=== PATIENT | female | born 1935 | race Caucasian/White ===

== ENCOUNTER → 2019-11-16 12:31 | Outpatient (BNVA) | payer MEDICARE, SELFPAY | PROVIDERS: Visit Provider Family Medicine | DX: E03.9 Hypothyroidism, unspecified (principal); I48.91 Unspecified atrial fibrillation; E11.9 Type 2 diabetes mellitus without complications; M94.0 Chondrocostal junction syndrome [Tietze]; E78.2 Mixed hyperlipidemia; I10 Essential (primary) hypertension; R07.89 Other chest pain | CPT/HCPCS: 80053; 80061; 83036; 84443; 85610 ==

== ENCOUNTER → 2020-03-24 11:00 | Outpatient (BNVA) | payer MEDICARE, SELFPAY | PROVIDERS: PCP Family Medicine; Visit Provider Family Medicine | DX: E11.9 Type 2 diabetes mellitus without complications (principal); E03.9 Hypothyroidism, unspecified; I48.11 Longstanding persistent atrial fibrillation; K21.9 Gastro-esophageal reflux disease without esophagitis; F41.9 Anxiety disorder, unspecified | CPT/HCPCS: 80053; 80061; 83036; 84443; 85610 ==

== ENCOUNTER → 2020-06-17 10:17 | Outpatient (BNVA) | payer MEDICARE, SELFPAY | PROVIDERS: PCP Family Medicine; Visit Provider Nurse Practitioner Family | DX: Z11.59 Encounter for screening for other viral diseases (principal) | CPT/HCPCS: 87635 ==

== ENCOUNTER → 2020-08-11 16:44 | Outpatient (BNVA) | payer MEDICARE, SELFPAY | PROVIDERS: PCP Family Medicine; Visit Provider Family Medicine | DX: E11.9 Type 2 diabetes mellitus without complications (principal); I48.11 Longstanding persistent atrial fibrillation; M54.9 Dorsalgia, unspecified | CPT/HCPCS: 80053; 80061; 81000; 83036; 84443; 85025; 85610 ==

== ENCOUNTER 2020-10-03 11:28 | Emergency (ER) | payer OTHER, SELFPAY ==
[2020-10-03] VITALS (10 sets, daily range): BP systolic 136–168; BP diastolic 78–97; PULSE 91–111; RESP 14–25; TEMP 36.8; O2SAT 88–95; BMI 20.7
--- NOTE | 2020-10-03 12:36 | XRR_ITS ---
PROCEDURE INFORMATION: Exam: XR Chest, 1 View Exam date and time: 10/03/2020 12:54 PM Age: 85 years old Clinical indication: Other: Palpitation TECHNIQUE: Imaging protocol: XR of the chest Views: 1 view. COMPARISON: CR Chest 1 [place] [id number] 01/16/2019 3:16 PM FINDINGS: Lungs: Left basilar opacities may represent lower lobe atelectasis or consolidation. Hazy interstitial infiltrate is present in the right base. Small pleural effusions blunt the costophrenic angles. These findings could be due to heart failure with mild interstitial edema. Superimposed lower lobe pneumonia is also a consideration. Pleural space: Small bilateral pleural effusions. Heart/Mediastinum: The cardiac silhouette is enlarged but unchanged. Bones/joints: Unremarkable. XR/XR chest 1V portable [id number] IMPRESSION: Bibasilar infiltrates and atelectasis with small effusions greater on the left side. Though this could be due to heart failure superimposed pneumonia is also a consideration.
--- NOTE | 2020-10-03 12:36 | ECG_ITS ---
[facility] Test Date: 2020-10-03 Pat Name: Linda Todd Department: Room: Gender: Female Sourcing Analyst: JEANNINE : 1935 Requested By: Bharat Ulloa I Order Number: [id number] Romelia MD: Daphne Tolliver M.D. Measurements Intervals [place] Rate: 119 P: WA: QRS: -39 QRSD: 89 T: 132 QT: 327 QTc: 461 Interpretive Statements ATRIAL FIBRILLATION WITH RAPID VENTRICULAR RESPONSE WITH ABERRANT CONDUCTION OR VENTRICULAR PREMATURE COMPLEXES MARKED LEFT AXIS DEVIATION [QRS AXIS < -30] POSSIBLE RIGHT VENTRICULAR CONDUCTION DELAY [RSR (QR) IN V1/V2] NONSPECIFIC ST & T-WAVE ABNORMALITY Compared to ECG 01/16/2019 13:59:23 Aberrant conduction of supraventricular beat(s) now present Ventricular premature complex(es) now present Left-axis deviation now present T-wave abnormality now present Right bundle-branch block no longer present Electronically Signed On 10-03-2020 17:22:52 PULLMAN CLERK by Daphne Tolliver M.D. [id number]
[2020-10-03 13:10] LABS: Basophils % 0.4 %; Eosinophils % 0.1 %; Hematocrit 43.7 % (37.0-47.0); Hemoglobin 13.8 g/dL (11.5-15.3); Lymphocytes # 1.2 10^3/uL (0.8-4.8); Lymphocytes % 14.7 %; Mean Corpuscular HGB Conc 31.6 g/dL (30.0-36.0); Mean Corpuscular Hemoglobin 31.9 pg (28.0-34.0); Mean Corpuscular Volume 101.2 fL (81-99); Mean Platelet Volume 11.4 fL (7.4-10.4); Monocytes # 0.7 10^3/uL (0.2-0.9); Monocytes % 8.6 %; Neutrophils # 6.05 10^3/uL (1.8-7.7); Neutrophils % 75.8 %; Nucleated Red Blood Cells % 0 %; Platelet Count 237 10^3/cmm (130-400); Red Blood Count 4.32 10^6/uL (4.1-5.3); Red Cell Distribution Width 13.5 % (12.1-15.1)
--- NOTE | 2020-10-03 13:15 | ED_ITS ---
HPI - Arrhythmia/Palpitations General: Chief Complaint: Arrhythmia/Palpitations Stated Complaint: HIGH BP Time Seen by Provider: 10/03/20 12:02 Source: patient and family Mode of arrival: ambulatory Limitations: no limitations History of Present Illness: HPI narrative: Mrs. Todd is an 85 year old female with a history of afib who has been having palpitations for about 3 days. She denies chest pain, but has some SOB. She denies a fever, cough, or dizziness. She called her prop making supervisor who advised that she come to the ED to be evaluated. MD complaint: rapid heart beat, palpitations and irregular heart beat Onset (ago): day(s) (3) Duration: constant Severity: moderate Context: occurred during rest Associated symptoms: Deny anxiety, cough, diaphoresis, muscle cramps, nausea, paresthesias, pre-syncope, sense of impending doom, short of breath, syncope or vomiting Review of Systems General: Reports: 10 or more systems reviewed and unremarkable except in HPI and below Const: Denies: diaphoresis Eyes: Denies: change in vision or blurry vision ENMT: Denies: throat pain, enlarged tonsils, odynophagia, hoarseness, mouth pain or swelling of lips/tongue Card: Denies: syncope or pre-syncope Resp: Denies: dyspnea, productive cough or non-productive cough GI: Denies: nausea or vomiting : Denies: flank pain, difficulty voiding, dysuria, urinary frequency, urinary urgency or urinary hesitancy Musc: Denies: muscle cramps Skin/Breast: Denies: rash, pruritus or erythema Neuro: Denies: headache(s), numbness in extremities or weakness in extremities Psych: Denies: anxiety Endo: Denies: polyuria, polydipsia or tired all the time [facility] ED PFSH: Medical History (Reviewed 10/03/20 @ 13:26 by Bharat Ulloa MD, [facility] [place]) Anxiety Atrial fibrillation CHF (congestive heart failure) CKD (chronic kidney disease) GERD (gastroesophageal reflux disease) Hearing loss in left ear History of DC (myocardial infarction) Hypothyroidism Perforated tympanic membrane Seasonal allergies Type 2 diabetes mellitus Surgical History (Reviewed 10/03/20 @ 13:26 by Bharat Ulloa MD, [facility] [place]) History of appendectomy History of bladder surgery S/P cataract extraction Family History (Reviewed 10/03/20 @ 13:26 by Bharat Ulloa MD, [facility] [place]) Mother Cancer skin CAD (coronary artery disease) Father CAD (coronary artery disease) Social History (Reviewed 10/03/20 @ 13:26 by Bharat Ulloa MD, [facility] [place]) Smoking and tobacco status: never smoked Second hand smoke exposure: No Alcohol intake: never Caregiver/support person: Yes Lives independently: Yes Marital status: / service: No Current occupational status: retired History of recent travel: No Current gender identity: Female Special an needs: No Physical Exam Const: COMMON NORMALS: no acute distress, average body habitus, patient oriented x3, no limitations, healthy appearing, alert and well nourished HENMT: COMMON NORMALS: normocephalic, atraumatic and moist oral mucous membranes HEAD & SCALP: normocephalic and atraumatic Neck/C-Spine: COMMON NORMALS: no meningeal signs and no JVD Resp: COMMON NORMALS: normal respiratory effort, No retractions, No use of accessory muscles, clear to auscultation bilaterally and percussion normal AUSCULTATION: clear to auscultation bilaterally PERCUSSION: percussion normal Cardio: COMMON NORMALS: no JVD, regular rate, regular rhythm, S1 normal heart sound present, S2 normal heart sound present, No gallops present (Cardio), No clicks present (Cardio), No murmurs present (Cardio), No rub (Cardio) and Peripheral pulses 2+ throughout RATE: regular rate RHYTHM: regular rhythm HEART SOUNDS: S1 normal heart sound present and S2 normal heart sound present PERIPHERAL PULSES: Peripheral pulses 2+ throughout GI: COMMON NORMALS: Normal to inspection, nondistended, normoactive bowel sounds present, Soft to palpation, non-tender, No hepatosplenomegaly present, no masses and no bruits PALPATION: Yes Soft to palpation and Yes No hepatosplenomegaly present Extremity: COMMON NORMALS: normal to inspection, full ROM, capillary refill normal, no calf tenderness and no pedal edema Neuro: COMMON NORMALS: patient oriented x3 SENSORIUM/ORIENTATION: Yes alert MENINGEAL SIGNS: Yes no meningeal signs Skin: COMMON NORMALS: no rashes or lesions noted, no wounds, turgor normal, no jaundice, no petechiae and no mottling GENERAL SKIN EXAM: no rashes or lesions noted and turgor normal Course Reevaluation(s): Reevaluation #1: Discussed her lab and imaging findings with the patient and her son who helps with her cares at home. Nothing acute on evaluation. She will start metoprolol at a low dose. She is not taking lasix and so she will start lasix at 20 mg daily. She is continue her other medications. They will call to schedule an appointment with her prop making supervisor and they are in agreement with the plan. Time: 16:10 Consultations: Consultation #1: Discussed this patient with her prop making supervisor, Dr. Sanderson. He advised that we will start her on metoprolol 12.5 mg twice daily, increase the dose of her Lasix, and needs to follow-up with his office in the next 2 to 3 days. She needs to call his office to schedule an appointment to be seen. Since her heart rate is controlled she is stable to be discharged home. Time: 16:00 Vital Signs: Vital signs: Vital Signs Temperature 98.3 F 10/03/20 11:57 Pulse Rate 99 10/03/20 17:03 Respiratory Rate 25 H 10/03/20 17:03 Blood Pressure 136/97 10/03/20 17:03 Pulse Oximetry 92 10/03/20 17:03 MDM - Arrhythmia/Palpitations MDM Narrative: Medical decision making narrative: 85 year old male with a history of afib presents to the ED with palpitations. On evaluation she was in afib with RVR and received a dose of IV diltiazem. SHe also appeared to be in CHF which is likely secondary to afib. After discussion with her prop making supervisor she is to start lasix and metoprolol and follow up with him in 2 to 3 days. Medical Records: Attestation: I reviewed the patient's medical records. Lab Data: Attestation: I reviewed the patient's lab results. Labs: Lab Results 10/03/20 10/03/20 10/03/20 Range/Units 12:21 12:21 12:21 WBC 8.0 (4.0-10.0) 10^3/ uL RBC 4.32 (4.1-5.3) 10^6/u L Hgb 13.8 (11.5-15.3) g/dL Hct 43.7 (37.0-47.0) % MCV 101.2 H (81-99) fL MCH 31.9 (28.0-34.0) pg MCHC 31.6 (30.0-36.0) g/dL RDW 13.5 (12.1-15.1) % Plt Count 237 (130-400) 10^3/c mm MPV 11.4 H (7.4-10.4) fL Neut % (Auto) 75.8 % Lymph % (Auto) 14.7 % [place] % (Auto) 8.6 % Eos % (Auto) 0.1 % Baso % (Auto) 0.4 % Neut # (Auto) 6.05 (1.8-7.7) 10^3/u L Lymph # (Auto) 1.2 (0.8-4.8) 10^3/u L [place] # (Auto) 0.7 (0.2-0.9) 10^3/u L Eos # (Auto) 0.0 (0.0-0.8) 10^3/u L Baso # (Auto) 0.0 (0.0-0.1) 10^3/u L Nucleated RBC % (a uto) 0 % Nucleated RBCs # 0.0 /100WBC PT 31.20 H (12.1-14.9) SECO NDS INR 2.88 H (0.8-1.2) D-Dimer <= 0.27 (0-0.59) ug/mIFE U Sodium 139 (136-145) mmol/L Potassium 4.4 (3.5-5.1) mmol/L Chloride 100 (98-107) mmol/L Carbon Dioxide 26 (22-29) mmol/L Anion Gap 17.4 (5-19) BUN 19 (8-23) mg/dL Creatinine 1.0 H (0.5-0.9) mg/dL GFR Calculation Not Reportable Glucose 138 H (65-115) mg/dL Calculated Osmolal ity 292 (285-295) mOsm/k g Calcium 9.3 (8.5-10.5) mg/dL Total Bilirubin 0.9 (0.15-1.2) mg/dL AST 18 (0-32) U/L ALT 10 (0-33) U/L Alkaline Phosphata se 84 (35-105) IU/L Troponin T Baselin e (0-10) ng/L Troponin T 120 Min [place] (0-10) ng/L Delta Troponin T (0-10) ABS# NT-Pro-B Natriuret Pep 6600 H (0-450) pg/mL Total Protein 6.5 L (6.6-8.7) g/dL Albumin 4.5 (3.5-5.2) g/dL Globulin 2.0 (1.3-4.6) g/dL TSH 4.05 (0.27-4.20) uIU/ mL Urine Color (Yellow) Urine Appearance (CLEAR) Urine pH (5-7) Ur Specific Gravit y (1.005-1.030) Urine Protein (Negative) Urine Glucose (UA) (Normal) Urine Ketones (Negative) Urine Blood (Negative) Urine Nitrate (Negative) Urine Bilirubin (Negative) Urine Urobilinogen (Negative) mg/dL Ur Leukocyte Shanna ase (Negative) Urine RBC (0-2) /hpf Urine WBC (0-5) /hpf Ur Squamous Epith Cells (0-5) /hpf Amorphous Sediment Urine Bacteria (NONE) /hpf Digoxin (0.6-1.2) ng/mL 10/03/20 10/03/20 10/03/20 Range/Units 12:21 13:55 14:41 WBC (4.0-10.0) 10^3/ uL RBC (4.1-5.3) 10^6/u L Hgb (11.5-15.3) g/dL Hct (37.0-47.0) % MCV (81-99) fL MCH (28.0-34.0) pg MCHC (30.0-36.0) g/dL RDW (12.1-15.1) % Plt Count (130-400) 10^3/c mm MPV (7.4-10.4) fL Neut % (Auto) % Lymph % (Auto) % [place] % (Auto) % Eos % (Auto) % Baso % (Auto) % Neut # (Auto) (1.8-7.7) 10^3/u L Lymph # (Auto) (0.8-4.8) 10^3/u L [place] # (Auto) (0.2-0.9) 10^3/u L Eos # (Auto) (0.0-0.8) 10^3/u L Baso # (Auto) (0.0-0.1) 10^3/u L Nucleated RBC % (a uto) % Nucleated RBCs # /100WBC PT (12.1-14.9) SECO NDS INR (0.8-1.2) D-Dimer (0-0.59) ug/mIFE U Sodium (136-145) mmol/L Potassium (3.5-5.1) mmol/L Chloride (98-107) mmol/L Carbon Dioxide (22-29) mmol/L Anion Gap (5-19) BUN (8-23) mg/dL Creatinine (0.5-0.9) mg/dL GFR Calculation Glucose (65-115) mg/dL Calculated Osmolal ity (285-295) mOsm/k g Calcium (8.5-10.5) mg/dL Total Bilirubin (0.15-1.2) mg/dL AST (0-32) U/L ALT (0-33) U/L Alkaline Phosphata se (35-105) IU/L Troponin T Baselin e 39 H (0-10) ng/L Troponin T 120 Min [place] 34.11 H (0-10) ng/L Delta Troponin T -4.89 L (0-10) ABS# NT-Pro-B Natriuret Pep (0-450) pg/mL Total Protein (6.6-8.7) g/dL Albumin (3.5-5.2) g/dL Globulin (1.3-4.6) g/dL TSH (0.27-4.20) uIU/ mL Urine Color Straw (Yellow) Urine Appearance Clear (CLEAR) Urine pH 6.5 (5-7) Ur Specific Gravit y 1.005 (1.005-1.030) Urine Protein Neg (Negative) Urine Glucose (UA) Norm (Normal) Urine Ketones Negative (Negative) Urine Blood 2+ H (Negative) Urine Nitrate Negative (Negative) Urine Bilirubin Neg (Negative) Urine Urobilinogen Norm (Negative) mg/dL Ur Leukocyte Shanna ase Trace H (Negative) Urine RBC 5-10 H (0-2) /hpf Urine WBC 5-10 H (0-5) /hpf Ur Squamous Epith Cells 0-4 H (0-5) /hpf Amorphous Sediment Not Reportable Urine Bacteria Trace (NONE) /hpf Digoxin (0.6-1.2) ng/mL 10/03/20 Range/Units 16:52 WBC (4.0-10.0) 10^3/ uL RBC (4.1-5.3) 10^6/u L Hgb (11.5-15.3) g/dL Hct (37.0-47.0) % MCV (81-99) fL MCH (28.0-34.0) pg MCHC (30.0-36.0) g/dL RDW (12.1-15.1) % Plt Count (130-400) 10^3/c mm MPV (7.4-10.4) fL Neut % (Auto) % Lymph % (Auto) % [place] % (Auto) % Eos % (Auto) % Baso % (Auto) % Neut # (Auto) (1.8-7.7) 10^3/u L Lymph # (Auto) (0.8-4.8) 10^3/u L [place] # (Auto) (0.2-0.9) 10^3/u L Eos # (Auto) (0.0-0.8) 10^3/u L Baso # (Auto) (0.0-0.1) 10^3/u L Nucleated RBC % (a uto) % Nucleated RBCs # /100WBC PT (12.1-14.9) SECO NDS INR (0.8-1.2) D-Dimer (0-0.59) ug/mIFE U Sodium (136-145) mmol/L Potassium (3.5-5.1) mmol/L Chloride (98-107) mmol/L Carbon Dioxide (22-29) mmol/L Anion Gap (5-19) BUN (8-23) mg/dL Creatinine (0.5-0.9) mg/dL GFR Calculation Glucose (65-115) mg/dL Calculated Osmolal ity (285-295) mOsm/k g Calcium (8.5-10.5) mg/dL Total Bilirubin (0.15-1.2) mg/dL AST (0-32) U/L ALT (0-33) U/L Alkaline Phosphata se (35-105) IU/L Troponin T Baselin e (0-10) ng/L Troponin T 120 Min [place] (0-10) ng/L Delta Troponin T (0-10) ABS# NT-Pro-B Natriuret Pep (0-450) pg/mL Total Protein (6.6-8.7) g/dL Albumin (3.5-5.2) g/dL Globulin (1.3-4.6) g/dL TSH (0.27-4.20) uIU/ mL Urine Color (Yellow) Urine Appearance (CLEAR) Urine pH (5-7) Ur Specific Gravit y (1.005-1.030) Urine Protein (Negative) Urine Glucose (UA) (Normal) Urine Ketones (Negative) Urine Blood (Negative) Urine Nitrate (Negative) Urine Bilirubin (Negative) Urine Urobilinogen (Negative) mg/dL Ur Leukocyte Shanna ase (Negative) Urine RBC (0-2) /hpf Urine WBC (0-5) /hpf Ur Squamous Epith Cells (0-5) /hpf Amorphous Sediment Urine Bacteria (NONE) /hpf Digoxin 0.7 (0.6-1.2) ng/mL Imaging Data^: CXR: Attestation: I personally reviewed and interpreted this imaging study as follows: Radiologist's impression: [address] [address] XRay Report Signed Patient: Linda Todd #: [id number] : 5Acct#:[id number] Age/Sex: 85 / FADM Date: 10/03/20 Loc: ERRoom/Bed: Attending Dr: Ordering Provider/Ordering MD: Bharat Ulloa MD, [facility] [place] Date of Service: 10/03/20 Procedure(s): XR chest 1V portable [id number] Accession Number(s): [id number] Report Number: [id number] PROCEDURE INFORMATION: Exam: XR Chest, 1 View Exam date and time: 10/03/2020 12:54 PM Age: 85 years old Clinical indication: Other: Palpitation TECHNIQUE: Imaging protocol: XR of the chest Views: 1 view. COMPARISON: CR Chest 1 [place] [id number] 01/16/2019 3:16 PM FINDINGS: Lungs: Left basilar opacities may represent lower lobe atelectasis or consolidation. Hazy interstitial infiltrate is present in the right base. Small pleural effusions blunt the costophrenic angles. These findings could be due to heart failure with mild interstitial edema. Superimposed lower lobe pneumonia is also a consideration. Pleural space: Small bilateral pleural effusions. Heart/Mediastinum: The cardiac silhouette is enlarged but unchanged. Bones/joints: Unremarkable. XR/XR chest 1V portable [id number] IMPRESSION: Bibasilar infiltrates and atelectasis with small effusions greater on the left side. Though this could be due to heart failure superimposed pneumonia is also a consideration. Dictated By:Juan Ramon Baker Signed By:Juan Ramon BakerSiabdon Date/Time:10/03/20 1302 DD/ 1300 EKG Data^: EKG 1: Attestation: I personally reviewed and interpreted this EKG as follows: EKG interpretation date: 10/03/20 EKG interpretation time: 11:56 Prior EKG tracings: available for review Interpretation: A. fib with RVR. Heart rate 119 bpm. Left axis deviation. No ST changes. Other EKG comments: Chest X-Ray 10/03/20 12:36 IMPRESSION: Bibasilar infiltrates and atelectasis with small effusions greater on the left side. Though this could be due to heart failure superimposed pneumonia is also a consideration. EKG 2: Attestation: I personally reviewed and interpreted this EKG as follows: EKG interpretation date: 10/03/20 EKG interpretation time: 14:28 Prior EKG tracings: available for review Interpretation: Atrial fibrillation with RVR. Heart rate 1 1 bpm. Left axis deviation. No ST changes. Other EKG comments: Chest X-Ray 10/03/20 12:36 IMPRESSION: Bibasilar infiltrates and atelectasis with small effusions greater on the left side. Though this could be due to heart failure superimposed pneumonia is also a consideration. Discharge Plan Discharge Patient Disposition: Home Clinical Impression: CHF (congestive heart failure) Qualifiers: Heart failure type: unspecified Heart failure chronicity: chronic Qualified Code(s): I50.9 - Heart failure, unspecified Atrial fibrillation Qualifiers: Atrial fibrillation type: unspecified Qualified Code(s): I48.91 - Unspecified atrial fibrillation Condition: Stable Prescriptions: New metoprolol tartrate 25 mg tablet 12.5 mg PO BID Qty: 30 RF: 0 Continued aspirin [Adult Low Dose Aspirin] 81 mg tablet,delayed release (DR/EC) 81 mg PO DAILY@0800 RF: 0 pantoprazole 40 mg tablet,delayed release (DR/EC) 40 mg PO DAILY@0800 RF: 0 cetirizine 10 mg tablet 5 mg PO DAILY@0800 PRN (Reason: Allergy Symptoms) RF: 0 docusate sodium [Stool Softener] 100 mg capsule 100 mg PO DAILY PRN (Reason: Constipation) RF: 0 (DME) blood-glucose meter Kit See Rx Instructions .ROUTE .MEDSUPPLY Qty: 1 RF: 0 blood sugar diagnostic [True Metrix Glucose Test Strip] Strip See Rx Instructions .ROUTE .COMPLEX Qty: 100 RF: 0 lancets [TRUEplus Lancets] 30 gauge misc See Rx Instructions .ROUTE .COMPLEX Qty: 100 RF: 0 losartan 50 mg tablet 50 mg PO DAILY@0800 RF: 0 buspirone 5 mg tablet 5 mg PO TID@08,12,18 RF: 0 atorvastatin 20 mg tablet 20 mg PO DAILY@0800 RF: 0 diltiazem HCl 240 mg capsule,extended release 24 hr 240 mg PO DAILY@0800 RF: 0 potassium chloride 10 mEq tablet extended release 10 meq PO DAILY@0800 RF: 0 glipizide 2.5 mg tablet extended release 24hr 2.5 mg PO DAILY@0800 RF: 0 levothyroxine 50 mcg tablet 50 mcg PO DAILY@0800 RF: 0 warfarin 2 mg tablet 4 mg PO DAILY@1800 RF: 0 digoxin 125 mcg (0.125 mg) tablet 62.5 mcg PO DAILY@1800 RF: 0 Changed furosemide 20 mg tablet 20 mg PO DAILY Qty: 30 RF: 0 Discharge Orders: Discharge ED (Routine); Ordered 10/03/20 Ordered By: Bharat Ulloa Referrals: Radha Sanderson MD [Physician] - 1-3 days Vicki Lao MD [Primary Care Provider] - 4-7 days Patient Instructions: Heart Failure (ED), Atrial Fibrillation (ED) Activity Restrictions/Additional Instructions: Return for any new or worsening symptoms. Follow up with your prop making supervisor, Dr. Sanderson within 3 days. He wants you to call his office to schedule an appointment. Take the new medication as prescribed. Start taking the lasix every day and not as needed. Coding Level of Care Code ED Profile Grinder for Tisha Thomas Exam Comprehensive
[2020-10-03 13:21] LABS: Troponin(5th) Baseline 39 ng/L (0-10)
[2020-10-03 13:29] LABS: Alanine Aminotransferase 10 U/L (0-33); Albumin Level 4.5 g/dL (3.5-5.2); Alkaline Phosphatase 84 IU/L (35-105); Anion Gap 17.4 (5-19); Aspartate Amino Transferase 18 U/L (0-32); Blood Urea Nitrogen 19 mg/dL (8-23); Calcium 9.3 mg/dL (8.5-10.5); Carbon Dioxide 26 mmol/L (22-29); Chloride 100 mmol/L (98-107); Glucose 138 mg/dL (65-115); NT Pro B Type Natriuretic Pept 6600 pg/mL (0-450); Osmolality Calculated 292 mOsm/kg (285-295); Potassium 4.4 mmol/L (3.5-5.1); Sodium 139 mmol/L (136-145); Thyroid Stimulating Hormone 4.05 uIU/mL (0.27-4.20); Total Bilirubin 0.9 mg/dL (0.15-1.2); Total Protein 6.5 g/dL (6.6-8.7)
[2020-10-03 13:39] LABS: INR 2.88 (0.8-1.2)
[2020-10-03 13:41] LABS: D Dimer <= 0.27 ug/mIFEU (0-0.59)
[2020-10-03 14:27] LABS: Add Urine Microscopic? YES; Bilirubin Urine Neg (Negative); Blood Urine 2+ (Negative); Glucose Urine UA Norm (Normal); Ketones Urine Negative (Negative); Leukocyte Esterase Urine Trace (Negative); Nitrate Urine Negative (Negative); Protein Urine Neg (Negative); Specific Gravity, Urine 1.005 (1.005-1.030); Urine Appearance Clear (CLEAR); Urine Color Straw (Yellow); Urobilinogen Urine Norm (Negative); pH Urine 6.5 (5-7)
--- NOTE | 2020-10-03 14:36 | ECG_ITS ---
[facility] Test Date: 2020-10-03 Pat Name: Linda Todd Department: Room: Gender: Female Community Director: : 1935 Requested By: Bharat Ulloa I Order Number: [id number] Romelia MD: Daphne Tolliver M.D. Measurements Intervals [place] Rate: 101 P: IN: QRS: -37 QRSD: 94 T: 104 QT: 327 QTc: 424 Interpretive Statements ATRIAL FIBRILLATION WITH RAPID VENTRICULAR RESPONSE WITH ABERRANT CONDUCTION OR VENTRICULAR PREMATURE COMPLEXES LEFT AXIS DEVIATION [QRS AXIS < -30] INCOMPLETE RIGHT BUNDLE BRANCH BLOCK ST DEVIATION AND MODERATE T-WAVE ABNORMALITY, CONSIDER LATERAL ISCHEMIA Compared to ECG 10/03/2020 11:55:55 Incomplete right bundle-branch block now present Possible ischemia now present T-wave abnormality still present Electronically Signed On 10-03-2020 17:29:51 REAL ESTATE LEASING AGENT by Daphne Tolliver M.D. [id number] f
[2020-10-03 14:41] LABS: Bacteria Urine TRACE /hpf; Squamous Epithelial Cell Urine 0-4 /hpf (0-5)
[2020-10-03 14:42] LABS: Add Urine Culture? No
[2020-10-03 15:44] LABS: Troponin 5 2HR 34.11 ng/L (0-10)
[2020-10-03] MEDS: FUROsemide 10 mg/mL SDV 4mL 40 MG IVP (16:11)
[2020-10-03] MEDS: metoprolol tartrate 25 mg Tablet 12.5 MG PO (16:48)
[2020-10-03 19:02] LABS: Digoxin 0.7 ng/mL (0.6-1.2)
== END 2020-10-03 17:05 | disposition home or self-care (01) ==
PROVIDERS: Emergency Provider Family Medicine; PCP Family Medicine
DX: I50.9 Heart failure, unspecified (principal); I48.91 Unspecified atrial fibrillation; Z79.01 Long term (current) use of anticoagulants; Z79.82 Long term (current) use of aspirin; Z79.84 Long term (current) use of oral hypoglycemic drugs; I25.2 Old myocardial infarction; E11.9 Type 2 diabetes mellitus without complications
CPT/HCPCS: 12345; 36415; 71045; 80053; 80162; 81001; 83880; 84443; 84484; 85025; 85378; 85610; 93005; 96374; 96375; 99282; 99284; J1940; J3490

== ENCOUNTER 2020-12-23 19:09 | Emergency (ER) | payer OTHER, SELFPAY ==
[2020-12-23 19:13] VITALS: BP 177/112; PULSE 136; RESP 18; TEMP 36.6; O2SAT 92; BMI 19.9
--- NOTE | 2020-12-23 19:14 | CTR_ITS ---
PROCEDURE INFORMATION: Exam: CT Head Without Contrast Exam date and time: 12/23/2020 7:23 PM Age: 85 years old Clinical indication: Patient HX: Dizziness with n/v; Additional info: Dizzy TECHNIQUE: Imaging protocol: Computed tomography of the head without contrast. Radiation optimization: All CT scans at this facility use at least one of these dose optimization techniques: automated exposure control; mA and/or kV adjustment per patient size (includes targeted exams where dose is matched to clinical indication); or iterative reconstruction. COMPARISON: CT head wo con* [id number] 01/16/2019 4:31 PM RADIATION DOSE METRICS: Total DLP (mGy-cm): 925.71 FINDINGS: Brain: Mild to moderate cerebral atrophy and ischemic leukoencephalopathy. Cerebral ventricles: No ventriculomegaly. Bones/joints: Unremarkable. No acute fracture. Paranasal sinuses: Visualized sinuses are unremarkable. No fluid levels. Mastoid air cells: Visualized mastoid air cells are well aerated. Vasculature: Severe calcified intracranial atherosclerotic vessel disease. Soft tissues: Unremarkable. CT/CT head wo con* [id number] IMPRESSION: No acute intracranial findings. Radiation Dose CTDIVOL = (mGy): DLP = 925.71 (mGy-cm)
--- NOTE | 2020-12-23 19:14 | ECG_ITS ---
[facility] Test Date: 2020-12-23 Pat Name: Linda Todd Department: Room: Gender: Female Special Education Professional: : 1935 Requested By: Milton Wilburn Order Number: [id number] Romelia MD: Bharati Garcia M.D. Measurements Intervals [place] Rate: 121 P: CT: QRS: -17 QRSD: 98 T: 103 QT: 336 QTc: 478 Interpretive Statements ATRIAL FIBRILLATION WITH RAPID VENTRICULAR RESPONSE INCOMPLETE RIGHT BUNDLE BRANCH BLOCK [90+ ms QRS DURATION, TERMINAL R IN V1/V2, 40+ ms S IN I/aVL/V4/V5/V6] MODERATE ST DEPRESSION [0.05+ mV ST DEPRESSION] ABNORMAL QRS-T ANGLE [QRS-T AXIS DIFFERENCE > 60] Compared to ECG 10/03/2020 14:27:58 ST (T wave) deviation now present Aberrant conduction of supraventricular beat(s) no longer present Ventricular premature complex(es) no longer present Left-axis deviation no longer present T-wave abnormality no longer present Possible ischemia no longer present Electronically Signed On 12-24-2020 20:21:12 CDT by Bharati Garcia M.D. [id number]
--- NOTE | 2020-12-23 19:20 | W.ED.NAVMDI ---
HPI - Nausea/Vomiting/Diarrhea General: Chief complaint: Nausea/Vomiting/Diarrhea Stated complaint: dizzy and nausea Time Seen by Provider: 12/23/20 19:11 Source: patient and EMS Mode of arrival: EMS Limitations: no limitations History of Present Illness: HPI Narrative: 85-year-old female states that today she is been having dizziness especially with sudden movements. She states this made her feel nauseous and she has vomited. She states she has had vertigo multiple times in the past. She also has a history of atrial fibrillation. She denies any headache. Denies any fever. Is much worse with sudden movements and improved with rest. Associated nausea: Yes Associated symtoms: Reports dizziness and nausea; Denies chest pain, dysuria or headache(s) Review of Systems Const: Denies: fever(s), chills, body aches or change in appetite Eyes: Denies: blurry vision or eye discomfort ENMT: Denies: throat pain or dental pain Card: Denies: chest pain Resp: Denies: dyspnea GI: Reports: nausea and vomiting; Denies: abdominal pain or diarrhea : Denies: dysuria Musc: Denies: neck pain or back pain Skin/Breast: Denies: rash Neuro: Reports: dizziness; Denies: headache(s) Psych: Denies: depression Nick/Lymph: Denies: easy bruising All/Imm: Denies: urticaria PFSH ED PFSH: Medical History Anxiety Atrial fibrillation CHF (congestive heart failure) CKD (chronic kidney disease) GERD (gastroesophageal reflux disease) Hearing loss in left ear History of [place] (myocardial infarction) Hypothyroidism Perforated tympanic membrane Seasonal allergies Type 2 diabetes mellitus Surgical History History of appendectomy History of bladder surgery S/P cataract extraction Family History Mother Cancer skin CAD (coronary artery disease) Father CAD (coronary artery disease) Social History Smoking and tobacco status: never smoked Second hand smoke exposure: No Alcohol intake: never Caregiver/support person: Yes Lives independently: Yes Marital status: / service: No Current occupational status: retired History of recent travel: No Current gender identity: Female Special an needs: No Physical Exam Const: COMMON NORMALS: no acute distress, patient oriented x3 and healthy appearing HENMT: COMMON NORMALS: normocephalic and atraumatic HEAD & SCALP: normocephalic and atraumatic Eye: COMMON NORMALS: Equal, round and reactive pupils present and EOMs intact bilaterally PUPIL: Yes Equal, round and reactive pupils present Neck/C-Spine: COMMON NORMALS: full ROM and supple Chest: COMMONS NORMALS: normal inspection of the chest and normal palpation of entire chest wall Resp: COMMON NORMALS: normal respiratory effort, No retractions, No use of accessory muscles and clear to auscultation bilaterally AUSCULTATION: clear to auscultation bilaterally Cardio: COMMON NORMALS: No murmurs present (Cardio) RATE: tachycardic RHYTHM: abnormal rhythm irregularly irregular GI: COMMON NORMALS: Normal to inspection, nondistended, normoactive bowel sounds present, Soft to palpation, non-tender and no masses PALPATION: Yes Soft to palpation Extremity: COMMON NORMALS: normal to inspection and full ROM Neuro: COMMON NORMALS: patient oriented x3, moves all extremities and no focal motor deficits CRANIAL NERVES: Yes CN normal except as noted SPEECH: speech normal GAIT: Yes Normal gait present MOTOR EXAM: 5/5 motor strength present throughout Psych: COMMON NORMALS: mental status grossly normal, Normal thought process present and cooperative THOUGHT PROCESS: Normal thought process present Skin: COMMON NORMALS: no rashes or lesions noted and no wounds GENERAL SKIN EXAM: no rashes or lesions noted Course Vital Signs: Vital signs: Vital Signs Temperature 97.8 F 12/23/20 19:13 Pulse Rate 95 12/23/20 20:52 Respiratory Rate 18 12/23/20 20:52 Blood Pressure 142/90 12/23/20 20:52 Pulse Oximetry 93 12/23/20 20:52 MDM - Nausea/Vomiting/Diarrhea MDM Narrative: Medical decision making narrative: Linda presents here with dizziness is likely benign vertigo. She feels much improved here after meclizine was able ambulate without any difficulty. She is in A. fib here and has a history of A. fib her heart rate is improving. I did recommend admission here she still had some tachycardia. She refused and states she feels much improved and would like to go home as she is staying with her daughter here in [place]. We will discharge her and prescribe her meclizine and Zofran for home. She is to return if worsening. Lab Data: Labs: Lab Results 12/23/20 12/23/20 Range/Units 19:20 19:20 WBC 12.1 H (4.0-10.0) 10^3/ uL RBC 4.30 (4.1-5.3) 10^6/u L Hgb 13.9 (11.5-15.3) g/dL Hct 43.1 (37.0-47.0) % MCV 100.2 H (81-99) fL MCH 32.3 (28.0-34.0) pg MCHC 32.3 (30.0-36.0) g/dL RDW 13.6 (12.1-15.1) % Plt Count 227 (130-400) 10^3/c mm MPV 10.9 H (7.4-10.4) fL Neut % (Auto) 87.6 % Lymph % (Auto) 8.0 % [place] % (Auto) 3.8 % Eos % (Auto) 0.1 % Baso % (Auto) 0.2 % Neut # (Auto) 10.54 H (1.8-7.7) 10^3/u L Lymph # (Auto) 1.0 (0.8-4.8) 10^3/u L [place] # (Auto) 0.5 (0.2-0.9) 10^3/u L Eos # (Auto) 0.0 (0.0-0.8) 10^3/u L Baso # (Auto) 0.0 (0.0-0.1) 10^3/u L Nucleated RBC % (a uto) 0 % Nucleated RBCs # 0.0 /100WBC Sodium 137 (136-145) mmol/L Potassium 4.0 (3.5-5.1) mmol/L Chloride 96 L (98-107) mmol/L Carbon Dioxide 27 (22-29) mmol/L Anion Gap 18.0 (5-19) BUN 28 H (8-23) mg/dL Creatinine 1.0 H (0.5-0.9) mg/dL GFR Calculation Not Reportable Glucose 163 H (65-115) mg/dL Calculated Osmolal ity 293 (285-295) mOsm/k g Calcium 9.4 (8.5-10.5) mg/dL Total Bilirubin 0.9 (0.15-1.2) mg/dL AST 20 (0-32) U/L ALT 11 (0-33) U/L Alkaline Phosphata se 77 (35-105) IU/L Total Protein 7.6 (6.6-8.7) g/dL Albumin 4.4 (3.5-5.2) g/dL Globulin 3.2 (1.3-4.6) g/dL EKG Data^: EKG 1: Attestation: I personally reviewed and interpreted this EKG as follows: EKG interpretation date: 12/23/20 EKG interpretation time: 19:31 Interpretation: afib with rvr hr [address] or t wave abnormalities qrs 98 qtc 408 Discharge Plan Discharge Patient Disposition: Home Clinical Impression: Atrial fibrillation, Vertigo Condition: Stable Prescriptions: New ondansetron 4 mg tablet,disintegrating 4 mg PO Q6H PRN (Reason: nausea and vomiting) Qty: 14 RF: 0 meclizine 25 mg tablet 25 mg PO TID PRN (Reason: dizziness) Qty: 30 RF: 0 No Action aspirin [Adult Low Dose Aspirin] 81 mg tablet,delayed release (DR/EC) 81 mg PO DAILY@0800 RF: 0 pantoprazole 40 mg tablet,delayed release (DR/EC) 40 mg PO DAILY@0800 RF: 0 cetirizine 10 mg tablet 5 mg PO DAILY@0800 PRN (Reason: Allergy Symptoms) RF: 0 docusate sodium [Stool Softener] 100 mg capsule 100 mg PO DAILY PRN (Reason: Constipation) RF: 0 (DME) blood-glucose meter Kit See Rx Instructions .ROUTE .MEDSUPPLY Qty: 1 RF: 0 blood sugar diagnostic [True Metrix Glucose Test Strip] Strip See Rx Instructions .ROUTE .COMPLEX Qty: 100 RF: 0 lancets [TRUEplus Lancets] 30 gauge misc See Rx Instructions .ROUTE .COMPLEX Qty: 100 RF: 0 metoprolol tartrate 25 mg tablet 12.5 mg PO BID Qty: 30 RF: 2 furosemide 20 mg tablet 20 mg PO DAILY Qty: 30 RF: 2 glipizide 2.5 mg tablet extended release 24hr See Rx Instructions .ROUTE .COMPLEX Qty: 30 RF: 1 levothyroxine 50 mcg tablet 50 mcg PO DAILY@0800 Qty: 90 RF: 0 diltiazem HCl 180 mg capsule,extended release 24 hr 180 mg PO DAILY Qty: 30 RF: 3 potassium chloride 10 mEq tablet extended release See Rx Instructions .ROUTE .COMPLEX Qty: 60 RF: 2 buspirone 5 mg tablet See Rx Instructions .ROUTE .COMPLEX Qty: 90 RF: 1 losartan 50 mg tablet 50 mg PO DAILY@0800 RF: 0 atorvastatin 20 mg tablet 20 mg PO DAILY@0800 RF: 0 warfarin 2 mg tablet 4 mg PO DAILY@1800 RF: 0 digoxin 125 mcg (0.125 mg) tablet 62.5 mcg PO DAILY@1800 RF: 0 Discharge Orders: Discharge ED (Routine); Ordered 12/23/20 Ordered By: Milton Wilburn Referrals: Vicki Lao MD [Primary Care Provider] - 1-3 days Discharge Diet: Advance as tolerated Discharge Activity: Resume usual activity Patient Instructions: Vertigo (ED) Coding Level of Care Code ED Assembler Convertible Top for Jeremiahg Fwd Exam Comprehensive
[2020-12-23] MEDS: ondansetron 2 mg/ML SDV 2 mL 4 MG IVP (19:29)
[2020-12-23] MEDS: sodium chloride 0.9% 1,000 ML 999 ML IV (19:29)
[2020-12-23] MEDS: meclizine 25 mg tablet 50 MG PO (19:35)
[2020-12-23 19:44] LABS: Basophils % 0.2 %; Eosinophils % 0.1 %; Hematocrit 43.1 % (37.0-47.0); Hemoglobin 13.9 g/dL (11.5-15.3); Mean Corpuscular HGB Conc 32.3 g/dL (30.0-36.0); Mean Corpuscular Hemoglobin 32.3 pg (28.0-34.0); Mean Corpuscular Volume 100.2 fL (81-99); Mean Platelet Volume 10.9 fL (7.4-10.4); Monocytes # 0.5 10^3/uL (0.2-0.9); Monocytes % 3.8 %; Neutrophils # 10.54 10^3/uL (1.8-7.7); Neutrophils % 87.6 %; Nucleated Red Blood Cells % 0 %; Platelet Count 227 10^3/cmm (130-400); Red Cell Distribution Width 13.6 % (12.1-15.1); White Blood Count 12.1 10^3/uL (4.0-10.0)
[2020-12-23 20:04] VITALS: BP 161/85; PULSE 115; RESP 14; O2SAT 92
[2020-12-23 20:04] LABS: Alanine Aminotransferase 11 U/L (0-33); Albumin Level 4.4 g/dL (3.5-5.2); Alkaline Phosphatase 77 IU/L (35-105); Aspartate Amino Transferase 20 U/L (0-32); Blood Urea Nitrogen 28 mg/dL (8-23); Calcium 9.4 mg/dL (8.5-10.5); Carbon Dioxide 27 mmol/L (22-29); Chloride 96 mmol/L (98-107); Globulin 3.2 g/dL (1.3-4.6); Glucose 163 mg/dL (65-115); Osmolality Calculated 293 mOsm/kg (285-295); Sodium 137 mmol/L (136-145); Total Bilirubin 0.9 mg/dL (0.15-1.2); Total Protein 7.6 g/dL (6.6-8.7)
[2020-12-23 20:52] VITALS: BP 142/90; PULSE 95; RESP 18; O2SAT 93
== END 2020-12-23 20:54 | disposition home or self-care (01) ==
PROVIDERS: Emergency Provider Emergency Medicine; PCP Family Medicine
DX: I48.91 Unspecified atrial fibrillation (principal); R42 Dizziness and giddiness; Z79.82 Long term (current) use of aspirin; Z79.01 Long term (current) use of anticoagulants; I11.0 Hypertensive heart disease with heart failure; I50.9 Heart failure, unspecified; I25.2 Old myocardial infarction; E11.9 Type 2 diabetes mellitus without complications
CPT/HCPCS: 70450; 80053; 85025; 93005; 96361; 96374; 96375; 96376; 99284; J2405; J3490; J7030; J8597

== ENCOUNTER 2021-02-24 12:42 | Inpatient (IN) | payer MEDICARE, SELFPAY ==
[2021-02-24] VITALS (8 sets, daily range): BP systolic 107–161; BP diastolic 85–112; PULSE 95–122; RESP 16–21; TEMP 37.1; O2SAT 93–96; BMI 20.7
--- NOTE | 2021-02-24 13:07 | XR_ITS ---
WS: [id number] Right hip, 2 views, 02/24/2021 Clinical Data: pain Comparison: None. Findings: There is a fracture across the right femoral neck as it joins the femoral head. No displacement is seen. There is an acetabular lip. The adjacent right pelvis is intact. The soft ti ssues are unremarkable. XR/XR hip RT 2-3V wo/w pel* [id number] Impression: Slightly impacted fracture of right femoral neck into the right femoral head. Tonnis classification: grade 1: sclerosis of femoral head and acetabulum or sli ght joint space narrowing or slight lipping at joint margins
--- NOTE | 2021-02-24 13:07 | XR_ITS ---
WS: [id number] Right shoulder, 3 views, 02/24/2021 Clinical Data: pain Comparison: Right shoulder, 01/29/2012. Findings: No fractures or dislocations are seen. The AC joint shows mild osteoarthritis. The adjacent right cla vicle, right scapula and ribs are normal. The soft tissues are unremarkable. There is minimal osteoarthritic change of the shoulder joint. XR/XR shoulder RT min 2V* [id number] Impression: 1. Negative for right shoulder fracture or dislocation. 2. Minimal osteoarthritic change of the right shoulder joint and AC joint.
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
--- NOTE | 2021-02-24 13:38 | ECG_ITS ---
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: : 1935 Requested By: Keith Ray Order Number: [id number] Reading MD: ORA RAMIREZ Measurements Intervals [place] Rate: 108 P: AL: QRS: -35 QRSD: 94 T: 101 QT: 324 QTc: 436 Interpretive Statements ATRIAL FIBRILLATION WITH RAPID VENTRICULAR RESPONSE MARKED LEFT AXIS DEVIATION [QRS AXIS < -30] INCOMPLETE RIGHT BUNDLE BRANCH BLOCK [90+ ms QRS DURATION, TERMINAL R IN V1/V2, 40+ ms S IN I/aVL/V4/V5/V6] NONSPECIFIC ST & T-WAVE ABNORMALITY Compared to ECG 12/23/2020 19:31:57 Left-axis deviation now present T-wave abnormality now present ST (T wave) deviation no longer present Electronically Signed On 02-25-2021 20:21:47 CDT by ORA RAMIREZ [email or web address]
--- NOTE | 2021-02-24 13:38 | XR_ITS ---
WS: [id number] Portable AP supine chest, 02/24/2021 Clinical Data: dyspnea/cough Comparison: Portable chest, 10/03/2020. Findings: No nodules or masses are seen. There is left basilar opacity which may represent atelectasi s and or consolidation. The right lung is clear. The heart is normal. The pulmonary vascularity is no t increased. No pneumonia or pneumothorax is seen. The aortic arch shows calcification with minimal t ortuosity. There are monitor leads over the chest wall. XR/XR chest 1V portable [id number] Impression: 1. Left lower lobe opacity which may represent a combination of atelectasis and consolidation. 2. Atherosclerosis.
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
[2021-02-24 15:27] LABS: Urine Appearance Hazy (CLEAR); Urine Color Yellow (Yellow)
[2021-02-24 15:28] LABS: Add Urine Microscopic? YES; Bilirubin Urine Neg (Negative); Blood Urine 2+ (Negative); Glucose Urine UA Norm (Normal); Ketones Urine Negative (Negative); Leukocyte Esterase Urine Negative (Negative); Nitrate Urine Negative (Negative); Protein Urine Neg (Negative); Sulfosalicylic Acid Urine Negative (Negative); Urobilinogen Urine Norm (Negative); pH Urine 7 (5-7)
[2021-02-24 15:29] LABS: Add Urine Culture? No; Bacteria Urine TRACE /hpf; RBC Urine 0-4 /hpf (0-2); Squamous Epithelial Cell Urine 0-4 /hpf (0-5)
[2021-02-24 16:14] LABS: Basophils % 0.2 %; Eosinophils % 0.2 %; Hematocrit 38.2 % (37.0-47.0); Hemoglobin 12.9 g/dL (11.5-15.3); Lymphocytes % 7.7 %; Mean Corpuscular HGB Conc 33.8 g/dL (30.0-36.0); Mean Corpuscular Hemoglobin 32.3 pg (28.0-34.0); Mean Corpuscular Volume 95.7 fL (81-99); Mean Platelet Volume 10.8 fL (7.4-10.4); Monocytes # 0.9 10^3/uL (0.2-0.9); Monocytes % 6.9 %; Neutrophils # 10.57 10^3/uL (1.8-7.7); Neutrophils % 84.6 %; Nucleated Red Blood Cells % 0 %; Platelet Count 207 10^3/cmm (130-400); Red Blood Count 3.99 10^6/uL (4.1-5.3); Red Cell Distribution Width 12.2 % (12.1-15.1); White Blood Count 12.5 10^3/uL (4.0-10.0)
[2021-02-24 16:25] LABS: Alanine Aminotransferase 12 U/L (0-33); Albumin Level 4.1 g/dL (3.5-5.2); Alkaline Phosphatase 73 IU/L (35-105); Aspartate Amino Transferase 21 U/L (0-32); Blood Urea Nitrogen 27 mg/dL (8-23); Calcium 8.8 mg/dL (8.5-10.5); Carbon Dioxide 26 mmol/L (22-29); Chloride 100 mmol/L (98-107); Digoxin 0.8 ng/mL (0.6-1.2); Globulin 2.7 g/dL (1.3-4.6); Glucose 107 mg/dL (65-115); Osmolality Calculated 292 mOsm/kg (285-295); Sodium 138 mmol/L (136-145); Total Bilirubin 1.1 mg/dL (0.15-1.2); Total Protein 6.8 g/dL (6.6-8.7)
[2021-02-24 16:37] LABS: INR 2.74 (0.8-1.2)
[2021-02-24 16:38] LABS: Partial Thromboplastin Time 43.8 SECONDS (23.9-36.7)
[2021-02-24 16:47] LABS: Anion Gap 16.2 (5-19); Potassium 4.2 mmol/L (3.5-5.1)
[2021-02-24] MEDS: acetaminophen 325 mg Tablet PO (18:13)
[2021-02-24] MEDS: metoprolol tartrate 50 mg Tablet PO (18:28)
--- NOTE | 2021-02-24 19:10 | P.CONIM_ITS ---
Providers/Reason For Consult Consulting Physician/Specialty*: hospitalist Reason for Consult*: right femoral neck fracture Attending Physician: Miladys Regalado Primary Care Provider: Vicki Lao MD History of Present Illness History of Present Illness Linda Todd is a 85 year old femalepast medical history significant for hypertension, hyperlipidemia, chronic stage 3 kidney disease, gastroesophageal reflux disease, hypothyroidism, diabetes mellitus type 2, chronic AFib, chronic systolic heart failure with last known EF of 48%, presented to the hospital after sustaining a mechanical fall. Laboratory workup on arrival was pending Imaging studies included a hip and pelvic x-ray which showed varus impacted fracture of the right femoral neck into the right femoral head. Review of Systems Const: Denies: fever(s), chills, body aches, change in appetite, fatigue or malaise ENMT: Denies: enlarged tonsils Card: Denies: chest pain or lightheadedness Resp: Denies: dyspnea, productive cough or non-productive cough GI: Denies: abdominal pain : Denies: hematuria Musc: Denies: neck pain or joint warmth Neuro: Reports: difficulty walking; Denies: headache(s), vertigo or confusion All/Imm: Denies: acute wheezing Meds/Allergies Home Medications and Allergies Home Medications Medication Instructions Recorded Confirmed Last Taken Type aspirin 81 mg tablet,delayed 81 mg PO DAILY@0800 11/16/19 02/24/21 02/24/21 History release cetirizine 10 mg tablet 5 mg PO DAILY@0800 PRN 11/16/19 02/24/21 10/03/20 History pantoprazole 40 mg tablet,delayed 40 mg PO DAILY@0800 11/16/19 02/24/21 02/24/21 History release docusate sodium 100 mg capsule 100 mg PO DAILY PRN 12/01/19 02/24/21 Unknown History blood-glucose meter #1 each 04/11/20 02/24/21 Unknown Rx blood sugar diagnostic See Rx Instructions .ROUTE 07/04/20 02/24/21 Unknown Rx .COMPLEX #100 each lancets 30 gauge See Rx Instructions .ROUTE 07/04/20 02/24/21 Unknown Rx .COMPLEX #100 each digoxin 62.5 mcg PO DAILY@1800 10/03/20 02/24/21 02/24/21 History losartan 50 mg PO DAILY@0800 0102/24/21 02/24/21 History meclizine 25 mg PO TID PRN #30 tab 12/23/20 02/24/21 Unknown Rx atorvastatin 20 mg tablet 20 mg PO DAILY@0800 #30 tab 02/07/21 02/24/21 02/24/21 Rx warfarin 2 mg tablet 4 mg PO DAILY@1800 #60 tab 02/07/21 02/24/21 02/23/21 Rx buspirone 5 mg PO TID@08,12,18 02/24/21 02/24/21 02/24/21 History diltiazem HCl 180 mg PO DAILY@0800 02/24/21 02/24/21 02/24/21 History furosemide 20 mg PO DAILY@0800 02/24/21 02/24/21 02/24/21 History glipizide 2.5 mg PO DAILY 02/24/21 02/24/21 02/24/21 History levothyroxine 25 mcg PO BID@0800,1800 02/24/21 02/24/21 02/24/21 History metoprolol tartrate 12.5 mg PO BID@0800,1800 02/24/21 02/24/21 02/24/21 History potassium chloride 10 meq PO BID@0800,1800 02/24/21 02/24/21 02/24/21 History Allergies Allergy/AdvReac Type Severity Reaction Status Date / Time Penicillins Allergy Unknown Unknown Verified 10/10/20 08:36 PFSH Acute PFSH: Medical History Anxiety Atrial fibrillation CHF (congestive heart failure) CKD (chronic kidney disease) GERD (gastroesophageal reflux disease) Hearing loss in left ear History of UT (myocardial infarction) Hypothyroidism Perforated tympanic membrane Seasonal allergies Type 2 diabetes mellitus Surgical History History of appendectomy History of bladder surgery S/P cataract extraction Family History Mother Cancer skin CAD (coronary artery disease) Father CAD (coronary artery disease) Social History Smoking and tobacco status: never smoked Second hand smoke exposure: No Alcohol intake: never Caregiver/support person: Yes Lives independently: Yes Marital status: / service: No Current occupational status: retired History of recent travel: No Current gender identity: Female Special an needs: No Dietary Habits: Current diet type/program: regular Caffeine: Yes Vitals/I&O/Wt Last Vital Signs Temp 98.7 F 02/24/21 12:50 Pulse 122 H 02/24/21 15:10 Resp 18 02/24/21 15:10 BP 107/85 02/24/21 15:10 Pulse Ox 96 02/24/21 15:10 Weight last 48 hrs Weight 140 lb Physical Exam Narrative: EXAM NARRATIVE: CONSTITUTIONAL: The patient is a normal appearing [] in no apparent distress. GENERAL: Patient in no acute distress. CARDIAC: Regular rate and rhythm. CHEST: Normal inspiratory effort, normal respiratory rate. ABDOMEN: Soft and nontender. SKIN: Clear, warm and intact. NEURO?PSYCH: The patient is alert and oriented to person, place and time. Sensorv /SILT Motor StrengthShoulder abduction C5 5/5Wrist extension C6 5/5Elbow extension C7 5/5Hand Bottled Beverage Inspector C8 5/5Finger abduction T15/5 Radial/ Ulnar/ Median n intact LowerSensory (SILT)Motor StrengthHin flexion L2/3Ant/inner thigh 5/5Hip adduction L2/3 5/5Knee extension L4 Lat thigh, 5/5Toe dorsiflexion L5 5/5Ankle dorsiflexion L5/ W25Pirqmkv flexion S1 5/5 DTRBleeps 2+Triceps 2+Brachioradialis 2+Patellar 2+Achilles 2+ MUSCULOSKELETAL: [] UPPEREXTREMITIES: The patient had full active ROM in fingers, wrist, elbow, and shoulder. The patient demonstrated ability to fully flex/extend/abduct/adduct fingers, make ok sign, cross 2nd/3rd digits, extend 1st digit fully.. Radial pulse 2+, CR<2 seconds. LOWER EXTREMITIES: Pt has full, active ROM of toes, ankle, knee, and hip. Dorsalis pedis/posterior tibialis pulses 2+, CR<2 seconds. SPINE: Skin warm, dry, intact. A&P Assessment and plan (1) Subcapital fracture of right hip: Right hip josiah arthroplasty Status: Acute Consult Attestations Medical Necessity Statement: needs hip fixed Coding Level of Care Code Acute Watch Train Assembler for [facility] F[employer] Diagnoses Subcapital fracture of right hip S72.011A
[2021-02-24 20:24] LABS: Glucose Point of Care 125 mg/dL (70-110)
--- NOTE | 2021-02-24 20:28 | PC.NURSE ---
Patient received to floor ~1900 via stretcher. Transferred to bed x4 assist. Patient tolerated well. Patient denies pain to site but would like something prior to sleep so pain does not waker her up. Light snack provided at this time. Dr Ngo has been in to see patient and is planning for surgery to right hip 02/25/21 at 0800. Patient and daughter Leonarda both verbalized understanding. Daughter planning on returning to patient's bedside around [address] Ngo request.
[2021-02-24] MEDS: sodium chloride 0.9% 1,000 ML 100 ML IV (21:09)
[2021-02-24] MEDS: morphine 4 mg/mL SDV 1 mL IVP (21:09)
[2021-02-24] MEDS: metoprolol tartrate 1 mg/1 mL SDV 5 mL 5 MG IV (21:10)
[2021-02-25] VITALS (31 sets, daily range): BP systolic 111–148; BP diastolic 64–108; PULSE 92–149; RESP 12–28; TEMP 36.6–37; O2SAT 85–100
--- NOTE | 2021-02-25 04:29 | PC.NURSE ---
Patient c/o sore throat this morning. Informed Dr Regalado and received telephone order for Cepacol Lozenges PO q2h PRN. RBVO
[2021-02-25] MEDS: cetylpyridinium Lozenge 1 EACH MUCOUS MEM (04:36)
[2021-02-25] MEDS: sodium chloride 0.9% 1,000 ML 100 ML IV (04:37)
[2021-02-25] MEDS: morphine 4 mg/mL SDV 1 mL IVP (04:43)
--- NOTE | 2021-02-25 06:26 | PC.NURSE ---
Pedal pulses marked and hibiclens wipes used.
[2021-02-25 06:48] LABS: Basophils % 0.2 %; Eosinophils # 0.1 10^3/uL (0.0-0.8); Eosinophils % 1.1 %; Hematocrit 39.8 % (37.0-47.0); Hemoglobin 12.8 g/dL (11.5-15.3); Lymphocytes # 1.1 10^3/uL (0.8-4.8); Lymphocytes % 11.3 %; Mean Corpuscular HGB Conc 32.2 g/dL (30.0-36.0); Mean Corpuscular Hemoglobin 32.3 pg (28.0-34.0); Mean Corpuscular Volume 100.5 fL (81-99); Mean Platelet Volume 11.3 fL (7.4-10.4); Monocytes # 0.9 10^3/uL (0.2-0.9); Monocytes % 8.7 %; Neutrophils # 7.63 10^3/uL (1.8-7.7); Neutrophils % 78.4 %; Nucleated Red Blood Cells % 0 %; Platelet Count 194 10^3/cmm (130-400); Red Blood Count 3.96 10^6/uL (4.1-5.3); Red Cell Distribution Width 12.1 % (12.1-15.1); White Blood Count 9.7 10^3/uL (4.0-10.0)
[2021-02-25 07:02] LABS: INR 2.36 (0.8-1.2)
--- NOTE | 2021-02-25 07:09 | PM.PN ---
Subjective Subjective: Interval history: Patient seen to be feeling pretty good this morning. No significant pain. No chest pain or shortness of breath. Her heart rate was in the 80s to 90s through most of the night. When she woke up this morning it is up in the 110s 120s. She states that this is pretty normal for her though. She actually is feeling pretty good and pretty spry this morning. Her INR was 2.7 yesterday. It is still pending this morning. No fevers or chills. Vitals/I&O/Wt Last Vital Signs Temp 98.5 F 02/25/21 04:54 Pulse 122 H 02/25/21 05:35 Resp 19 H 02/25/21 04:54 BP 143/92 02/25/21 04:54 Pulse Ox 95 02/24/21 20:33 02/24/21 02/25/21 02/25/21 22:59 06:59 14:59 Intake Total 240 / 986.667 746.667 / 986.667 Output Total 1350 / 1750 400 / 1750 Balance -1110 / -763.333 346.667 / -763.333 Weight last 48 hrs Weight 140 lb Physical Exam Narrative: EXAM NARRATIVE: General: No acute distress, Alert. Well nourished. Heart: Regular rate and rhythm. No murmurs, rubs or gallops. Normal capillary refill. Lungs: Clear to auscultation. No wheezes, rhonchi or rales. Abdomen: Positive bowel sounds. Non-tender, non-distended. No hepatosplenomegaly. No gaurding. Extremities: No clubbing, cyanosis, or edema. Negative Lindsay's Data : 02/25/21 06:28 02/24/21 15:59 A&P Assessment and plan (1) Subcapital fracture of right hip: Appreciate Dr. Ngo consultation. We will await INR results this morning. Depending on the results she is otherwise cleared to proceed from my standpoint. Status: Acute (2) History of coronary artery disease: Stable Status: Acute (3) Atrial fibrillation: She has been a bit tachycardic may get more aggressive with beta-blockers if needed. Coumadin being held at this time. Status: Acute (4) Type 2 diabetes mellitus: Stable. Will monitor her blood sugar Status: Acute (5) Hypothyroidism: Status: Acute (6) CHF (congestive heart failure): Stable. Status: Acute Attestations Medical Necessity Statement*: Patient is an 85-year-old female with right hip fracture after a fall. She is going to require repair of this right hip fracture. She will need to be in for over 24 hours for normal surgery and postoperative care. Coding Level of Care Code Acute Rent And Miscellaneous Remittance Clerk for Tisha Thomas Diagnoses Subcapital fracture of right hip S72.011A History of coronary artery disease Z86.79 Atrial fibrillation I48.91 Type 2 diabetes mellitus E11.9 Hypothyroidism E03.9 CHF (congestive heart failure) I50.9
[2021-02-25 07:10] LABS: Alanine Aminotransferase 13 U/L (0-33); Albumin Level 3.9 g/dL (3.5-5.2); Alkaline Phosphatase 73 IU/L (35-105); Anion Gap 14.9 (5-19); Aspartate Amino Transferase 19 U/L (0-32); Blood Urea Nitrogen 22 mg/dL (8-23); Calcium 8.5 mg/dL (8.5-10.5); Carbon Dioxide 26 mmol/L (22-29); Chloride 100 mmol/L (98-107); Globulin 2.5 g/dL (1.3-4.6); Glucose 141 mg/dL (65-115); Osmolality Calculated 290 mOsm/kg (285-295); Potassium 3.9 mmol/L (3.5-5.1); Sodium 137 mmol/L (136-145); Total Bilirubin 1.2 mg/dL (0.15-1.2); Total Protein 6.4 g/dL (6.6-8.7)
--- NOTE | 2021-02-25 07:38 | W.PM.OPSUD ---
Surgery/Procedure H&P Update DATE OF PROCEDURE: February 25, 2021 DATE H&P PERFORMED: 02/24/21 H&P UPDATE INFORMATION: I have reviewed H&P completed within last 30 days, I have examined patient prior to procedure and No changes to prior documentation PLANNED PROCEDURE: Operation Date: 02/25/21 08:00 Proposed Procedures p Hemiarthroplasty Hip(Right) - Srikanth Ngo DO
[2021-02-25] MEDS: metoprolol tartrate 1 mg/1 mL SDV 5 mL 5 MG IV (07:45)
--- NOTE | 2021-02-25 07:45 | P.ANESASSM_ITS ---
Pre-Anesthetic Assessment Pre-Anesthetic Assessment: Height/Weight: Height 1.75 m Weight 63.503 kg Temp Pulse Resp BP Pulse Ox 98.5 F 122 H 19 H 143/92 95 02/25/21 04:54 02/25/21 05:35 02/25/21 04:54 02/25/21 04:54 02/24/21 20:33 Preop Diagnosis: hip fracture Proposed Procedure: Operation Date: 02/25/21 08:00 Proposed Procedures p Hemiarthroplasty Hip(Right) - Srikanth Ngo DO Familial anesthetic complications: none Was Beta Joel taken within 24 hours: Yes Was Clonidine taken within 24 hours: N/A Last intake: NPO > 8 hrs Social: Social History: No alcohol and No tobacco Exam: Pre-Anes Outpt Exam: alert, oriented x 3 and clear to auscultation bilaterally Additional Exam Findings (including area of procedure): a fib w/ RVR, treating with IV metoprolol Airway: Cervical ROM: WNL MP: 2 Dentition: False CV/HEM: CV/HEM: Afib, CAD and CHF : : Chronic renal Insufficiency GI: GI: GERD Metabolic: Metabolic: DM and Thyroid Anesthetic Plan: ASA status: 4 Anesthesia: General Risk of > 500 ml blood loss (7ml/kg in children): No Meds/Allergies Current Medications: Current Medications Generic Name Dose Route Start Last Admin Trade Name Freq PRN Reason Stop Dose Admin Benzocaine 1 each 02/25/21 04:28 02/25/21 04:36 Cetylpyridinium Lozenge MUCOUS MEM 1 each Q2H PRN Administration SORE THROAT Sodium Chloride 1,000 mls @ 100 m ls/hr 02/24/21 20:28 02/25/21 04:37 Sodium Chloride 0.9% IV 100 mls/hr .Q10H ELOINA Administration Morphine Sulfate 4 mg 02/24/21 20:28 02/25/21 04:43 Morphine 4 Mg/Ml Sdv 1 Ml IVP 4 mg Q4H PRN Administration SEVERE PAIN PFSH Anesthesia PFSH: Medical History Anxiety Atrial fibrillation CHF (congestive heart failure) CKD (chronic kidney disease) GERD (gastroesophageal reflux disease) Hearing loss in left ear History of AR (myocardial infarction) Hypothyroidism Perforated tympanic membrane Seasonal allergies Type 2 diabetes mellitus Surgical History History of appendectomy History of bladder surgery S/P cataract extraction Family History Mother Cancer skin CAD (coronary artery disease) Father CAD (coronary artery disease) Social History Smoking and tobacco status: never smoked Second hand smoke exposure: No Alcohol intake: never Caregiver/support person: Yes Lives independently: Yes Marital status: / service: No Current occupational status: retired History of recent travel: No Current gender identity: Female Special an needs: No Data Anesthesia CBC & Chem 7: 02/25/21 06:28 02/25/21 06:28 Other Labs: Laboratory Results - last 48 hr 02/24/21 02/24/21 02/24/21 15:01 15:59 15:59 WBC 12.5 H RBC 3.99 L Hgb 12.9 Hct 38.2 MCV 95.7 MCH 32.3 MCHC 33.8 RDW 12.2 Plt Count 207 MPV 10.8 H Neut % (Auto) 84.6 Lymph % (Auto) 7.7 [place] % (Auto) 6.9 Eos % (Auto) 0.2 Baso % (Auto) 0.2 Neut # (Auto) 10.57 H Lymph # (Auto) 1.0 [place] # (Auto) 0.9 Eos # (Auto) 0.0 Baso # (Auto) 0.0 Nucleated RBC % (auto) 0 Nucleated RBCs # 0.0 PT 29.50 H INR 2.74 H APTT 43.8 H Sodium Potassium Chloride Carbon Dioxide Anion Gap BUN Creatinine GFR Calculation Glucose POC Glucose Calculated Osmolality Calcium Total Bilirubin AST ALT Alkaline Phosphatase Total Protein Albumin Globulin Urine Color Yellow Urine Appearance Hazy A Urine pH 7 Ur Specific [place] 1.010 Urine Protein Neg Urine Glucose (UA) Norm Urine Ketones Negative Urine Blood 2+ H Urine Nitrate Negative Urine Bilirubin Neg Prot Sulfosalicylic Acd Negative Urine Urobilinogen Norm Ur Leukocyte Esterase Negative Urine RBC 0-4 H Urine WBC None Ur Squamous Epith Cells 0-4 H Amorphous Sediment Not Reportable Urine Bacteria Trace Digoxin 02/24/21 02/24/21 02/25/21 15:59 20:17 06:28 WBC 9.7 RBC 3.96 L Hgb 12.8 Hct 39.8 MCV 100.5 H D MCH 32.3 MCHC 32.2 RDW 12.1 Plt Count 194 MPV 11.3 H Neut % (Auto) 78.4 Lymph % (Auto) 11.3 [place] % (Auto) 8.7 Eos % (Auto) 1.1 Baso % (Auto) 0.2 Neut # (Auto) 7.63 Lymph # (Auto) 1.1 [place] # (Auto) 0.9 Eos # (Auto) 0.1 Baso # (Auto) 0.0 Nucleated RBC % (auto) 0 Nucleated RBCs # 0.0 PT INR APTT Sodium 138 Potassium 4.2 Chloride 100 Carbon Dioxide 26 Anion Gap 16.2 BUN 27 H Creatinine 0.9 GFR Calculation Not Reportable Glucose 107 POC Glucose 125 H Calculated Osmolality 292 Calcium 8.8 Total Bilirubin 1.1 AST 21 ALT 12 Alkaline Phosphatase 73 Total Protein 6.8 Albumin 4.1 Globulin 2.7 Urine Color Urine Appearance Urine pH Ur Specific [place] Urine Protein Urine Glucose (UA) Urine Ketones Urine Blood Urine Nitrate Urine Bilirubin Prot Sulfosalicylic Acd Urine Urobilinogen Ur Leukocyte Esterase Urine RBC Urine WBC Ur Squamous Epith Cells Amorphous Sediment Urine Bacteria Digoxin 0.8 02/25/21 02/25/21 06:28 06:28 WBC RBC Hgb Hct MCV MCH MCHC RDW Plt Count MPV Neut % (Auto) Lymph % (Auto) [place] % (Auto) Eos % (Auto) Baso % (Auto) Neut # (Auto) Lymph # (Auto) [place] # (Auto) Eos # (Auto) Baso # (Auto) Nucleated RBC % (auto) Nucleated RBCs # PT 26.30 H INR 2.36 H APTT Sodium 137 Potassium 3.9 Chloride 100 Carbon Dioxide 26 Anion Gap 14.9 BUN 22 Creatinine 0.9 GFR Calculation Not Reportable Glucose 141 H POC Glucose Calculated Osmolality 290 Calcium 8.5 Total Bilirubin 1.2 AST 19 ALT 13 Alkaline Phosphatase 73 Total Protein 6.4 L Albumin 3.9 Globulin 2.5 Urine Color Urine Appearance Urine pH Ur Specific [place] Urine Protein Urine Glucose (UA) Urine Ketones Urine Blood Urine Nitrate Urine Bilirubin Prot Sulfosalicylic Acd Urine Urobilinogen Ur Leukocyte Esterase Urine RBC Urine WBC Ur Squamous Epith Cells Amorphous Sediment Urine Bacteria Digoxin Cardiac Studies: No Data to Display
[2021-02-25] MEDS: clindamycin 600 MG/50 ML PREMIX 100 MG IV (08:00)
--- NOTE | 2021-02-25 09:37 | PM.OP ---
Operative Report Date of procedure: February 25, 2021 Pre-op Diagnosis: hip fracture right femoral neck Post-op diagnosis: same Procedure Done: Right hip hemiarthroplasty Surgeon: Srikanth Ngo Anesthesia: General Estimated blood loss (mL): 50 Condition: stable Disposition: PACU Procedure: Right hip hemiarthroplasty Patient was brought to the operative suite. After undergoing anesthesia patient was placed in the lateral decubitus position with the right hip up. All areas of impingement were well-padded. Patient was then prepped and draped in normal sterile fashion. Skin incision made over the right hip. Bovie was used to coagulate any bleeding down to the IT band. IT band was split. Retractors were placed. The anterior capsule and part of abductors were taken down using the modified Calles approach. Femoral neck was exposed. Femoral neck cut was made approximately a fingerbreadth above the lesser trochanter. The femoral head was then removed. Measured to be 48. Attention was then brought to the femur. filler leaf cutter long was used at the tip of the greater trochanter. Canal finder was used. The canal was then broached to a size 7 Acumed stem. The Acumed stem was placed. A size 48 - 4 neck length and head were placed. Once the hip was reduced is trialed in all positions and stepdown to be stable. The knee and foot lengths were equal. Wounds were irrigated and closed with FiberWire 0 Vicryl 2-0 Vicryl and laura. Sterile dressings were applied and patient was transferred to the PACU in stable condition.
--- NOTE | 2021-02-25 10:00 | PC.NURSE ---
Patient off unit to surgery from 729 to 944.
--- NOTE | 2021-02-25 10:00 | ANE.PACU2 ---
Inpatient post-anesthesia follow up: Airway intact: Yes Vital signs: Temperature 99.0 F Pulse Rate [Monito r] 119 Pulse Rate 102 Respiratory Rate 14 Blood Pressure [Le ft Arm] 150/109 Blood Pressure 118/75 Pulse Oximetry 95 Oxygen Delivery Me thod Room Air Oxygen Flow Rate 2 Fraction of Inspir ed Oxygen Hydration adequate: Yes Nausea and vomiting: No Pain level: 3 Mental status: Baseline
[2021-02-25] MEDS: ondansetron 2 mg/ML SDV 2 mL 4 MG IVP (10:31)
[2021-02-25] MEDS: morphine 4 mg/mL SDV 1 mL 2 MG IVP (10:32)
[2021-02-25 11:31] LABS: Glucose Point of Care 156 mg/dL (70-110)
[2021-02-25] MEDS: BuSPIRONE 10 mg Tablet 5 MG PO ×2 (13:55→17:28)
--- NOTE | 2021-02-25 14:00 | PC.NURSE ---
Phone call to Dr. Hurd regarding patient's HR of 120-130 Requested order to give patient's cardiac meds earlier than scheduled. (1800). Aprproval to give digoxin, cardizem ER and metoprolol now.
[2021-02-25] MEDS: digoxin 125 mcg Tablet 62.5 MCG PO (14:17)
[2021-02-25] MEDS: metoprolol tartrate 25 mg Tablet 12.5 MG PO (14:17)
[2021-02-25] MEDS: dilTIAZem ER (24HR) 180 mg Capsule PO (14:17)
[2021-02-25 16:45] LABS: Glucose Point of Care 248 mg/dL (70-110)
--- NOTE | 2021-02-25 17:10 | PC.NURSE ---
Phone call to Dr. Hurd regarding patient's continued high HR 110-115 . Received order for one time dose metoprolol 25mg now. Verified with physician to hold warfarin tonight and resume tomorrow.
[2021-02-25] MEDS: metoprolol tartrate 25 mg Tablet PO (17:28)
[2021-02-25] MEDS: potassium chloride ER 10 mEq Tablet PO (17:29)
[2021-02-25] MEDS: HYDROcodone-acetaminophen 5-325 mg Tablet 1 TAB PO (17:37)
--- NOTE | 2021-02-25 19:38 | PC.NURSE ---
Received bedside report from RABIA Hollis. Patient resting in bed with daughter at bedside. Daughter reports patient seems more forgetful this evening. Instructed on post anesthesia. Patient and daughter both verbalized understanding. Patient is s/p right hip surgery. Island dressing in place to right hip remain c,d,i. No drainage observed with minimal swelling. Patient denies pain to site presently. No other distress observed.
--- NOTE | 2021-02-25 21:08 | PC.NURSE ---
Patient has increased confusion tonight. Attempting to get out of bed and remove telemetry, iv and edwards. Provided redirection for now however patient has increased agitation. Bed alarm set. Will continue to monitor.
--- NOTE | 2021-02-25 22:01 | PC.NURSE ---
Patient resting with eyes closed. Even respirations. No indication of pulling at lines presently.
[2021-02-26] VITALS (12 sets, daily range): BP systolic 103–122; BP diastolic 65–85; PULSE 82–114; RESP 18–24; TEMP 36.9–37.2; O2SAT 89–98
--- NOTE | 2021-02-26 01:07 | PC.NURSE ---
Patient resting comfortably. Even respirations observed. No distress noted.
[2021-02-26 06:33] LABS: Glucose Point of Care 177 mg/dL (70-110)
--- NOTE | 2021-02-26 07:22 | PM.PN ---
Subjective Subjective: Interval history: Overall patient seems to be doing well pain in her hip is well controlled. She has no chest pain or shortness of breath. She denies any fevers or chills. She got up yesterday with physical therapy without any significant difficulty. Her A. fib was a little rapid yesterday but metoprolol helped control this. Seems to be improving some today. Medications: Reviewed: Yes Vitals/I&O/Wt Last Vital Signs Temp 98.9 F 02/26/21 03:10 Pulse 113 H 02/26/21 06:54 Resp 22 H 02/26/21 06:54 BP 107/85 02/26/21 06:54 Pulse Ox 98 02/26/21 06:54 02/25/21 02/26/21 02/26/21 22:59 06:59 14:59 Intake Total 1360 / 2110 240 / 2110 Output Total 625 / 1075 350 / 1075 Balance 735 / 1035 -110 / 1035 Weight last 48 hrs Weight 140 lb Physical Exam Narrative: EXAM NARRATIVE: General: No acute distress, Alert. Well nourished. Heart: A. fib with a rapid rate. No murmurs, rubs gallops. Normal capillary refill. Lungs: Clear to auscultation. No wheezes, rhonchi or rales. Abdomen: Positive bowel sounds. Non-tender, non-distended. No hepatosplenomegaly. No gaurding. Extremities: No clubbing, cyanosis, or edema. Negative Lindsay's Data : 02/25/21 06:28 02/25/21 06:28 A&P Assessment and plan (1) Subcapital fracture of right hip: - Postop day 1 -Overall the patient is doing well. Continue current postoperative care. Patient would like to be sent home at the time of discharge with home health And physical therapy at home. She has family that can stay with her. Status: Acute (2) History of coronary artery disease: Stable Status: Acute (3) Atrial fibrillation: This is been running a little fast. We will increase her metoprolol. Continue to monitor. Status: Acute (4) Type 2 diabetes mellitus: Stable. Will monitor her blood sugar Status: Acute (5) Hypothyroidism: Status: Acute (6) CHF (congestive heart failure): Stable. Status: Acute Attestations Medical Necessity Statement*: This is an 85-year-old female with a right hip fracture status post repair postop day 1. She requires continued hospitalization for normal postoperative care. Coding Level of Care Code Acute Residency Director for [facility] Fwd Diagnoses Subcapital fracture of right hip S72.011A History of coronary artery disease Z86.79 Atrial fibrillation I48.91 Type 2 diabetes mellitus E11.9 Hypothyroidism E03.9 CHF (congestive heart failure) I50.9
[2021-02-26] MEDS: aspirin 81 mg EC Tablet PO (08:37)
[2021-02-26] MEDS: atorvastatin 40 mg Tablet 20 MG PO (08:37)
[2021-02-26] MEDS: potassium chloride ER 10 mEq Tablet PO ×2 (08:38→17:34)
[2021-02-26] MEDS: levothyroxine 50 mcg Tablet 25 MCG PO (08:38)
[2021-02-26] MEDS: metoprolol tartrate 25 mg Tablet PO ×2 (08:39→17:35)
[2021-02-26] MEDS: pantoprazole DR 40 mg Tablet PO (08:39)
[2021-02-26] MEDS: FUROsemide 20 mg Tablet PO (08:39)
[2021-02-26] MEDS: dilTIAZem ER (24HR) 180 mg Capsule PO (08:40)
[2021-02-26] MEDS: BuSPIRONE 10 mg Tablet 5 MG PO ×3 (08:40→17:48)
[2021-02-26] MEDS: HYDROcodone-acetaminophen 5-325 mg Tablet 1 TAB PO (08:49)
[2021-02-26 11:03] LABS: Glucose Point of Care 211 mg/dL (70-110)
--- NOTE | 2021-02-26 12:12 | PM.PN ---
Subjective Subjective: Interval history: pt resting comfortably Vitals/I&O/Wt Last Vital Signs Temp 98.9 F 02/26/21 03:10 Pulse 114 H 02/26/21 08:10 Resp 20 H 02/26/21 08:03 BP 107/85 02/26/21 06:54 Pulse Ox 96 02/26/21 08:03 02/25/21 02/26/21 02/26/21 22:59 06:59 14:59 Intake Total 1360 / 1870 240 / 2110 120 / 120 Output Total 625 / 725 350 / 1075 Balance 735 / 1145 -110 / 1035 120 / 120 Weight last 48 hrs Weight 140 lb Physical Exam Narrative: EXAM NARRATIVE: resting in bed Data : 02/25/21 06:28 02/25/21 06:28 A&P Assessment and plan (1) Subcapital fracture of right hip: POD#1 Right Hip hemiarthrplasty WBAT Status: Acute Attestations Medical Necessity Statement*: pain control and therapy Coding Level of Care Code Acute Clinical Psychologist for Tisha Thomas Diagnoses Subcapital fracture of right hip S72.011A
[2021-02-26] MEDS: warfarin 2 mg Tablet 4 MG PO (17:34)
[2021-02-26] MEDS: digoxin 125 mcg Tablet 62.5 MCG PO (17:35)
[2021-02-27] VITALS (11 sets, daily range): BP systolic 90–118; BP diastolic 58–78; PULSE 82–135; RESP 14–26; TEMP 36.4–37.6; O2SAT 91–98
[2021-02-27 05:01] LABS: Basophils % 0.3 %; Eosinophils # 0.1 10^3/uL (0.0-0.8); Eosinophils % 0.6 %; Hematocrit 30.8 % (37.0-47.0); Hemoglobin 9.7 g/dL (11.5-15.3); Lymphocytes # 1.3 10^3/uL (0.8-4.8); Lymphocytes % 11.6 %; Mean Corpuscular HGB Conc 31.5 g/dL (30.0-36.0); Mean Corpuscular Hemoglobin 33.2 pg (28.0-34.0); Mean Corpuscular Volume 105.5 fL (81-99); Monocytes # 1.4 10^3/uL (0.2-0.9); Monocytes % 13.3 %; Neutrophils # 7.97 10^3/uL (1.8-7.7); Neutrophils % 73.8 %; Nucleated Red Blood Cells % 0 %; Platelet Count 153 10^3/cmm (130-400); Red Blood Count 2.92 10^6/uL (4.1-5.3); Red Cell Distribution Width 12.6 % (12.1-15.1); White Blood Count 10.8 10^3/uL (4.0-10.0)
[2021-02-27 05:40] LABS: Anion Gap 14.4 (5-19); Blood Urea Nitrogen 26 mg/dL (8-23); Calcium 8.1 mg/dL (8.5-10.5); Carbon Dioxide 25 mmol/L (22-29); Chloride 102 mmol/L (98-107); Glucose 160 mg/dL (65-115); Osmolality Calculated 292 mOsm/kg (285-295); Potassium 4.4 mmol/L (3.5-5.1); Sodium 137 mmol/L (136-145)
[2021-02-27 06:47] LABS: Glucose Point of Care 171 mg/dL (70-110)
--- NOTE | 2021-02-27 07:57 | PC.SOCIAL ---
IMM Update Pg. 2 of IMM updated and reviewed with patient, who verbalized understanding. Copy provided.
--- NOTE | 2021-02-27 08:51 | P.PN_ITS ---
Subjective Subjective: Interval history: reting comfortably Vitals/I&O/Wt Last Vital Signs Temp 98.0 F 02/27/21 07:29 Pulse 135 H 02/27/21 07:29 Resp 16 02/27/21 07:29 BP 112/78 02/27/21 07:29 Pulse Ox 94 02/27/21 07:29 02/26/21 02/27/21 02/27/21 22:59 06:59 14:59 Intake Total 220 / 460 120 / 120 Output Total 690 / 690 350 / 1040 Balance -470 / -230 -350 / -580 120 / 120 Physical Exam Narrative: EXAM NARRATIVE: resting comfortably Data : 02/27/21 04:17 02/27/21 04:17 A&P Additional A&P Information POD# 2 hip josiah arthroplasty d/c planing OK to d/c from ortho stand point Attestations Medical Necessity Statement*: pain control Coding Level of Care Code Acute Control Specialist for Tisha Thomas
[2021-02-27] MEDS: pantoprazole DR 40 mg Tablet PO (08:53)
[2021-02-27] MEDS: atorvastatin 40 mg Tablet 20 MG PO (08:53)
[2021-02-27] MEDS: dilTIAZem ER (24HR) 180 mg Capsule PO (08:53)
[2021-02-27] MEDS: BuSPIRONE 10 mg Tablet 5 MG PO ×3 (08:53→18:12)
[2021-02-27] MEDS: potassium chloride ER 10 mEq Tablet PO ×2 (08:53→18:13)
[2021-02-27] MEDS: FUROsemide 20 mg Tablet PO (08:54)
[2021-02-27] MEDS: metoprolol tartrate 25 mg Tablet PO ×2 (08:54→18:13)
[2021-02-27] MEDS: levothyroxine 50 mcg Tablet 25 MCG PO (08:54)
[2021-02-27] MEDS: aspirin 81 mg EC Tablet PO (08:55)
[2021-02-27 11:32] LABS: Glucose Point of Care 247 mg/dL (70-110)
--- NOTE | 2021-02-27 12:23 | P.PN_ITS ---
Subjective Subjective: Interval history: Patient was seen and examined this morning. Telemetry showed A. fib with RVR: Rate in 120s-130s. She denied any chest pain, shortness of breath , nausea vo miting, dizziness. Overall she is doing fine. Medications: Reviewed: Yes Vitals/I&O/Wt Last Vital Signs Temp 98.0 F 02/27/21 11:27 Pulse 96 02/27/21 11:27 Resp 22 H 02/27/21 11:27 BP 102/58 02/27/21 11:27 Pulse Ox 96 02/27/21 11:27 02/26/21 02/27/21 02/27/21 22:59 06:59 14:59 Intake Total 220 / 460 120 / 120 Output Total 690 / 690 350 / 1040 Balance -470 / -230 -350 / -580 120 / 120 Physical Exam HENMT: COMMON NORMALS: normocephalic and atraumatic HEAD & SCALP: normocephalic and atraumatic Chest: COMMONS NORMALS: normal inspection of the chest CHEST: Yes Symmetrical chest wall rise Resp: COMMON NORMALS: normal respiratory effort, No retractions, No use of accessory muscles and clear to auscultation bilaterally EFFORT & INSPECTION: Yes symmetric chest movement AUSCULTATION: clear to auscultation bilaterally Cardio: OTHER: Irregularly irregular rhythm, S1-S2 are variable intensity. GI: COMMON NORMALS: Normal to inspection, nondistended, normoactive bowel sounds present, Soft to palpation, non-tender, No hepatosplenomegaly present and no masses AUSCULTATION: Yes normoactive bowel sounds PALPATION: Yes Soft to palpation and Yes No hepatosplenomegaly present RECTAL EXAM: deferred Extremity: COMMON NORMALS: no clubbing, cyanosis or edema and no pedal edema Data : 02/27/21 04:17 02/27/21 04:17 A&P Assessment and plan (1) Subcapital fracture of right hip: Status: Acute (2) Atrial fibrillation: Status: Acute (3) Type 2 diabetes mellitus: Status: Acute (4) Hypothyroidism: Status: Acute (5) GERD (gastroesophageal reflux disease): Status: Acute (6) CHF (congestive heart failure): Status: Acute Fall with Right Impacted Femoral Neck Fracture : S/p rt hip josiah arthroplasty Noted on hip/pelvic x-ray Orthopedic surgery consulted. Pain control Bedrest / Fall precautions Ross insertion Atrial Fibrillation with RVR Verify home meds Digoxin 62.5 mcg PO daily/Metoprolol 25 mg PO BID/Cardizem 180 mg PO daily noted on EMR Dig level:Normal Coumadin - INR : 2.36 Hold anticoagulation Chronic systolic Heart failure Last known EF of 48% Cautious fluid hydration Daily weight Strict input and output recording lasix Diabetes Mellitus Hold Glipizide Sliding scale insulin Hypertension Meds as noted above Losartan 50 mg PO daily Dyslipidemia Lipitor 20 mg PO qhs Hypothyroidism levothyroxine 25mcg PO daily TSH GERD Protonix 40 mg PO daily Attestations Medical Necessity Statement*: Patient needs to be in hospital for management of A. fib with RVR, as well as right femoral neck fracture s/p right hip hemiarthroplasty Coding Level of Care Code Acute Visual Basic .Net Developer for g Fwd Diagnoses Subcapital fracture of right hip S72.011A Atrial fibrillation I48.91 Type 2 diabetes mellitus E11.9 Hypothyroidism E03.9 GERD (gastroesophageal reflux disease) K21.9 CHF (congestive heart failure) I50.9
[2021-02-27 16:29] LABS: Glucose Point of Care 207 mg/dL (70-110)
[2021-02-27] MEDS: digoxin 125 mcg Tablet 62.5 MCG PO (18:13)
[2021-02-27] MEDS: warfarin 2 mg Tablet 4 MG PO (18:16)
--- NOTE | 2021-02-27 19:01 | PC.NURSE ---
Pt transferred from room 102 to room 275 med surg floor. Pt had no c/o pain or discomfort at the time of transfer. Report given to Stephan Shah.
[2021-02-27] MEDS: HYDROcodone-acetaminophen 5-325 mg Tablet 1 TAB PO (22:13)
[2021-02-28] VITALS: BP 107/65; PULSE 124; RESP 17; TEMP 36.3; O2SAT 90
[2021-02-28 02:43] LABS: Basophils % 0.2 %; Eosinophils # 0.1 10^3/uL (0.0-0.8); Eosinophils % 0.6 %; Hematocrit 27.2 % (37.0-47.0); Hemoglobin 8.7 g/dL (11.5-15.3); Lymphocytes # 1.4 10^3/uL (0.8-4.8); Mean Corpuscular Hemoglobin 32.2 pg (28.0-34.0); Mean Corpuscular Volume 100.7 fL (81-99); Monocytes # 1.3 10^3/uL (0.2-0.9); Monocytes % 12.4 %; Neutrophils # 7.42 10^3/uL (1.8-7.7); Neutrophils % 72.4 %; Nucleated Red Blood Cells % 0 %; Platelet Count 167 10^3/cmm (130-400); Red Cell Distribution Width 12.4 % (12.1-15.1); White Blood Count 10.3 10^3/uL (4.0-10.0)
[2021-02-28 02:59] LABS: INR 1.36 (0.8-1.2)
[2021-02-28 03:04] LABS: Anion Gap 13.3 (5-19); Blood Urea Nitrogen 26 mg/dL (8-23); Calcium 8.2 mg/dL (8.5-10.5); Carbon Dioxide 26 mmol/L (22-29); Chloride 103 mmol/L (98-107); Glucose 143 mg/dL (65-115); Osmolality Calculated 293 mOsm/kg (285-295); Potassium 4.3 mmol/L (3.5-5.1); Sodium 138 mmol/L (136-145)
[2021-02-28 04:00] VITALS: BP 109/61; PULSE 121; RESP 16; TEMP 36.3; O2SAT 93
[2021-02-28 06:00] VITALS: PULSE 108
[2021-02-28] MEDS: BuSPIRONE 10 mg Tablet 5 MG PO ×2 (07:37→12:11)
[2021-02-28] MEDS: atorvastatin 40 mg Tablet 20 MG PO (07:37)
[2021-02-28] MEDS: cetirizine 10 mg Tablet 5 MG PO (07:37)
[2021-02-28] MEDS: FUROsemide 20 mg Tablet PO (07:38)
[2021-02-28] MEDS: metoprolol tartrate 25 mg Tablet PO (07:38)
[2021-02-28] MEDS: potassium chloride ER 10 mEq Tablet PO (07:38)
[2021-02-28] MEDS: aspirin 81 mg EC Tablet PO (07:38)
[2021-02-28 07:55] VITALS: BP 135/85; PULSE 128; RESP 18; TEMP 36.7; O2SAT 95
[2021-02-28] MEDS: pantoprazole DR 40 mg Tablet PO (08:08)
[2021-02-28] MEDS: dilTIAZem ER (24HR) 180 mg Capsule PO (08:08)
[2021-02-28] MEDS: levothyroxine 50 mcg Tablet 25 MCG PO (08:08)
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
[2021-02-28 11:56] VITALS: BP 130/76; PULSE 86; RESP 18; O2SAT 92
[2021-02-28 14:13] VITALS: BP 130/76; PULSE 86; RESP 18; TEMP 36.7; O2SAT 92
== END 2021-02-28 14:17 | disposition home health service (06) | DRG 522 ==
LOC: ER 16:36 → CSU 19:50 → MEDSURG 02-27 18:43
PROVIDERS: Family Medicine; Orthopaedic Surgery; Admitting Provider Hospitalist; Emergency Provider Family Medicine; PCP Family Medicine; Visit Provider Internal Medicine
PROC: 0SRR0JZ Replacement of Right Hip Joint, Femoral Surface with Synthetic Substitute, Open Approach (ICD-10-PCS; CPT 27125; principal; 2021-02-25 08:00)
DX: S72.011A Unspecified intracapsular fracture of right femur, initial encounter for closed fracture (principal); I13.0 Hypertensive heart and chronic kidney disease with heart failure and stage 1 through stage 4 chronic kidney disease, or unspecified chronic kidney disease; I50.22 Chronic systolic (congestive) heart failure; I48.20 Chronic atrial fibrillation, unspecified; W03.XXXA Other fall on same level due to collision with another person, initial encounter; N18.30 Chronic kidney disease, stage 3 unspecified; E11.22 Type 2 diabetes mellitus with diabetic chronic kidney disease; E78.5 Hyperlipidemia, unspecified; K21.9 Gastro-esophageal reflux disease without esophagitis; E03.9 Hypothyroidism, unspecified; M25.511 Pain in right shoulder; F41.9 Anxiety disorder, unspecified; H91.92 Unspecified hearing loss, left ear; I25.2 Old myocardial infarction; Z79.82 Long term (current) use of aspirin; Z79.01 Long term (current) use of anticoagulants; Z79.84 Long term (current) use of oral hypoglycemic drugs
CPT/HCPCS: 12345; 36415; 36416; 71045; 73030; 73502; 80048; 80053; 80162; 81001; 82962; 84443; 85025; 85610; 85730; 93005; 94664; 96374; 97110; 97116; 97161; 97166; 97530; 97535; 99285; C1776; J1100; J2270; J2370; J2405; J2704; J2710; J3010; J3490; J7030

== ENCOUNTER → 2021-03-06 13:44 | Outpatient (BNVA) | payer MEDICARE, SELFPAY | PROVIDERS: PCP Family Medicine; Visit Provider Family Medicine | DX: I48.91 Unspecified atrial fibrillation (principal); R35.0 Frequency of micturition | CPT/HCPCS: 81003; 85610; 87077; 87086; 87184 ==

== ENCOUNTER → 2021-03-14 11:06 | Outpatient (BNVA) | payer MEDICARE, SELFPAY | PROVIDERS: PCP Family Medicine; Visit Provider Orthopaedic Surgery | DX: M19.031 Primary osteoarthritis, right wrist (principal); M25.531 Pain in right wrist | CPT/HCPCS: 73110; 73130 ==

== ENCOUNTER → 2021-04-11 15:30 | Outpatient (BNVA) | payer MEDICARE, SELFPAY | PROVIDERS: PCP Family Medicine; Visit Provider Orthopaedic Surgery | DX: M25.551 Pain in right hip (principal); Z48.89 Encounter for other specified surgical aftercare | CPT/HCPCS: 73502 ==

== ENCOUNTER → 2021-05-23 13:18 | Outpatient (BNVA) | payer MEDICARE, SELFPAY | PROVIDERS: PCP Family Medicine; Visit Provider Orthopaedic Surgery | DX: M16.12 Unilateral primary osteoarthritis, left hip (principal); M25.551 Pain in right hip; Z48.89 Encounter for other specified surgical aftercare | CPT/HCPCS: 73502 ==

== ENCOUNTER → 2021-06-08 11:01 | Outpatient (BNVA) | payer MEDICARE, SELFPAY | PROVIDERS: PCP Family Medicine; Visit Provider Family Medicine | DX: J20.9 Acute bronchitis, unspecified (principal); J01.00 Acute maxillary sinusitis, unspecified; E11.9 Type 2 diabetes mellitus without complications; E03.8 Other specified hypothyroidism; I48.0 Paroxysmal atrial fibrillation; R53.1 Weakness | CPT/HCPCS: 80053; 80061; 82306; 82607; 83036; 84443; 85025; 85610 ==

== ENCOUNTER → 2021-06-22 11:19 | Outpatient (BNVA) | payer MEDICARE, SELFPAY | PROVIDERS: PCP Family Medicine; Visit Provider Family Medicine | DX: I48.0 Paroxysmal atrial fibrillation (principal) | CPT/HCPCS: 85610 ==

== ENCOUNTER → 2021-08-21 13:14 | Outpatient (BNVA) | payer MEDICARE, SELFPAY | PROVIDERS: PCP Family Medicine; Visit Provider Family Medicine | DX: E03.8 Other specified hypothyroidism (principal); E11.9 Type 2 diabetes mellitus without complications; I48.0 Paroxysmal atrial fibrillation; Z00.00 Encounter for general adult medical examination without abnormal findings; I50.32 Chronic diastolic (congestive) heart failure | CPT/HCPCS: 80053; 80061; 83036; 84443; 85025; 85610 ==

== ENCOUNTER → 2021-09-08 09:42 | Outpatient (BNVA) | payer MEDICARE, SELFPAY | PROVIDERS: PCP Family Medicine; Visit Provider Family Medicine | DX: I48.0 Paroxysmal atrial fibrillation (principal) | CPT/HCPCS: 85610 ==

== ENCOUNTER → 2021-12-18 11:53 | Outpatient (BNVA) | payer MEDICARE, SELFPAY | PROVIDERS: PCP Family Medicine; Visit Provider Family Medicine | DX: E11.9 Type 2 diabetes mellitus without complications (principal); E55.9 Vitamin D deficiency, unspecified; E03.9 Hypothyroidism, unspecified; I48.91 Unspecified atrial fibrillation; E03.8 Other specified hypothyroidism; E78.5 Hyperlipidemia, unspecified; I48.0 Paroxysmal atrial fibrillation | CPT/HCPCS: 80053; 80061; 82306; 83036; 84443; 85025; 85610 ==

== ENCOUNTER → 2022-01-03 13:36 | Outpatient (BNVA) | payer MEDICARE, SELFPAY | PROVIDERS: PCP Family Medicine; Visit Provider Family Medicine | DX: N39.0 Urinary tract infection, site not specified (principal); I48.91 Unspecified atrial fibrillation; R31.9 Hematuria, unspecified; I95.9 Hypotension, unspecified | CPT/HCPCS: 81003; 85610; 87077; 87086; 87184 ==

== ENCOUNTER 2022-01-08 12:47 | Emergency (ER) | payer MEDICARE, SELFPAY ==
[2022-01-08] VITALS (10 sets, daily range): BP systolic 95–150; BP diastolic 49–86; PULSE 66–100; RESP 12–28; TEMP 36.7–36.8; O2SAT 95–96; BMI 21.6
--- NOTE | 2022-01-08 12:58 | XR_ITS ---
WS: [id number] Exam: XR chest 1V portable [id number] Date/Time of Exam: 01/08/2022 12:58 PM Reason For Exam: ams Comparison 02/24/2021. Increased density seen in the left retrocardiac region may represent chronic atelectasis. This is unc hanged. Remaining lung angel are clear. No pneumothorax. No pleural effusion. Heart size is within n ormal limits for technique. The mediastinal silhouette is unremarkable. Regional bony elements are in tact. XR/XR chest 1V portable [id number] IMPRESSION: 1. Increased density in the left retrocardiac region that may represent chronic mild atelectasis. Similar findings noted on prior study. 2. No acute process identified otherwise.
--- NOTE | 2022-01-08 12:58 | ECG_ITS ---
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 Measurements Intervals [place] Rate: 77 P: MS: QRS: -15 QRSD: 94 T: -2 QT: 359 QTc: 408 Interpretive Statements ATRIAL FIBRILLATION INCOMPLETE RIGHT BUNDLE BRANCH BLOCK [90+ ms QRS DURATION, TERMINAL R IN V1/V2, 40+ ms S IN I/aVL/V4/V5/V6] NONSPECIFIC ST & T-WAVE ABNORMALITY ABNORMAL RHYTHM ECG Compared to ECG 02/24/2021 14:19:06 Left-axis deviation no longer present T-wave abnormality still present Electronically Signed On 01-09-2022 7:27:30 CDT by Daphne Tolliver M.D. [id number]
[2022-01-08 13:30] LABS: Basophils % 0.3 %; Eosinophils # 0.4 10^3/uL (0.0-0.8); Eosinophils % 4.1 %; Hematocrit 37.7 % (37.0-47.0); Hemoglobin 12.1 g/dL (11.5-15.3); Lymphocytes # 0.9 10^3/uL (0.8-4.8); Lymphocytes % 9.3 %; Mean Corpuscular HGB Conc 32.1 g/dL (30.0-36.0); Mean Corpuscular Hemoglobin 31.3 pg (28.0-34.0); Mean Corpuscular Volume 97.4 fl (81-99); Mean Platelet Volume 9.9 fL (7.4-10.4); Monocytes # 0.9 10^3/uL (0.2-0.9); Monocytes % 9.5 %; Neutrophils % 76.4 %; Nucleated Red Blood Cells % 0 %; Platelet Count 225 10^3/cmm (130-400); Red Blood Count 3.87 10^6/uL (4.1-5.3); Red Cell Distribution Width 13.1 % (12.1-15.1); White Blood Count 9.8 10^3/uL (4.0-10.0)
--- NOTE | 2022-01-08 13:39 | CTR_ITS ---
PROCEDURE INFORMATION: Exam: CT Head Without Contrast Exam date and time: 01/08/2022 1:51 PM Age: 86 years old Clinical indication: Multiple falls. Blunt trauma. Closed head injury. TECHNIQUE: Imaging protocol: Computed tomography of the head without contrast. Radiation optimization: All CT scans at this facility use at least one of these dose optimization techniques: automated exposure control; mA and/or kV adjustment per patient size (includes targeted exams where dose is matched to clinical indication); or iterative reconstruction. COMPARISON: CT head wo con* [id number] 12/23/2020 7:58 PM RADIATION DOSE METRICS: Total DLP (mGy-cm): 943.29 FINDINGS: Brain: No acute intracranial hemorrhage. No mass, mass effect or midline shift. There is no evidence of acute large vessel infarct. There is moderate patchy subcortical and periventricular hypodensity, most commonly associated with small vessel ischemic disease of indeterminate age. Tiny lacunar infarcts in the cerebellum, bilaterally, are unchanged. 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 Cerebral ventricles: The ventricles are prominent, compatible with mild parenchymal volume loss. Paranasal sinuses: There is a retention cyst or polyp in the left posterior left ethmoid air cells. Mastoid air cells: New left mastoid air cells are poorly pneumatized. There is a left mastoid effusion; similar to prior. Orbital cavities: The visualized orbits are unremarkable. Bones/joints: No acute fracture is seen. Soft tissues: No scalp soft tissue swelling is seen. CT/CT head wo con* [id number] IMPRESSION: 1. [id number] senescent changes as above. 2. 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 3. No acute intracranial hemorrhage.
[2022-01-08 14:01] LABS: Alanine Aminotransferase 111 U/L (0-33); Albumin Level 4.1 g/dL (3.5-5.2); Alkaline Phosphatase 190 IU/L (35-105); Anion Gap 15.9 (5-19); Aspartate Amino Transferase 106 U/L (0-32); Blood Urea Nitrogen 25 mg/dL (8-23); Calcium 8.6 mg/dL (8.5-10.5); Carbon Dioxide 29 mmol/L (22-29); Chloride 97 mmol/L (98-107); Globulin 2.5 g/dL (1.3-4.6); Glucose 112 mg/dL (65-115); Lipase 36 U/L (13-60); Osmolality Calculated 291 mOsm/kg (285-295); Potassium 3.9 mmol/L (3.5-5.1); Sodium 138 mmol/L (136-145); Total Protein 6.6 g/dL (6.6-8.7)
[2022-01-08 14:02] LABS: Digoxin 0.7 ng/mL (0.6-1.2)
--- NOTE | 2022-01-08 14:07 | ED_ITS ---
HPI - General Adult General: Chief complaint: Altered Mental Status Stated complaint: AMS, hit head, blood pressure varies Time Seen by Provider: 01/08/22 13:10 Source: patient Mode of arrival: ambulatory History of Present Illness: 86-year-old female presents to the emergency room with reports of blood pressure control issues multiple falls in the last several days at times she will have some altered mental status at the time she is seen now she is awake and alert and able to provide a fairly good history. She denies any chest pain or shortness of breath the fall generally are occurring immediately after patient stands. She was seen her primary care doctor's office I did orthostatics on her blood pressure dropped significantly and she became symptomatic she is referred to the ER. She denies any shortness of breath d enies any difficulties with bowel bladder no dysuria urgency or frequency no fever sweats or chills no vomiting or diarrhea. One of the falls last week resulted in a fairly good-sized bruise at her left baptism she is not really able to relate whether or not she lost consciousness completely. She is on digoxin and is diabetic no recent changes in insulin blood sugars seem to have been stable recently per her report. No chest pain or shortness of breath associated with these episodes. Onset (ago): week(s) Location: head Severity: mild Relieving factors: none Exacerbating factors: other (Standing) Associated symptoms: Deny chest pain, confusion, cough, diaphoresis, decreased appetite, dyspnea, fevers/chills, headache(s), malaise, nausea, rash, palpitations, seizures, short of breath, syncope, vomiting or weakness Treatments prior to arrival: none Review of Systems Const: Denies: malaise or diaphoresis ENMT: Denies: throat pain, ear or mastoid pain, nasal discharge or nasal congestion Card: Denies: chest pain, palpitations or syncope Resp: Denies: dyspnea GI: Denies: nausea or vomiting : Denies: flank pain, difficulty voiding, dysuria, urinary frequency or ur inary urgency Skin/Breast: Denies: rash Neuro: Denies: headache(s) or confusion [facility] ED PFSH: Medical History Anxiety Atrial fibrillation CHF (congestive heart failure) CKD (chronic kidney disease) GERD (gastroesophageal reflux disease) Hearing loss in left ear History of coronary artery disease History of [place] (myocardial infarction) Hypothyroidism Perforated tympanic membrane Seasonal allergies Subcapital fracture of right hip Type 2 diabetes mellitus Surgical History History of appendectomy History of bladder surgery S/P cataract extraction Family History Mother Cancer skin CAD (coronary artery disease) Father CAD (coronary artery disease) Social History Smoking and tobacco status: never smoked Second hand smoke exposure: No Alcohol intake: never Caregiver/support person: Yes Lives independently: Yes Marital status: / service: No Current occupational status: retired History of recent travel: No Current gender identity: Female Special an needs: No Physical Exam Const: COMMON NORMALS: no acute distress GENERAL APPEARANCE: cooperative and comfortable ORIENTATION/CONSCIOUSNESS: Yes awake, Yes oriented to person, Yes oriented to place and Yes oriented to time HENMT: COMMON NORMALS: normocephalic, hearing grossly normal bilaterally, external ears normal, EAC's normal, TM's normal bilaterally and Normal nasal mucous membranes and turbinates present HEAD & SCALP: normocephalic NOSE: Normal nasal mucous membranes and turbinates present EXTERNAL EAR: Yes external ears normal EXTERNAL AUDITORY CANAL: EAC's normal TYMPANIC MEMBRANE: TM's normal bilaterally Eye: COMMON NORMALS: Equal, round and reactive pupils present, EOMs intact bilaterally, conjunctivae normal and no scleral icterus CONJUNCTIVA: Yes conjunctivae normal PUPIL: Yes Equal, round and reactive pupils present Neck/C-Spine: COMMON NORMALS: full ROM, no lymphadenopathy, supple and no JVD Lymph: LYMPHATIC: no lymphadenopathy noted and no lymphedema noted Resp: COMMON NORMALS: normal respiratory effort, No retractions, No use of accessory muscles and clear to auscultation bilaterally AUSCULTATION: clear to auscultation bilaterally Cardio: COMMON NORMALS: no JVD, regular rate, regular rhythm and No murmurs present (Cardio) RATE: regular rate RHYTHM: regular rhythm GI: COMMON NORMALS: Soft to palpation and No hepatosplenomegaly present AUSCULTATION: Yes normoactive bowel sounds PALPATION: Yes Soft to palpation, No Tenderness to palpation present (GI), No Guarding due to palpation present (GI) and Yes No hepatosplenomegaly present Extremity: COMMON NORMALS: normal to inspection, capillary refill normal, no clubbing, cyanosis or edema, no calf tenderness and no pedal edema Neuro: SENSORIUM/ORIENTATION: Yes oriented to person, Yes oriented to place and Yes oriented to time Skin: COMMON NORMALS: no rashes or lesions noted GENERAL SKIN EXAM: no rashes or lesions noted Course Vital Signs: Vital signs: Vital Signs Temperature 98.2 F 01/08/22 14: Pulse Rate 83 01/08/22 17:00 Respiratory Rate 28 H 01/08/22 17:00 Blood Pressure 150/86 01/08/22 17:00 Pulse Oximetry 96 01/08/22 14:22 MDM - General Adult Medical Decision Making Orthostatic she does have a slight drop and she was little symptomatic here. We will stop her potassium and her Lasix. In addition to that I am concerned about her extended release Glucophage. She may be getting hypoglycemic at times such a low dose and not sure if that much benefit given her age the risk is probably higher than the benefit recommend that she stop that as well follow-up with her primary care doctor later this week. Medical Records I reviewed the patient's medical records. Lab Data I reviewed the patient's lab results. : 01/08/22 13:25 01/08/22 13:25 Radiology Impressions Chest X-Ray 01/08/22 12:58 IMPRESSION: 1. Increased density in the left retrocardiac region that may represent chronic mild atelectasis. Similar findings noted on prior study. 2. No acute process identified otherwise. Head CT 01/08/22 13:39 IMPRESSION: 1. [id number] senescent changes as above. 2. 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 3. No acute intracranial hemorrhage. Laboratory Results WBC 9.8 10^3/uL (4.0-10.0) 01/08/22 13:25 RBC 3.87 10^6/uL (4.1-5.3) L 01/08/22 13:25 Hgb 12.1 g/dL (11.5-15.3) 01/08/22 13:25 Hct 37.7 % (37.0-47.0) 01/08/22 13:25 MCV 97.4 fl (81-99) 01/08/22 13:25 MCH 31.3 pg (28.0-34.0) 01/08/22 13:25 MCHC 32.1 g/dL (30.0-36.0) 01/08/22 13:25 RDW 13.1 % (12.1-15.1) 01/08/22 13:25 Plt Count 225 10^3/cmm (130-400) 01/08/22 13:25 MPV 9.9 fL (7.4-10.4) 01/08/22 13:25 Neut % (Auto) 76.4 % 01/08/22 13:25 Lymph % (Auto) 9.3 % 01/08/22 13:25 [place] % (Auto) 9.5 % 01/08/22 13:25 Eos % (Auto) 4.1 % 01/08/22 13:25 Baso % (Auto) 0.3 % 01/08/22 13:25 Neut # (Auto) 7.50 10^3/uL (1.8-7.7) 01/08/22 13:25 Lymph # (Auto) 0.9 10^3/uL (0.8-4.8) 01/08/22 13:25 [place] # (Auto) 0.9 10^3/uL (0.2-0.9) 01/08/22 13:25 Eos # (Auto) 0.4 10^3/uL (0.0-0.8) 01/08/22 13:25 Baso # (Auto) 0.0 10^3/uL (0.0-0.1) 01/08/22 13:25 Nucleated RBC % (auto) 0 % 01/08/22 13:25 Nucleated RBCs # 0.0 /100WBC 01/08/22 13:25 PT 24.40 SECONDS (12.1-14.9) H 01/08/22 14:10 INR 2.15 (0.8-1.2) H 01/08/22 14:10 Sodium 138 mmol/L (136-145) 01/08/22 13:25 Potassium 3.9 mmol/L (3.5-5.1) 01/08/22 13:25 Chloride 97 mmol/L (98-107) L 01/08/22 13:25 Carbon Dioxide 29 mmol/L (22-29) 01/08/22 13:25 Anion Gap 15.9 (5-19) 01/08/22 13:25 BUN 25 mg/dL (8-23) H 01/08/22 13:25 Creatinine 1.1 mg/dL (0.5-0.9) H 01/08/22 13:25 GFR Calculation Not Reportable 01/08/22 13:25 Glucose 112 mg/dL (65-115) 01/08/22 13:25 Calculated Osmolality 291 mOsm/kg (285-295) 01/08/22 13:25 Lactic Acid 1.5 mmol/L (0.5-2.2) 01/08/22 13:36 Calcium 8.6 mg/dL (8.5-10.5) 01/08/22 13:25 Total Bilirubin 1.0 mg/dL (0.15-1.2) 01/08/22 13:25 AST 106 U/L (0-32) H 01/08/22 13:25 ALT 111 U/L (0-33) H 01/08/22 13:25 Alkaline Phosphatase 190 IU/L (35-105) H 01/08/22 13:25 Troponin T Baseline 31 ng/L (0-10) H 01/08/22 13:25 Troponin T 120 Minute 29.86 ng/L (0-10) H 01/08/22 15:50 Delta Troponin T -1.14 ABS# (0-10) L 01/08/22 15:50 Total Protein 6.6 g/dL (6.6-8.7) 01/08/22 13:25 Albumin 4.1 g/dL (3.5-5.2) 01/08/22 13:25 Globulin 2.5 g/dL (1.3-4.6) 01/08/22 13:25 Lipase 36 U/L (13-60) 01/08/22 13:25 Urine Color Dark yellow (Yellow) 01/08/22 14:23 Urine Appearance Cloudy (CLEAR) 01/08/22 14:23 Urine pH 6 (5-7) 01/08/22 14:23 Ur Specific [place] 1.020 (1.005-1.030) 01/08/22 14:23 Urine Protein 1+ (Negative) H 01/08/22 14:23 Urine Glucose (UA) Norm (Normal) 01/08/22 14:23 Urine Ketones Negative (Negative) 01/08/22 14:23 Urine Blood 2+ (Negative) H 01/08/22 14:23 Urine Nitrate Positive (Negative) H 01/08/22 14:23 Urine Bilirubin 1+ (Negative) H 01/08/22 14:23 Urine Urobilinogen 4 mg/dL (Negative) H 01/08/22 14:23 Ur Leukocyte Esterase 2+ (Negative) H 01/08/22 14:23 Urine RBC 5-10 /hpf (0-2) H 01/08/22 14:23 Urine WBC 25-40 /hpf (0-5) H 01/08/22 14:23 Ur Squamous Epith Cells 25-40 /hpf (0-5) H 01/08/22 14:23 Amorphous Sediment Not Reportable 01/08/22 14:23 Urine Bacteria 2+ /hpf (NONE) H 01/08/22 14:23 Urine Mucus 1+ /hpf 01/08/22 14:23 Digoxin 0.7 ng/mL (0.6-1.2) 01/08/22 13:25 Discharge Plan Discharge Patient Disposition: Home Clinical Impression: Postural hypotension, Generalized weakness, Gait instability, Type 2 diabetes mellitus Condition: Stable Prescriptions: Discontinued furosemide 20 mg tablet 20 mg PO DAILY@0800 Qty: 30 3RF potassium chloride 10 mEq tablet extended release 10 meq PO BID@08,18 0RF glipizide 2.5 mg tablet extended release 24hr 2.5 mg PO DAILY@08 0RF Rx Instructions: 15 minutes before breakfast. No Action True Metrix Glucose Test Strip Strip See Rx Instructions .ROUTE .COMPLEX Qty: 100 0RF Dose Instruction: USE ONCE daily AND NEEDED Rx Instructions: USE ONCE daily AND NEEDED aspirin [Adult Low Dose Aspirin] 81 mg tablet,delayed release (DR/EC) 81 mg PO DAILY@0800 0RF pantoprazole 40 mg tablet,delayed release (DR/EC) 40 mg PO DAILY@0800 Qty: 30 3RF meclizine 25 mg tablet 25 mg PO TID PRN (Reason: dizziness) Qty: 30 2RF lancets [TRUEplus Lancets] 30 gauge misc See Rx Instructions .ROUTE .COMPLEX Qty: 100 0RF Dose Instruction: USE AT least ONCE DAILY AND NEEDED Rx Instructions: USE AT least ONCE DAILY AND NEEDED ondansetron HCl 4 mg tablet 4 mg PO Q8H PRN (Reason: nausea and vomiting) Qty: 30 3RF warfarin 2 mg tablet 4 mg PO DAILY@1800 Qty: 60 3RF Protocol: Dose Management Condition: Saturday Dose/Route: 4 mg Instruction: 2 x 2 mg tablets Condition: Saturday Dose/Route: 4 mg Instruction: 2 x 2 mg tablets Condition: Saturday Dose/Route: 4 mg Instruction: 2 x 2 mg tablets Condition: Saturday Dose/Route: 4 mg Instruction: 2 x 2 mg tablets Condition: Dose/Route: 4 mg Instruction: 2 x 2 mg tablets Condition: Saturday Dose/Route: 4 mg Instruction: 2 x 2 mg tablets Condition: Saturday Dose/Route: 4 mg Instruction: 2 x 2 mg tablets Protocol Text: Adjustment Start Date: Saturday01/03/22 INR Value: 25.40 SECONDS INR Date: 01/03/22 Recheck Date: 02/02/22 buspirone 5 mg tablet 5 mg PO TID@08,12,18 Qty: 90 1RF digoxin 125 mcg (0.125 mg) tablet 62.5 mcg PO DAILY@1800 Qty: 30 3RF diltiazem HCl 180 mg capsule,extended release 24 hr 180 mg PO DAILY@0800 Qty: 30 3RF nitrofurantoin monohyd/m-cryst [Macrobid] 100 mg capsule 100 mg PO BID Qty: 20 0RF Rx Instructions: must administer with a meal/food (DME) blood-glucose meter Kit See Rx Instructions .ROUTE .MEDSUPPLY Qty: 1 0RF Rx Instructions: at least once daily and prn Milk of Magnesia 400 mg/5 mL Suspension 15 - 30 ml PO .ONCE - TWICE A WEEK 0RF Vitamin B-12 500 mcg Tablet 1,000 mcg PO QAM 0RF Vitamin C 500 mg Tablet 500 mg PO DAILY 0RF Azo Urinary Pain Relief 99.5 mg Tablet 99.5 mg PO BID 0RF Vitamin D3 1 cap PO DAILY 0RF vitamin E 1 cap PO DAILY 0RF atorvastatin 20 mg tablet 20 mg PO BEDTIME 0RF cetirizine 10 mg tablet 10 mg PO QAM 0RF levothyroxine 75 mcg tablet 75 mcg PO QAM 0RF losartan 25 mg tablet 25 mg PO QAM 0RF metoprolol tartrate 25 mg tablet See Rx Instructions .ROUTE .COMPLEX 0RF Rx Instructions: Take 25mg (1 tab) in AM and 12.5mg (0.5 tab) in PM Discharge Orders: Discharge ED (Routine); Ordered 01/08/22 Ordered By: Keith Gongora Referrals: Vicki Lao MD [Primary Care Provider] - Discharge Diet: Usual diet Discharge Activity: Increase activity as tolerated Patient Instructions: Opioid Safety Activity Restrictions/Additional Instructions: Follow-up with your doctor within the next week. Coding Level of Care Code ED Wardrobe Specialty Worker for Tisha Fwd Exam Comprehensive
[2022-01-08] MEDS: sodium chloride 0.9% 1,000 ML 999 ML IV (14:14)
[2022-01-08 14:15] LABS: Troponin(5th) Baseline 31 ng/L (0-10)
--- NOTE | 2022-01-08 14:58 | ECG_ITS ---
[facility] Test Date: 2022-01-08 Pat Name: Linda Todd Department: Room: Gender: Female Test Center Manager: : 1935 Requested By: Kaylah Jeffries Order Number: [id number] Romelia MD: Daphne Tolliver M.D. Measurements Intervals [place] Rate: 84 P: [place]: QRS: -18 QRSD: 96 T: 34 QT: 354 QTc: 419 Interpretive Statements ATRIAL FIBRILLATION INCOMPLETE RIGHT BUNDLE BRANCH BLOCK [90+ ms QRS DURATION, TERMINAL R IN V1/V2, 40+ ms S IN I/aVL/V4/V5/V6] NONSPECIFIC ST & T-WAVE ABNORMALITY Compared to ECG 01/08/2022 13:17:18 No significant changes Electronically Signed On 01-09-2022 7:32:14 CDT by Daphne Tolliver M.D. [id number]
[2022-01-08 15:00] LABS: Urine Color Dark Yellow (Yellow)
[2022-01-08 15:01] LABS: Add Urine Microscopic? YES; Bilirubin Urine 1+ (Negative); Blood Urine 2+ (Negative); Glucose Urine UA Norm (Normal); Ketones Urine Negative (Negative); Leukocyte Esterase Urine 2+ (Negative); Nitrate Urine Positive (Negative); Protein Urine 1+ (Negative); Urine Appearance Cloudy (CLEAR); Urobilinogen Urine 4 mg/dL (Negative); pH Urine 6 (5-7)
[2022-01-08 15:05] LABS: Lactic Sepsis W/Reflex 1.5 mmol/L (0.5-2.2)
[2022-01-08 15:13] LABS: Bacteria Urine 2+ /hpf; Mucus Urine 1+ /hpf; Squamous Epithelial Cell Urine 25-40 /hpf (0-5); WBC Urine 25-40 /hpf (0-5)
[2022-01-08 15:14] LABS: Add Urine Culture? No
[2022-01-08 15:20] LABS: INR 2.15 (0.8-1.2)
[2022-01-08 16:41] LABS: Troponin 5 2HR 29.86 ng/L (0-10)
[2022-01-08 16:43] LABS: Troponin 5 2HR Delta -1.14 ABS# (0-10)
== END 2022-01-08 17:38 | disposition home or self-care (01) ==
PROVIDERS: Emergency Medicine; Emergency Provider Family Medicine; PCP Family Medicine
DX: I95.1 Orthostatic hypotension (principal); R53.1 Weakness; R26.89 Other abnormalities of gait and mobility; E11.9 Type 2 diabetes mellitus without complications; R29.6 Repeated falls; S00.83XA Contusion of other part of head, initial encounter; W19.XXXA Unspecified fall, initial encounter; I25.2 Old myocardial infarction; I25.10 Atherosclerotic heart disease of native coronary artery without angina pectoris; I48.91 Unspecified atrial fibrillation; I50.9 Heart failure, unspecified; Z79.84 Long term (current) use of oral hypoglycemic drugs; Z79.01 Long term (current) use of anticoagulants; Z79.899 Other long term (current) drug therapy; Z79.82 Long term (current) use of aspirin
CPT/HCPCS: 36415; 70450; 71045; 80053; 80162; 81001; 83605; 83690; 84484; 85025; 85610; 87040; 93005; 96360; 99284; J7030

== ENCOUNTER → 2022-01-18 16:15 | Outpatient (BNVA) | payer MEDICARE, SELFPAY | PROVIDERS: PCP Family Medicine; Visit Provider Family Medicine | DX: N39.0 Urinary tract infection, site not specified (principal); I48.91 Unspecified atrial fibrillation | CPT/HCPCS: 85610 ==

== ENCOUNTER → 2022-01-30 14:16 | Outpatient (BNVA) | payer MEDICARE, SELFPAY | PROVIDERS: PCP Family Medicine; Visit Provider Family Medicine | DX: N39.0 Urinary tract infection, site not specified (principal) | CPT/HCPCS: 81000; 81003; 87077; 87086; 87184 ==

== ENCOUNTER → 2022-02-01 10:22 | Outpatient (BNVA) | payer MEDICARE, SELFPAY | PROVIDERS: PCP Family Medicine; Visit Provider Family Medicine | DX: I48.91 Unspecified atrial fibrillation (principal) | CPT/HCPCS: 85610 ==

== ENCOUNTER → 2022-03-06 15:18 | Outpatient (BNVA) | payer MEDICARE, SELFPAY | PROVIDERS: PCP Family Medicine; Visit Provider Internal Medicine | DX: I48.0 Paroxysmal atrial fibrillation (principal); I13.0 Hypertensive heart and chronic kidney disease with heart failure and stage 1 through stage 4 chronic kidney disease, or unspecified chronic kidney disease; I50.32 Chronic diastolic (congestive) heart failure; N18.9 Chronic kidney disease, unspecified; E11.22 Type 2 diabetes mellitus with diabetic chronic kidney disease; Z79.84 Long term (current) use of oral hypoglycemic drugs; I25.2 Old myocardial infarction | CPT/HCPCS: 99214 ==

== ENCOUNTER → 2022-04-13 12:54 | Outpatient (BNVA) | payer MEDICARE, SELFPAY | PROVIDERS: PCP Family Medicine; Visit Provider Family Medicine | DX: I48.91 Unspecified atrial fibrillation (principal) | CPT/HCPCS: 85610 ==

== ENCOUNTER → 2022-04-26 11:43 | Outpatient (BNVA) | payer MEDICARE, SELFPAY | PROVIDERS: PCP Family Medicine | DX: I48.91 Unspecified atrial fibrillation (principal) | CPT/HCPCS: 85610 ==

== ENCOUNTER 2022-05-02 13:37 | Emergency (ER) | payer MEDICARE, SELFPAY ==
[2022-05-02 13:41] VITALS: BP 128/72; PULSE 79; RESP 18; TEMP 36.6; O2SAT 96; BMI 21.6
--- NOTE | 2022-05-02 13:41 | CT_ITS ---
WS: [id number] CT FACIAL BONES HISTORY: fall TECHNIQUE: Images obtained from the supraorbital location through the mandible. Soft tissue and bone windows are reviewed. Coronal and sagittal reformats have also been submitted. DLP: 595.[address] scans at [facility] use at least one of these dose optimization techniques: automated e xposure control; mA and/or kV adjustment per patient size (includes targeted exams where dose is matc hed to clinical indication); or iterative reconstruction. COMPARISON: None available. No acute nasal bone fractures are zygomatic arch fractures. Lamina papyracea are intact. No air-fluid levels in the sinuses. Floor the orbits intact. Moderate soft tissue edema and hematoma with lacerat ion centered over the RIGHT zygomatic arch. The globe and orbit are normal. 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 No upper cervical s pine fracture is identified. Advanced degenerative changes at the temporomandibular joints. CT/CT facial bones wo con* [id number] IMPRESSION: 1. No acute facial bone fractures. 2. Moderate soft tissue hematoma and laceration centered over the RIGHT zygoma tic arch.
--- NOTE | 2022-05-02 13:41 | CT_ITS ---
WS: [id number] CT HEAD NONCONTRAST HISTORY: fall TECHNIQUE: Contiguous axial imaging performed through the brain in 2.5 mm imaging. Bone and soft tiss ue windows. Sagittal and coronal reformats reviewed. All CT scans at [facility] use at least one of these dose optimization techniques: automated exposure control; mA and/or kV adjustment per pa tient size (includes targeted exams where dose is matched to clinical indication); or iterative recon struction. DLP: 1114.88 mGy.cm COMPARISON: 01/08/2022 No acute intracranial hemorrhage, midline shift or mass effect. Moderate atrophy and advanced small vessel ischemic disease. Previously seen LEFT thalamic lacunar in farct is not identified today. No large territory infarct. No hemorrhage. Ventricles: Normal size with no hydrocephalus. No inferior displacement of the cerebellar tonsils. Paranasal sinuses: As visualized are clear. Mastoid air cells: Sclerotic changes involving the LEFT mastoid air cells from prior mastoiditis. No interval change. Calvarium and scalp: No skull fracture. Moderate amount of soft tissue thickening with hematoma and l aceration centered over the RIGHT zygomatic arch. No fracture identified through the orbit or nasal b ones. Bilateral degenerative changes involving the mandibular heads. CT/CT head wo con* [id number] IMPRESSION: 1. No acute intracranial hemorrhage or edema. 2. Moderate soft tissue hematoma and laceration centered over the RIGHT zygoma tic arch. No fracture identified. 3. Moderate atrophy and advanced small vessel ischemic disease is stable.
--- NOTE | 2022-05-02 13:52 | ED_ITS ---
HPI - Fall General: Chief Complaint: Fall Stated Complaint: FALL, R FACE LAC Time Seen by Provider: 05/02/22 13:40 [facility] PFSH: Medical History Anxiety Atrial fibrillation CHF (congestive heart failure) CKD (chronic kidney disease) GERD (gastroesophageal reflux disease) Hearing loss in left ear History of coronary artery disease History of [place] (myocardial infarction) Hypothyroidism Perforated tympanic membrane Seasonal allergies Subcapital fracture of right hip Type 2 diabetes mellitus Surgical History History of appendectomy History of bladder surgery S/P cataract extraction Family History Mother Cancer skin CAD (coronary artery disease) Father CAD (coronary artery disease) Social History Smoking and tobacco status: never smoked Second hand smoke exposure: No Alcohol intake: never Caregiver/support person: Yes Lives independently: Yes Marital status: / service: No Current occupational status: retired History of recent travel: No Current gender identity: Female Special an needs: No Course Vital Signs: Vital signs: Vital Signs Temperature 97.9 F 05/02/22 13:41 Pulse Rate 79 05/02/22 13:41 Respiratory Rate 18 05/02/22 13:41 Blood Pressure 128/72 05/02/22 13:41 Pulse Oximetry 96 05/02/22 13:41 Oxygen Delivery Va thod 05/02/22 13:41 Discharge Plan Discharge Condition: Stable Prescriptions: No Action True Metrix Glucose Test Strip Strip See Rx Instructions .ROUTE .COMPLEX Qty: 100 0RF Dose Instruction: USE ONCE daily AND NEEDED Rx Instructions: USE ONCE daily AND NEEDED aspirin [Adult Low Dose Aspirin] 81 mg tablet,delayed release (DR/EC) 81 mg PO DAILY@0800 pantoprazole 40 mg tablet,delayed release (DR/EC) 40 mg PO DAILY@0800 Qty: 30 3RF meclizine 25 mg tablet 25 mg PO TID PRN (Reason: dizziness) Qty: 30 2RF lancets [TRUEplus Lancets] 30 gauge misc See Rx Instructions .ROUTE .COMPLEX Qty: 100 0RF Dose Instruction: USE AT least ONCE DAILY AND NEEDED Rx Instructions: USE AT least ONCE DAILY AND NEEDED ondansetron HCl 4 mg tablet 4 mg PO Q8H PRN (Reason: nausea and vomiting) Qty: 30 3RF Fish Oil 100-160-1,000 mg capsule PO warfarin 2 mg tablet See Rx Instructions .ROUTE .COMPLEX Qty: 64 3RF Protocol: Dose Management Condition: Saturday Dose/Route: 4 mg Instruction: 2 x 2 mg tablets Condition: Saturday Dose/Route: 5 mg Instruction: 2.5 x 2 mg tablets Condition: Saturday Dose/Route: 4 mg Instruction: 2 x 2 mg tablets Condition: Saturday Dose/Route: 4 mg Instruction: 2 x 2 mg tablets Condition: Dose/Route: 5 mg Instruction: 2.5 x 2 mg tablets Condition: Saturday Dose/Route: 4 mg Instruction: 2 x 2 mg tablets Condition: Saturday Dose/Route: 4 mg Instruction: 2 x 2 mg tablets Protocol Text: Adjustment Start Date: 04/26/22 INR Value: 17.00 SECONDS INR Date: 04/26/22 Recheck Date: 05/10/22 Dose Instruction: TAKE TWO TABLETS BY MOUTH DAILY AT 6PM PER protocol Rx Instructions: TAKE TWO TABLETS BY MOUTH DAILY AT 6PM EXCEPT ON SAT AND TAKE 2 AND 1/2 TABS (DME) blood-glucose meter Kit See Rx Instructions .ROUTE .MEDSUPPLY Qty: 1 0RF Rx Instructions: at least once daily and prn digoxin 125 mcg (0.125 mg) tablet 62.5 mcg PO DAILY@1800 Qty: 30 3RF buspirone 5 mg tablet See Rx Instructions .ROUTE .COMPLEX Qty: 90 1RF Dose Instruction: TAKE ONE TABLET BY MOUTH THREE TIMES DAILY AT 8am, 12, AND 6pm Rx Instructions: TAKE ONE TABLET BY MOUTH THREE TIMES DAILY AT 8am, 12, AND 6pm potassium chloride 10 mEq tablet extended release 10 meq PO BID@08,18 Qty: 60 1RF furosemide 20 mg tablet See Rx Instructions .ROUTE .COMPLEX Qty: 30 3RF Dose Instruction: TAKE ONE TABLET BY MOUTH DAILY AT 8am Rx Instructions: TAKE ONE TABLET BY MOUTH DAILY AT 8am glipizide 2.5 mg tablet extended release 24hr See Rx Instructions .ROUTE .COMPLEX Qty: 30 2RF Dose Instruction: TAKE ONE TABLET BY MOUTH DAILY AT 8am 15 minutes BEFORE breakfast Rx Instructions: TAKE ONE TABLET BY MOUTH DAILY AT 8am 15 minutes BEFORE breakfast diltiazem HCl 180 mg capsule,extended release 24 hr See Rx Instructions .ROUTE .COMPLEX Qty: 30 2RF Dose Instruction: TAKE ONE CAPSULE BY MOUTH DAILY AT 8am Rx Instructions: TAKE ONE CAPSULE BY MOUTH DAILY AT 8am losartan 25 mg tablet 25 mg PO QAM Qty: 30 3RF Milk of Magnesia 400 mg/5 mL Suspension 15 - 30 ml PO .ONCE - TWICE A WEEK Vitamin B-12 500 mcg Tablet 1,000 mcg PO QAM Vitamin C 500 mg Tablet 500 mg PO DAILY Azo Urinary Pain Relief 99.5 mg Tablet 99.5 mg PO BID vitamin E 1 cap PO DAILY atorvastatin 20 mg tablet 20 mg PO BEDTIME cetirizine 10 mg tablet 10 mg PO QAM levothyroxine 75 mcg tablet 75 mcg PO QAM metoprolol tartrate 25 mg tablet See Rx Instructions .ROUTE .COMPLEX Rx Instructions: Take 25mg (1 tab) in AM and 12.5mg (0.5 tab) in PM Referrals: Vicki Lao MD [Primary Care Provider] - Coding Level of Care Code ED Medical Dir for Tisha Thomas
[2022-05-02] MEDS: tetanus-dipt-pertussis 0.5 mL SDV IM (13:54)
--- NOTE | 2022-05-02 13:54 | ED_ITS ---
HPI - General Adult General: Chief complaint: Fall Stated complaint: FALL, R FACE LAC Time Seen by Provider: 05/02/22 13:40 History of Present Illness: Patient is an 86-year-old female with a history of atrial fibrillation on warfarin presenting to the emergency after episode of fall. Patient tells me that she was walking home when she twisted and fell forward. Patient has mild bleeding from the right side of her face. EMS was called patient was brought to emergency room. Patient denies LOC. Denies any other injury. Patient denies any associate chest pain, shortness of palpitation or lightness prior to the episode of fall or after. Onset: 1 hr ago Duration:once Location:home Severity:moderate/severe Associated symptoms: Deny chest pain, dyspnea, nausea, palpitations or vomiting Review of Systems Const: Denies: fever(s) or chills Eyes: Denies: change in vision ENMT: Denies: mouth pain Card: Denies: chest pain or palpitations Resp: Denies: dyspnea or non-productive cough GI: Denies: abdominal pain, nausea, vomiting or diarrhea : Denies: dysuria Musc: Denies: extremity pain Skin/Breast: Reports: new lesions (+R forehead bruise and dried blood) Neuro: Denies: weakness in extremities Psych: Reports: other (Normal mood) Nick/Lymph: Denies: easy bruising [facility] ED PFSH: Medical History Anxiety Atrial fibrillation CHF (congestive heart failure) CKD (chronic kidney disease) GERD (gastroesophageal reflux disease) Hearing loss in left ear History of coronary artery disease History of MA (myocardial infarction) Hypothyroidism Perforated tympanic membrane Seasonal allergies Subcapital fracture of right hip Type 2 diabetes mellitus Surgical History History of appendectomy History of bladder surgery S/P cataract extraction Family History Mother Cancer skin CAD (coronary artery disease) Father CAD (coronary artery disease) Social History Smoking and tobacco status: never smoked Second hand smoke exposure: No Alcohol intake: never Caregiver/support person: Yes Lives independently: Yes Marital status: / service: No Current occupational status: retired History of recent travel: No Current gender identity: Female Special an needs: No Physical Exam Const: COMMON NORMALS: alert HENMT: MOUTH: moist mucous membranes not abnormal OTHER: +R superfiicla linear facial lacerations x 3 with dried blood, +R forehead hematoma Eye: COMMON NORMALS: EOMs intact bilaterally and conjunctivae normal CONJUNCTIVA: Yes conjunctivae normal Neck/C-Spine: COMMON NORMALS: full ROM and supple Resp: COMMON NORMALS: normal respiratory effort and clear to auscultation bilaterally AUSCULTATION: clear to auscultation bilaterally Cardio: COMMON NORMALS: regular rate RATE: regular rate GI: COMMON NORMALS: Soft to palpation and non-tender PALPATION: Yes Soft to palpation Extremity: COMMON NORMALS: full ROM OTHER: +No focal tende Neuro: SENSORIUM/ORIENTATION: Yes alert MOTOR EXAM: No Abnormal motor strength present and Other motor observations present (no focal motor deficits) Psych: COMMON NORMALS: speech normal SPEECH: Yes normal speech MOOD & AFFECT: Yes euthymic mood Procedures Laceration Laceration 1: Site: face Side (If applicable): right Size (cm): 0.5 Description: linear Depth: simple, single layer Technique: other (dermabond) Laceration 2: Site: face Side (If applicable): right Size (cm): 0.7 Description: linear Depth: simple, single layer Technique: other (dermabond) Laceration 3: Site: face Side (If applicable): right Size (cm): 1 Description: linear Depth: simple, single layer Technique: other (dermabond) Course Vital Signs: Vital signs: Vital Signs Temperature 97.9 F 05/02/22 13:41 Pulse Rate 79 05/02/22 13:41 Respiratory Rate 18 05/02/22 13:41 Blood Pressure 128/72 05/02/22 13:41 Pulse Oximetry 96 05/02/22 13:41 Oxygen Delivery Me thod 05/02/22 13:41 [facility] - General Adult Medical Decision Making A 6-year-old female presenting to the emergency room after an episode of fall. Patient physical exam has left-sided frontal forehead hematoma with multiple superficial laceration. CT head negative for acute finding. CT face negative for any acute fracture. 3 R sided facial laceration appears to be very superficial and closed with Dermabond. Please refer to the procedure. Patient received Tdap and Tylenol in the emergency room. Rx tylenol PRN pain Disposition: Discharge. Patient counseled regarding diagnostic impression, treatment plan. Patient given ED strict return precautions to return for continuation, worsening, or development of new symptoms. Instructed to f/u w/ PCP regarding symptoms today. Patient verbalized understanding. Lab Data : 05/02/22 14:05 05/02/22 14:[address] 05/02/22 13:41 IMPRESSION: 1. No acute facial bone fractures. 2. Moderate soft tissue hematoma and laceration centered over the RIGHT zygomatic arch. Head CT 05/02/22 13:41 IMPRESSION: 1. No acute intracranial hemorrhage or edema. 2. Moderate soft tissue hematoma and laceration centered over the RIGHT zygomatic arch. No fracture identified. 3. Moderate atrophy and advanced small vessel ischemic disease is stable. Laboratory Results WBC 8.2 10^3/uL (4.0-10.0) 05/02/22 14:05 RBC 4.42 10^6/uL (4.1-5.3) 05/02/22 14:05 Hgb 13.7 g/dL (11.5-15.3) 05/02/22 14:05 Hct 42.2 % (37.0-47.0) 05/02/22 14:05 MCV 95.5 fl (81-99) 05/02/22 14:05 MCH 31.0 pg (28.0-34.0) 05/02/22 14:05 MCHC 32.5 g/dL (30.0-36.0) 05/02/22 14:05 RDW 12.5 % (12.1-15.1) 05/02/22 14:05 Plt Count 232 10^3/cmm (130-400) 05/02/22 14:05 MPV 10.9 fL (7.4-10.4) H 05/02/22 14:05 Neut % (Auto) 69.9 % 05/02/22 14:05 Lymph % (Auto) 19.3 % 05/02/22 14:05 Elliott % (Auto) 8.8 % 05/02/22 14:05 Eos % (Auto) 1.3 % 05/02/22 14:05 Baso % (Auto) 0.2 % 05/02/22 14:05 Neut # (Auto) 5.70 10^3/uL (1.8-7.7) 05/02/22 14:05 Lymph # (Auto) 1.6 10^3/uL (0.8-4.8) 05/02/22 14:05 Elliott # (Auto) 0.7 10^3/uL (0.2-0.9) 05/02/22 14:05 Eos # (Auto) 0.1 10^3/uL (0.0-0.8) 05/02/22 14:05 Baso # (Auto) 0.0 10^3/uL (0.0-0.1) 05/02/22 14:05 Nucleated RBC % (auto) 0 % 05/02/22 14:05 Nucleated RBCs # 0.0 /100WBC 05/02/22 14:05 PT 15.80 SECONDS (12.1-14.9) H 05/02/22 14:05 INR 1.23 (0.8-1.2) H 05/02/22 14:05 APTT 32.6 SECONDS (23.9-36.7) 05/02/22 14:05 Sodium 136 mmol/L (136-145) 05/02/22 14:05 Potassium 4.1 mmol/L (3.5-5.1) 05/02/22 14:05 Chloride 96 mmol/L (98-107) L 05/02/22 14:05 Carbon Dioxide 26 mmol/L (22-29) 05/02/22 14:05 Anion Gap 18.1 (5-19) 05/02/22 14:05 BUN 24 mg/dL (8-23) H 05/02/22 14:05 Creatinine 1.0 mg/dL (0.5-0.9) H 05/02/22 14:05 GFR Calculation Not Reportable 05/02/22 14:05 Glucose 219 mg/dL (65-115) H 05/02/22 14:05 Calculated Osmolality 293 mOsm/kg (285-295) 05/02/22 14:05 Calcium 9.7 mg/dL (8.5-10.5) 05/02/22 14:05 Imaging Data Other Imaging: Radiologist's impression: [address] [address] [address] Scan Report Signed Patient: Linda Todd Unit #: [id number] : 1935 Age/Sex: 86 / F ADM Date: 05/02/22 Loc: ER Room/Bed: Attending Dr: Ordering Provider/Ordering MD: Kaylah Jeffries MD Date of Service: 05/02/22 Procedure(s): CT head wo con* [id number] Accession Number(s): [id number] Report Number: [id number] WS: [id number] CT HEAD NONCONTRAST HISTORY: fall TECHNIQUE: Contiguous axial imaging performed through the brain in 2.5 mm imaging. Bone and soft tissue windows. Sagittal and coronal reformats reviewed.? All CT scans at [facility] use at least one of these dose optimization techniques: automated exposure control; mA and/or kV adjustment per patient size (includes targeted exams where dose is matched to clinical indication); or iterative reconstruction. DLP: 1114.88 mGy.cm COMPARISON: 01/08/2022 No acute intracranial hemorrhage, midline shift or mass effect. Moderate atrophy and advanced small vessel ischemic disease. Previously seen LEFT thalamic lacunar infarct is not identified today. No large territory infarct. No hemorrhage. Ventricles:? Normal size with no hydrocephalus. No inferior displacement of the cerebellar tonsils. Paranasal sinuses: As visualized are clear. Mastoid air cells: Sclerotic changes involving the LEFT mastoid air cells from prior mastoiditis. No interval change. Calvarium and scalp: No skull fracture. Moderate amount of soft tissue thickening with hematoma and laceration centered over the RIGHT zygomatic arch. No fracture identified through the orbit or nasal bones. Bilateral degenerative changes involving the mandibular heads. CT/CT head wo con* [id number] IMPRESSION: ? 1.? No acute intracranial hemorrhage or edema. 2.? Moderate soft tissue hematoma and laceration centered over the RIGHT zygomatic arch. No fracture identified. 3.? Moderate atrophy and advanced small vessel ischemic disease is stable. ? Dictated By: Celia Luna DO Signed By: Celia Luna DO Signed Date/Time: 05/02/22 1449 DD/ [address] [place] [id number] CT Scan Report Signed Patient: Linda Todd Unit #: [id number] : 1935 Age/Sex: 86 / F ADM Date: 05/02/22 Loc: ER Room/Bed: Attending Dr: Ordering Provider/Ordering MD: Kaylah Jeffries MD Date of Service: 05/02/22 Procedure(s): CT facial bones wo con* [id number] Accession Number(s): [id number] Report Number: [id number] WS: [id number] CT FACIAL BONES HISTORY: fall TECHNIQUE: Images obtained from the supraorbital location through the mandible. Soft tissue and bone windows are reviewed. Coronal and sagittal reformats have also been submitted. DLP: 595.[address] scans at [facility] use at least one of these dose optimization techniques: automated exposure control; mA and/or kV adjustment per patient size (includes targeted exams where dose is matched to clinical indication); or iterative reconstruction. COMPARISON: None available. No acute nasal bone fractures are zygomatic arch fractures. Lamina papyracea are intact. No air-fluid levels in the sinuses. Floor the orbits intact. Moderate soft tissue edema and hematoma with laceration centered over the RIGHT zygomatic arch. The globe and orbit are normal. 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 No upper cervical spine fracture is identified. Advanced degenerative changes at the temporomandibular joints. CT/CT facial bones wo con* [id number] IMPRESSION: ? 1.? No acute facial bone fractures. 2.? Moderate soft tissue hematoma and laceration centered over the RIGHT zygomatic arch. ? ? ? Dictated By: Celia Luna DO Signed By: Celia Luna DO Signed Date/Time: 05/02/22 1452 DD/ [address] [address] [address] Scan Report Signed Patient: Linda Todd Unit #: [id number] : 1935 Age/Sex: 86 / F ADM Date: 01/08/22 Loc: ER Room/Bed: Attending Dr: Ordering Provider/Ordering MD: Keith Gongora DO Date of Service: 01/08/22 Procedure(s): CT head wo con* [id number] Accession Number(s): [id number] Report Number: [id number] PROCEDURE INFORMATION: Exam: CT Head Without Contrast Exam date and time: 01/08/2022 1:51 PM Age: 86 years old Clinical indication: Multiple falls. Blunt trauma. Closed head injury. TECHNIQUE: Imaging protocol: Computed tomography of the head without contrast. Radiation optimization: All CT scans at this facility use at least one of these dose optimization techniques: automated exposure control; mA and/or kV adjustment per patient size (includes targeted exams where dose is matched to clinical indication); or iterative reconstruction. COMPARISON: CT head wo con* [id number] 12/23/2020 7:58 PM RADIATION DOSE METRICS: Total DLP (mGy-cm): 943.29 FINDINGS: Brain: No acute intracranial hemorrhage. No mass, mass effect or midline shift. There is no evidence of acute large vessel infarct. There is moderate patchy subcortical and periventricular hypodensity, most commonly associated with small vessel ischemic disease of indeterminate age. Tiny lacunar infarcts in the cerebellum, bilaterally, are unchanged. 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 Cerebral ventricles: The ventricles are prominent, compatible with mild parenchymal volume loss. Paranasal sinuses: There is a retention cyst or polyp in the left posterior left ethmoid air cells. Mastoid air cells: New left mastoid air cells are poorly pneumatized. There is a left mastoid effusion; similar to prior. Orbital cavities: The visualized orbits are unremarkable. Bones/joints: No acute fracture is seen. Soft tissues: No scalp soft tissue swelling is seen. CT/CT head wo con* [id number] IMPRESSION: 1. Tytp-it-klvubozc senescent changes as above. 2. 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 3. No acute intracranial hemorrhage. ? Dictated By: Regan Enrique Signed By: Regan Enrique Signed Date/Time: 01/08/22 1437 DD/ 1351 Discharge Plan Discharge Patient Disposition: Home Clinical Impression: Face lacerations, Facial hematoma Condition: Stable Prescriptions: New acetaminophen 500 mg tablet 500 mg PO Q6H PRN (Reason: pain) 5 Days Qty: 20 0RF No Action True Metrix Glucose Test Strip Strip See Rx Instructions .ROUTE .COMPLEX Qty: 100 0RF Dose Instruction: USE ONCE daily AND NEEDED Rx Instructions: USE ONCE daily AND NEEDED aspirin [Adult Low Dose Aspirin] 81 mg tablet,delayed release (DR/EC) 81 mg PO DAILY@0800 pantoprazole 40 mg tablet,delayed release (DR/EC) 40 mg PO DAILY@0800 Qty: 30 3RF meclizine 25 mg tablet 25 mg PO TID PRN (Reason: dizziness) Qty: 30 2RF lancets [TRUEplus Lancets] 30 gauge misc See Rx Instructions .ROUTE .COMPLEX Qty: 100 0RF Dose Instruction: USE AT least ONCE DAILY AND NEEDED Rx Instructions: USE AT least ONCE DAILY AND NEEDED ondansetron HCl 4 mg tablet 4 mg PO Q8H PRN (Reason: nausea and vomiting) Qty: 30 3RF Fish Oil 100-160-1,000 mg capsule PO warfarin 2 mg tablet See Rx Instructions .ROUTE .COMPLEX Qty: 64 3RF Protocol: Dose Management Condition: Saturday Dose/Route: 4 mg Instruction: 2 x 2 mg tablets Condition: Saturday Dose/Route: 5 mg Instruction: 2.5 x 2 mg tablets Condition: Saturday Dose/Route: 4 mg Instruction: 2 x 2 mg tablets Condition: Saturday Dose/Route: 4 mg Instruction: 2 x 2 mg tablets Condition: Dose/Route: 5 mg Instruction: 2.5 x 2 mg tablets Condition: Saturday Dose/Route: 4 mg Instruction: 2 x 2 mg tablets Condition: Saturday Dose/Route: 4 mg Instruction: 2 x 2 mg tablets Protocol Text: Adjustment Start Date: 04/26/22 INR Value: 17.00 SECONDS INR Date: 04/26/22 Recheck Date: 05/10/22 Dose Instruction: TAKE TWO TABLETS BY MOUTH DAILY AT 6PM PER protocol Rx Instructions: TAKE TWO TABLETS BY MOUTH DAILY AT 6PM EXCEPT ON SAT AND TAKE 2 AND 1/2 TABS (DME) blood-glucose meter Kit See Rx Instructions .ROUTE .MEDSUPPLY Qty: 1 0RF Rx Instructions: at least once daily and prn digoxin 125 mcg (0.125 mg) tablet 62.5 mcg PO DAILY@1800 Qty: 30 3RF buspirone 5 mg tablet See Rx Instructions .ROUTE .COMPLEX Qty: 90 1RF Dose Instruction: TAKE ONE TABLET BY MOUTH THREE TIMES DAILY AT 8am, 12, AND 6pm Rx Instructions: TAKE ONE TABLET BY MOUTH THREE TIMES DAILY AT 8am, 12, AND 6pm potassium chloride 10 mEq tablet extended release 10 meq PO BID@08,18 Qty: 60 1RF furosemide 20 mg tablet See Rx Instructions .ROUTE .COMPLEX Qty: 30 3RF Dose Instruction: TAKE ONE TABLET BY MOUTH DAILY AT 8am Rx Instructions: TAKE ONE TABLET BY MOUTH DAILY AT 8am glipizide 2.5 mg tablet extended release 24hr See Rx Instructions .ROUTE .COMPLEX Qty: 30 2RF Dose Instruction: TAKE ONE TABLET BY MOUTH DAILY AT 8am 15 minutes BEFORE breakfast Rx Instructions: TAKE ONE TABLET BY MOUTH DAILY AT 8am 15 minutes BEFORE breakfast diltiazem HCl 180 mg capsule,extended release 24 hr See Rx Instructions .ROUTE .COMPLEX Qty: 30 2RF Dose Instruction: TAKE ONE CAPSULE BY MOUTH DAILY AT 8am Rx Instructions: TAKE ONE CAPSULE BY MOUTH DAILY AT 8am losartan 25 mg tablet 25 mg PO QAM Qty: 30 3RF Milk of Magnesia 400 mg/5 mL Suspension 15 - 30 ml PO .ONCE - TWICE A WEEK Vitamin B-12 500 mcg Tablet 1,000 mcg PO QAM Vitamin C 500 mg Tablet 500 mg PO DAILY Azo Urinary Pain Relief 99.5 mg Tablet 99.5 mg PO BID vitamin E 1 cap PO DAILY atorvastatin 20 mg tablet 20 mg PO BEDTIME cetirizine 10 mg tablet 10 mg PO QAM levothyroxine 75 mcg tablet 75 mcg PO QAM metoprolol tartrate 25 mg tablet See Rx Instructions .ROUTE .COMPLEX Rx Instructions: Take 25mg (1 tab) in AM and 12.5mg (0.5 tab) in PM Discharge Orders: Discharge ED (Routine); Ordered 05/02/22 Ordered By: Kaylah Jeffries Referrals: Vicki Lao MD [Primary Care Provider] - Discharge Diet: Advance as tolerated Discharge Activity: Increase activity as tolerated Patient Instructions: Concussion (ED) Activity Restrictions/Additional Instructions: Come back if you have any new or concerning issues. Coding Level of Care Code ED Night Supervisor for Chg Fwd Exam Comprehensive
[2022-05-02 14:15] LABS: Basophils % 0.2 %; Eosinophils # 0.1 10^3/uL (0.0-0.8); Eosinophils % 1.3 %; Hematocrit 42.2 % (37.0-47.0); Hemoglobin 13.7 g/dL (11.5-15.3); Lymphocytes # 1.6 10^3/uL (0.8-4.8); Lymphocytes % 19.3 %; Mean Corpuscular HGB Conc 32.5 g/dL (30.0-36.0); Mean Corpuscular Volume 95.5 fl (81-99); Mean Platelet Volume 10.9 fL (7.4-10.4); Monocytes # 0.7 10^3/uL (0.2-0.9); Monocytes % 8.8 %; Neutrophils % 69.9 %; Nucleated Red Blood Cells % 0 %; Platelet Count 232 10^3/cmm (130-400); Red Blood Count 4.42 10^6/uL (4.1-5.3); Red Cell Distribution Width 12.5 % (12.1-15.1); White Blood Count 8.2 10^3/uL (4.0-10.0)
[2022-05-02 14:28] LABS: INR 1.23 (0.8-1.2); Partial Thromboplastin Time 32.6 SECONDS (23.9-36.7)
[2022-05-02 14:34] LABS: Anion Gap 18.1 (5-19); Blood Urea Nitrogen 24 mg/dL (8-23); Calcium 9.7 mg/dL (8.5-10.5); Carbon Dioxide 26 mmol/L (22-29); Chloride 96 mmol/L (98-107); Glucose 219 mg/dL (65-115); Osmolality Calculated 293 mOsm/kg (285-295); Potassium 4.1 mmol/L (3.5-5.1); Sodium 136 mmol/L (136-145)
[2022-05-02 15:31] VITALS: BP 156/64; PULSE 88; O2SAT 95
[2022-05-02 15:33] VITALS: BP 156/64; PULSE 88; O2SAT 95
== END 2022-05-02 15:30 | disposition home or self-care (01) ==
PROVIDERS: Emergency Provider Emergency Medicine; PCP Family Medicine
DX: S01.81XA Laceration without foreign body of other part of head, initial encounter (principal); S00.83XA Contusion of other part of head, initial encounter; Z79.82 Long term (current) use of aspirin; Z79.01 Long term (current) use of anticoagulants; Z79.4 Long term (current) use of insulin; I11.0 Hypertensive heart disease with heart failure; I50.9 Heart failure, unspecified; I25.2 Old myocardial infarction; I25.10 Atherosclerotic heart disease of native coronary artery without angina pectoris; E11.9 Type 2 diabetes mellitus without complications; W18.30XA Fall on same level, unspecified, initial encounter; Z23 Encounter for immunization
CPT/HCPCS: 12011; 70450; 70486; 80048; 85025; 85610; 85730; 90471; 90715; 99284

== ENCOUNTER → 2022-05-31 09:46 | Outpatient (BNVA) | payer MEDICARE, SELFPAY | PROVIDERS: PCP Family Medicine; Visit Provider Family Medicine | DX: I48.91 Unspecified atrial fibrillation (principal) | CPT/HCPCS: 85610 ==

== ENCOUNTER → 2022-06-28 14:00 | Outpatient (BNVA) | payer MEDICARE, SELFPAY | PROVIDERS: PCP Family Medicine; Visit Provider Family Medicine | DX: E78.5 Hyperlipidemia, unspecified (principal); E11.9 Type 2 diabetes mellitus without complications; E03.8 Other specified hypothyroidism; I48.0 Paroxysmal atrial fibrillation; Z23 Encounter for immunization | CPT/HCPCS: 80053; 80061; 82607; 83036; 84443; 85025; 85610 ==

== ENCOUNTER → 2022-09-26 17:07 | Outpatient (BNVA) | payer MEDICARE, SELFPAY | PROVIDERS: PCP Family Medicine; Visit Provider Family Medicine | DX: E11.9 Type 2 diabetes mellitus without complications (principal); K21.9 Gastro-esophageal reflux disease without esophagitis; E78.5 Hyperlipidemia, unspecified; E03.8 Other specified hypothyroidism; I50.32 Chronic diastolic (congestive) heart failure; I48.0 Paroxysmal atrial fibrillation | CPT/HCPCS: 80053; 80061; 83036; 84443; 85025; 85610 ==

== ENCOUNTER → 2022-10-03 16:35 | Outpatient (BNVA) | payer MEDICARE, SELFPAY | PROVIDERS: PCP Family Medicine; Visit Provider Nurse Practitioner Family | DX: I48.0 Paroxysmal atrial fibrillation (principal) | CPT/HCPCS: 36415; 80162; 99214 ==

== ENCOUNTER → 2022-11-02 10:17 | Outpatient (BNVA) | payer MEDICARE, SELFPAY | PROVIDERS: PCP Family Medicine; Visit Provider Family Medicine | DX: I48.0 Paroxysmal atrial fibrillation (principal) | CPT/HCPCS: 85610 ==

== ENCOUNTER → 2022-11-27 13:40 | Outpatient (BNVA) | payer MEDICARE, SELFPAY | PROVIDERS: PCP Family Medicine; Visit Provider Family Medicine | DX: I48.0 Paroxysmal atrial fibrillation (principal) | CPT/HCPCS: 85610 ==

== ENCOUNTER → 2022-12-04 14:55 | Outpatient (BNVA) | payer MEDICARE, SELFPAY | PROVIDERS: PCP Family Medicine; Visit Provider Nurse Practitioner Family | DX: I50.32 Chronic diastolic (congestive) heart failure (principal); I48.0 Paroxysmal atrial fibrillation; Z79.01 Long term (current) use of anticoagulants; Z79.82 Long term (current) use of aspirin | CPT/HCPCS: 99214 ==

== ENCOUNTER → 2023-03-25 11:00 | Outpatient (BNVA) | payer MEDICARE, SELFPAY | PROVIDERS: PCP Family Medicine; Visit Provider Family Medicine | DX: B35.1 Tinea unguium (principal); R07.9 Chest pain, unspecified; E78.5 Hyperlipidemia, unspecified; E11.9 Type 2 diabetes mellitus without complications; E03.9 Hypothyroidism, unspecified; I48.91 Unspecified atrial fibrillation; I48.0 Paroxysmal atrial fibrillation | CPT/HCPCS: 80053; 80061; 83036; 84443; 85025; 85610 ==

== ENCOUNTER → 2023-04-15 11:10 | Outpatient (BNVA) | payer MEDICARE, SELFPAY | PROVIDERS: PCP Family Medicine; Visit Provider Podiatrist Foot & Ankle Surgery | DX: B35.1 Tinea unguium (principal); E11.9 Type 2 diabetes mellitus without complications; I73.9 Peripheral vascular disease, unspecified | CPT/HCPCS: 11721; 99204 ==

== ENCOUNTER → 2023-04-24 10:34 | Outpatient (BNVA) | payer MEDICARE, SELFPAY | PROVIDERS: PCP Family Medicine; Visit Provider Family Medicine | DX: I48.91 Unspecified atrial fibrillation (principal) | CPT/HCPCS: 85610 ==

== ENCOUNTER → 2023-06-04 14:28 | Outpatient (BNVA) | payer MEDICARE, SELFPAY | PROVIDERS: PCP Family Medicine; Visit Provider Internal Medicine | DX: I48.0 Paroxysmal atrial fibrillation (principal); I50.32 Chronic diastolic (congestive) heart failure; Z79.01 Long term (current) use of anticoagulants | CPT/HCPCS: 99214 ==

== ENCOUNTER → 2023-08-22 10:29 | Outpatient (BNVA) | payer MEDICARE, SELFPAY | PROVIDERS: PCP Family Medicine; Visit Provider Family Medicine | DX: I48.91 Unspecified atrial fibrillation (principal); E78.5 Hyperlipidemia, unspecified; E11.9 Type 2 diabetes mellitus without complications; E03.9 Hypothyroidism, unspecified; Z23 Encounter for immunization; E78.2 Mixed hyperlipidemia; E03.8 Other specified hypothyroidism; I48.0 Paroxysmal atrial fibrillation | CPT/HCPCS: 80053; 80061; 83036; 84443 ==

== ENCOUNTER → 2023-09-30 18:03 | Outpatient (BNVA) | payer MEDICARE, SELFPAY | PROVIDERS: PCP Family Medicine; Visit Provider Family Medicine | DX: I48.0 Paroxysmal atrial fibrillation (principal); R39.9 Unspecified symptoms and signs involving the genitourinary system; N39.0 Urinary tract infection, site not specified | CPT/HCPCS: 81003; 85610; 87077; 87086; 87184 ==

== ENCOUNTER → 2023-10-09 15:55 | Outpatient (BNVA) | payer MEDICARE, SELFPAY | PROVIDERS: PCP Family Medicine; Visit Provider Family Medicine | DX: N39.0 Urinary tract infection, site not specified (principal) | CPT/HCPCS: 81000 ==

== ENCOUNTER → 2023-10-10 13:17 | Outpatient (BNVA) | payer MEDICARE, SELFPAY | PROVIDERS: PCP Family Medicine; Visit Provider Family Medicine | DX: I48.0 Paroxysmal atrial fibrillation (principal) | CPT/HCPCS: 85610 ==

== ENCOUNTER → 2023-10-16 14:30 | Outpatient (BNVA) | payer MEDICARE, SELFPAY | PROVIDERS: PCP Family Medicine; Visit Provider Family Medicine | DX: N39.0 Urinary tract infection, site not specified (principal); I48.0 Paroxysmal atrial fibrillation; R31.9 Hematuria, unspecified; K59.00 Constipation, unspecified | CPT/HCPCS: 81000; 81003; 85610; 87086 ==

== ENCOUNTER → 2023-11-04 16:54 | Outpatient (BNVA) | payer MEDICARE, SELFPAY | PROVIDERS: PCP Family Medicine; Visit Provider Family Medicine | DX: K59.00 Constipation, unspecified (principal); N39.0 Urinary tract infection, site not specified; R31.9 Hematuria, unspecified; I48.0 Paroxysmal atrial fibrillation | CPT/HCPCS: 81000; 85610 ==

== ENCOUNTER → 2023-11-25 18:26 | Outpatient (BNVA) | payer MEDICARE, SELFPAY | PROVIDERS: PCP Family Medicine; Visit Provider Family Medicine | DX: R53.1 Weakness (principal); K59.00 Constipation, unspecified | CPT/HCPCS: 87045; 87427; 87449; 87493 ==

== ENCOUNTER → 2023-12-19 14:08 | Outpatient (BNVA) | payer MEDICARE, SELFPAY | PROVIDERS: PCP Family Medicine; Visit Provider Family Medicine | DX: E78.2 Mixed hyperlipidemia (principal); I48.0 Paroxysmal atrial fibrillation; E11.9 Type 2 diabetes mellitus without complications; E03.8 Other specified hypothyroidism; Z78.9 Other specified health status | CPT/HCPCS: 80053; 80061; 83036; 84443; 85025; 85610 ==

== ENCOUNTER → 2024-01-02 13:47 | Outpatient (BNVA) | payer MEDICARE, SELFPAY | PROVIDERS: PCP Family Medicine; Visit Provider Family Medicine | DX: N39.0 Urinary tract infection, site not specified (principal); E11.8 Type 2 diabetes mellitus with unspecified complications | CPT/HCPCS: 81003; 87077; 87086; 87184 ==

== ENCOUNTER 2024-01-22 09:25 | Emergency (ER) | payer MEDICARE, SELFPAY ==
[2024-01-22 09:29] VITALS: BP 182/96; PULSE 86; RESP 17; TEMP 36.7; O2SAT 93; BMI 20.7
--- NOTE | 2024-01-22 09:38 | XR_ITS ---
WS: [id number] XR chest 1V portable [id number] REASON FOR EXAM: syncope FINDINGS: The chest is relatively unchanged compared to 01/08/2022. Significant cardiomegaly with marked enlarge ment of the left atrium. Obscuration of the left hemidiaphragmatic contour which appears to be a chronic abnormality. There is likely old pleural pericardial reaction and possibly chronic atelectasis in the left lower lung. Can not exclude free pleural fluid. No acute pulmonary parenchymal abnormality is identified. XR/XR chest 1V portable [id number] IMPRESSION: Significant cardiomegaly. Diffuse opacity over the left lower lung with obscuration of the left hemidiaph ragm contour as above. No definite acute abnormality.
--- NOTE | 2024-01-22 09:38 | ECG_ITS ---
[facility] Test Date: 2024-01-22 Pat Name: Linda Todd Department: Room: Gender: Female Emt P: : 1935 Requested By: Cristobal Vallejo Order Number: [id number] Romelia MD: Luis Daniel Edwards M.D. Measurements Intervals [place] Rate: 78 P: 0 MN: 0 QRS: -23 QRSD: 92 T: 0 QT: 366 QTc: 419 Interpretive Statements ATRIAL FIBRILLATION BORDERLINE LEFT AXIS DEVIATION [QRS AXIS < -20] INCOMPLETE RIGHT BUNDLE BRANCH BLOCK [90+ ms QRS DURATION, TERMINAL R IN V1/V2, 40+ ms S IN I/aVL/V4/V5/V6] Compared to ECG 01/08/2022 15:16:35 T-wave abnormality no longer present Electronically Signed On 01-22-2024 16:50:22 CDT by Luis Daniel Edwards M.D. [email or web address]
[2024-01-22 09:48] LABS: Basophils % 0.7 %; Eosinophils # 0.5 10^3/uL (0.0-0.8); Eosinophils % 8.1 %; Hematocrit 40.5 % (36-47); Lymphocytes # 1.2 10^3/uL (0.8-4.8); Lymphocytes % 20.3 %; Mean Corpuscular HGB Conc 31.1 g/dL (30-55); Mean Corpuscular Hemoglobin 29.6 pg (27-33); Mean Corpuscular Volume 95.3 fl (85-98); Mean Platelet Volume 10.4 fL (7.4-10.4); Monocytes # 0.5 10^3/uL (0.2-0.9); Monocytes % 7.6 %; Neutrophils # 3.73 10^3/uL (1.8-7.7); Nucleated Red Blood Cells % 0 %; Platelet Count 217 10^3/cmm (157-399); Red Blood Count 4.25 10^6/uL (3.85-5.65); Red Cell Distribution Width 13.9 % (12.1-15.1); White Blood Count 5.92 10^3/uL (3.29-11.43)
--- NOTE | 2024-01-22 09:53 | ED_ITS ---
HPI - Dizziness 2 General: Chief Complaint: Dizziness Stated Complaint: dizziness, syncopal ep Time Seen by Provider: 01/22/24 09:39 History of Present Illness: HPI Narrative: P presents to the ER with complaints of syncope this morning. Patient says she passed out. Patient says she got little dizzy when she passed out otherwise all feeling back to normal. EMS stated she was eating breakfast when she slouched over and was shaking. When EMS arrived there she is alert and oriented and only complained about being dizzy. Blood glucose was 150. EMS also reported approximately 5-second syncopal episode on route. Patient does have a history of a stroke and says in general she may be slightly weak in her lower extremities and this causes issues with her walking. Review of Systems 2 General: Reports: 10 or more systems reviewed and unremarkable except in HPI and below PFSH ED 2 PFSH: Medical History History of coronary artery disease Subcapital fracture of right hip Atrial fibrillation History of HI (myocardial infarction) Hearing loss in left ear Perforated tympanic membrane Seasonal allergies CKD (chronic kidney disease) Type 2 diabetes mellitus Hypothyroidism Anxiety GERD (gastroesophageal reflux disease) CHF (congestive heart failure) Surgical History S/P cataract extraction History of appendectomy History of bladder surgery Family History Mother Cancer skin CAD (coronary artery disease) Father CAD (coronary artery disease) Social History Smoking and tobacco/nicotine status: never used tobacco/nicotine Second hand smoke exposure: No Alcohol intake: never Substance/Drug Use: never Adopted: No Caregiver/support person: Yes Lives independently: No Household members: family Housing: House Marital status: / service: No Current occupational status: retired Do you think of yourself as: Straight/Heterosexual Current gender identity: Female Special an needs: No Physical Exam 2 Const: COMMON NORMALS: no acute distress, average body habitus, patient oriented x3, no limitations, healthy appearing, alert and well nourished HENMT: COMMON NORMALS: normocephalic, atraumatic, hearing grossly normal bilaterally, external ears normal, Normal external nose present, moist oral mucous membranes and oropharynx normal HEAD & SCALP: normocephalic and atraumatic NOSE: Normal external nose present EXTERNAL EAR: Yes external ears normal Eye: COMMON NORMALS: Equal, round and reactive pupils present, EOMs intact bilaterally, conjunctivae normal and no scleral icterus CONJUNCTIVA: Yes conjunctivae normal PUPIL: Yes Equal, round and reactive pupils present Neck/C-Spine: COMMON NORMALS: full ROM, no lymphadenopathy, supple, no meningeal signs, no JVD and Thyroid normal THYROID: Thyroid normal Chest: COMMONS NORMALS: normal inspection of the chest and normal palpation of entire chest wall Resp: COMMON NORMALS: normal respiratory effort, No retractions, No use of accessory muscles and clear to auscultation bilaterally AUSCULTATION: clear to auscultation bilaterally Cardio: COMMON NORMALS: no JVD, regular rate, regular rhythm, S1 normal heart sound present, S2 normal heart sound present, No gallops present (Cardio), No clicks present (Cardio), No murmurs present (Cardio) and No rub (Cardio) R ATE: regular rate RHYTHM: regular rhythm HEART SOUNDS: S1 normal heart sound present and S2 normal heart sound present GI: COMMON NORMALS: Normal to inspection, nondistended, normoactive bowel sounds present, Soft to palpation, non-tender, No hepatosplenomegaly present and no masses PALPATION: Yes Soft to palpation and Yes No hepatosplenomegaly present Neuro: COMMON NORMALS: patient oriented x3 SENSORIUM/ORIENTATION: Yes alert MENINGEAL SIGNS: Yes no meningeal signs Course 2 Vital Signs: Vital signs: Vital Signs Temperature 98.0 F 01/22/24 09:29 Pulse Rate 72 01/22/24 12:31 Respiratory Rate 17 01/22/24 09:29 Blood Pressure 158/99 01/22/24 12:31 Pulse Oximetry 94 01/22/24 12:31 Oxygen Delivery Me thod Room Air 01/22/24 12:31 MDM - Dizziness Medical Decision Making Patient had chest x-ray which was stable, head CT showed no acute intracranial effect, lab work showed a mildly elevated TSH and a mildly elevated prolactin otherwise was essentially unremarkable. Serial EKGs were unremarkable. Results was discussed with the patient. Patient be referred back to her family doctor for further evaluation testing. Differential Diagnosis Unlikely adverse reaction to drug, benign paroxysmal positional vertigo, orthostatic hypotension, vertebral basilar insufficiency, cerebrovascular accident, acute vestibular neuronitis or transient cerebral ischemia Medical Records I reviewed the patient's medical records. Lab Data I reviewed the patient's lab results. 01/22/24 09:42 01/22/24 09:42 Radiology Impressions Chest X-Ray 01/22/24 09:38 IMPRESSION: Significant cardiomegaly. Diffuse opacity over the left lower lung with obscuration of the left hemidiaphragm contour as above. No definite acute abnormality. Head CT 01/22/24 12:30 IMPRESSION: 1. No evidence of intracranial hemorrhage or mass effect. 2. No acute intracranial findings. 3. Chronic opacification LEFT mastoid air cells with sclerosis. Soft tissue opacification LEFT middle ear. This is similar to 2021. Laboratory Results WBC 5.92 10^3/uL (3.29-11.43) 01/22/24 09:42 RBC 4.25 10^6/uL (3.85-5.65) 01/22/24 09:42 Hgb 12.60 g/dL (11.27-16.99) 01/22/24 09:42 Hct 40.5 % (36-47) 01/22/24 09:42 MCV 95.3 fl (85-98) 01/22/24 09:42 MCH 29.6 pg (27-33) 01/22/24 09:42 MCHC 31.1 g/dL (30-55) 01/22/24 09:42 RDW 13.9 % (12.1-15.1) 01/22/24 09:42 Plt Count 217 10^3/cmm (157-399) 01/22/24 09:42 MPV 10.4 fL (7.4-10.4) 01/22/24 09:42 Neut % (Auto) 63.0 % 01/22/24 09:42 Lymph % (Auto) 20.3 % 01/22/24 09:42 [place] % (Auto) 7.6 % 01/22/24 09:42 Eos % (Auto) 8.1 % 01/22/24 09:42 Baso % (Auto) 0.7 % 01/22/24 09:42 Neut # (Auto) 3.73 10^3/uL (1.8-7.7) 01/22/24 09:42 Lymph # (Auto) 1.2 10^3/uL (0.8-4.8) 01/22/24 09:42 [place] # (Auto) 0.5 10^3/uL (0.2-0.9) 01/22/24 09:42 Eos # (Auto) 0.5 10^3/uL (0.0-0.8) 01/22/24 09:42 Baso # (Auto) 0.0 10^3/uL (0.0-0.1) 01/22/24 09:42 Nucleated RBC % (auto) 0 % 01/22/24 09:42 Nucleated RBCs # 0.0 /100WBC 01/22/24 09:42 PT 16.20 SECONDS (12.1-14.9) H 01/22/24 09:42 INR 1.26 (0.8-1.2) H 01/22/24 09:42 Sodium 136 mmol/L (136-145) 01/22/24 09:42 Potassium 4.5 mmol/L (3.5-5.1) 01/22/24 09:42 Chloride 97 mmol/L (98-107) L 01/22/24 09:42 Carbon Dioxide 28 mmol/L (22-29) 01/22/24 09:42 Anion Gap 15.5 (5-19) 01/22/24 09:42 BUN 23 mg/dL (8-23) 01/22/24 09:42 Creatinine 0.9 mg/dL (0.5-0.9) 01/22/24 09:42 GFR Calculation Not Reportable 01/22/24 09:42 Glucose 186 mg/dL (65-115) H 01/22/24 09:42 Calculated Osmolality 291 mOsm/kg (285-295) 01/22/24 09:42 Calcium 9.5 mg/dL (8.5-10.5) 01/22/24 09:42 Magnesium 1.9 mg/dL (1.7-2.3) 01/22/24 09:42 Total Bilirubin 0.6 mg/dL (0.15-1.2) 01/22/24 09:42 AST 20 U/L (0-32) 01/22/24 09:42 ALT 13 U/L (0-33) 01/22/24 09:42 Alkaline Phosphatase 83 U/L (35-105) 01/22/24 09:42 Creatine Kinase 46 U/L (26-192) 01/22/24 09:42 Troponin T Baseline 38 ng/L (0-10) H 01/22/24 09:42 Troponin T 120 Minute 34.83 ng/L (0-10) H 01/22/24 11:48 Delta Troponin T -3.17 ABS# (0-10) L 01/22/24 11:48 C-Reactive Protein 3.2 mg/L (0.0-4.9) 01/22/24 09:42 Total Protein 6.9 g/dL (6.6-8.7) 01/22/24 09:42 Albumin 4.3 g/dL (3.5-5.2) 01/22/24 09:42 Globulin 2.6 g/dL (1.3-4.6) 01/22/24 09:42 TSH 7.79 uIU/mL (0.27-4.20) H 01/22/24 09:42 Prolactin 46.70 ng/mL (4.8-23.3) H 01/22/24 09:42 Urine Color Light yellow (Yellow) 01/22/24 10:38 Urine Appearance Clear (CLEAR) 01/22/24 10:38 Urine pH 6 (5-7) 01/22/24 10:38 Ur Specific [place] 1.015 (1.005-1.030) 01/22/24 10:38 Urine Protein Neg (Negative) 01/22/24 10:38 Urine Glucose (UA) Norm (Normal) 01/22/24 10:38 Urine Ketones Negative (Negative) 01/22/24 10:38 Urine Blood Neg (Negative) 01/22/24 10:38 Urine Nitrate Negative (Negative) 01/22/24 10:38 Urine Bilirubin Neg (Negative) 01/22/24 10:38 Urine Urobilinogen Norm mg/dL (Negative) 01/22/24 10:38 Ur Leukocyte Esterase Negative (Negative) 01/22/24 10:38 Digoxin 0.5 ng/mL (0.6-1.2) L 01/22/24 09:42 All radiology interpretation(s) finalized by discharge Discharge Plan Discharge Patient Disposition: Home Clinical Impression: Syncope and collapse, Vertigo Condition: Stable Prescriptions: No Action ondansetron HCl 4 mg tablet 4 mg PO Q8H PRN (Reason: nausea and vomiting) Qty: 30 3RF True Metrix Glucose Test Strip Strip See Rx Instructions .ROUTE .COMPLEX Qty: 100 0RF Dose Instruction: USE ONCE daily AND NEEDED Rx Instructions: USE ONCE daily AND NEEDED nitroglycerin 0.4 mg tablet, sublingual 0.4 mg sublingual Q5M PRN (Reason: Chest Pain) Rx Instructions: do not exceed 3 doses per episode lancets [TRUEplus Lancets] 30 gauge misc See Rx Instructions .ROUTE .COMPLEX Qty: 100 0RF Dose Instruction: USE AT least ONCE DAILY AND NEEDED Rx Instructions: USE AT least ONCE DAILY AND NEEDED metoprolol tartrate 25 mg tablet 25 mg PO BID Qty: 180 3RF (DME) Diabetic shoes with inserts See Rx Instructions .Route .MEDSUPPLY Qty: 1 0RF Rx Instructions: As directed ([facility] [place]) blood-glucose meter Kit See Rx Instructions .ROUTE .MEDSUPPLY Qty: 1 0RF Rx Instructions: at least once daily and prn buspirone 5 mg tablet See Rx Instructions .ROUTE .COMPLEX Qty: 90 2RF Dose Instruction: TAKE ONE TABLET BY MOUTH THREE TIMES DAILY AT 8am, NOON, AND 6pm Rx Instructions: TAKE ONE TABLET BY MOUTH THREE TIMES DAILY AT 8am, NOON, AND 6pm potassium chloride 10 mEq tablet extended release See Rx Instructions .ROUTE .COMPLEX Qty: 60 2RF Dose Instruction: TAKE ONE TABLET BY MOUTH AT 8 am AND 1 TABLET AT 6 pm Rx Instructions: TAKE ONE TABLET BY MOUTH AT 8 am AND 1 TABLET AT 6 pm polyethylene glycol 3350 [Miralax] 17 gram/dose powder 17 g PO DAILY PRN (Reason: constipation) Qty: 510 1RF vitamin E 268 mg (400 unit) Capsule 268 mg PO DAILY atorvastatin 20 mg tablet 20 mg PO QPM diltiazem HCl 180 mg capsule,extended release 24 hr 180 mg PO QAM levothyroxine 88 mcg tablet 88 mcg PO QAM glipizide 2.5 mg tablet extended release 24hr 2.5 mg PO QAM pantoprazole 40 mg tablet,delayed release (DR/EC) 40 mg PO BID warfarin 2 mg tablet 4 mg PO .@6PM losartan 25 mg tablet 25 mg PO QAM digoxin 125 mcg (0.125 mg) tablet 62.5 mcg PO DAILY furosemide 20 mg tablet 20 mg PO QAM lactulose 20 gram packet 20 g PO DAILY PRN (Reason: Constipation) cyanocobalamin (vitamin B-12) [Vitamin B-12] 500 mcg Tablet 1,000 mcg PO QAM ascorbic acid (vitamin C) [Vitamin C] 500 mg Tablet 500 mg PO DAILY cetirizine 10 mg tablet 10 mg PO QAM Discharge Orders: Discharge ED (Routine); Ordered 01/22/24 Ordered By: Cristobal Vallejo Referrals: Vicki Lao MD [Primary Care Provider] - 1 week Patient Instructions: Vertigo (ED), Syncope in Older Adults (ED) Activity Restrictions/Additional Instructions: Your evaluation in the ER that included physical exam, lab work, and imaging did not show any acute cause of your syncope or vertigo. Please follow-up with your family doctor for further evaluation testing and possible referral. Thank you for choosing [facility] for your healthcare needs today. Please realize that you were seen in the emergency department and that we are providing you with an emergency medical screening exam and this may not be a complete and all exclusive of all testing and/or medical workup we may need to determine your element or severity of your illness. It is very important that you follow-up as instructed with your primary care provider or specialist for the additional evaluation and to discuss your medical treatment plan. You may return to the emergency department should you have concerns or if your condition changes or worsens in any way. Coding Level of Care Code ED Commercial Administrator for Tisha Thomas
[2024-01-22 09:55] VITALS: BP 182/96; PULSE 94; O2SAT 95
[2024-01-22 10:07] LABS: INR 1.26 (0.8-1.2)
[2024-01-22 10:09] LABS: Digoxin 0.5 ng/mL (0.6-1.2)
[2024-01-22 10:11] LABS: Troponin(5th) Baseline 38 ng/L (0-10)
[2024-01-22 10:18] LABS: Alanine Aminotransferase 13 U/L (0-33); Albumin Level 4.3 g/dL (3.5-5.2); Alkaline Phosphatase 83 U/L (35-105); Anion Gap 15.5 (5-19); Aspartate Amino Transferase 20 U/L (0-32); Blood Urea Nitrogen 23 mg/dL (8-23); Calcium 9.5 mg/dL (8.5-10.5); Carbon Dioxide 28 mmol/L (22-29); Chloride 97 mmol/L (98-107); Creatinine Clr Calc Pharmacy 44.4191; Globulin 2.6 g/dL (1.3-4.6); Glucose 186 mg/dL (65-115); Magnesium 1.9 mg/dL (1.7-2.3); Osmolality Calculated 291 mOsm/kg (285-295); Potassium 4.5 mmol/L (3.5-5.1); Sodium 136 mmol/L (136-145); Thyroid Stimulating Hormone 7.79 uIU/mL (0.27-4.20); Total Bilirubin 0.6 mg/dL (0.15-1.2); Total Protein 6.9 g/dL (6.6-8.7)
[2024-01-22 10:34] LABS: C Reactive Protein 3.2 mg/L (0.0-4.9); Creatine Phosphokinase 46 U/L (26-192)
--- NOTE | 2024-01-22 10:41 | PC.NURSE ---
PT AMBULATED TO BEDSIDE COMMODE WITH STANDBY ASSIST FROM THIS NURSE. PT DENIED DIZZINESS AT ANY POINT DURING AMBULATION.
[2024-01-22 10:45] LABS: Add Urine Microscopic? NO; Charge for UA Resulting for Rev
[2024-01-22 10:51] LABS: Bilirubin Urine Neg (Negative); Blood Urine Neg (Negative); Glucose Urine UA Norm (Normal); Ketones Urine Negative (Negative); Leukocyte Esterase Urine Negative (Negative); Nitrate Urine Negative (Negative); Protein Urine Neg (Negative); Specific Gravity, Urine 1.015 (1.005-1.030); Urine Appearance Clear (CLEAR); Urine Color Light yellow (Yellow); Urobilinogen Urine Norm (Negative); pH Urine 6 (5-7)
[2024-01-22 11:17] VITALS: BP 160/95; PULSE 67; O2SAT 92
[2024-01-22 11:56] VITALS: BP 165/88; PULSE 70; O2SAT 95
--- NOTE | 2024-01-22 11:59 | ECG_ITS ---
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 Measurements Intervals [place] Rate: 74 P: 0 OR: 0 QRS: 7 QRSD: 94 T: 21 QT: 377 QTc: 420 Interpretive Statements ATRIAL FIBRILLATION INCOMPLETE RIGHT BUNDLE BRANCH BLOCK [90+ ms QRS DURATION, TERMINAL R IN V1/V2, 40+ ms S IN I/aVL/V4/V5/V6] NONSPECIFIC T-WAVE ABNORMALITY Compared to ECG 01/22/2024 10:04:54 T-wave abnormality now present Electronically Signed On 01-22-2024 16:57:16 CDT by Luis Daniel Edwards M.D. [email or web address]
[2024-01-22 12:10] LABS: Troponin 5 2HR 34.83 ng/L (0-10)
[2024-01-22 12:28] LABS: Troponin 5 2HR Delta -3.17 ABS# (0-10)
--- NOTE | 2024-01-22 12:30 | CT_ITS ---
WS: [id number] CT HEAD TECHNIQUE: Noncontrast CT of the head obtained from the skullbase to the vertex. CLINICAL INFORMATION: dizziness COMPARISON: CT 2021 DLP: 1129.[address] scans at [facility] use at least one of these dose optimization techniques: automated e xposure control; mA and/or kV adjustment per patient size (includes targeted exams where dose is matc hed to clinical indication); or iterative reconstruction. FINDINGS: No evidence of intracranial hemorrhage or mass effect. Ventricular system and basal cisterns are salas nt. Moderate small vessel changes with moderate parenchymal volume loss. No extra-axial fluid collect ions. No evidence of mass or mass effect. Intracranial vascular calcification. Tiny chronic lacunar i nfarct RIGHT caudate. Chronic opacification LEFT mastoid air cells with sclerosis. Soft tissue opacification LEFT middle ea r. RIGHT mastoid air cells are well aerated. CT/CT head wo con* 02200 IMPRESSION: 1. No evidence of intracranial hemorrhage or mass effect. 2. No acute intracranial findings. 3. Chronic opacification LEFT mastoid air cells with sclerosis. Soft tissue op acification LEFT middle ear. This is similar to 202.
[2024-01-22 12:31] VITALS: BP 158/99; PULSE 72; O2SAT 94
[2024-01-22 13:44] VITALS: BP 158/99; PULSE 72; RESP 17; TEMP 36.7; O2SAT 94
== END 2024-01-22 13:45 | disposition home or self-care (01) ==
PROVIDERS: Emergency Provider Emergency Medicine; PCP Family Medicine
DX: R55 Syncope and collapse (principal); R42 Dizziness and giddiness; Z79.01 Long term (current) use of anticoagulants; I25.2 Old myocardial infarction; E11.22 Type 2 diabetes mellitus with diabetic chronic kidney disease; N18.9 Chronic kidney disease, unspecified; I50.9 Heart failure, unspecified
CPT/HCPCS: 36415; 70450; 71045; 80053; 80162; 81003; 82550; 83735; 84146; 84443; 84484; 85025; 85610; 86140; 93005; 99285

== ENCOUNTER → 2024-02-24 14:48 | Outpatient (BNVA) | payer MEDICARE, SELFPAY | PROVIDERS: PCP Family Medicine; Visit Provider Family Medicine | DX: I48.0 Paroxysmal atrial fibrillation (principal) | CPT/HCPCS: 85610 ==

== ENCOUNTER → 2024-03-02 14:08 | Outpatient (BNVA) | payer MEDICARE, SELFPAY | PROVIDERS: PCP Family Medicine; Visit Provider Family Medicine | DX: I48.0 Paroxysmal atrial fibrillation (principal) | CPT/HCPCS: 85610 ==

== ENCOUNTER → 2024-03-03 14:45 | Outpatient (BNVA) | payer MEDICARE, SELFPAY | PROVIDERS: PCP Family Medicine; Visit Provider Internal Medicine | DX: I48.0 Paroxysmal atrial fibrillation (principal); I50.32 Chronic diastolic (congestive) heart failure | CPT/HCPCS: 99214 ==

== ENCOUNTER → 2024-03-09 14:15 | Outpatient (BNVA) | payer MEDICARE, SELFPAY | PROVIDERS: PCP Family Medicine; Visit Provider Family Medicine | DX: I48.0 Paroxysmal atrial fibrillation (principal) | CPT/HCPCS: 85610 ==

== ENCOUNTER 2024-03-19 14:45 | Outpatient (CLI) | payer MEDICARE, SELFPAY ==
--- NOTE | 2024-03-19 15:00 | USCV_ITS ---
Linda Todd Age: 88 Gender: F : 1935 Exam Date: 03/19/2024 15:09 Ordering Phys: Luis Daniel Edwards M.D ([email or web address]) Technologist: Exam Location: [facility] [place] Indication: murmur BP: 120 / 70 HR: 57 Rhythm: Sinus Technical Quality: Adequate MEASUREMENTS (Male / Female) Normal Values 2D ECHO LV Diastolic Diameter PLAX 4.3 cm 4.2 - 5.9 / 3.9 - 5.3 cm IVS Diastolic Thickness 1.3 cm 0.6 - 1.0 / 0.6 - 0.9 cm IVS Systolic Thickness 1.8 cm LVPW Diastolic Thickness 1.1 cm 0.6 - 1.0 / 0.6 - 0.9 cm LVPW Systolic Thickness 1.6 cm LVOT Diameter 2.0 cm LV Ejection Fraction 2D Teich 57.6 % LV Ejection Fraction MOD 2C 56.4 % LV Ejection Fraction 2C AL 58.4 % LA Diameter 4.5 cm RA Systolic Volume 4C AL 68.4 ml RA Systolic Volume 4C MOD 65.5 ml LA Sys Volume AL 108.6 cm cubed LA Sys Volume Index AL 63.1 cm cubed/m squared Aorta at Sinotubular Diameter 3.1 cm IVC Diameter 2.0 cm M-MODE LA Ao Ratio MM 1.7 AV Cusp Separation MM 1.2 cm DOPPLER AV Peak Velocity 344.0 cm/s LVOT Peak Velocity 59.0 cm/s AV Area Cont Eq vti 0.6 cm squared AV Area Cont Eq pk 0.6 cm squared MV Peak Velocity 138.0 cm/s MV Area PHT 4.2 cm squared Mitral E to A Ratio 1.8 TV Peak Velocity 295.5 cm/s TR Peak Velocity 366.0 cm/s TR Peak Gradient 53.6 mmHg TV Peak E Velocity 84.0 cm/s Right Atrial Pressure 3.0 mmHg Pulmonary Artery Systolic Pressu 56.6 mmHg PV Peak Velocity 104.0 cm/s FINDINGS Left Ventricle Left ventricle is normal size. LV systolic function is mildly reduced with EF of 40-45%. Mild global hypokinesis. Right Ventricle Normal in size and function Right Atrium Dilated Left Atrium Severely dilated Mitral Valve Structurally normal mitral valve. Mild mitral regurgitation. Aortic Valve Aortic valve is thickened. Severe low flow-low gradient aortic stenosis with aortic valve area of 0.6cm2 mean gradient across aortic valve of 24mmHg. Tricuspid Valve Mild tricuspid regurgitation. Pulmonic Valve Mild pulmonic regurgitation. Pericardium Normal Aorta Normal in size IVC Appears to be normal CONCLUSIONS LV systolic function is mildly reduced with EF of 40 to 45%. Severely dilated left atrium Right atrial dilation Mild mitral regurgitation Severe low-flow low gradient aortic stenosis with aortic valve area of 0.56 cm2 and mean gradient of 24 mmHg. Mild tricuspid regurgitation Mild pulmonic regurgitation. Luis Daniel Edwards MD (Electronically Signed) Final Date: 02 April 2024 10:05 S
== END 2024-03-19 14:46 | disposition home or self-care (01) ==
LOC: RAD 14:46
PROVIDERS: PCP Family Medicine; Visit Provider Internal Medicine
DX: I35.0 Nonrheumatic aortic (valve) stenosis (principal); R06.02 Shortness of breath; I51.7 Cardiomegaly
CPT/HCPCS: 93306

== ENCOUNTER → 2024-03-23 14:38 | Outpatient (BNVA) | payer MEDICARE, SELFPAY | PROVIDERS: PCP Family Medicine; Visit Provider Family Medicine | DX: I48.0 Paroxysmal atrial fibrillation (principal) | CPT/HCPCS: 85610 ==

== ENCOUNTER → 2024-04-13 14:31 | Outpatient (BNVA) | payer MEDICARE, SELFPAY | PROVIDERS: PCP Family Medicine; Visit Provider Family Medicine | DX: I48.0 Paroxysmal atrial fibrillation (principal) | CPT/HCPCS: 85610 ==

== ENCOUNTER → 2024-04-28 12:09 | Outpatient (BNVA) | payer MEDICARE, SELFPAY | PROVIDERS: PCP Family Medicine; Visit Provider Internal Medicine | DX: I48.0 Paroxysmal atrial fibrillation (principal); I50.32 Chronic diastolic (congestive) heart failure; I35.0 Nonrheumatic aortic (valve) stenosis; Z79.01 Long term (current) use of anticoagulants | CPT/HCPCS: 99214 ==

== ENCOUNTER → 2024-05-01 10:48 | Outpatient (BNVA) | payer MEDICARE, SELFPAY | PROVIDERS: PCP Family Medicine; Visit Provider Family Medicine | DX: R30.0 Dysuria (principal) | CPT/HCPCS: 81003; 87077; 87086; 87184 ==

== ENCOUNTER → 2024-05-07 11:21 | Outpatient (BNVA) | payer MEDICARE, SELFPAY | PROVIDERS: PCP Family Medicine; Visit Provider Family Medicine | DX: I10 Essential (primary) hypertension (principal); I50.32 Chronic diastolic (congestive) heart failure; R58 Hemorrhage, not elsewhere classified; I35.0 Nonrheumatic aortic (valve) stenosis; I48.0 Paroxysmal atrial fibrillation | CPT/HCPCS: 80048; 85025; 85610 ==

== ENCOUNTER 2024-05-12 06:07 | Outpatient (CLI) | payer MEDICARE, SELFPAY ==
[2024-05-12] VITALS (34 sets, daily range): BP systolic 112–179; BP diastolic 56–127; PULSE 78–116; RESP 15–25; TEMP 36.5–36.7; O2SAT 90–97
--- NOTE | 2024-05-12 06:56 | SUR.PREOP ---
PRE OP FLUIDS IV TO LEFT FOREARM WITH 0.9% NS. Infusing now at 100 ml/hr as ordered per MD for pre cath hydration.
[2024-05-12 07:02] LABS: INR 1.06 (0.8-1.2)
--- NOTE | 2024-05-12 09:45 | XACV_ITS ---
Exam Room: 2 Ht: 175 cm Wt: 62 kg BSA: 1.73 m2 Gender: Female : 1935 Any Known Allergies: Hydrocodone Exam Priority: Routine Procedure(s): Procedure Description: Diagnostic procedure Procedure Description: Left Heart Catheterization Procedure Description: Right Heart Catheterization Procedure Description: O2 saturation Procedure Description: Coronary Angiography Diagnostic Cath Status: Elective Diagnostic Findings * INDICATION: Severe aortic stenosis. 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 * Left Main has no significant disease. * Circumflex has mild luminal irregularities. OM 1 has calcified moderate stenosis. * LAD is heavily calcified vessel. Proximal Left Anterior Descending: critical 95%, heavily calcified stenosis, SHASHI: 3 flow. * Mid Left Anterior Descending has a complex critical 95% calcified, long stenosis, SHASHI: 3 flow. Tortuous vessel. * Aortic valve study: MARICHUY : 0.52cm2, mean gradient across aortic valve: 37mmHg. Right heart cath findings: Normal right and left-sided cardiac pressures. Mild pulmonary hypertension. * Right Coronary Artery has no disease. * Coronary angiography shows co-dominance. Conclusions 1. Critical, complex heavily calcified proximal and mid LAD stenosis.. 2. Severe aortic stenosis. 3. Normal right and left-sided cardiac pressures. Mild pulmonary hypertension. Recommendations * We will refer patient to structural team for assessment regarding TAVR. Also will need the heart team discussion regarding possible revascularization options versus medical therapy. * Outpatient cardiology follow up in 2 weeks. Pressures Phase:Rest AO : 164 / 76 ( 111 ) @ 12:09:00 PM 131 / 83 ( 107 ) @ 12:09:00 PM 160 / 75 ( 109 ) @ 12:25:00 PM 153 / 70 ( 109 ) @ 12:25:00 PM LV : 192 / -17 / 2 @ 12:25:00 PM 183 / -22 / -3 @ 12:25:00 PM RV : 42 / -3 / 5 @ 12:07:00 PM PA : 36 / 10 ( 19 ) @ 12:00:00 PM RA : a wave = 5 v wave = 5 mean = 4 @ 12:06:00 PM PCW : a wave = 10 v wave = 12 mean = 9 @ 12:03:00 PM O2 Content Phase:Rest PA : O2 Content O2: 63.0 @ 12:09:00 PM Saturations Phase:Rest AO : 93 @ 12:09:00 PM PA : 63 @ 12:09:00 PM Cardiac Output Phase:Rest Sachin : 3 @ 11:34:04 AM Sachin Cardiac Index: 2 @ 11:34:04 AM Flow Phase:Rest Qp : 3 @ 11:34:04 AM Qs : 3 @ 11:34:04 AM Valves Phase:DefaultPhase AV : 30.0 @ 11:34:04 AM 30.0 @ 11:34:04 AM AV Mean Gradient: 37.0 @ 11:34:04 AM 37.0 @ 11:34:04 AM AV Flow: 142 @ 11:34:04 AM AV Area: 0.5 @ 11:34:04 AM AV Area Index: 0.30 @ 11:34:04 AM Clinical Evaluation EBL: 5mL-10mL Procedural Details Pre-Procedure Time Out. Identified patient by full name and date of as verbalized by the patient/guarantor. Does the consent match the physician's order: Yes. Accurate & Complete Informed Consent: Yes. Inpatient/Outpatient History & Physical on Chart: Yes. If H&P is completed, is and addenduem needed: No; If yes, is the addendum complete: N/A. Visualize and Verify Site with Patient/Guarantor: N/A. Relevant Radiology Images available: Yes. Pre-op teaching completed and patient verbalized understanding. The risks, benefits, and alternatives of sedation and/or procedure were discussed by physician. The patient agrees to continue. Procedure started. Physician arrived. [facility] Clinical Fraility Score: 4: Vulnerable. 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 Chest Pain Symptom Assessment: Asymptomatic. Correct patient, site and procedure confirmed by cath team. PERRLA. Strong, equal hand equity analyst bilaterally. Lungs clear x 5 lobes. IV Site on Arrival: 20 gauge in the right anticubital. IV Site on Arrival: 20 gauge in the left anticubital. IV Fluids: 0.9% NaCl at KVO. 0 mL infused prior to crime lab analyst. Pre Procedural Pulses: bilateral dorsalis pedis was Doppled. Pre Procedural Pulses: bilateral posterior tibial was Doppled. Pre Procedural Pulses: bilateral radial was 3+. right groin was prepped with chloroprep then draped in the usual sterile fashion. right radial was prepped with chloroprep then draped in the usual sterile fashion. right brachial was prepped with chloroprep then draped in the usual sterile fashion. Baseline sample Acquired. HR: 72 BPM. Physician scrubbed in. Immediate Pre-Procedure Time Out. Correct Patient: Yes; Correct Procedure: Yes; Correct Site: Yes; Correct Patient Position: Yes; Correct Supplies: Yes; Dried Flammable Prep: Yes; Blood Products Available: N/A;. Lidocaine 1% infiltrated to the right brachial. Sheath wire inserted through the brachial IV catheter. IV catheter removed OTW. Landis-Liseth MON catheter inserted. Solon wire inserted. Wire out. 0.025 wire inserted. Landis-Liseth out. Lidocaine 1% infiltrated to the right radial. Arterial access obtained. A 5 albanian TIG catheter in over wire. Contrast hand injected through the catheter. Catheter removed over the standard wire. A TR Band was successful obtaining hemostatsis at the Right Radial artery insertion site. A Manual Compression was successful obtaining hemostatsis at the Right Brachial Vein insertion site. Lidocaine 1% infiltrated to the right groin. Arterial access obtained with micropuncture set. Ultrasound being used to obtain venous access. left groin was prepped with chloroprep then draped in the usual sterile fashion. Lidocaine 1% infiltrated to the left groin. Venous access obtained. Landis-Liseth MON catheter inserted. Oximetry samples were obtained. Normal venous range: 60-85%. Normal arterial range: 95-100%. Pressure measurements obtained. Landis-Liseth out. A 5 albanian JL4 catheter in over wire. Multiple views taken of left coronary artery. Catheter removed over the exchange wire. A 5 albanian JR4 catheter in over wire. Multiple views taken of right coronary artery. Catheter removed over the glide wire. A 5 albanian AL1 catheter in over wire. Glidewire out. Exchange wire inserted. Catheter removed over the exchange wire. A 6 albanian Anchor Pig catheter in over wire. Gradient taken: LV 183/-23,-4; AO 153/70(109); Mean: 37mmHg, Peak to Peak: 30mmHg, SEP: 22sec/min; HR: 95 BPM; SpO2: 98%. Catheter removed over the exchange wire. A Right femoral angiogram was performed to determine safe placement of closure device. A Suture was successful obtaining hemostatsis at the Left Femoral vein insertion site. A Mynx was successful obtaining hemostatsis at the Right Femoral artery insertion site. Post Procedure: Pulses reassessed and unchanged. PERRLA. Strong, equal hand equity analyst bilaterally. No VTE prophylaxis required. Medication's Wasted: Nitro = 49.8 mcg. Medication's Wasted: Heparin = 2500 units. Total IV fluids: 100 mL. Complications: None. Estimated blood loss: 5mL-10mL. Responsiveness - Normal response to verbal stimuli; alert and oriented, PERRLA. Airway - Unaffected, no intervention required; spontaneous ventilation. Circulation: W/N/L, pulses unchanged. Nausea/Vomiting: No. Procedure completed. Patient transferred by bed to CPRU. Vital chart was stopped. Access Site Site: Right Brachial Vein Sheath Size: 6 Fr Hemostasis Method: Manual Compression Hemostasis Success: Successful Site: Right Radial artery Sheath Size: 6 Fr Hemostasis Method: TR Band Hemostasis Success: Successful Site: Right Femoral artery Sheath Size: 6 Fr Hemostasis Method: Mynx Hemostasis Success: Successful Site: Left Femoral vein Sheath Size: 6 Fr Hemostasis Method: Suture Hemostasis Success: Successful Procedure Medications Start: 10:16 AM Stop: 10:16 AM Medication: Versed Amount: 1 mg Route: I.V. Start: 10:33 AM Stop: 10:33 AM Medication: Nitrogylcerin Amount: 200 mcg Route: I.A. Start: 11:02 AM Stop: 11:02 AM Medication: Versed Amount: 1 mg Route: I.V. Start: 11:11 AM Stop: 11:11 AM Medication: Heparin Amount: 1500 units Route: I.V. I, the attending physician, have reviewed and verified all procedure medications. Yes, all medications given per verbal order History/Risk Factors Hypertension: No Dyslipidemia: No Peripheral Arterial Disease (PAD): No Myocardial Infarction (KS): No Obesity: No Renal Disease: No Tobacco Use: Never Prior Interventions PCI: No CABG: No Valve Surgery: No Report Signatures Finalized by Luis Daniel Edwards MD on 05/17/2024 01:03 PM
--- NOTE | 2024-05-12 10:15 | W.PM.OPSUD ---
Surgery/Procedure H&P Update DATE OF PROCEDURE: May 12, 2024 DATE H&P PERFORMED: 04/28/24 H&P UPDATE INFORMATION: I have reviewed H&P completed within last 30 days, I have examined patient prior to procedure and No changes to prior documentation PREOP DIAGNOSIS: Aortic stenosis PRIMARY INDICATION FOR PROCEDURE: Aortic stenosis PLANNED PROCEDURE: Operation Date: 05/12/24 08:30 Proposed Procedures p Cardiac Catheterization - RLCH w/wo LV & Ely(Bilateral) - Luis Daniel Edwards M.D PATIENT REASSESSED PRIOR TO SEDATION, WITH NO CHANGE NOTED: Yes PHYSICAL EXAM: alert, oriented x 3, clear to auscultation bilaterally and regular rate & rhythm OTHER PERTINENT EXAM FINDINGS: Grade 4/6 systolic murmur
[2024-05-12 11:09] LABS: Alveolar-Arterial Oxygen Gradi 4.3 mmHg (5-10); Arterial Blood Gas Hematocrit 36.5 % (37-47); Blood Gas Allen Test Pos; Blood Gas Operator Identificat BROMA; Blood Gas Sample Type Arterial; Carboxyhemoglobin 1.2 %THgb (0.4-20.1); HGB O2 Sat 91.4 % (95-100); Methemoglobin 0.9 % (0.4-1.5); Total Hemoglobin 11.9 g/dL (12-16)
[2024-05-12 12:25] LABS: Blood Gas Sample Site AO
[2024-05-12] MEDS: sodium chloride 0.9% 1,000 ML 75 ML IV (16:32)
[2024-05-12] MEDS: metoprolol tartrate 25 mg Tablet PO (17:59)
[2024-05-12 18:27] LABS: Alveolar-Arterial Oxygen Gradi 7.7 mmHg (5-10); Arterial Blood Gas Hematocrit 36.8 % (37-47); Blood Gas Allen Test Pos; Blood Gas Operator Identificat BROMA; Blood Gas Sample Type Arterial; Carboxyhemoglobin 1.2 %THgb (0.4-20.1); HGB O2 Sat 61.6 % (95-100)
[2024-05-12 18:29] LABS: Blood Gas Sample Site PA
[2024-05-12] MEDS: acetaminophen 325 mg Tablet 650 MG PO (19:55)
[2024-05-13] VITALS (9 sets, daily range): BP systolic 135–164; BP diastolic 74–101; PULSE 79–110; O2SAT 91–94
[2024-05-13] MEDS: sodium chloride 0.9% 1,000 ML 75 ML IV (00:09)
[2024-05-13 04:23] LABS: Basophils % 0.4 %; Eosinophils # 0.1 10^3/uL (0.0-0.8); Eosinophils % 1.8 %; Hematocrit 34.3 % (36-47); Lymphocytes # 1.2 10^3/uL (0.8-4.8); Lymphocytes % 17.2 %; Mean Corpuscular HGB Conc 31.5 g/dL (30-55); Mean Platelet Volume 10.2 fL (7.4-10.4); Monocytes # 0.7 10^3/uL (0.2-0.9); Monocytes % 10.1 %; Neutrophils # 4.74 10^3/uL (1.8-7.7); Neutrophils % 70.2 %; Nucleated Red Blood Cells % 0 %; Platelet Count 204 10^3/cmm (157-399); Red Blood Count 3.73 10^6/uL (3.85-5.65); Red Cell Distribution Width 14.6 % (12.1-15.1); White Blood Count 6.75 10^3/uL (3.29-11.43)
[2024-05-13 04:45] LABS: Anion Gap 16.1 (5-19); Blood Urea Nitrogen 24 mg/dL (8-23); Calcium 8.6 mg/dL (8.5-10.5); Carbon Dioxide 22 mmol/L (22-29); Chloride 103 mmol/L (98-107); Creatinine Clr Calc Pharmacy 43.9242; Glucose 98 mg/dL (65-115); Osmolality Calculated 288 mOsm/kg (285-295); Potassium 4.1 mmol/L (3.5-5.1); Sodium 137 mmol/L (136-145)
[2024-05-13] MEDS: dilTIAZem ER (24HR) 180 mg Capsule PO (08:09)
[2024-05-13] MEDS: atorvastatin 40 mg Tablet 20 MG PO (08:09)
[2024-05-13] MEDS: aspirin 81 mg EC Tablet PO (08:11)
[2024-05-13] MEDS: losartan 50 mg Tablet PO (08:12)
[2024-05-13] MEDS: metoprolol tartrate 25 mg Tablet PO (08:12)
--- NOTE | 2024-05-13 08:23 | P.DS_ITS ---
Discharge Providers Date of Admission: May 12, 2024 Date of Discharge: May 13, 2024 Attending Provider at Admission: Luis Daniel Edwards MD Attending Provider at Discharge: Luis Daniel Edwards M.D Primary Care Provider: Vicki Lao MD Reason for Visit Reason for Visit: I35.0 Brief History: 88-year-old woman who had outpatient car diac catheterization yesterday for severe aortic stenosis. Hospital Course Hospital Course Cardiac catheterization demonstrated severe LAD stenosis and confirmed severe aortic stenosis. Patient will be referred to [facility] for TAVR and possible revascularization of LAD. She was observed overnight and kept on IV fluids as her prior creatinine was 1.4. Today's labs show normalized creatinine at 0.9. Patient is chest pain-free. Doing well. We will resume Coumadin. Physical Exam Narrative: GENERAL: Patient is alert, awake and oriented x3. [] NECK: No jugular vein distension. [] HEENT: No cyanosis. No icterus. No pallor. [] HEART: Regular S1 and S2. Grade 4/6 systolic murmur LUNGS: Clear to auscultate bilaterally. [] CENTRAL NERVOUS SYSTEM: Grossly nonfocal. [] EXTREMITIES: Lower extremities with 1+ edema bilaterally. 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 request for service Routine Exams 05/12/24 09:45 Taken Laboratory Results WBC 6.75 10^3/uL (3.29-11.43) 05/13/24 03:48 RBC 3.73 10^6/uL (3.85-5.65) L 05/13/24 03:48 Hgb 10.80 g/dL (11.27-16.99) L 05/13/24 03:48 Hct 34.3 % (36-47) L 05/13/24 03:48 MCV 92.0 fl (85-98) 05/13/24 03:48 MCH 29.0 pg (27-33) 05/13/24 03:48 MCHC 31.5 g/dL (30-55) 05/13/24 03:48 RDW 14.6 % (12.1-15.1) 05/13/24 03:48 Plt Count 204 10^3/cmm (157-399) 05/13/24 03:48 MPV 10.2 fL (7.4-10.4) 05/13/24 03:48 Neut % (Auto) 70.2 % 05/13/24 03:48 Lymph % (Auto) 17.2 % 05/13/24 03:48 Bradford % (Auto) 10.1 % 05/13/24 03:48 Eos % (Auto) 1.8 % 05/13/24 03:48 Baso % (Auto) 0.4 % 05/13/24 03:48 Neut # (Auto) 4.74 10^3/uL (1.8-7.7) 05/13/24 03:48 Lymph # (Auto) 1.2 10^3/uL (0.8-4.8) 05/13/24 03:48 Bradford # (Auto) 0.7 10^3/uL (0.2-0.9) 05/13/24 03:48 Eos # (Auto) 0.1 10^3/uL (0.0-0.8) 05/13/24 03:48 Baso # (Auto) 0.0 10^3/uL (0.0-0.1) 05/13/24 03:48 Nucleated RBC % (auto) 0 % 05/13/24 03:48 Nucleated RBCs # 0.0 /100WBC 05/13/24 03:48 PT 14.20 SECONDS (12.1-14.9) 05/12/24 06:30 INR 1.06 (0.8-1.2) 05/12/24 06:30 Specimen Type Arterial 05/12/24 11:00 Specimen Type Arterial 05/12/24 11:00 Sample Site Ao 05/12/24 11:00 Sample Site Pa 05/12/24 11:00 Brandon Test Pos 05/12/24 11:00 Brandon Test Pos 05/12/24 11:00 A-a O2 Gradient 4.3 mmHg (5-10) L 05/12/24 11:00 A-a O2 Gradient 7.7 mmHg (5-10) 05/12/24 11:00 Hematocrit 36.5 % (37-47) L 05/12/24 11:00 Hematocrit 36.8 % (37-47) L 05/12/24 11:00 Hgb O2 Saturation 61.6 % (95-100) L 05/12/24 11:00 Hgb O2 Saturation 91.4 % (95-100) L 05/12/24 11:00 Carboxyhemoglobin 1.2 %THgb (0.4-20.1) 05/12/24 11:00 Carboxyhemoglobin 1.2 %THgb (0.4-20.1) 05/12/24 11:00 Methemoglobin 0.9 % (0.4-1.5) 05/12/24 11:00 Methemoglobin 1.0 % (0.4-1.5) 05/12/24 11:00 Total Hemoglobin 11.9 g/dL (12-16) L 05/12/24 11:00 Total Hemoglobin 12.0 g/dL (12-16) 05/12/24 11:00 O2 Delivery Device Not Reportable 05/12/24 11:00 O2 Delivery Device Not Reportable 05/12/24 11:00 Adding Machine Servicer ID Broma 05/12/24 11:00 Adding Machine Servicer ID Broma 05/12/24 11:00 Sodium 137 mmol/L (136-145) 05/13/24 03:48 Potassium 4.1 mmol/L (3.5-5.1) 05/13/24 03:48 Chloride 103 mmol/L (98-107) 05/13/24 03:48 Carbon Dioxide 22 mmol/L (22-29) 05/13/24 03:48 Anion Gap 16.1 (5-19) 05/13/24 03:48 BUN 24 mg/dL (8-23) H 05/13/24 03:48 Creatinine 0.9 mg/dL (0.5-0.9) 05/13/24 03:48 GFR Calculation Not Reportable 05/13/24 03:48 Glucose 98 mg/dL (65-115) 05/13/24 03:48 Calculated Osmolality 288 mOsm/kg (285-295) 05/13/24 03:48 Calcium 8.6 mg/dL (8.5-10.5) 05/13/24 03:48 Vitals Last Vital Signs Temp 97.7 F 05/12/24 21:00 Pulse 101 H 05/13/24 06:00 Resp 21 H 05/12/24 15:30 BP 143/74 05/13/24 04:00 Pulse Ox 93 05/13/24 04:00 O2 Del Method Room Air 05/12/24 21:00 O2 Flow Rate 2 05/12/24 12:00 Discharge Plan Discharge Patient Disposition: Home Prescriptions: Continued True Metrix Glucose Test Strip Strip See Rx Instructions .ROUTE .COMPLEX Qty: 100 0RF Dose Instruction: USE ONCE daily AND NEEDED Rx Instructions: USE ONCE daily AND NEEDED nitroglycerin 0.4 mg tablet, sublingual 0.4 mg sublingual Q5M PRN (Reason: Chest Pain) Rx Instructions: do not exceed 3 doses per episode lancets [TRUEplus Lancets] 30 gauge misc See Rx Instructions .ROUTE .COMPLEX Qty: 100 0RF Dose Instruction: USE AT least ONCE DAILY AND NEEDED Rx Instructions: USE AT least ONCE DAILY AND NEEDED metoprolol tartrate 25 mg tablet 25 mg PO BID Qty: 180 3RF (DME) Diabetic shoes with inserts See Rx Instructions .Route .MEDSUPPLY Qty: 1 0RF Rx Instructions: As directed AZO 1 tab PO BID Probiotic 1 tab PO DAILY Vit D3 1 tab PO DAILY (DME) blood-glucose meter Kit See Rx Instructions .ROUTE .MEDSUPPLY Qty: 1 0RF Rx Instructions: at least once daily and prn buspirone 5 mg tablet See Rx Instructions .ROUTE .COMPLEX Qty: 90 2RF Dose Instruction: TAKE ONE TABLET BY MOUTH THREE TIMES DAILY AT 8am, NOON, AND 6pm Rx Instructions: TAKE ONE TABLET BY MOUTH THREE TIMES DAILY AT 8am, NOON, AND 6pm potassium chloride 10 mEq tablet extended release See Rx Instructions .ROUTE .COMPLEX Qty: 60 2RF Dose Instruction: TAKE ONE TABLET BY MOUTH AT 8 am AND 1 TABLET AT 6 pm Rx Instructions: TAKE ONE TABLET BY MOUTH AT 8 am AND 1 TABLET AT 6 pm polyethylene glycol 3350 [Miralax] 17 gram/dose powder 17 g PO DAILY PRN (Reason: constipation) Qty: 510 1RF atorvastatin 20 mg tablet See Rx Instructions .ROUTE .COMPLEX Qty: 30 2RF Dose Instruction: TAKE ONE TABLET BY MOUTH EVERY DAY Rx Instructions: TAKE ONE TABLET BY MOUTH EVERY DAY warfarin 2 mg tablet See Rx Instructions .ROUTE .COMPLEX Qty: 60 0RF Dose Instruction: TAKE TWO TABS (4MG) EVERY OTHER DAY; ONE AND HALF TAB (3MG) EVERY OTHER DAY Rx Instructions: TAKE TWO TABS (4MG) EVERY OTHER DAY; ONE AND HALF TAB (3MG) EVERY OTHER DAY ondansetron HCl 4 mg tablet See Rx Instructions .ROUTE .COMPLEX Qty: 30 0RF Dose Instruction: TAKE ONE TABLET BY MOUTH EVERY 8 HOURS NEEDED FOR NAUSEA AND VOMITING Rx Instructions: TAKE ONE TABLET BY MOUTH EVERY 8 HOURS NEEDED FOR NAUSEA AND VOMITING levothyroxine 100 mcg tablet See Rx Instructions .ROUTE .COMPLEX Qty: 30 2RF Dose Instruction: TAKE ONE TABLET BY MOUTH EVERY MORNING Rx Instructions: TAKE ONE TABLET BY MOUTH EVERY MORNING losartan 50 mg tablet See Rx Instructions .ROUTE .COMPLEX Qty: 30 3RF Dose Instruction: TAKE ONE TABLET BY MOUTH EVERY MORNING Rx Instructions: TAKE ONE TABLET BY MOUTH EVERY MORNING furosemide 20 mg tablet See Rx Instructions .ROUTE .COMPLEX Qty: 30 2RF Dose Instruction: TAKE ONE TABLET BY MOUTH DAILY AT 8am Rx Instructions: TAKE ONE TABLET BY MOUTH DAILY AT 8am glipizide 2.5 mg tablet extended release 24hr See Rx Instructions .ROUTE .COMPLEX Qty: 30 2RF Dose Instruction: TAKE ONE TABLET BY MOUTH DAILY AT 8am, 15 MINUTES BEFORE breakfast Rx Instructions: TAKE ONE TABLET BY MOUTH DAILY AT 8am, 15 MINUTES BEFORE breakfast pantoprazole 40 mg tablet,delayed release (DR/EC) See Rx Instructions .ROUTE .COMPLEX Qty: 60 2RF Dose Instruction: TAKE ONE TABLET BY MOUTH twice daily Rx Instructions: TAKE ONE TABLET BY MOUTH twice daily vitamin E 268 mg (400 unit) Capsule 268 mg PO DAILY diltiazem HCl 180 mg capsule,extended release 24 hr 180 mg PO QAM digoxin 125 mcg (0.125 mg) tablet 62.5 mcg PO DAILY lactulose 20 gram packet 20 g PO DAILY PRN (Reason: Constipation) cyanocobalamin (vitamin B-12) [Vitamin B-12] 500 mcg Tablet 1,000 mcg PO QAM ascorbic acid (vitamin C) [Vitamin C] 500 mg Tablet 500 mg PO DAILY cetirizine 10 mg tablet 10 mg PO QAM Discontinued enoxaparin [Lovenox] 60 mg/0.6 mL syringe 60 mg SUBCUT Q12H Qty: 3.6 0RF Rx Instructions: 05/07 STOP WARFARIN 05/09, 05/10, 05/11 ONE INJECTION AM & PM Discharge Orders: Discharge Order (Routine); Ordered 05/13/24 Ordered By: Luis Daniel Edwards Referrals: Mignon Espitia FNP [Nurse Practitioner] - 7-10 days (Follow up on 05/20/24 at 10:15am with JACINTO Verdin ) Diet: Diabetic Activity: Increase activity as tolerated Patient Instructions: Angiogram (DC), Chest Pain Stoplight, Post Angiogram Home Care Instructions Activity Restrictions/Additional Instructions: You will be referred to [facility] cardiology for TAVR evaluation. [facility] cardiology will call to set up an appointment. Discharge Date/Time: 05/13/24 10:58 Discharge Attestations Time Spent in Discharge Care*: greater than 30 min Status at Discharge: Cognitive status at discharge: cognitively intact , Behavioral status at discharge: cooperative , Quality Metrics Clinical Quality Measures [ No reported AMI, CVA or VTE this stay] Coding Level of Care Code Acute Code for Chg Martha
[2024-05-13] MEDS: digoxin 125 mcg Tablet PO (08:52)
--- NOTE | 2024-05-13 09:54 | PC.NURSE ---
Patient received discharge orders. All IVs removed. Discharge instructions given to patient who verbalized understanding. Waiting for family to arrive to pick patient up.
--- NOTE | 2024-05-13 11:10 | PC.NURSE ---
Patient left at 1058 via w/c to main exit with staff.
== END 2024-05-13 10:58 | disposition home or self-care (01) ==
LOC: CCL 06:20 → ICU 05-13 07:19
PROVIDERS: PCP Family Medicine; Visit Provider Internal Medicine
DX: I35.0 Nonrheumatic aortic (valve) stenosis (principal); I25.10 Atherosclerotic heart disease of native coronary artery without angina pectoris; I27.20 Pulmonary hypertension, unspecified; Z79.01 Long term (current) use of anticoagulants
CPT/HCPCS: 36415; 80048; 82810; 85025; 85610; 93460; 96360; 96361; 96374; 96375; 99152; 99153; C1760; C1769; C1887; C1894; G0269; J1644; J2250; J3490; J7030; Q0163; Q9967

== ENCOUNTER 2024-05-20 15:01 | Outpatient (CLI) | payer MEDICARE, SELFPAY ==
[2024-05-20 16:20] LABS: Blood Urea Nitrogen 27 mg/dL (8-23); Calcium 8.8 mg/dL (8.5-10.5); Carbon Dioxide 22 mmol/L (22-29); Chloride 95 mmol/L (98-107); Glucose 189 mg/dL (65-115); Osmolality Calculated 282 mOsm/kg (285-295); Sodium 131 mmol/L (136-145)
[2024-05-20 16:27] LABS: Anion Gap 18.8 (5-19); Potassium 4.8 mmol/L (3.5-5.1)
== END 2024-05-20 15:02 | disposition home or self-care (01) ==
LOC: LAB 15:02
PROVIDERS: PCP Family Medicine; Visit Provider Nurse Practitioner Family
DX: I35.0 Nonrheumatic aortic (valve) stenosis (principal)
CPT/HCPCS: 36415; 80048

== ENCOUNTER → 2024-07-03 14:05 | Outpatient (BNVA) | payer MEDICARE, SELFPAY | PROVIDERS: Visit Provider Nurse Practitioner Family | DX: I48.0 Paroxysmal atrial fibrillation (principal); R30.0 Dysuria; R31.9 Hematuria, unspecified; N39.0 Urinary tract infection, site not specified | CPT/HCPCS: 81000; 81003; 85610; 87077; 87086; 87184 ==

== ENCOUNTER → 2024-08-03 15:57 | Outpatient (BNVA) | payer MEDICARE, SELFPAY | PROVIDERS: Referring Provider Nurse Practitioner Family; Visit Provider Nurse Practitioner Family | DX: I48.0 Paroxysmal atrial fibrillation (principal) | CPT/HCPCS: 85610 ==

== ENCOUNTER → 2024-08-04 14:58 | Outpatient (BNVA) | payer MEDICARE, SELFPAY | PROVIDERS: Visit Provider Nurse Practitioner Family | DX: R30.0 Dysuria (principal); R31.9 Hematuria, unspecified; N39.0 Urinary tract infection, site not specified; Z23 Encounter for immunization | CPT/HCPCS: 81000; 87077; 87086; 87184 ==

== ENCOUNTER → 2024-08-17 15:26 | Outpatient (BNVA) | payer MEDICARE, SELFPAY | PROVIDERS: Visit Provider Nurse Practitioner Family | DX: I48.0 Paroxysmal atrial fibrillation (principal) | CPT/HCPCS: 85610 ==

== ENCOUNTER → 2024-09-21 14:24 | Outpatient (BNVA) | payer MEDICARE, SELFPAY | PROVIDERS: PCP Nurse Practitioner Family; Visit Provider Nurse Practitioner Family | DX: I48.0 Paroxysmal atrial fibrillation (principal) | CPT/HCPCS: 85610 ==

== ENCOUNTER 2024-09-26 12:30 | Emergency (ER) | payer MEDICARE, SELFPAY ==
[2024-09-26 12:32] VITALS: PULSE 77; RESP 16; TEMP 36.9; O2SAT 95
[2024-09-26 12:39] VITALS: BP 178/74
--- NOTE | 2024-09-26 12:42 | XRR_ITS ---
PROCEDURE INFORMATION: Exam: XR Chest Exam date and time: 09/26/2024 12:58 PM Age: 89 years old Clinical indication: Pain; Cough and dyspnea; Chest pressure; Additional info: Dyspnea/cough TECHNIQUE: Imaging protocol: Radiologic exam of the chest. Views: 1 view. COMPARISON: CR XR chest 1V portable [id number] 01/22/2024 9:44 AM FINDINGS: Lungs: Interstitial opacities in the lower lobes bilaterally. No focal consolidation. Left basilar atelectasis. Pleural spaces: Unremarkable. No pleural effusion. No pneumothorax. Heart/Mediastinum: The cardiomediastinal silhouette is stable and mildly enlarged. Vasculature: Calcification of the aortic arch. Bones/joints: Unremarkable. XR/XR chest 1V portable [id number] IMPRESSION: 1. Stable moderate cardiomegaly with interstitial opacities in the lower lungs bilaterally may represent sequela of pulmonary vascular congestion. 2. No focal consolidation or pneumothorax.
--- NOTE | 2024-09-26 12:42 | ECG_ITS ---
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 Measurements Intervals [place] Rate: 73 P: 0 AK: 0 QRS: 0 QRSD: 91 T: 8 QT: 377 QTc: 417 Interpretive Statements ATRIAL FIBRILLATION With occasional PVCs/aberrantly conducted beats INCOMPLETE RIGHT BUNDLE BRANCH BLOCK [90+ ms QRS DURATION, TERMINAL R IN V1/V2, 40+ ms S IN I/aVL/V4/V5/V6] NONSPECIFIC ST & T-WAVE ABNORMALITY ABNORMAL RHYTHM ECG Compared to ECG 01/22/2024 11:59:10 No significant changes Electronically Signed On 09-26-2024 21:25:47 PARLIAMENTARY ARCHIVIST by Bharati Garcia M.D. [email or web address]
--- NOTE | 2024-09-26 12:43 | ED_ITS ---
HPI - Chest Pain 2 General: Chief Complaint: Chest Pain Stated Complaint: chest pain Time Seen by Provider: 09/26/24 12:41 History of Present Illness: 89-year-old female presents emergency ro om with intermittent chest pain. She has a history of atrial fibrillation she thought her heart rate was rapid at home prior to coming in. She is not having any chest pain now. No shortness of breath. No recent fever sweats chills or productive cough Associated symptoms: Deny abdominal pain, dyspnea or fever(s) Related Data Home Medications Medication Instructions Recorded Confirmed ascorbic acid (vitamin C) 500 mg 500 mg PO DAILY 01/08/22 08/25/24 tablet (Vitamin C) cetirizine 10 mg tablet 10 mg PO QAM 01/08/22 08/25/24 cyanocobalamin (vitamin B-12) 500 1,000 mcg PO QAM 01/08/22 08/25/24 mcg tablet (Vitamin B-12) digoxin 125 mcg (0.125 mg) tablet 62.5 mcg PO DAILY 01/22/24 08/25/24 lactulose 20 gram oral packet 20 g PO DAILY PRN Constipation 01/22/24 08/25/24 vitamin E 268 mg (400 unit) capsule 268 mg PO DAILY 01/22/24 08/25/24 AZO 1 tab PO BID 04/28/24 08/25/24 Probiotic 1 tab PO DAILY 04/28/24 08/25/24 Vit D3 1 tab PO DAILY 04/28/24 08/25/24 Previous Rx's Medication Instructions Recorded blood-glucose meter #1 ea 04/11/20 blood sugar diagnostic (True See Rx Instructions .Route 09/26/22 Metrix Glucose Test Strip) .COMPLEX #100 ea lancets 30 gauge (TRUEplus Lancets) See Rx Instructions .Route 08/22/23 .COMPLEX #100 ea polyethylene glycol 3350 17 17 g PO DAILY PRN constipation 01/01/24 gram/dose oral powder (Miralax) #510 grams Diabetic shoes with inserts #1 ea 01/02/24 atorvastatin 20 mg tablet See Rx Instructions .Route 03/06/24 .COMPLEX #30 tabs ondansetron HCl 4 mg tablet See Rx Instructions .Route 03/30/24 .COMPLEX #30 tabs losartan 50 mg tablet See Rx Instructions .Route 05/06/24 .COMPLEX #30 tabs diltiazem HCl 180 mg capsule,24 180 mg PO QAM #30 caps 05/26/24 hr,extended release buspirone 5 mg tablet See Rx Instructions .Route 06/11/24 .COMPLEX #90 tabs potassium chloride 10 mEq See Rx Instructions .Route 06/11/24 tablet,extended release .COMPLEX #60 tabs levothyroxine 100 mcg tablet See Rx Instructions .Route 08/04/24 .COMPLEX #30 tabs sulfamethoxazole 400 1 tab PO Q12H #20 tabs 08/04/24 mg-trimethoprim 80 mg tablet (Bactrim) furosemide 20 mg tablet See Rx Instructions .Route 09/02/24 .COMPLEX #30 tabs glipizide 2.5 mg tablet, extended See Rx Instructions .Route 09/02/24 release 24 hr .COMPLEX #30 tabs metoprolol tartrate 25 mg tablet 25 mg PO BID #60 tabs 09/02/24 pantoprazole 40 mg tablet,delayed See Rx Instructions .Route 09/07/24 release .COMPLEX #60 tabs warfarin 2 mg tablet See Rx Instructions .Route 09/07/24 .COMPLEX #60 tabs nitroglycerin 0.4 mg sublingual 0.4 mg sublingual Q5M PRN Chest 09/21/24 tablet Pain #20 tabs Allergies Allergy/AdvReac Type Severity Reaction Status Date / Time hydrocodone Allergy Unknown Unknown Verified 09/18/24 13:12 Penicillins Allergy Unknown Unknown Verified 09/18/24 13:12 Review of Systems 2 Const: Denies: fever(s) or chills Card: Reports: chest pain Resp: Denies: dyspnea GI: Denies: abdominal pain : Denies: dysuria, urinary frequency or urinary urgency Musc: Denies: neck pain or back pain Skin/Breast: Denies: rash PFSH ED 2 PFSH: Medical History Dysuria History of coronary artery disease Subcapital fracture of right hip Atrial fibrillation History of RI (myocardial infarction) Hearing loss in left ear Perforated tympanic membrane Seasonal allergies CKD (chronic kidney disease) Type 2 diabetes mellitus Hypothyroidism Anxiety GERD (gastroesophageal reflux disease) CHF (congestive heart failure) Surgical History S/P cataract extraction History of appendectomy History of bladder surgery Family History Mother Cancer skin CAD (coronary artery disease) Father CAD (coronary artery disease) Social History Smoking and tobacco/nicotine status: never used tobacco/nicotine Second hand smoke exposure: No Alcohol intake: never Substance/Drug Use: never Adopted: No Caregiver/support person: Yes Lives independently: No Household members: family Housing: House Marital status: / service: No Current occupational status: retired Do you think of yourself as: Straight/Heterosexual Current gender identity: Female Special an needs: No Physical Exam 2 Const: COMMON NORMALS: no acute distress GENERAL APPEARANCE: cooperative and comfortable ORIENTATION/CONSCIOUSNESS: Yes awake, Yes oriented to person, Yes oriented to place and Yes oriented to time HENMT: COMMON NORMALS: normocephalic, atraumatic and hearing grossly normal bilaterally HEAD & SCALP: normocephalic and atraumatic Resp: COMMON NORMALS: normal respiratory effort, No retractions, No use of accessory muscles and clear to auscultation bilaterally AUSCULTATION: clear to auscultation bilaterally Cardio: COMMON NORMALS: regular rate, regular rhythm and No murmurs present (Cardio) RATE: regular rate RHYTHM: regular rhythm GI: COMMON NORMALS: Soft to palpation and No hepatosplenomegaly present A USCULTATION: Yes normoactive bowel sounds PALPATION: Yes Soft to palpation, No Tenderness to palpation present (GI), No Guarding due to palpation present (GI) and Yes No hepatosplenomegaly present Extremity: COMMON NORMALS: normal to inspection, capillary refill normal, no clubbing, cyanosis or edema, no calf tenderness and no pedal edema Neuro: SENSORIUM/ORIENTATION: Yes oriented to person, Yes oriented to place and Yes oriented to time Skin: COMMON NORMALS: no rashes or lesions noted GENERAL SKIN EXAM: no rashes or lesions noted Course 2 Vital Signs: Vital signs: Vital Signs Temperature 98.4 F 09/26/24 12:32 Pulse Rate 93 09/26/24 16:43 Respiratory Rate 24 H 09/26/24 15:52 Blood Pressure 147/82 09/26/24 16:43 Pulse Oximetry 96 09/26/24 16:43 Oxygen Delivery Me thod Room Air 09/26/24 12:32 MDM - Chest Pain Medical Decision Making Cardiac enzymes negative. We have not noted any A-fib with RVR while in the emergency room, maintains A-fib with a controlled rate.. No change in medications this time will discharge patient home. Will set the patient up for an outpatient Holter monitor and follow-up with cardiology. Not having any shortness of breath at this time no evidence of decompensated heart failure Medical Records I reviewed the patient's medical records. Lab Data I reviewed the patient's lab results. 09/26/24 12:56 09/26/24 12:56 Radiology Impressions Chest X-Ray 09/26/24 12:42 IMPRESSION: 1. Stable moderate cardiomegaly with interstitial opacities in the lower lungs bilaterally may represent sequela of pulmonary vascular congestion. 2. No focal consolidation or pneumothorax. Laboratory Results WBC 7.38 10^3/uL (3.29-11.43) 09/26/24 12:56 RBC 4.29 10^6/uL (3.85-5.65) 09/26/24 12:56 Hgb 13.00 g/dL (11.27-16.99) 09/26/24 12:56 Hct 40.5 % (36-47) 09/26/24 12:56 MCV 94.4 fl (85-98) 09/26/24 12:56 MCH 30.3 pg (27-33) 09/26/24 12:56 MCHC 32.1 g/dL (30-55) 09/26/24 12:56 RDW 13.5 % (12.1-15.1) 09/26/24 12:56 Plt Count 260 10^3/cmm (157-399) 09/26/24 12:56 MPV 9.5 fL (7.4-10.4) 09/26/24 12:56 Neut % (Auto) 75.7 % 09/26/24 12:56 Lymph % (Auto) 14.9 % 09/26/24 12:56 [place] % (Auto) 7.0 % 09/26/24 12:56 Eos % (Auto) 1.8 % 09/26/24 12:56 Baso % (Auto) 0.3 % 09/26/24 12:56 Neut # (Auto) 5.59 10^3/uL (1.8-7.7) 09/26/24 12:56 Lymph # (Auto) 1.1 10^3/uL (0.8-4.8) 09/26/24 12:56 [place] # (Auto) 0.5 10^3/uL (0.2-0.9) 09/26/24 12:56 Eos # (Auto) 0.1 10^3/uL (0.0-0.8) 09/26/24 12:56 Baso # (Auto) 0.0 10^3/uL (0.0-0.1) 09/26/24 12:56 Nucleated RBC % (auto) 0 % 09/26/24 12:56 Nucleated RBCs # 0.0 /100WBC 09/26/24 12:56 Sodium 134 mmol/L (136-145) L 09/26/24 12:56 Potassium 4.2 mmol/L (3.5-5.1) 09/26/24 12:56 Chloride 93 mmol/L (98-107) L 09/26/24 12:56 Carbon Dioxide 30 mmol/L (22-29) H 09/26/24 12:56 Anion Gap 15.2 (5-19) 09/26/24 12:56 BUN 20 mg/dL (8-23) 09/26/24 12:56 Creatinine 1.0 mg/dL (0.5-0.9) H 09/26/24 12:56 GFR Calculation Not Reportable 09/26/24 12:56 Glucose 220 mg/dL (65-115) H 09/26/24 12:56 Calculated Osmolality 287 mOsm/kg (285-295) 09/26/24 12:56 Calcium 9.3 mg/dL (8.5-10.5) 09/26/24 12:56 Total Bilirubin 0.5 mg/dL (0.15-1.2) 09/26/24 12:56 AST 18 U/L (0-32) 09/26/24 12:56 ALT 11 U/L (0-33) 09/26/24 12:56 Alkaline Phosphatase 80 U/L (35-105) 09/26/24 12:56 Troponin T Baseline 38 ng/L (0-10) H 09/26/24 12:56 Troponin T 120 Minute 35.45 ng/L (0-10) H 09/26/24 15:14 Delta Troponin T -2.55 ABS# (0-10) L 09/26/24 15:14 Total Protein 6.9 g/dL (6.6-8.7) 09/26/24 12:56 Albumin 4.2 g/dL (3.5-5.2) 09/26/24 12:56 Globulin 2.7 g/dL (1.3-4.6) 09/26/24 12:56 Urine Color Yellow (Yellow) 09/26/24 15:39 Urine Appearance Clear (CLEAR) 09/26/24 15:39 Urine pH 5.5 (5-7) 09/26/24 15:39 Ur Specific [place] 1.008 (1.005-1.030) 09/26/24 15:39 Urine Protein Negative (Negative) 09/26/24 15:39 Urine Glucose (UA) Negative (Normal) 09/26/24 15:39 Urine Ketones Negative (Negative) 09/26/24 15:39 Urine Blood Negative (Negative) 09/26/24 15:39 Urine Nitrate Negative (Negative) 09/26/24 15:39 Urine Bilirubin Negative (Negative) 09/26/24 15:39 Urine Urobilinogen 0.2 mg/dL (Negative) 09/26/24 15:39 Ur Leukocyte Esterase Negative (Negative) 09/26/24 15:39 Urine RBC 0-2 /hpf (0-2) 09/26/24 15:39 Urine WBC 0-5 /hpf (0-5) 09/26/24 15:39 Ur Squamous Epith Cells 0-5 /hpf (0-5) 09/26/24 15:39 Amorphous Sediment Not Reportable 09/26/24 15:39 Urine Bacteria Exceeds /hpf (NONE) 09/26/24 15:39 Hyaline Casts 0.81 /lpf 09/26/24 15:39 Digoxin 0.7 ng/mL (0.6-1.2) 09/26/24 15:14 All radiology interpretation(s) finalized by discharge Discharge Plan Discharge Patient Disposition: Home Clinical Impression: Atypical chest pain Atrial fibrillation Qualifiers: Atrial fibrillation type: paroxysmal Qualified Code(s): I48.0 - Paroxysmal atrial fibrillation Condition: Stable Prescriptions: No Action sulfamethoxazole-trimethoprim [Bactrim] 400-80 mg tablet 1 tab PO Q12H Qty: 20 0RF levothyroxine 100 mcg tablet See Rx Instructions .ROUTE .COMPLEX Qty: 30 2RF Dose Instruction: TAKE ONE TABLET BY MOUTH EVERY MORNING Rx Instructions: TAKE ONE TABLET BY MOUTH EVERY MORNING nitroglycerin 0.4 mg tablet, sublingual 0.4 mg sublingual Q5M PRN (Reason: Chest Pain) Qty: 20 3RF Rx Instructions: do not exceed 3 doses per episode True Metrix Glucose Test Strip Strip See Rx Instructions .ROUTE .COMPLEX Qty: 100 0RF Dose Instruction: USE ONCE daily AND NEEDED Rx Instructions: USE ONCE daily AND NEEDED lancets [TRUEplus Lancets] 30 gauge misc See Rx Instructions .ROUTE .COMPLEX Qty: 100 0RF Dose Instruction: USE AT least ONCE DAILY AND NEEDED Rx Instructions: USE AT least ONCE DAILY AND NEEDED (DME) Diabetic shoes with inserts See Rx Instructions .Route .MEDSUPPLY Qty: 1 0RF Rx Instructions: As directed AZO 1 tab PO BID Probiotic 1 tab PO DAILY Vit D3 1 tab PO DAILY (DME) blood-glucose meter Kit See Rx Instructions .ROUTE .MEDSUPPLY Qty: 1 0RF Rx Instructions: at least once daily and prn polyethylene glycol 3350 [Miralax] 17 gram/dose powder 17 g PO DAILY PRN (Reason: constipation) Qty: 510 1RF atorvastatin 20 mg tablet See Rx Instructions .ROUTE .COMPLEX Qty: 30 2RF Dose Instruction: TAKE ONE TABLET BY MOUTH EVERY DAY Rx Instructions: TAKE ONE TABLET BY MOUTH EVERY DAY ondansetron HCl 4 mg tablet See Rx Instructions .ROUTE .COMPLEX Qty: 30 0RF Dose Instruction: TAKE ONE TABLET BY MOUTH EVERY 8 HOURS NEEDED FOR NAUSEA AND VOMITING Rx Instructions: TAKE ONE TABLET BY MOUTH EVERY 8 HOURS NEEDED FOR NAUSEA AND VOMITING losartan 50 mg tablet See Rx Instructions .ROUTE .COMPLEX Qty: 30 3RF Dose Instruction: TAKE ONE TABLET BY MOUTH EVERY MORNING Rx Instructions: TAKE ONE TABLET BY MOUTH EVERY MORNING diltiazem HCl 180 mg capsule,extended release 24 hr 180 mg PO QAM Qty: 30 4RF buspirone 5 mg tablet See Rx Instructions .ROUTE .COMPLEX Qty: 90 2RF Dose Instruction: TAKE ONE TABLET BY MOUTH THREE TIMES DAILY AT 8am, NOON, AND 6pm Rx Instructions: TAKE ONE TABLET BY MOUTH THREE TIMES DAILY AT 8am, NOON, AND 6pm potassium chloride 10 mEq tablet extended release See Rx Instructions .ROUTE .COMPLEX Qty: 60 2RF Dose Instruction: TAKE ONE TABLET BY MOUTH AT 8 am AND 1 TABLET AT 6 pm Rx Instructions: TAKE ONE TABLET BY MOUTH AT 8 am AND 1 TABLET AT 6 pm metoprolol tartrate 25 mg tablet 25 mg PO BID Qty: 60 0RF furosemide 20 mg tablet See Rx Instructions .ROUTE .COMPLEX Qty: 30 0RF Dose Instruction: TAKE ONE TABLET BY MOUTH DAILY AT 8am Rx Instructions: TAKE ONE TABLET BY MOUTH DAILY AT 8am glipizide 2.5 mg tablet extended release 24hr See Rx Instructions .ROUTE .COMPLEX Qty: 30 0RF Dose Instruction: TAKE ONE TABLET BY MOUTH DAILY AT 8am, 15 MINUTES BEFORE breakfast Rx Instructions: TAKE ONE TABLET BY MOUTH DAILY AT 8am, 15 MINUTES BEFORE breakfast warfarin 2 mg tablet See Rx Instructions .ROUTE .COMPLEX Qty: 60 0RF Dose Instruction: TAKE TWO TABS (4MG) EVERY OTHER DAY; ONE AND HALF TAB (3MG) EVERY OTHER DAY Rx Instructions: TAKE TWO TABS (4MG) EVERY OTHER DAY; ONE AND HALF TAB (3MG) EVERY OTHER DAY pantoprazole 40 mg tablet,delayed release (DR/EC) See Rx Instructions .ROUTE .COMPLEX Qty: 60 0RF Dose Instruction: TAKE ONE TABLET BY MOUTH twice daily Rx Instructions: TAKE ONE TABLET BY MOUTH twice daily vitamin E 268 mg (400 unit) Capsule 268 mg PO DAILY digoxin 125 mcg (0.125 mg) tablet 62.5 mcg PO DAILY lactulose 20 gram packet 20 g PO DAILY PRN (Reason: Constipation) cyanocobalamin (vitamin B-12) [Vitamin B-12] 500 mcg Tablet 1,000 mcg PO QAM ascorbic acid (vitamin C) [Vitamin C] 500 mg Tablet 500 mg PO DAILY cetirizine 10 mg tablet 10 mg PO QAM Discharge Orders: Discharge ED (Routine); Ordered 09/26/24 Ordered By: Keith Gongora Referrals: Leighann Martin FNP [Primary Care Provider] - Discharge Diet: Usual diet Discharge Activity: Increase activity as tolerated Patient Instructions: Opioid Safety, Pain Management Activity Restrictions/Additional Instructions: Thank you for choosing [facility] for your healthcare needs today. It is very important that you follow up as instructed or that you return to the Emergency Department should you have concerns or if your condition changes or worsens in any way. You are seen in the emergency room with complaint of chest discomfort. Your cardiac enzymes and EKG did not show any significant abnormality there is no sign of A-fib with rapid ventricular spots while you were here. Continue your current medications. I will have you follow-up with cardiology. Will set you up with a 72-hour Holter monitor to evaluate your rate control for her atrial fibrillation. Coding Level of Care Code ED Curbstone Setter for Tisha Thomas
[2024-09-26 13:04] LABS: Basophils % 0.3 %; Eosinophils # 0.1 10^3/uL (0.0-0.8); Eosinophils % 1.8 %; Hematocrit 40.5 % (36-47); Lymphocytes # 1.1 10^3/uL (0.8-4.8); Lymphocytes % 14.9 %; Mean Corpuscular HGB Conc 32.1 g/dL (30-55); Mean Corpuscular Hemoglobin 30.3 pg (27-33); Mean Corpuscular Volume 94.4 fl (85-98); Mean Platelet Volume 9.5 fL (7.4-10.4); Monocytes # 0.5 10^3/uL (0.2-0.9); Neutrophils # 5.59 10^3/uL (1.8-7.7); Neutrophils % 75.7 %; Nucleated Red Blood Cells % 0 %; Platelet Count 260 10^3/cmm (157-399); Red Blood Count 4.29 10^6/uL (3.85-5.65); Red Cell Distribution Width 13.5 % (12.1-15.1); White Blood Count 7.38 10^3/uL (3.29-11.43)
[2024-09-26] MEDS: aspirin 81 mg Chew Tablet 324 MG PO (13:17)
[2024-09-26 13:31] LABS: Troponin(5th) Baseline 38 ng/L (0-10)
[2024-09-26 13:44] LABS: Alanine Aminotransferase 11 U/L (0-33); Albumin Level 4.2 g/dL (3.5-5.2); Alkaline Phosphatase 80 U/L (35-105); Anion Gap 15.2 (5-19); Aspartate Amino Transferase 18 U/L (0-32); Blood Urea Nitrogen 20 mg/dL (8-23); Calcium 9.3 mg/dL (8.5-10.5); Carbon Dioxide 30 mmol/L (22-29); Chloride 93 mmol/L (98-107); Creatinine Clr Calc Pharmacy 38.6622; Globulin 2.7 g/dL (1.3-4.6); Glucose 220 mg/dL (65-115); Osmolality Calculated 287 mOsm/kg (285-295); Potassium 4.2 mmol/L (3.5-5.1); Sodium 134 mmol/L (136-145); Total Bilirubin 0.5 mg/dL (0.15-1.2); Total Protein 6.9 g/dL (6.6-8.7)
[2024-09-26 14:14] VITALS: BP 159/79; PULSE 88; RESP 24; O2SAT 95
--- NOTE | 2024-09-26 14:37 | ECG_ITS ---
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 Measurements Intervals [place] Rate: 74 P: 0 SC: 0 QRS: -18 QRSD: 97 T: -32 QT: 343 QTc: 381 Interpretive Statements ATRIAL FIBRILLATION INCOMPLETE RIGHT BUNDLE BRANCH BLOCK [90+ ms QRS DURATION, TERMINAL R IN V1/V2, 40+ ms S IN I/aVL/V4/V5/V6] ST DEVIATION AND MODERATE T-WAVE ABNORMALITY, CONSIDER ANTEROLATERAL ISCHEMIA [-0.1+ mV T-WAVE IN V3-V6] ST DEVIATION AND MODERATE T-WAVE ABNORMALITY, CONSIDER INFERIOR ISCHEMIA [-0.1+ mV T-WAVE IN II/aVF] Compared to ECG 09/26/2024 12:40:26 Possible ischemia now present T-wave abnormality still present Electronically Signed On 09-26-2024 21:35:37 BARIATRIC COORDINATOR by Bharati Garcia M.D. [email or web address]
[2024-09-26 15:38] LABS: Troponin 5 2HR 35.45 ng/L (0-10)
[2024-09-26 15:39] LABS: Troponin 5 2HR Delta -2.55 ABS# (0-10)
[2024-09-26 15:52] VITALS: PULSE 81; RESP 24
[2024-09-26 16:43] VITALS: BP 147/82; PULSE 93; O2SAT 96
[2024-09-26 16:46] LABS: Bilirubin Urine Negative (Negative); Blood Urine Negative (Negative); Glucose Urine UA Negative (Normal); Ketones Urine Negative (Negative); Leukocyte Esterase Urine Negative (Negative); Nitrate Urine Negative (Negative); Protein Urine Negative (Negative); Specific Gravity, Urine 1.008 (1.005-1.030); Urine Appearance Clear (CLEAR); Urine Color Yellow (Yellow); Urobilinogen Urine 0.2 mg/dL (Negative); pH Urine 5.5 (5-7)
[2024-09-26 16:49] LABS: Add Urine Microscopic? YES; Bacteria Urine EXCEEDS /hpf; Hyaline Casts Urine 0.81 /lpf; RBC Urine 0-2 /hpf (0-2); Squamous Epithelial Cell Urine 0-5 /hpf (0-5); WBC Urine 0-5 /hpf (0-5)
[2024-09-26 18:51] LABS: Digoxin 0.7 ng/mL (0.6-1.2)
--- NOTE | 2024-10-02 10:11 | DCPLANNER ---
messaged heart care for er f/u holter
== END 2024-09-26 16:56 | disposition home or self-care (01) ==
PROVIDERS: Emergency Provider Family Medicine; PCP Nurse Practitioner Family
DX: R07.89 Other chest pain (principal); I48.0 Paroxysmal atrial fibrillation; Z79.01 Long term (current) use of anticoagulants; I25.10 Atherosclerotic heart disease of native coronary artery without angina pectoris; E11.22 Type 2 diabetes mellitus with diabetic chronic kidney disease; N18.9 Chronic kidney disease, unspecified; I50.9 Heart failure, unspecified
CPT/HCPCS: 36415; 71045; 80053; 80162; 81001; 84484; 85025; 93005; 99285

== ENCOUNTER 2024-10-05 17:44 | Inpatient (IN) | payer MEDICARE, SELFPAY ==
[2024-10-05] VITALS (8 sets, daily range): BP systolic 112–177; BP diastolic 77–120; PULSE 107–146; RESP 16–37; TEMP 36.9–38.2; O2SAT 89–98
--- NOTE | 2024-10-05 17:51 | XRR_ITS ---
PROCEDURE INFORMATION: Exam: XR Chest Exam date and time: 10/05/2024 5:56 PM Age: 89 years old Clinical indication: Shortness of breath; Additional info: SOB TECHNIQUE: Imaging protocol: Radiologic exam of the chest. Views: 1 view. COMPARISON: CR (CHEST, ) 09/26/2024 12:58 PM FINDINGS: Lungs: Hyperinflated lungs. No consolidation. Pleural spaces: Unremarkable. No pleural effusion. No pneumothorax. Heart/Mediastinum: Cardiomegaly. Bones/joints: Mild dextroscoliosis of the thoracolumbar spine. XR/XR chest 1V portable [id number] IMPRESSION: No acute findings.
--- NOTE | 2024-10-05 18:04 | ED_ITS ---
HPI - Weakness 2 General: Chief complaint: ER Hold Stated complaint: cough, generalized weakness Time Seen by Provider: 10/05/24 17:50 Source: patient and EMS Mode of arrival: EMS Limitations: no limitations History of Present Illness: 89-year-old female that is here from the clinic she has been having cough congestion fever weakness over the last 4 days. She is also with had some shortness of breath she does have a fever of 100.7 patient's currently on 2 L does not typically have to wear oxygen at home. She states she has bodyaches denies any chest pain denies any abdominal pain Associated symptoms: Reports chills; Denies chest pain, dysuria, fever(s), headache(s), nausea or vomiting Review of Systems 2 Const: Reports: chills and body aches; Denies: fever(s) or change in appetite Eyes: Denies: blurry vision or eye discomfort ENMT: Denies: throat pain or dental pain Card: Denies: chest pain Resp: Reports: dyspnea and non-productive cough GI: Denies: abdominal pain, nausea, vomiting or diarrhea : Denies: dysuria Musc: Denies: neck pain or back pain Skin/Breast: Denies: rash Neuro: Denies: headache(s) PFSH ED 2 PFSH: Medical History Dysuria History of coronary artery disease Subcapital fracture of right hip Atrial fibrillation History of FL (myocardial infarction) Hearing loss in left ear Perforated tympanic membrane Seasonal allergies CKD (chronic kidney disease) Type 2 diabetes mellitus Hypothyroidism Anxiety GERD (gastroesophageal reflux disease) CHF (congestive heart failure) Surgical History S/P cataract extraction History of appendectomy History of bladder surgery Family History Mother Cancer skin CAD (coronary artery disease) Father CAD (coronary artery disease) Social History Smoking and tobacco/nicotine status: never used tobacco/nicotine Second hand smoke exposure: No Alcohol intake: never Substance/Drug Use: never Adopted: No Caregiver/support person: Yes Lives independently: No Household members: family Housing: House Marital status: / service: No Current occupational status: retired Do you think of yourself as: Straight/Heterosexual Current gender identity: Female Special an needs: No Physical Exam 2 Const: COMMON NORMALS: patient oriented x3 HENMT: COMMON NORMALS: normocephalic and atraumatic HEAD & SCALP: n ormocephalic and atraumatic Eye: COMMON NORMALS: Equal, round and reactive pupils present and EOMs intact bilaterally PUPIL: Yes Equal, round and reactive pupils present Neck/C-Spine: COMMON NORMALS: full ROM and supple Chest: COMMONS NORMALS: normal inspection of the chest and normal palpation of entire chest wall Resp: COMMON NORMALS: normal respiratory effort, No retractions, No use of accessory muscles and clear to auscultation bilaterally AUSCULTATION: clear to auscultation bilaterally Cardio: COMMON NORMALS: regular rate, regular rhythm and No murmurs present (Cardio) RATE: regular rate RHYTHM: regular rhythm GI: COMMON NORMALS: Normal to inspection, nondistended, normoactive bowel sounds present, Soft to palpation, non-tender and no masses PALPATION: Yes Soft to palpation Extremity: COMMON NORMALS: normal to inspection and full ROM Neuro: COMMON NORMALS: patient oriented x3, moves all extremities and no focal motor deficits Psych: COMMON NORMALS: mental status grossly normal, Normal thought process present and cooperative THOUGHT PROCESS: Normal thought process present Skin: COMMON NORMALS: no rashes or lesions noted and no wounds GENERAL SKIN EXAM: no rashes or lesions noted Course 2 Vital Signs: Vital signs: Vital Signs Temperature 98.5 F 10/05/24 21:36 Pulse Rate 117 H 10/05/24 21:24 Respiratory Rate 23 H 10/05/24 21:24 Blood Pressure 112/82 10/05/24 21:24 Pulse Oximetry 94 10/05/24 21:24 Oxygen Delivery Me thod Nasal Cannula 10/05/24 18:44 Oxygen Flow Rate 1 10/05/24 18:44 MDM - Weakness Medical Decision Making Patient presents here with fever along with hypoxia and generalized weakness she is febrile here he does have a white count of 20 her lactate was normal blood pressures been normal she does meet sepsis criteria did get the sepsis IV bolus did get blood cultures start her on IV antibiotics spoke to hospitalist will admit Medical Records I reviewed the patient's medical records. Lab Data I reviewed the patient's lab results. 10/05/24 18:40 10/05/24 18:40 Radiology Impressions Chest X-Ray 10/05/24 17:51 IMPRESSION: No acute findings. Laboratory Results WBC 20.08 10^3/uL (3.29-11.43) H 10/05/24 18:40 RBC 4.01 10^6/uL (3.85-5.65) 10/05/24 18:40 Hgb 12.10 g/dL (11.27-16.99) 10/05/24 18:40 Hct 38.9 % (36-47) 10/05/24 18:40 MCV 97.0 fl (85-98) 10/05/24 18:40 MCH 30.2 pg (27-33) 10/05/24 18:40 MCHC 31.1 g/dL (30-55) 10/05/24 18:40 RDW 13.8 % (12.1-15.1) 10/05/24 18:40 Plt Count 271 10^3/cmm (157-399) 10/05/24 18:40 MPV 10.3 fL (7.4-10.4) 10/05/24 18:40 Neut % (Auto) 85.6 % 10/05/24 18:40 Lymph % (Auto) 4.1 % 10/05/24 18:40 [place] % (Auto) 8.3 % 10/05/24 18:40 Eos % (Auto) 1.4 % 10/05/24 18:40 Baso % (Auto) 0.1 % 10/05/24 18:40 Neut # (Auto) 17.17 10^3/uL (1.8-7.7) H 10/05/24 18:40 Lymph # (Auto) 0.8 10^3/uL (0.8-4.8) 10/05/24 18:40 [place] # (Auto) 1.7 10^3/uL (0.2-0.9) H 10/05/24 18:40 Eos # (Auto) 0.3 10^3/uL (0.0-0.8) 10/05/24 18:40 Baso # (Auto) 0.0 10^3/uL (0.0-0.1) 10/05/24 18:40 Nucleated RBC % (auto) 0 % 10/05/24 18:40 Nucleated RBCs # 0.0 /100WBC 10/05/24 18:40 Specimen Type Arterial 10/05/24 18:24 Sample Site Brachial, left 10/05/24 18:24 ABG pH 7.42 (7.35-7.45) 10/05/24 18:24 ABG pCO2 41.8 mmHg (35-45) 10/05/24 18:24 ABG pO2 52.3 mmHg (80.0-100.0) L 10/05/24 18:24 ABG PO2/FiO2 Ratio 249 10/05/24 18:24 ABG HCO3 27.2 mmol/L (22-26) H 10/05/24 18:24 ABG Base Excess 2.5 mmol/L (-2.0-2.0) H 10/05/24 18:24 Brandon Test N/a 10/05/24 18:24 Hematocrit 37.6 % (37-47) 10/05/24 18:24 Hgb O2 Saturation 86.2 % (95-100) L 10/05/24 18:24 Carboxyhemoglobin 1.5 %THgb (0.4-20.1) 10/05/24 18:24 Methemoglobin 0.8 % (0.4-1.5) 10/05/24 18:24 Total Hemoglobin 12.3 g/dL (12-16) 10/05/24 18:24 O2 Delivery Device Room air 10/05/24 18:24 FiO2 21.0 % 10/05/24 18:24 Music Theory Professor ID Amh 10/05/24 18:24 Sodium 135 mmol/L (136-145) L 10/05/24 18:40 Potassium 4.6 mmol/L (3.5-5.1) 10/05/24 18:40 Chloride 97 mmol/L (98-107) L 10/05/24 18:40 Carbon Dioxide 26 mmol/L (22-29) 10/05/24 18:40 Anion Gap 16.6 (5-19) 10/05/24 18:40 BUN 31 mg/dL (8-23) H 10/05/24 18:40 Creatinine 1.2 mg/dL (0.5-0.9) H 10/05/24 18:40 GFR Calculation Not Reportable 10/05/24 18:40 Glucose 190 mg/dL (65-115) H 10/05/24 18:40 Calculated Osmolality 292 mOsm/kg (285-295) 10/05/24 18:40 Lactic Acid 1.7 mmol/L (0.5-2.2) 10/05/24 18:40 Calcium 9.7 mg/dL (8.5-10.5) 10/05/24 18:40 Total Bilirubin 0.9 mg/dL (0.15-1.2) 10/05/24 18:40 AST 16 U/L (0-32) 10/05/24 18:40 ALT 10 U/L (0-33) 10/05/24 18:40 Alkaline Phosphatase 91 U/L (35-105) 10/05/24 18:40 NT-Pro-B Natriuret Pep 8771 pg/mL (0-450) H 10/05/24 18:40 Total Protein 7.6 g/dL (6.6-8.7) 10/05/24 18:40 Albumin 3.8 g/dL (3.5-5.2) 10/05/24 18:40 Globulin 3.8 g/dL (1.3-4.6) 10/05/24 18:40 Urine Color Yellow (Yellow) 10/05/24 20:40 Urine Appearance Cloudy (CLEAR) A 10/05/24 20:40 Urine pH 5.0 (5-7) 10/05/24 20:40 Ur Specific Reading 1.019 (1.005-1.030) 10/05/24 20:40 Urine Protein 2+ (Negative) A 10/05/24 20:40 Urine Glucose (UA) Negative (Normal) 10/05/24 20:40 Urine Ketones Trace (Negative) 10/05/24 20:40 Urine Blood Negative (Negative) 10/05/24 20:40 Urine Nitrate Negative (Negative) 10/05/24 20:40 Urine Bilirubin Negative (Negative) 10/05/24 20:40 Urine Urobilinogen 1.0 mg/dL (Negative) 10/05/24 20:40 Ur Leukocyte Esterase Trace (Negative) A 10/05/24 20:40 Urine RBC 0-2 /hpf (0-2) 10/05/24 20:40 Urine WBC 6-10 /hpf (0-5) 10/05/24 20:40 Ur Squamous Epith Cells 6-10 /hpf (0-5) 10/05/24 20:40 Amorphous Sediment Not Reportable 10/05/24 20:40 Urine Bacteria 4+ /hpf (NONE) H 10/05/24 20:40 Hyaline Casts 176.66 /lpf 10/05/24 20:40 Adenovirus (PCR) Not detected (NOT DETECT) 10/05/24 18:35 C. pneumoniae DNA (PCR) Not detected (NOT DETECT) 10/05/24 18:35 Coronavirus 229E (PCR) Not detected (NOT DETECT) 10/05/24 18:35 Human Metapneumovir PCR Not detected (NOT DETECT) 10/05/24 18:35 Influenza A (H1) PCR Not detected (NOT DETECT) 10/05/24 18:35 Influ A (H1/09) PCR Not detected (NOT DETECT) 10/05/24 18:35 Influenza A (H3) PCR Not detected (NOT DETECT) 10/05/24 18:35 Influenza Type A (PCR) Not detected (NOT DETECT) 10/05/24 18:35 Influenza Type B (PCR) Not detected (NOT DETECT) 10/05/24 18:35 M. pneumoniae (PCR) Not detected (NOT DETECT) 10/05/24 18:35 Parainfluenza 1 (PCR) Not detected (NOT DETECT) 10/05/24 18:35 Parainfluenza 2 (PCR) Not detected (NOT DETECT) 10/05/24 18:35 Parainfluenza 3 (PCR) Not detected (NOT DETECT) 10/05/24 18:35 Parainfluenza 4 (PCR) Not detected (NOT DETECT) 10/05/24 18:35 RSV Type A (PCR) Not detected (NOT DETECT) 10/05/24 18:35 RSV Type B (PCR) Not detected (NOT DETECT) 10/05/24 18:35 Entero/Rhino (PCR) Not detected (NOT DETECT) 10/05/24 18:35 SARS-CoV-2 (PCR) Not detected (NOT DETECT) 10/05/24 18:35 All radiology interpretation(s) finalized by discharge EKG Data EKG 1: I personally reviewed and interpreted this EKG as follows: EKG interpretation date: 10/05/24 EKG interpretation time: 18:29 Interpretation: afib with rvr hr [address] elevtion qrs 87 qtc 321 Discharge Plan Discharge Patient Disposition: Admitted As Inpatient Clinical Impression: Sepsis, Hypoxia Condition: Stable Prescriptions: No Action sulfamethoxazole-trimethoprim [Bactrim] 400-80 mg tablet 1 tab PO Q12H Qty: 20 0RF levothyroxine 100 mcg tablet See Rx Instructions .ROUTE .COMPLEX Qty: 30 2RF Dose Instruction: TAKE ONE TABLET BY MOUTH EVERY MORNING Rx Instructions: TAKE ONE TABLET BY MOUTH EVERY MORNING nitroglycerin 0.4 mg tablet, sublingual 0.4 mg sublingual Q5M PRN (Reason: Chest Pain) Qty: 20 3RF Rx Instructions: do not exceed 3 doses per episode True Metrix Glucose Test Strip Strip See Rx Instructions .ROUTE .COMPLEX Qty: 100 0RF Dose Instruction: USE ONCE daily AND NEEDED Rx Instructions: USE ONCE daily AND NEEDED lancets [TRUEplus Lancets] 30 gauge misc See Rx Instructions .ROUTE .COMPLEX Qty: 100 0RF Dose Instruction: USE AT least ONCE DAILY AND NEEDED Rx Instructions: USE AT least ONCE DAILY AND NEEDED (DME) Diabetic shoes with inserts See Rx Instructions .Route .MEDSUPPLY Qty: 1 0RF Rx Instructions: As directed AZO 1 tab PO BID Probiotic 1 tab PO DAILY Vit D3 1 tab PO DAILY (DME) blood-glucose meter Kit See Rx Instructions .ROUTE .MEDSUPPLY Qty: 1 0RF Rx Instructions: at least once daily and prn polyethylene glycol 3350 [Miralax] 17 gram/dose powder 17 g PO DAILY PRN (Reason: constipation) Qty: 510 1RF atorvastatin 20 mg tablet See Rx Instructions .ROUTE .COMPLEX Qty: 30 2RF Dose Instruction: TAKE ONE TABLET BY MOUTH EVERY DAY Rx Instructions: TAKE ONE TABLET BY MOUTH EVERY DAY ondansetron HCl 4 mg tablet See Rx Instructions .ROUTE .COMPLEX Qty: 30 0RF Dose Instruction: TAKE ONE TABLET BY MOUTH EVERY 8 HOURS NEEDED FOR NAUSEA AND VOMITING Rx Instructions: TAKE ONE TABLET BY MOUTH EVERY 8 HOURS NEEDED FOR NAUSEA AND VOMITING losartan 50 mg tablet See Rx Instructions .ROUTE .COMPLEX Qty: 30 3RF Dose Instruction: TAKE ONE TABLET BY MOUTH EVERY MORNING Rx Instructions: TAKE ONE TABLET BY MOUTH EVERY MORNING diltiazem HCl 180 mg capsule,extended release 24 hr 180 mg PO QAM Qty: 30 4RF buspirone 5 mg tablet See Rx Instructions .ROUTE .COMPLEX Qty: 90 2RF Dose Instruction: TAKE ONE TABLET BY MOUTH THREE TIMES DAILY AT 8am, NOON, AND 6pm Rx Instructions: TAKE ONE TABLET BY MOUTH THREE TIMES DAILY AT 8am, NOON, AND 6pm potassium chloride 10 mEq tablet extended release See Rx Instructions .ROUTE .COMPLEX Qty: 60 2RF Dose Instruction: TAKE ONE TABLET BY MOUTH AT 8 am AND 1 TABLET AT 6 pm Rx Instructions: TAKE ONE TABLET BY MOUTH AT 8 am AND 1 TABLET AT 6 pm metoprolol tartrate 25 mg tablet 25 mg PO BID Qty: 60 0RF furosemide 20 mg tablet See Rx Instructions .ROUTE .COMPLEX Qty: 30 0RF Dose Instruction: TAKE ONE TABLET BY MOUTH DAILY AT 8am Rx Instructions: TAKE ONE TABLET BY MOUTH DAILY AT 8am glipizide 2.5 mg tablet extended release 24hr See Rx Instructions .ROUTE .COMPLEX Qty: 30 0RF Dose Instruction: TAKE ONE TABLET BY MOUTH DAILY AT 8am, 15 MINUTES BEFORE breakfast Rx Instructions: TAKE ONE TABLET BY MOUTH DAILY AT 8am, 15 MINUTES BEFORE breakfast warfarin 2 mg tablet See Rx Instructions .ROUTE .COMPLEX Qty: 60 0RF Dose Instruction: TAKE TWO TABS (4MG) EVERY OTHER DAY; ONE AND HALF TAB (3MG) EVERY OTHER DAY Rx Instructions: TAKE TWO TABS (4MG) EVERY OTHER DAY; ONE AND HALF TAB (3MG) EVERY OTHER DAY pantoprazole 40 mg tablet,delayed release (DR/EC) See Rx Instructions .ROUTE .COMPLEX Qty: 60 0RF Dose Instruction: TAKE ONE TABLET BY MOUTH twice daily Rx Instructions: TAKE ONE TABLET BY MOUTH twice daily vitamin E 268 mg (400 unit) Capsule 268 mg PO DAILY digoxin 125 mcg (0.125 mg) tablet 62.5 mcg PO DAILY lactulose 20 gram packet 20 g PO DAILY PRN (Reason: Constipation) cyanocobalamin (vitamin B-12) [Vitamin B-12] 500 mcg Tablet 1,000 mcg PO QAM ascorbic acid (vitamin C) [Vitamin C] 500 mg Tablet 500 mg PO DAILY cetirizine 10 mg tablet 10 mg PO QAM Referrals: Leighann Martin FNP [Primary Care Provider] - Coding Level of Care Code ED Dean Of Instruction for g Fwd Related Data Home Medications Medication Instructions Recorded Confirmed ascorbic acid (vitamin C) 500 mg 500 mg PO DAILY 01/08/22 10/05/24 tablet (Vitamin C) cetirizine 10 mg tablet 10 mg PO QAM 01/08/22 10/05/24 cyanocobalamin (vitamin B-12) 500 1,000 mcg PO QAM 01/08/22 10/05/24 mcg tablet (Vitamin B-12) digoxin 125 mcg (0.125 mg) tablet 62.5 mcg PO DAILY 01/22/24 10/05/24 lactulose 20 gram oral packet 20 g PO DAILY PRN Constipation 01/22/24 10/05/24 vitamin E 268 mg (400 unit) capsule 268 mg PO DAILY 01/22/24 10/05/24 AZO 1 tab PO BID 04/28/24 10/05/24 Probiotic 1 tab PO DAILY 04/28/24 10/05/24 Vit D3 1 tab PO DAILY 04/28/24 10/05/24 Previous Rx's Medication Instructions Recorded blood-glucose meter #1 ea 04/11/20 blood sugar diagnostic (True See Rx Instructions .Route 09/26/22 Metrix Glucose Test Strip) .COMPLEX #100 ea lancets 30 gauge (TRUEplus Lancets) See Rx Instructions .Route 08/22/23 .COMPLEX #100 ea polyethylene glycol 3350 17 17 g PO DAILY PRN constipation 01/01/24 gram/dose oral powder (Miralax) #510 grams Diabetic shoes with inserts #1 ea 01/02/24 atorvastatin 20 mg tablet See Rx Instructions .Route 03/06/24 .COMPLEX #30 tabs ondansetron HCl 4 mg tablet See Rx Instructions .Route 03/30/24 .COMPLEX #30 tabs losartan 50 mg tablet See Rx Instructions .Route 05/06/24 .COMPLEX #30 tabs diltiazem HCl 180 mg capsule,24 180 mg PO QAM #30 caps 05/26/24 hr,extended release buspirone 5 mg tablet See Rx Instructions .Route 06/11/24 .COMPLEX #90 tabs potassium chloride 10 mEq See Rx Instructions .Route 06/11/24 tablet,extended release .COMPLEX #60 tabs levothyroxine 100 mcg tablet See Rx Instructions .Route 08/04/24 .COMPLEX #30 tabs sulfamethoxazole 400 1 tab PO Q12H #20 tabs 08/04/24 mg-trimethoprim 80 mg tablet (Bactrim) furosemide 20 mg tablet See Rx Instructions .Route 09/02/24 .COMPLEX #30 tabs glipizide 2.5 mg tablet, extended See Rx Instructions .Route 09/02/24 release 24 hr .COMPLEX #30 tabs metoprolol tartrate 25 mg tablet 25 mg PO BID #60 tabs 09/02/24 pantoprazole 40 mg tablet,delayed See Rx Instructions .Route 09/07/24 release .COMPLEX #60 tabs warfarin 2 mg tablet See Rx Instructions .Route 09/07/24 .COMPLEX #60 tabs nitroglycerin 0.4 mg sublingual 0.4 mg sublingual Q5M PRN Chest 09/21/24 tablet Pain #20 tabs Allergies Allergy/AdvReac Type Severity Reaction Status Date / Time hydrocodone Allergy Unknown Unknown Verified 10/05/24 16:58 Penicillins Allergy Unknown Unknown Verified 10/05/24 16:58
--- NOTE | 2024-10-05 18:29 | ECG_ITS ---
[facility] Test Date: 2024-10-05 Pat Name: Linda Todd Department: Room: Gender: Female Stenotype Operator: : 1935 Requested By: Milton Wilburn Order Number: [id number] Romelia MD: Bharati Garcia M.D. Measurements Intervals [place] Rate: 123 P: 0 NC: 0 QRS: -67 QRSD: 87 T: 97 QT: 248 QTc: 355 Interpretive Statements ATRIAL FIBRILLATION WITH RAPID VENTRICULAR RESPONSE LEFT AXIS DEVIATION [QRS AXIS < -30] POSSIBLE RIGHT VENTRICULAR CONDUCTION DELAY [RSR (QR) IN V1/V2] SEPTAL MYOCARDIAL INFARCTION , OF INDETERMINATE AGE [40+ ms Q WAVE IN V1/V2] Compared to ECG 09/26/2024 14:37:58 Left-axis deviation now present Myocardial infarct finding now present Incomplete right bundle-branch block no longer present T-wave abnormality no longer present Possible ischemia no longer present Electronically Signed On 10-06-2024 23:52:25 [employer]ER by Bharati Garcia M.D. [email or web address]
[2024-10-05] MEDS: acetaminophen 500 mg Tablet 1000 MG PO (18:30)
[2024-10-05 18:35] LABS: ABG PCO2 41.8 mmHg (35-45); ABG PH Result 7.42 (7.35-7.45); Arterial Blood Gas Hematocrit 37.6 % (37-47); Base Excess ABG 2.5 mmol/L (-2.0-2.0); Blood Gas Sample Type Arterial; Carboxyhemoglobin 1.5 %THgb (0.4-20.1); HCO3 ABG 27.2 mmol/L (22-26); HGB O2 Sat 86.2 % (95-100); Methemoglobin 0.8 % (0.4-1.5); PO2 ABG 52.3 mmHg (80.0-100.0); Total Hemoglobin 12.3 g/dL (12-16)
[2024-10-05 18:36] LABS: Blood Gas Operator Identificat AMH; Blood Gas Sample Site Brachial, left; Oxygen Device ROOM AIR; PO2 FiO2 Ratio Arterial Blood 249
[2024-10-05 18:58] LABS: Basophils % 0.1 %; Eosinophils # 0.3 10^3/uL (0.0-0.8); Eosinophils % 1.4 %; Hematocrit 38.9 % (36-47); Lymphocytes # 0.8 10^3/uL (0.8-4.8); Lymphocytes % 4.1 %; Mean Corpuscular HGB Conc 31.1 g/dL (30-55); Mean Corpuscular Hemoglobin 30.2 pg (27-33); Mean Platelet Volume 10.3 fL (7.4-10.4); Monocytes # 1.7 10^3/uL (0.2-0.9); Monocytes % 8.3 %; Neutrophils # 17.17 10^3/uL (1.8-7.7); Neutrophils % 85.6 %; Nucleated Red Blood Cells % 0 %; Platelet Count 271 10^3/cmm (157-399); Red Blood Count 4.01 10^6/uL (3.85-5.65); Red Cell Distribution Width 13.8 % (12.1-15.1); White Blood Count 20.08 10^3/uL (3.29-11.43)
[2024-10-05 19:15] LABS: Lactic Sepsis W/Reflex 1.7 mmol/L (0.5-2.2)
[2024-10-05 19:23] LABS: Alanine Aminotransferase 10 U/L (0-33); Albumin Level 3.8 g/dL (3.5-5.2); Alkaline Phosphatase 91 U/L (35-105); Anion Gap 16.6 (5-19); Aspartate Amino Transferase 16 U/L (0-32); Blood Urea Nitrogen 31 mg/dL (8-23); Calcium 9.7 mg/dL (8.5-10.5); Carbon Dioxide 26 mmol/L (22-29); Chloride 97 mmol/L (98-107); Creatinine Clr Calc Pharmacy 31.7633; Globulin 3.8 g/dL (1.3-4.6); Glucose 190 mg/dL (65-115); NT Pro B Type Natriuretic Pept 8771 pg/mL (0-450); Osmolality Calculated 292 mOsm/kg (285-295); Potassium 4.6 mmol/L (3.5-5.1); Sodium 135 mmol/L (136-145); Total Bilirubin 0.9 mg/dL (0.15-1.2); Total Protein 7.6 g/dL (6.6-8.7)
[2024-10-05] MEDS: AZITHROMYCIN ADD-Vantage 500 MG in 0.9% NaCl ADD-Vantage 250 ML 250 MG IV (19:40)
[2024-10-05] MEDS: cefTRIAXone 1,000 mg SDV 1000 MG IVP (19:40)
[2024-10-05 20:42] LABS: Adenovirus Not Detected (NOT DETECT); Chlamydia Pneumoniae Not Detected (NOT DETECT); Coronavirus 229E,HKU1,NL63,OC4 Not Detected (NOT DETECT); Human Metapneumovirus Not Detected (NOT DETECT); Human Rhinovirus/Enterovirus Not Detected (NOT DETECT); Influenza A Not Detected (NOT DETECT); Influenza A H1 Not Detected (NOT DETECT); Influenza A H1-2009 Not Detected (NOT DETECT); Influenza A H3 Not Detected (NOT DETECT); Influenza B Not Detected (NOT DETECT); Mycoplasma Pneumoniae Not Detected (NOT DETECT); Parainfluenza Virus Type 1 Not Detected (NOT DETECT); Parainfluenza Virus Type 2 Not Detected (NOT DETECT); Parainfluenza Virus Type 3 Not Detected (NOT DETECT); Parainfluenza Virus Type 4 Not Detected (NOT DETECT); Respiratory Syncytial Virus A Not Detected (NOT DETECT); Respiratory Syncytial Virus B Not Detected (NOT DETECT); SARS-COV-2 Not Detected (NOT DETECT)
[2024-10-05 20:49] LABS: Bilirubin Urine Negative (Negative); Blood Urine Negative (Negative); Glucose Urine UA Negative (Normal); Ketones Urine Trace (Negative); Leukocyte Esterase Urine Trace (Negative); Nitrate Urine Negative (Negative); Protein Urine 2+ (Negative); Specific Gravity, Urine 1.019 (1.005-1.030); Urine Appearance Cloudy (CLEAR); Urine Color Yellow (Yellow)
[2024-10-05 20:51] LABS: Add Urine Microscopic? YES; Bacteria Urine 4+ /hpf; Hyaline Casts Urine 176.66 /lpf; RBC Urine 0-2 /hpf (0-2)
[2024-10-05] MEDS: sodium chloride 0.9% 1,000 ML 999 ML IV ×2 (20:56→23:47)
[2024-10-05 21:14] LABS: UA Slide Review UA Slide Review Perf
--- NOTE | 2024-10-05 21:45 | P.HP_ITS ---
Providers/Chief Complaint 2 Primary Care Provider: JACINTO Joy Chief Complaint: cough, generalized weakness History of Present Illness Linda Todd is a 89 year old female with a past medical history significant for coronary artery disease, atrial fibrillation, type 2 diabetes mellitus, hypothyroidism, GERD, anxiety, and multiple other comorbidities who presents emergency department with shortness of breath, cough, congestion, fevers, body aches and confusion x 3-4 days. Reports exertion worsens symptoms. Rest improves. Denies nausea, vomiting, dysuria or chest pains. In the emergency department, she was found to be tachycardic and hypoxic requiring nasal cannula support. Patient requires prior home oxygen need. Chest x-ray was largely unremarkable. Urinalysis showed trace leukocyte esterase, 6-10 WBCs and 4+ bacteria. Review of Systems 2 Narrative: A complete review of systems was obtained and is negative except as stated in HPI. Medications/Allergies Home Medications Medication Instructions Recorded Confirmed Last Taken Type blood-glucose meter #1 ea 04/11/20 10/05/24 Unknown Rx ascorbic acid (vitamin C) 500 mg 500 mg PO DAILY 01/08/22 10/05/24 05/11/24 13:00 History tablet (Vitamin C) cetirizine 10 mg tablet 10 mg PO QAM 01/08/22 10/05/24 05/12/24 04:30 History cyanocobalamin (vitamin B-12) 500 1,000 mcg PO QAM 01/08/22 10/05/24 05/11/24 17:30 History mcg tablet (Vitamin B-12) blood sugar diagnostic (True See Rx Instructions .Route 09/26/22 10/05/24 05/11/24 17:00 Rx Metrix Glucose Test Strip) .COMPLEX #100 ea lancets 30 gauge (TRUEplus Lancets) See Rx Instructions .Route 08/22/23 10/05/24 05/11/24 17:00 Rx .COMPLEX #100 ea polyethylene glycol 3350 17 17 g PO DAILY PRN constipation 01/01/24 10/05/24 Unknown Rx gram/dose oral powder (Miralax) #510 grams Diabetic shoes with inserts #1 ea 01/02/24 10/05/24 Unknown Rx digoxin 125 mcg (0.125 mg) tablet 62.5 mcg PO DAILY 01/22/24 10/05/24 05/11/24 17:30 History lactulose 20 gram oral packet 20 g PO DAILY PRN Constipation 01/22/24 10/05/24 Unknown History vitamin E 268 mg (400 unit) capsule 268 mg PO DAILY 01/22/24 10/05/24 05/11/24 17:30 History atorvastatin 20 mg tablet See Rx Instructions .Route 03/06/24 10/05/24 05/11/24 17:30 Rx .COMPLEX #30 tabs ondansetron HCl 4 mg tablet See Rx Instructions .Route 03/30/24 10/05/24 05/12/24 04:30 Rx .COMPLEX #30 tabs AZO 1 tab PO BID 04/28/24 10/05/24 05/12/24 04:30 History Probiotic 1 tab PO DAILY 04/28/24 10/05/24 05/12/24 04:30 History Vit D3 1 tab PO DAILY 04/28/24 10/05/24 05/11/24 17:30 History losartan 50 mg tablet See Rx Instructions .Route 05/06/24 10/05/24 05/12/24 04:30 Rx .COMPLEX #30 tabs diltiazem HCl 180 mg capsule,24 180 mg PO QAM #30 caps 05/26/24 10/05/24 Unknown Rx hr,extended release buspirone 5 mg tablet See Rx Instructions .Route 06/11/24 10/05/24 Unknown Rx .COMPLEX #90 tabs potassium chloride 10 mEq See Rx Instructions .Route 06/11/24 10/05/24 Unknown Rx tablet,extended release .COMPLEX #60 tabs levothyroxine 100 mcg tablet See Rx Instructions .Route 08/04/24 10/05/24 Unknown Rx .COMPLEX #30 tabs sulfamethoxazole 400 1 tab PO Q12H #20 tabs 08/04/24 10/05/24 Unknown Rx mg-trimethoprim 80 mg tablet (Bactrim) furosemide 20 mg tablet See Rx Instructions .Route 09/02/24 10/05/24 Unknown Rx .COMPLEX #30 tabs glipizide 2.5 mg tablet, extended See Rx Instructions .Route 09/02/24 10/05/24 Unknown Rx release 24 hr .COMPLEX #30 tabs metoprolol tartrate 25 mg tablet 25 mg PO BID #60 tabs 09/02/24 10/05/24 Unknown Rx pantoprazole 40 mg tablet,delayed See Rx Instructions .Route 09/07/24 10/05/24 Unknown Rx release .COMPLEX #60 tabs warfarin 2 mg tablet See Rx Instructions .Route 09/07/24 10/05/24 Unknown Rx .COMPLEX #60 tabs nitroglycerin 0.4 mg sublingual 0.4 mg sublingual Q5M PRN Chest 09/21/24 10/05/24 Unknown Rx tablet Pain #20 tabs Allergies Allergy/AdvReac Type Severity Reaction Status Date / Time hydrocodone Allergy Unknown Unknown Verified 10/05/24 16:58 Penicillins Allergy Unknown Unknown Verified 10/05/24 16:58 PFSH Acute 2 PFSH: Medical History Dysuria History of coronary artery disease Subcapital fracture of right hip Atrial fibrillation History of [place] (myocardial infarction) Hearing loss in left ear Perforated tympanic membrane Seasonal allergies CKD (chronic kidney disease) Type 2 diabetes mellitus Hypothyroidism Anxiety GERD (gastroesophageal reflux disease) CHF (congestive heart failure) Surgical History S/P cataract extraction History of appendectomy History of bladder surgery Family History Mother Cancer skin CAD (coronary artery disease) Father CAD (coronary artery disease) Social History Smoking and tobacco/nicotine status: never used tobacco/nicotine Second hand smoke exposure: No Alcohol intake: never Substance/Drug Use: never Adopted: No Caregiver/support person: Yes Lives independently: No Household members: family Housing: House Marital status: / service: No Current occupational status: retired Do you think of yourself as: Straight/Heterosexual Current gender identity: Female Special an needs: No Vitals/I&O/Wt Last Vital Signs Temp 98.5 F 10/05/24 21:36 Pulse 117 H 10/05/24 21:24 Resp 23 H 10/05/24 21:24 BP 112/82 10/05/24 21:24 Pulse Ox 94 10/05/24 21:24 O2 Del Method Nasal Cannula 10/05/24 18:44 O2 Flow Rate 1 10/05/24 18:44 Weight last 48 hrs Weight 58.967 kg Physical Exam 2 Narrative: General: Patient is awake. Ill-appearing. Head: Normocephalic. Atraumatic. EOM intact. Dry mucous membranes. Neck: No JVD. Cardiovascular: RRR. No gallops. No murmurs. Tachycardic with irregularly irregular rhythm Lungs: Cough present. No rales. Conversational dyspnea. On supplemental oxygen support. Skin: No jaundice. No rashes. Abdomen: Normal bowel sounds, abdomen soft and nontender. Rectal: Rectal exam not performed since no symptoms indicated blood loss. Extremities: No cyanosis or clubbing. Musculoskeletal: No swollen or erythematous joints. Neurological: Moves all 4 extremities. No myoclonus. Data 10/05/24 18:40 10/05/24 18:40 Micro: Microbiology 10/05/24 18:40 Blood Culture - Preliminary Blood SPECIMEN COLLECTED 10/05/24 18:29 Blood Culture - Preliminary Blood SPECIMEN COLLECTED A&P Assessment and plan (1) Hypoxia: Patient found to be hypoxic presenting with respiratory symptoms, found to have leukocytosis and fever Plain chest x-ray was negative for acute findings Proceed with chest CT to evaluate due to nondiagnostic chest x-ray Check procalcitonin, CRP, sputum culture Status post ceftriaxone and azithromycin in ED, will continue both Continuous pulse oximetry monitoring Supplemental oxygen support for SpO2 goal of 90 to 96% Supportive care (2) Abnormal urinalysis: Urinalysis is abnormal, although WBCs and only 6-10 She has grown multiple urine cultures positive for E. coli She is receiving antibiotics as noted above (3) Acute metabolic encephalopathy: Optimize metabolic status Treat underlying infection (4) Atrial fibrillation: Chronic atrial fibrillation with RVR Start home metoprolol Pharmacy consult for warfarin dosing Likely will start home Cardizem and warfarin after home list is updated Telemetry monitoring Qualifiers: Atrial fibrillation type: paroxysmal Qualified Code(s): I48.0 - Paroxysmal atrial fibrillation (5) Type 2 diabetes mellitus: Hold glipizide Sliding-scale insulin correction Qualifiers: Diabetes mellitus care home insulin use: without intermediate project manager use Diabetes mellitus complication status: without complication Qualified Code(s): E11.9 - Type 2 diabetes mellitus without complications (6) Hypothyroidism: Continue home Synthroid after dose confirmation Qualifiers: Hypothyroidism type: other Qualified Code(s): E03.8 - Other specified hypothyroidism (7) Anxiety: Continue home meds (8) GERD (gastroesophageal reflux disease): Continue home PPI Plan DVT prophylaxis: Warfarin Attestations 2 Medical Necessity Statement*: Patient presents with respiratory complaints with confusion, found to have leukocytosis and fever with expected hospitalization not to cross 2 midnights for IV antibiotics, serial exams, and supportive care. Coding Level of Care Code Acute Code for Chg Fwd Diagnoses Hypoxia R09.02 Abnormal urinalysis R82.90 Acute metabolic encephalopathy G93.41 Paroxysmal atrial fibrillation I48.0 Atrial fibrillation type: paroxysmal Type 2 diabetes mellitus without complication, without long-term current use of insulin E11.9 Diabetes mellitus care home insulin use: without intermediate project manager use Diabetes mellitus complication status: without complication Other specified hypothyroidism E03.8 Hypothyroidism type: other Anxiety F41.9 GERD (gastroesophageal reflux disease) K21.9
--- NOTE | 2024-10-05 22:42 | CTR_ITS ---
PROCEDURE INFORMATION: Exam: CT Chest Without Contrast; Diagnostic Exam date and time: 10/05/2024 11:45 PM Age: 89 years old Clinical indication: Shortness of breath; Additional info: Evaluate for pneumonia TECHNIQUE: Imaging protocol: Diagnostic computed tomography of the chest without contrast. Radiation optimization: All CT scans at this facility use at least one of these dose optimization techniques: automated exposure control; mA and/or kV adjustment per patient size (includes targeted exams where dose is matched to clinical indication); or iterative reconstruction. COMPARISON: CR (CHEST, ) 10/05/2024 5:56 PM RADIATION DOSE METRICS: Total DLP (mGy-cm): 405.57 FINDINGS: Lungs: Patchy bilateral largely right upper lobe airspace infiltrates, short-term 2-3 weeks follow-up exam advised to assess for resolution. Pleural spaces: Unremarkable. No pneumothorax. No pleural effusion. Heart: Cardiomegaly. Lymph nodes: Unremarkable. No enlarged lymph nodes. Vasculature: Ascending thoracic aorta dilated to 3.5 cm. Aortic and coronary artery atherosclerotic calcifications. Proximal celiac, superior mesenteric and bilateral renal artery extensive atherosclerotic calcifications with suspected at least 80-90% luminal narrowing. Gallbladder and biliary ducts: Cholelithiasis. Bones/joints: Unremarkable. No acute fracture. Soft tissues: Unremarkable. CT/CT chest wo con [id number] IMPRESSION: 1. Patchy bilateral largely right upper lobe airspace infiltrates, short-term 2-3 weeks follow-up exam advised to assess for resolution. 2. Ascending thoracic aorta dilated to 3.5 cm. 3. Aortic and coronary artery atherosclerotic calcifications. 4. Cardiomegaly. 5. Cholelithiasis. 6. Proximal celiac, superior mesenteric and bilateral renal artery extensive atherosclerotic calcifications with suspected at least 80-90% luminal narrowing.
[2024-10-05 23:20] LABS: C Reactive Protein 225.6 mg/L (0.0-4.9)
[2024-10-05 23:26] LABS: Procalcitonin 0.19 ng/mL (0-0.5)
[2024-10-05] MEDS: LORazepam 2 mg/mL INJ 1 mL 0.5 MG IVP (23:47)
[2024-10-05] MEDS: metoprolol tartrate 25 mg Tablet PO (23:48)
[2024-10-06] VITALS (99 sets, daily range): BP systolic 85–162; BP diastolic 49–97; PULSE 71–136; RESP 19–41; TEMP 36.8–37.1; O2SAT 80–100
[2024-10-06] MEDS: haloperidol inj 5 mg/mL INJ 1 mL IVP ×2 (00:22→03:32)
--- NOTE | 2024-10-06 04:14 | PC.NURSE ---
SUICIDE ASSESSMENT 24hr caregiver/daughter Wanda states that the patient has never in her life been suicidal. They are Quaker and know it won't get them to heaven.
[2024-10-06 06:13] LABS: Basophils # 0.1 10^3/uL (0.0-0.1); Basophils % 0.3 %; Eosinophils # 0.2 10^3/uL (0.0-0.8); Hematocrit 37.2 % (36-47); Lymphocytes # 0.6 10^3/uL (0.8-4.8); Lymphocytes % 3.5 %; Mean Corpuscular HGB Conc 30.4 g/dL (30-55); Mean Corpuscular Hemoglobin 30.9 pg (27-33); Mean Corpuscular Volume 101.6 fl (85-98); Mean Platelet Volume 10.5 fL (7.4-10.4); Monocytes # 1.9 10^3/uL (0.2-0.9); Monocytes % 10.4 %; Neutrophils # 15.05 10^3/uL (1.8-7.7); Neutrophils % 84.1 %; Nucleated Red Blood Cells % 0 %; Platelet Count 214 10^3/cmm (157-399); Red Blood Count 3.66 10^6/uL (3.85-5.65); Red Cell Distribution Width 13.8 % (12.1-15.1); White Blood Count 17.89 10^3/uL (3.29-11.43)
[2024-10-06 06:27] LABS: INR 2.79 (0.8-1.2)
[2024-10-06 06:35] LABS: Glucose Point of Care 163 mg/dL (70-110)
[2024-10-06 06:38] LABS: Blood Urea Nitrogen 30 mg/dL (8-23); Calcium 8.8 mg/dL (8.5-10.5); Carbon Dioxide 27 mmol/L (22-29); Chloride 101 mmol/L (98-107); Glucose 165 mg/dL (65-115); Magnesium 2.1 mg/dL (1.7-2.3); Osmolality Calculated 294 mOsm/kg (285-295); Phosphorus 3.5 mg/dL (2.5-4.5); Sodium 137 mmol/L (136-145)
[2024-10-06 06:39] LABS: Anion Gap 13.9 (5-19); Potassium 4.9 mmol/L (3.5-5.1)
[2024-10-06] MEDS: FUROsemide 10 mg/mL SDV 4mL 40 MG IVP ×2 (06:42→16:02)
--- NOTE | 2024-10-06 08:44 | ECG_ITS ---
[employer] Test Date: 2024-10-06 Pat Name: Linda Todd Department: Room: 270 Gender: Female Emergency Management Consultant: : 1935 Requested By: Teja Alvarez Order Number: [id number] Romelia MD: Bharati Garcia M.D. Measurements Intervals [place] Rate: 155 P: 0 IA: 0 QRS: -65 QRSD: 92 T: 102 QT: 267 QTc: 430 Interpretive Statements ATRIAL FIBRILLATION WITH RAPID VENTRICULAR RESPONSE INCOMPLETE RIGHT BUNDLE BRANCH BLOCK [90+ ms QRS DURATION, TERMINAL R IN V1/V2, 40+ ms S IN I/aVL/V4/V5/V6] LEFT ANTERIOR FASCICULAR BLOCK [QRS AXIS <= -45, QR IN I, RS IN II] NONSPECIFIC ST & T-WAVE ABNORMALITY CRITICAL TEST RESULT Compared to ECG 10/05/2024 18:29:09 Incomplete right bundle-branch block now present Left anterior fascicular block now present.T-wave abnormality now present Left-axis deviation no longer present.Myocardial infarct finding no longer present Electronically Signed On 10-06-2024 23:52:48 PARTS PULLER by Bharati Garcia M.D. [email or web address]
[2024-10-06 09:43] LABS: Troponin(5th) Baseline 67 ng/L (0-10)
--- NOTE | 2024-10-06 09:47 | PC.CHAP ---
Pastoral Care Encounter/Spiritual Assessment Type of Contact [] Declined elevator inspector visit [] Patient/Family/Request visit [] Outpatient visit [] Follow-up visit [] Physician referral [] Code/Alert [] Routine visit [] Staff referral [] Actively dying [] Patient sleeping [] Family support [] [] Out of room [] Palliative care [] [x] Receiving care in room [] Pre-surgical visit [] Trauma [] Long length of stay [] ICU visit [] Other: Relational/Emotional Strength [] Patient feels connected with others/family/visitors/staff [] Distress [] Loneliness/isolation [] Abandonment Spirituality of Patient [] Person of Di [] Attends Christian of their Di [] Believes in Prayer [] Reads Bible or Cheondoism materials [] There are Spiritual issues to be addressed Hide Trimmer Interventions [] Prayer [] Active listening [] Non-anxious presence [] Spiritual/emotional support [] Crisis/trauma care [] Spiritual counseling [] Bereavement support [] Provided bereavement packet [] Provided Bible/devotional materials [] Provided toy/stuffed animal, coloring book to patient or family member [] Provided Communion [] Anointing/[place] [] Salvation [] Completed spiritual assessment [] Other: Impact on Illness or Injury [] Angry [] Fearful [] Anxious [] Often cries [] Exhaustion [] Unable to work [] Unable to attend jew [] Unable to walk/stand [] Unable to read [] Unable to drive [] Unable to eat/drink [] Unable to sleep [] Unable to be with family [] Patient intubated [] Other: Summary Time spent with patient
[2024-10-06] MEDS: haloperidol inj 5 mg/mL INJ 1 mL 1 MG IM (10:10)
[2024-10-06] MEDS: amiodarone 150 MG/100 ML PREMIX 400 MG IV (10:21)
[2024-10-06 10:29] LABS: Digoxin 0.7 ng/mL (0.6-1.2)
--- NOTE | 2024-10-06 10:34 | ECG_ITS ---
[facility] [employer] Test Date: 2024-10-06 Pat Name: Linda Todd Department: Room: 270 Gender: Female Catalyst Recovery Operator: : 1935 Requested By: Teja Alvarez Order Number: [id number] Reading MD: ORA RAMIREZ Measurements Intervals [place] Rate: 115 P: 0 ME: 0 QRS: -56 QRSD: 92 T: 102 QT: 320 QTc: 443 Interpretive Statements ATRIAL FIBRILLATION WITH RAPID VENTRICULAR RESPONSE LEFT AXIS DEVIATION [QRS AXIS < -30] INCOMPLETE RIGHT BUNDLE BRANCH BLOCK [90+ ms QRS DURATION, TERMINAL R IN V1/V2, 40+ ms S IN I/aVL/V4/V5/V6] NONSPECIFIC ST & T-WAVE ABNORMALITY Compared to ECG 10/06/2024 09:48:11 Left-axis deviation now present Left anterior fascicular block no longer present T-wave abnormality still present Electronically Signed On 10-12-2024 23:29:12 AVIONICS ENGINEER by ORA RAMIREZ [id number]
[2024-10-06 11:03] LABS: Glucose Point of Care 167 mg/dL (70-110)
[2024-10-06] MEDS: meropenem 500 mg SDV IVP ×2 (11:27→18:05)
[2024-10-06] MEDS: dexmedeTOMIDine 0.9 % NaCL 400 MCG/100 ML PREMIX IV (11:33)
[2024-10-06 12:00] LABS: Troponin 5 2HR 69.57 ng/L (0-10); Troponin 5 2HR Delta 2.57 ABS# (0-10)
--- NOTE | 2024-10-06 14:44 | ECG_ITS ---
[facility] Date: 2024-10[facility]06 Pat Name: Linda Todd Department: Room: ICU02 Gender: Female Blunger Loader: : 1935 Requested By: Teja Alvarez Order Number: [id number] Reading MD: ORA RAMIREZ Measurements Intervals [place] Rate: 99 P: 0 AK: 0 QRS: -53 QRSD: 100 T: 0 QT: 328 QTc: 421 Interpretive Statements ATRIAL FIBRILLATION LEFT AXIS DEVIATION [QRS AXIS < -30] INCOMPLETE RIGHT BUNDLE BRANCH BLOCK [90+ ms QRS DURATION, TERMINAL R IN V1/V2, 40+ ms S IN I/aVL/V4/V5/V6] NONSPECIFIC ST & T-WAVE ABNORMALITY Compared to ECG 10/06/2024 10:34:21 No significant changes Electronically Signed On 10-12-2024 23:27:52 INSOLE CHANNELER by ORA RAMIREZ [id number]
--- NOTE | 2024-10-06 15:21 | P.PN_ITS ---
Subjective 2 Subjective: Patient was seen this morning, daughters at bedside, she is alert to person, not to place, not to time is globally encephalopathic, daughter tells me that for the last few days Linda has been quite confused, she tells me that she has had a gradual decline, more steadily in the last few days, Linda does depend on her daughter who lives with her for activities of daily living, she has been complaining of shortness of breath, cough, there is been concerns for a UTI, overnight she has had episodes of confusion and agitation, the emergency room, she had episodes of agitation requiring Haldol up to 10 mg, discussed with daughter at bedside with acute encephalopathy, respiratory failure, she is now in A-fib with RVR, heart rates in the 150s, will move her down to ICU for amiodarone drip with amiodarone bolus, Vitals/I&O/Wt Last Vital Signs Temp 98.4 F 10/06/24 11:25 Pulse 110 H 10/06/24 12:10 Resp 31 H 10/06/24 12:10 BP 86/52 10/06/24 12:10 Pulse Ox 88 L 10/06/24 12:10 O2 Del Method Nasal Cannula 10/06/24 07:27 O2 Flow Rate 2 10/06/24 07:27 10/06/24 10/06/24 10/06/24 06:59 14:59 22:59 Intake Total 3560 / 4560 222.610 / 222.610 Balance 3560 / 4560 222.610 / 222.610 Weight last 48 hrs Weight 61.462 kg Weight 58.967 kg Physical Exam 2 Const: COMMON NORMALS: no acute distress EXAM LIMITATIONS: altered mental status ORIENTATION/CONSCIOUSNESS: Yes awake and Yes confused; not oriented to person, not oriented to place and not oriented to time HENMT: COMMON NORMALS: normocephalic HEAD & SCALP: normocephalic Eye: COMMON NORMALS: Equal, round and reactive pupils present PUPIL: Yes Equal, round and reactive pupils present Resp: COMMON NORMALS: normal respiratory effort, No retractions and No use of accessory muscles AUSCULTATION: crackles and wheezes OTHER: Tachypnea Cardio: COMMON NORMALS: S1 normal heart sound present and S2 normal heart sound present RATE: tachycardic RHYTHM: abnormal rhythm HEART SOUNDS: S 1 normal heart sound present and S2 normal heart sound present GI: COMMON NORMALS: Normal to inspection, nondistended, normoactive bowel sounds present and non-tender Extremity: NARRATIVE EXTREMITY EXAM: 1+ pitting edema Neuro: SENSORIUM/ORIENTATION: No oriented to person, No oriented to place and No oriented to time Urinary Catheter Management: Ross: Cath Placed During This Visit: yes Urinary Catheter Date of Insertion: 10/06/24 Urinary Catheter Time of Insertion: 13:42 Data 10/06/24 05:59 10/06/24 05:59 Micro: Microbiology 10/05/24 18:40 Blood Culture - Preliminary Blood SPECIMEN COLLECTED 10/05/24 18:29 Blood Culture - Preliminary Blood SPECIMEN COLLECTED A&P Assessment and plan (1) Hypoxia: (2) Abnormal urinalysis: (3) Acute metabolic encephalopathy: (4) Atrial fibrillation: Qualifiers: Atrial fibrillation type: paroxysmal Qualified Code(s): I48.0 - Paroxysmal atrial fibrillation (5) Type 2 diabetes mellitus: Qualifiers: Diabetes mellitus supervisor intermediates insulin use: without supervisor intermediates use Diabetes mellitus complication status: without complication Qualified Code(s): E11.9 - Type 2 diabetes mellitus without complications (6) Hypothyroidism: Qualifiers: Hypothyroidism type: other Qualified Code(s): E03.8 - Other specified hypothyroidism (7) Anxiety: Continue home meds (8) GERD (gastroesophageal reflux disease): Continue home PPI (9) Atrial fibrillation with RVR: (10) Acute hypoxic respiratory failure: (11) Sepsis: Plan DVT prophylaxis: Warfarin Full code Acute hypoxic respiratory failure -Multifactorial -Secondary to pneumonia -Secondary to systolic CHF exacerbation Plan -Moved to ICU -Broaden antibiotic coverage to vancomycin, meropenem -Monitor respiratory status closely -DuoNeb -Budesonide -Will consider BiPAP based on clinical progress -Lasix 40 IV twice daily -Cardiac echo A-fib with rapid ventricular response -Start amiodarone drip -Is on Coumadin can continue if patient can swallow, currently INR 2.79 Acute encephalopathy -Multifactorial from respiratory failure, hypoxia, pneumonia, sepsis -Precedex for confusion and agitation -How and all as needed Sepsis -Sepsis features met given acute encephalopathy, atrial fibrillation, respiratory failure, UTI NOÉ, monitor NSTEMI -Serial EKGs,*troponins, telemetry monitoring -Type I versus type II Urinary tract infection, continue meropenem Type 2 diabetes mellitus, low-dose sliding scale Attestations 2 Medical Necessity Statement*: Patient requires hospitalization, inpatient, greater than 2 midnights for acute hypoxic respiratory failure, A-fib with RVR, acute encephalopathy, sepsis, UTI Diagnoses Hypoxia R09.02 Abnormal urinalysis R82.90 Acute metabolic encephalopathy G93.41 Paroxysmal atrial fibrillation I48.0 Atrial fibrillation type: paroxysmal Type 2 diabetes mellitus without complication, without long-term current use of insulin E11.9 Diabetes mellitus supervisor intermediates insulin use: without supervisor intermediates use Diabetes mellitus complication status: without complication Other specified hypothyroidism E03.8 Hypothyroidism type: other Anxiety F41.9 GERD (gastroesophageal reflux disease) K21.9 Atrial fibrillation with RVR I48.91 Acute hypoxic respiratory failure J96.01 Sepsis A41.9
--- NOTE | 2024-10-06 15:54 | PHA.VACGOAL ---
Vancomycin Goal - Goal Vancomycin Goal:: 15-20 mg/L Vancomycin Indication:: Other - Therapy Day of therpy:: Day []of [] . Actual body weight (kg): 135 lb 8 oz - Data Labs: WBC 17.89 10^3/uL (3.29-11.43) H 10/06/24 05:59 RBC 3.66 10^6/uL (3.85-5.65) L 10/06/24 05:59 Hgb 11.30 g/dL (11.27-16.99) 10/06/24 05:59 Hct 37.2 % (36-47) 10/06/24 05:59 MCV 101.6 fl (85-98) H 10/06/24 05:59 MCH 30.9 pg (27-33) 10/06/24 05:59 MCHC 30.4 g/dL (30-55) 10/06/24 05:59 RDW 13.8 % (12.1-15.1) 10/06/24 05:59 Sodium 137 mmol/L (136-145) 10/06/24 05:59 Potassium 4.9 mmol/L (3.5-5.1) 10/06/24 05:59 Chloride 101 mmol/L (98-107) 10/06/24 05:59 Carbon Dioxide 27 mmol/L (22-29) 10/06/24 05:59 Anion Gap 13.9 (5-19) 10/06/24 05:59 BUN 30 mg/dL (8-23) H 10/06/24 05:59 Creatinine 1.2 mg/dL (0.5-0.9) H 10/06/24 05:59 GFR Calculation Not Reportable 10/06/24 05:59 Treatment plan:: new consult Regimen:: LOADING 2000 MG 750 MG Q24H; TROUGH PRIOR TO 4TH DOSE
[2024-10-06] MEDS: vancomycin 2,000 MG/400 ML PIGGYBACK 200 MG IV (16:03)
[2024-10-06 16:16] LABS: Troponin 5 6HR 68.52 ng/L (0-10); Troponin 5 6HR Delta 1.52 ng/L (0-12)
[2024-10-06 17:19] LABS: Glucose Point of Care 159 mg/dL (70-110)
[2024-10-06 21:05] LABS: Glucose Point of Care 129 mg/dL (70-110)
[2024-10-07] VITALS (52 sets, daily range): BP systolic 83–163; BP diastolic 41–99; PULSE 85–131; RESP 15–33; TEMP 36.6–38.1; O2SAT 85–99; BMI 19.7
[2024-10-07] MEDS: meropenem 500 mg SDV IVP (02:19)
[2024-10-07] MEDS: FUROsemide 10 mg/mL SDV 4mL 40 MG IVP ×2 (02:39→16:10)
[2024-10-07 04:26] LABS: Basophils % 0.2 %; Eosinophils % 0.1 %; Hematocrit 38.3 % (36-47); Lymphocytes # 0.7 10^3/uL (0.8-4.8); Lymphocytes % 4.1 %; Mean Corpuscular HGB Conc 30.3 g/dL (30-55); Mean Corpuscular Hemoglobin 30.2 pg (27-33); Mean Corpuscular Volume 99.7 fl (85-98); Mean Platelet Volume 10.3 fL (7.4-10.4); Monocytes # 1.2 10^3/uL (0.2-0.9); Monocytes % 6.8 %; Neutrophils # 14.98 10^3/uL (1.8-7.7); Nucleated Red Blood Cells % 0 %; Platelet Count 247 10^3/cmm (157-399); Red Blood Count 3.84 10^6/uL (3.85-5.65); Red Cell Distribution Width 13.9 % (12.1-15.1); White Blood Count 17.01 10^3/uL (3.29-11.43)
[2024-10-07] MEDS: metoprolol tartrate 1 mg/1 mL SDV 5 mL 2.5 MG IVP (04:50)
[2024-10-07 04:53] LABS: Alanine Aminotransferase 9 U/L (0-33); Albumin Level 3.3 g/dL (3.5-5.2); Alkaline Phosphatase 96 U/L (35-105); Anion Gap 18.2 (5-19); Aspartate Amino Transferase 13 U/L (0-32); Blood Urea Nitrogen 34 mg/dL (8-23); C Reactive Protein 290.5 mg/L (0.0-4.9); Calcium 9.2 mg/dL (8.5-10.5); Carbon Dioxide 28 mmol/L (22-29); Chloride 100 mmol/L (98-107); Creatinine Clr Calc Pharmacy 35.1971; Globulin 3.3 g/dL (1.3-4.6); Glucose 148 mg/dL (65-115); Osmolality Calculated 304 mOsm/kg (285-295); Phosphorus 3.9 mg/dL (2.5-4.5); Potassium 4.2 mmol/L (3.5-5.1); Sodium 142 mmol/L (136-145); Total Bilirubin 0.4 mg/dL (0.15-1.2); Total Protein 6.6 g/dL (6.6-8.7)
[2024-10-07 05:00] LABS: NT Pro B Type Natriuretic Pept 8833 pg/mL (0-450); Procalcitonin 0.25 ng/mL (0-0.5)
[2024-10-07] MEDS: levothyroxine 88 mcg Tablet PO (05:12)
--- NOTE | 2024-10-07 05:25 | PC.NURSE ---
Increased HR: Patient's HR maintained above 115 while on amio drip, Dr. Malin gave order for 2.5mg IVP metoprolol ONCE.
[2024-10-07 08:37] LABS: Glucose Point of Care 143 mg/dL (70-110)
[2024-10-07] MEDS: pantoprazole DR 40 mg Tablet PO ×2 (08:55→17:08)
[2024-10-07] MEDS: insulin lispro 100 unit/1 mL SUBCUT ×3 (08:55→20:56)
[2024-10-07] MEDS: atorvastatin 40 mg Tablet 20 MG PO (08:55)
[2024-10-07] MEDS: metoprolol tartrate 25 mg Tablet PO (09:45)
[2024-10-07] MEDS: BuSPIRONE 10 mg Tablet 5 MG PO ×2 (12:08→17:08)
[2024-10-07] MEDS: amiodarone 200 mg Tablet 400 MG PO ×2 (12:08→17:09)
--- NOTE | 2024-10-07 13:43 | PM.PN ---
Subjective Subjective: Patient was seen this morning, she is alert to person, to place, not to time, she follows commands, she is much more comfortable this morning, she has no complaints, she tells me that she is hungry, currently in A-fib heart rates in the 120s atrial fibrillation is on amiodarone, is on 2 L Vitals/I&O/Wt Last Vital Signs Temp 97.9 F 10/07/24 12:30 Pulse 117 H 10/07/24 12:30 Resp 16 10/07/24 12:30 BP 124/86 10/07/24 12:30 Pulse Ox 95 10/07/24 12:30 O2 Del Method Nasal Cannula 10/07/24 12:30 O2 Flow Rate 2 10/07/24 12:30 10/06/24 10/07/24 10/07/24 22:59 06:59 14:59 Intake Total 618.332 / 840.942 210.369 / 1051.311 450 / 450 Output Total 1050 / 1050 550 / 1600 Balance -431.668 / -209.058 -339.631 / -548.689 450 / 450 Weight last 48 hrs Weight 60.498 kg Weight 61.462 kg Weight 58.967 kg Physical Exam Const: COMMON NORMALS: no acute distress ORIENTATION/CONSCIOUSNESS: Yes awake, Yes oriented to person and Yes oriented to place; not oriented to time Resp: COMMON NORMALS: normal respiratory effort, No retractions and No use of accessory muscles AUSCULTATION: crackles and wheezes Cardio: COMMON NORMALS: regular rhythm, S1 normal heart sound present and S2 normal heart sound present RATE: tachycardic RHYTHM: regular rhythm HEART SOUNDS: S1 normal heart sound present and S2 normal heart sound present GI: COMMON NORMALS: Normal to inspection, nondistended, normoactive bowel sounds present and non-tender Extremity: COMMON NORMALS: no pedal edema Neuro: SENSORIUM/ORIENTATION: Yes oriented to person, Yes oriented to place and No oriented to time Urinary Catheter Management: Ross: Cath Placed During This Visit: yes Reason for Continuing Indwelling Catheter: Accurate Measurement of Urinary Output in Critically Ill Patients Urinary Catheter Date of Insertion: 10/06/24 Urinary Catheter Time of Insertion: 13:42 Data 10/07/24 03:50 10/07/24 03:50 Micro: Microbiology 10/05/24 18:40 Blood Culture - Preliminary Blood NEGATIVE TO DATE 10/05/24 18:29 Blood Culture - Preliminary Blood NEGATIVE TO DATE A&P Assessment and plan (1) Hypoxia: (2) Abnormal urinalysis: (3) Acute metabolic encephalopathy: (4) Atrial fibrillation: Qualifiers: Atrial fibrillation type: paroxysmal Qualified Code(s): I48.0 - Paroxysmal atrial fibrillation (5) Type 2 diabetes mellitus: Qualifiers: Diabetes mellitus skilled nursing insulin use: without skilled nursing use Diabetes mellitus complication status: without complication Qualified Code(s): E11.9 - Type 2 diabetes mellitus without complications (6) Hypothyroidism: Qualifiers: Hypothyroidism type: other Qualified Code(s): E03.8 - Other specified hypothyroidism (7) Anxiety: Continue home meds (8) GERD (gastroesophageal reflux disease): Continue home PPI (9) Atrial fibrillation with RVR: (10) Acute hypoxic respiratory failure: (11) Sepsis: Plan DVT prophylaxis: Warfarin on hold as INR supratherapeutic at 3.5 Full code Acute hypoxic respiratory failure -Multifactorial -Secondary to pneumonia -Secondary to systolic CHF exacerbation Plan -Moved to ICU - vancomycin, meropenem -Monitor respiratory status closely -DuoNeb -Budesonide -Will consider BiPAP based on clinical progress -Lasix 40 IV twice daily -Cardiac echo A-fib with rapid ventricular response - amiodarone drip -Add metoprolol 50 twice daily Acute encephalopathy, resolving -Multifactorial from respiratory failure, hypoxia, pneumonia, sepsis -Precedex for confusion and agitation -How and all as needed Sepsis -Sepsis features met given acute encephalopathy, atrial fibrillation, respiratory failure, UTI NOÉ, monitor NSTEMI -Serial EKGs,*troponins, telemetry monitoring -Type I versus type II Urinary tract infection, continue meropenem Type 2 diabetes mellitus, low-dose sliding scale Speech therapy eval, start dysphagia level 4 diet Attestations Medical Necessity Statement*: Patient requires hospitalization for pneumonia, acute respiratory failure, CHF, A-fib with RVR on amiodarone drip, encephalopathy, UTI Diagnoses Hypoxia R09.02 Abnormal urinalysis R82.90 Acute metabolic encephalopathy G93.41 Paroxysmal atrial fibrillation I48.0 Atrial fibrillation type: paroxysmal Type 2 diabetes mellitus without complication, without long-term current use of insulin E11.9 Diabetes mellitus skilled nursing insulin use: without skilled nursing use Diabetes mellitus complication status: without complication Other specified hypothyroidism E03.8 Hypothyroidism type: other Anxiety F41.9 GERD (gastroesophageal reflux disease) K21.9 Atrial fibrillation with RVR I48.91 Acute hypoxic respiratory failure J96.01 Sepsis A41.9
--- NOTE | 2024-10-07 13:52 | PC.SOCIAL ---
IMM Updated Updated pt & family on IMM. No questions voiced. Provided pt a copy. Initialed, dated, & timed a copy & placed in chart.
[2024-10-07] MEDS: meropenem 1,000 mg SDV 1000 MG IVP (14:39)
[2024-10-07 14:40] LABS: Glucose Point of Care 97 mg/dL (70-110)
[2024-10-07] MEDS: VANCOMYCIN ADD-Vantage 750 MG in 0.9% NaCl ADD-Vantage 250 ML 250 MG IV (16:10)
[2024-10-07] MEDS: acetaminophen 325 mg Tablet 650 MG PO (16:24)
[2024-10-07 17:02] LABS: Glucose Point of Care 281 mg/dL (70-110)
[2024-10-07] MEDS: metoprolol tartrate 25 mg Tablet 50 MG PO (17:08)
[2024-10-07 20:48] LABS: Glucose Point of Care 203 mg/dL (70-110)
[2024-10-07] MEDS: sennosides 8.6 mg Tablet 17.2 MG PO (20:56)
[2024-10-08] VITALS (51 sets, daily range): BP systolic 88–155; BP diastolic 43–101; PULSE 2–136; RESP 21–37; TEMP 36.2–37.1; O2SAT 86–100
[2024-10-08] MEDS: meropenem 1,000 mg SDV 1000 MG IVP ×2 (01:40→15:14)
--- NOTE | 2024-10-08 02:51 | PC.NURSE ---
Pt has remained in a fib t/o shift, rate increased to 120-140 for over an hour. Contacted Dr. Malin, new order from 1x 25 mg metoprolol received.
[2024-10-08] MEDS: FUROsemide 10 mg/mL SDV 4mL 40 MG IVP (03:25)
[2024-10-08] MEDS: metoprolol tartrate 25 mg Tablet PO (03:25)
[2024-10-08 03:35] LABS: Basophils # 0.1 10^3/uL (0.0-0.1); Basophils % 0.3 %; Eosinophils % 0.1 %; Hematocrit 36.5 % (36-47); Lymphocytes # 0.8 10^3/uL (0.8-4.8); Lymphocytes % 4.9 %; Mean Corpuscular HGB Conc 30.7 g/dL (30-55); Mean Corpuscular Hemoglobin 30.4 pg (27-33); Mean Corpuscular Volume 99.2 fl (85-98); Mean Platelet Volume 10.3 fL (7.4-10.4); Monocytes # 1.7 10^3/uL (0.2-0.9); Monocytes % 10.6 %; Neutrophils # 13.36 10^3/uL (1.8-7.7); Neutrophils % 83.4 %; Nucleated Red Blood Cells % 0 %; Platelet Count 248 10^3/cmm (157-399); Red Blood Count 3.68 10^6/uL (3.85-5.65); Red Cell Distribution Width 13.8 % (12.1-15.1); White Blood Count 16.01 10^3/uL (3.29-11.43)
[2024-10-08 03:55] LABS: Alanine Aminotransferase 9 U/L (0-33); Albumin Level 3.1 g/dL (3.5-5.2); Alkaline Phosphatase 85 U/L (35-105); Aspartate Amino Transferase 13 U/L (0-32); Blood Urea Nitrogen 46 mg/dL (8-23); C Reactive Protein 210.7 mg/L (0.0-4.9); Calcium 9.3 mg/dL (8.5-10.5); Carbon Dioxide 30 mmol/L (22-29); Chloride 96 mmol/L (98-107); Creatinine Clr Calc Pharmacy 29.6036; Globulin 3.2 g/dL (1.3-4.6); Glucose 173 mg/dL (65-115); Magnesium 1.9 mg/dL (1.7-2.3); Osmolality Calculated 304 mOsm/kg (285-295); Sodium 139 mmol/L (136-145); Total Bilirubin 0.5 mg/dL (0.15-1.2); Total Protein 6.3 g/dL (6.6-8.7)
[2024-10-08 04:01] LABS: NT Pro B Type Natriuretic Pept 8564 pg/mL (0-450); Procalcitonin 0.29 ng/mL (0-0.5)
[2024-10-08] MEDS: metoprolol tartrate 25 mg Tablet 50 MG PO ×2 (06:05→17:23)
[2024-10-08] MEDS: levothyroxine 88 mcg Tablet PO (06:05)
[2024-10-08 07:45] LABS: Glucose Point of Care 193 mg/dL (70-110)
[2024-10-08] MEDS: insulin lispro 100 unit/1 mL SUBCUT ×4 (08:15→21:21)
[2024-10-08] MEDS: BuSPIRONE 10 mg Tablet 5 MG PO ×3 (08:15→17:29)
[2024-10-08] MEDS: atorvastatin 40 mg Tablet 20 MG PO (08:15)
[2024-10-08] MEDS: amiodarone 200 mg Tablet 400 MG PO ×2 (08:15→17:23)
[2024-10-08] MEDS: digoxin 125 mcg Tablet 62.5 MCG PO (08:16)
[2024-10-08] MEDS: pantoprazole DR 40 mg Tablet PO ×2 (08:16→17:23)
[2024-10-08] MEDS: polyethylene glycol 3350 Pkt 17 gm PO (09:06)
[2024-10-08 11:17] LABS: Glucose Point of Care 211 mg/dL (70-110)
[2024-10-08 12:43] LABS: INR 2.41 (0.8-1.2)
--- NOTE | 2024-10-08 14:03 | PM.PN ---
Subjective Subjective: Patient was seen this morning, she is alert and oriented x 2, follows commands, heart rates are still up into the 120s to A-fib, denies any chest pain, palpitations, does report weakness, poor appetite Vitals/I&O/Wt Last Vital Signs Temp 98.7 F 10/08/24 09:00 Pulse 106 H 10/08/24 13:00 Resp 33 H 10/08/24 13:00 BP 121/63 10/08/24 13:00 Pulse Ox 97 10/08/24 13:00 O2 Del Method Nasal Cannula 10/08/24 13:00 O2 Flow Rate 2 10/08/24 13:00 10/07/24 10/08/24 10/08/24 22:59 06:59 14:59 Intake Total 808.624 / 1258.624 180 / 1438.624 240 / 240 Output Total 1700 / 1700 425 / 425 Balance 808.624 / 1258.624 -1520 / -261.376 -185 / -185 Weight last 48 hrs Weight 59.5 kg Weight 60.498 kg Physical Exam Const: COMMON NORMALS: no acute distress ORIENTATION/CONSCIOUSNESS: Yes awake, Yes oriented to person and Yes oriented to place; not oriented to time Resp: COMMON NORMALS: normal respiratory effort, No retractions and No use of accessory muscles Cardio: COMMON NORMALS: S1 normal heart sound present and S2 normal heart sound present RATE: tachycardic HEART SOUNDS: S1 normal heart sound present and S2 normal heart sound present GI: COMMON NORMALS: Normal to inspection, nondistended, normoactive bowel sounds present and non-tender Extremity: COMMON NORMALS: no pedal edema Neuro: SENSORIUM/ORIENTATION: Yes oriented to person, Yes oriented to place and No oriented to time Psych: COMMON NORMALS: mental status grossly normal Urinary Catheter Management: Ross: Cath Placed During This Visit: yes Reason for Continuing Indwelling Catheter: Accurate Measurement of Urinary Output in Critically Ill Patients Urinary Catheter Date of Insertion: 10/06/24 Urinary Catheter Time of Insertion: 13:42 Data 10/08/24 02:58 10/08/24 02:58 A&P Assessment and plan (1) Hypoxia: (2) Abnormal urinalysis: (3) Acute metabolic encephalopathy: (4) Atrial fibrillation: Qualifiers: Atrial fibrillation type: paroxysmal Qualified Code(s): I48.0 - Paroxysmal atrial fibrillation (5) Type 2 diabetes mellitus: Qualifiers: Diabetes mellitus termite control service representative insulin use: without longterm use Diabetes mellitus complication status: without complication Qualified Code(s): E11.9 - Type 2 diabetes mellitus without complications (6) Hypothyroidism: Qualifiers: Hypothyroidism type: other Qualified Code(s): E03.8 - Other specified hypothyroidism (7) Anxiety: Continue home meds (8) GERD (gastroesophageal reflux disease): Continue home PPI (9) Atrial fibrillation with RVR: (10) Acute hypoxic respiratory failure: (11) Sepsis: Plan DVT prophylaxis: Warfarin on hold as INR supratherapeutic at 2.4 Full code Acute hypoxic respiratory failure -Multifactorial -Secondary to pneumonia -Secondary to systolic CHF exacerbation Plan -Moved to ICU - vancomycin, meropenem -Monitor respiratory status closely -DuoNeb -Budesonide -Will consider BiPAP based on clinical progress -Lasix 40 IV daily -Cardiac echo A-fib with rapid ventricular response -Amiodarone 400 twice daily -Add metoprolol 50 twice daily -Resumed her home digoxin Acute encephalopathy, resolving -Multifactorial from respiratory failure, hypoxia, pneumonia, sepsis -Precedex for confusion and agitation Sepsis -Sepsis features met given acute encephalopathy, atrial fibrillation, respiratory failure, UTI NOÉ, monitor NSTEMI -Serial EKGs,*troponins, telemetry monitoring -Type I versus type II Urinary tract infection, continue meropenem Type 2 diabetes mellitus, low-dose sliding scale Speech therapy eval, start dysphagia level 4 diet Attestations Medical Necessity Statement*: Plan for today heart rate control, IV Lasix, PT OT Diagnoses Hypoxia R09.02 Abnormal urinalysis R82.90 Acute metabolic encephalopathy G93.41 Paroxysmal atrial fibrillation I48.0 Atrial fibrillation type: paroxysmal Type 2 diabetes mellitus without complication, without long-term current use of insulin E11.9 Diabetes mellitus termite control service representative insulin use: without termite control service representative use Diabetes mellitus complication status: without complication Other specified hypothyroidism E03.8 Hypothyroidism type: other Anxiety F41.9 GERD (gastroesophageal reflux disease) K21.9 Atrial fibrillation with RVR I48.91 Acute hypoxic respiratory failure J96.01 Sepsis A41.9
[2024-10-08] MEDS: VANCOMYCIN ADD-Vantage 750 MG in 0.9% NaCl ADD-Vantage 250 ML 250 MG IV (15:16)
[2024-10-08] MEDS: warfarin 3 mg Tablet PO (15:16)
[2024-10-08 17:30] LABS: Glucose Point of Care 204 mg/dL (70-110)
[2024-10-08] MEDS: ondansetron 4 MG Tablet PO (17:45)
[2024-10-08 21:18] LABS: Glucose Point of Care 165 mg/dL (70-110)
[2024-10-08] MEDS: sennosides 8.6 mg Tablet 17.2 MG PO (21:20)
[2024-10-09] VITALS (25 sets, daily range): BP systolic 100–145; BP diastolic 4–90; PULSE 82–117; RESP 20–29; TEMP 36.4–37.2; O2SAT 89–100
[2024-10-09] MEDS: meropenem 1,000 mg SDV 1000 MG IVP ×2 (01:55→14:57)
[2024-10-09 04:39] LABS: Basophils % 0.3 %; Eosinophils % 0.1 %; Lymphocytes # 0.9 10^3/uL (0.8-4.8); Lymphocytes % 7.3 %; Mean Corpuscular HGB Conc 30.5 g/dL (30-55); Mean Corpuscular Hemoglobin 30.4 pg (27-33); Mean Corpuscular Volume 99.5 fl (85-98); Mean Platelet Volume 10.2 fL (7.4-10.4); Monocytes # 1.1 10^3/uL (0.2-0.9); Monocytes % 8.4 %; Neutrophils # 10.63 10^3/uL (1.8-7.7); Nucleated Red Blood Cells % 0 %; Platelet Count 264 10^3/cmm (157-399); Red Blood Count 3.82 10^6/uL (3.85-5.65); Red Cell Distribution Width 13.8 % (12.1-15.1); White Blood Count 12.81 10^3/uL (3.29-11.43)
[2024-10-09 04:56] LABS: Alanine Aminotransferase 8 U/L (0-33); Albumin Level 3.1 g/dL (3.5-5.2); Alkaline Phosphatase 83 U/L (35-105); Anion Gap 14.8 (5-19); Aspartate Amino Transferase 13 U/L (0-32); Blood Urea Nitrogen 55 mg/dL (8-23); C Reactive Protein 191.8 mg/L (0.0-4.9); Calcium 9.7 mg/dL (8.5-10.5); Carbon Dioxide 33 mmol/L (22-29); Chloride 99 mmol/L (98-107); Creatinine Clr Calc Pharmacy 29.7979; Globulin 3.5 g/dL (1.3-4.6); Glucose 172 mg/dL (65-115); Magnesium 2.2 mg/dL (1.7-2.3); Osmolality Calculated 315 mOsm/kg (285-295); Phosphorus 3.2 mg/dL (2.5-4.5); Potassium 3.8 mmol/L (3.5-5.1); Sodium 143 mmol/L (136-145); Total Bilirubin 0.7 mg/dL (0.15-1.2); Total Protein 6.6 g/dL (6.6-8.7)
[2024-10-09 05:09] LABS: NT Pro B Type Natriuretic Pept 7324 pg/mL (0-450); Procalcitonin 0.29 ng/mL (0-0.5)
[2024-10-09] MEDS: FUROsemide 10 mg/mL SDV 4mL 40 MG IVP (05:16)
[2024-10-09] MEDS: metoprolol tartrate 25 mg Tablet 50 MG PO ×2 (05:16→17:37)
[2024-10-09] MEDS: levothyroxine 88 mcg Tablet PO (05:16)
[2024-10-09 07:46] LABS: Glucose Point of Care 199 mg/dL (70-110)
[2024-10-09] MEDS: insulin lispro 100 unit/1 mL SUBCUT ×4 (08:00→20:40)
[2024-10-09] MEDS: digoxin 125 mcg Tablet 62.5 MCG PO (08:00)
[2024-10-09] MEDS: BuSPIRONE 10 mg Tablet 5 MG PO ×3 (08:00→17:36)
[2024-10-09] MEDS: atorvastatin 40 mg Tablet 20 MG PO (08:01)
[2024-10-09] MEDS: amiodarone 200 mg Tablet 400 MG PO ×2 (08:01→17:37)
[2024-10-09] MEDS: pantoprazole DR 40 mg Tablet PO ×2 (08:01→17:37)
[2024-10-09 11:08] LABS: Glucose Point of Care 188 mg/dL (70-110)
--- NOTE | 2024-10-09 11:50 | PC.SOCIAL ---
IMM Updated Updated pt on IMM. No questions voiced. Provided pt a copy. Initialed, dated, & timed copy in chart.
--- NOTE | 2024-10-09 11:53 | PC.NURSE ---
Report was given to Dino in [facility]. Patient was transferred with all belongings and was stable during transfer.
--- NOTE | 2024-10-09 13:04 | PM.PN ---
Subjective Subjective: Patient was seen this morning, she is alert to person, to place, not to time, her shortness of breath is improving she tells me, no chest pain, her palpitations are improving her A-fib is more well-controlled heart rates in the 100s, still in A-fib Vitals/I&O/Wt Last Vital Signs Temp 98.0 F 10/09/24 11:50 Pulse 100 10/09/24 11:50 Resp 25 H 10/09/24 11:50 BP 100/56 10/09/24 11:50 Pulse Ox 99 10/09/24 11:50 O2 Del Method Nasal Cannula 10/09/24 11:50 O2 Flow Rate 3 10/09/24 09:00 10/08/24 10/09/24 10/09/24 22:59 06:59 14:59 Intake Total 250 / 490 180 / 180 Output Total 250 / 675 400 / 1075 725 / 725 Balance 0 / -185 -400 / -585 -545 / -545 Weight last 48 hrs Weight 61.547 kg Weight 59.5 kg Physical Exam Const: COMMON NORMALS: no acute distress Resp: COMMON NORMALS: normal respiratory effort, No retractions and No use of accessory muscles AUSCULTATION: wheezes Cardio: COMMON NORMALS: regular rate, regular rhythm, S1 normal heart sound present and S2 normal heart sound present RATE: regular rate RHYTHM: regular rhythm HEART SOUNDS: S1 normal heart sound present and S2 normal heart sound present GI: COMMON NORMALS: Normal to inspection, nondistended, normoactive bowel sounds present, non-tender and no masses Extremity: COMMON NORMALS: no pedal edema Urinary Catheter Management: Ross: Cath Placed During This Visit: yes Reason for Continuing Indwelling Catheter: Accurate Measurement of Urinary Output in Critically Ill Patients Urinary Catheter Date of Insertion: 10/06/24 Urinary Catheter Time of Insertion: 13:42 Data 10/09/24 03:44 10/09/24 03:44 A&P Assessment and plan (1) Hypoxia: (2) Abnormal urinalysis: (3) Acute metabolic encephalopathy: (4) Atrial fibrillation: Qualifiers: Atrial fibrillation type: paroxysmal Qualified Code(s): I48.0 - Paroxysmal atrial fibrillation (5) Type 2 diabetes mellitus: Qualifiers: Diabetes mellitus intermission coordinator insulin use: without intermission coordinator use Diabetes mellitus complication status: without complication Qualified Code(s): E11.9 - Type 2 diabetes mellitus without complications (6) Hypothyroidism: Qualifiers: Hypothyroidism type: other Qualified Code(s): E03.8 - Other specified hypothyroidism (7) Anxiety: Continue home meds (8) GERD (gastroesophageal reflux disease): Continue home PPI (9) Atrial fibrillation with RVR: (10) Acute hypoxic respiratory failure: (11) Sepsis: Plan DVT prophylaxis: Warfarin on hold as INR supratherapeutic at 1.9 Full code Acute hypoxic respiratory failure -Multifactorial -Secondary to pneumonia -Secondary to systolic CHF exacerbation Plan -Moved to [facility] - vancomycin, meropenem -Monitor respiratory status closely -DuoNeb -Budesonide -Will consider BiPAP based on clinical progress -Lasix 40 IV daily -Cardiac echo A-fib with rapid ventricular response, heart rates less than 100 remain in A-fib -Amiodarone 400 twice daily -Add metoprolol 50 twice daily -Resumed her home digoxin Acute encephalopathy, resolving -Multifactorial from respiratory failure, hypoxia, pneumonia, sepsis -Precedex for confusion and agitation Sepsis -Sepsis features met given acute encephalopathy, atrial fibrillation, respiratory failure, UTI NOÉ, monitor NSTEMI -Serial EKGs,*troponins, telemetry monitoring -Type I versus type II Urinary tract infection, continue meropenem Type 2 diabetes mellitus, low-dose sliding scale Speech therapy eval, start dysphagia level 4 diet Plan for today, continue IV antibiotics, continue IV diuresis, PT OT, monitor heart rate, moved to cardiac stepdown unit Attestations Medical Necessity Statement*: Patient requires hospitalization for A-fib with RVR, acute hypoxic respiratory failure, sepsis, pneumonia Diagnoses Hypoxia R09.02 Abnormal urinalysis R82.90 Acute metabolic encephalopathy G93.41 Paroxysmal atrial fibrillation I48.0 Atrial fibrillation type: paroxysmal Type 2 diabetes mellitus without complication, without long-term current use of insulin E11.9 Diabetes mellitus senior care insulin use: without intermission coordinator use Diabetes mellitus complication status: without complication Other specified hypothyroidism E03.8 Hypothyroidism type: other Anxiety F41.9 GERD (gastroesophageal reflux disease) K21.9 Atrial fibrillation with RVR I48.91 Acute hypoxic respiratory failure J96.01 Sepsis A41.9
--- NOTE | 2024-10-09 13:14 | USCV_ITS ---
Linda Todd Age: 89 Gender: F : 1935 Exam Date: 10/09/2024 14:59 Ordering Phys: Teja Alvarez MD Technologist: Jim Cali [place]am [place] [facility] [place]: sob BP: 100 / 56 HR: 99 Rhythm: Sinus Technical Quality: Adequate MEASUREMENTS (Male / Female) Normal Values 2D ECHO LV Diastolic Diameter PLAX 3.7 cm 4.2 - 5.9 / 3.9 - 5.3 cm IVS Diastolic Thickness 1.6 cm 0.6 - 1.0 / 0.6 - 0.9 cm IVS Systolic Thickness 1.8 cm LVPW Diastolic Thickness 1.5 cm 0.6 - 1.0 / 0.6 - 0.9 cm LVPW Systolic Thickness 1.8 cm LVOT Diameter 2.0 cm LV Ejection Fraction 2D Teich 56.4 % LV Ejection Fraction MOD 4C 46.1 % LV Ejection Fraction MOD 2C 55.4 % LV Ejection Fraction 2C AL 54.9 % LA Diameter 4.3 cm RA Systolic Volume 4C AL 38.0 ml RA Systolic Volume 4C MOD 38.2 ml LA Sys Volume AL 48.1 cm cubed LA Sys Volume Index AL 28.0 cm cubed/m squared Aorta at Sinotubular Diameter 2.3 cm IVC Diameter 1.6 cm M-MODE LA Ao Ratio MM 1.4 AV Cusp Separation MM 0.7 cm DOPPLER AV Peak Velocity 358.0 cm/s LVOT Peak Velocity 60.0 cm/s AV Area Cont Eq vti 0.6 cm squared AV Area Cont Eq pk 0.5 cm squared MV Peak Velocity 116.0 cm/s MV Area PHT 6.6 cm squared TV Peak Velocity 391.5 cm/s TR Peak Velocity 473.0 cm/s TR Peak Gradient 89.5 mmHg TR Mean Velocity 338.0 cm/s TR Mean Gradient 51.3 mmHg TR Velocity Time Integral 103.5 cm PV Peak Velocity 94.0 cm/s RV Ejection Time 0.2 s FINDINGS Left Ventricle Moderately increased left ventricular cavity size. Severely decreased left ventricular systolic function. Left ventricular ejection fraction is estimated at 35 %. Grade III/IV diastolic dysfunction (restrictive filling pattern), severely elevated filling pressures. Right Ventricle Not well-visualized Right Atrium Not well visual Left Atrium Moderately increased left atrial size. Mitral Valve Moderately thickened mitral valve. Moderate mitral annular calcification. No mitral valve stenosis. Aortic Valve Severe aortic valve calcification. Severe aortic valve stenosis, mean gradient 26.5 mmHg, MARICHUY 0.57 cm squared. Trace to mild aortic valve regurgitation. Tricuspid Valve Azis-qw-nbishuhy tricuspid valve regurgitation. Pulmonic Valve Mild pulmonary valve regurgitation. Pericardium Normal pericardium without effusion. Aorta Normal ascending aorta dimension. IVC Moderately dilated IVC. CONCLUSIONS Moderately increased left ventricular cavity size. Severely decreased left ventricular systolic function. Left ventricular ejection fraction is estimated at 35 %. Grade III/IV diastolic dysfunction (restrictive filling pattern), severely elevated filling pressures. Moderately thickened mitral valve. Moderate mitral annular calcification. No mitral valve stenosis. Moderately increased left atrial size. Severe aortic valve calcification. Severe aortic valve stenosis, mean gradient 26.5 mmHg, MARICHUY 0.57 cm squared. Trace to mild aortic valve regurgitation. Cnla-yh-gtelnhhi tricuspid valve regurgitation. Mild pulmonary valve regurgitation. There are no intracardiac masses. Right atrial pressure is around 20 mm of mercury. Radha Sanderson MD (Electronically Signed) Final Date: 09 October 2024 23:04 S
[2024-10-09] MEDS: warfarin 2 mg Tablet 4 MG PO (14:57)
[2024-10-09 17:06] LABS: Glucose Point of Care 189 mg/dL (70-110)
[2024-10-09] MEDS: VANCOMYCIN ADD-Vantage 750 MG in 0.9% NaCl ADD-Vantage 250 ML 250 MG IV (17:36)
[2024-10-09 20:09] LABS: Glucose Point of Care 200 mg/dL (70-110)
[2024-10-09] MEDS: acetaminophen 325 mg Tablet 650 MG PO (20:38)
[2024-10-09] MEDS: sennosides 8.6 mg Tablet 17.2 MG PO (20:38)
[2024-10-10] VITALS (8 sets, daily range): BP systolic 100–152; BP diastolic 57–72; PULSE 79–108; RESP 19–28; TEMP 36.5–37.2; O2SAT 97–99
[2024-10-10] MEDS: meropenem 1,000 mg SDV 1000 MG IVP ×2 (01:30→14:10)
[2024-10-10 05:20] LABS: Basophils % 0.2 %; Eosinophils # 0.1 10^3/uL (0.0-0.8); Eosinophils % 0.8 %; Hematocrit 35.8 % (36-47); Lymphocytes # 0.8 10^3/uL (0.8-4.8); Lymphocytes % 9.6 %; Mean Corpuscular HGB Conc 30.2 g/dL (30-55); Mean Corpuscular Hemoglobin 30.3 pg (27-33); Mean Corpuscular Volume 100.6 fl (85-98); Mean Platelet Volume 9.7 fL (7.4-10.4); Monocytes # 0.8 10^3/uL (0.2-0.9); Monocytes % 9.5 %; Neutrophils # 6.55 10^3/uL (1.8-7.7); Neutrophils % 78.8 %; Nucleated Red Blood Cells % 0 %; Platelet Count 248 10^3/cmm (157-399); Red Blood Count 3.56 10^6/uL (3.85-5.65); Red Cell Distribution Width 13.6 % (12.1-15.1); White Blood Count 8.32 10^3/uL (3.29-11.43)
[2024-10-10 05:36] LABS: INR 2.15 (0.8-1.2)
[2024-10-10 05:39] LABS: Alanine Aminotransferase 7 U/L (0-33); Albumin Level 2.8 g/dL (3.5-5.2); Alkaline Phosphatase 70 U/L (35-105); Anion Gap 11.9 (5-19); Aspartate Amino Transferase 13 U/L (0-32); Blood Urea Nitrogen 58 mg/dL (8-23); Calcium 9.4 mg/dL (8.5-10.5); Carbon Dioxide 34 mmol/L (22-29); Chloride 102 mmol/L (98-107); Creatinine Clr Calc Pharmacy 147.6489; Glucose 154 mg/dL (65-115); Magnesium 2.3 mg/dL (1.7-2.3); Osmolality Calculated 317 mOsm/kg (285-295); Phosphorus 3.6 mg/dL (2.5-4.5); Potassium 3.9 mmol/L (3.5-5.1); Sodium 144 mmol/L (136-145); Total Bilirubin 0.5 mg/dL (0.15-1.2); Total Protein 5.8 g/dL (6.6-8.7)
[2024-10-10 05:41] LABS: C Reactive Protein 117.2 mg/L (0.0-4.9)
[2024-10-10 05:48] LABS: NT Pro B Type Natriuretic Pept 5870 pg/mL (0-450)
[2024-10-10] MEDS: metoprolol tartrate 25 mg Tablet 50 MG PO ×2 (05:52→18:04)
[2024-10-10] MEDS: levothyroxine 88 mcg Tablet PO (05:52)
[2024-10-10] MEDS: ondansetron 4 MG Tablet PO (05:52)
[2024-10-10] MEDS: FUROsemide 10 mg/mL SDV 4mL 40 MG IVP (05:53)
[2024-10-10 06:22] LABS: Glucose Point of Care 153 mg/dL (70-110)
[2024-10-10] MEDS: insulin lispro 100 unit/1 mL SUBCUT ×3 (08:49→20:36)
[2024-10-10] MEDS: digoxin 125 mcg Tablet 62.5 MCG PO (08:50)
[2024-10-10] MEDS: pantoprazole DR 40 mg Tablet PO ×2 (08:50→18:04)
[2024-10-10] MEDS: amiodarone 200 mg Tablet 400 MG PO ×2 (08:52→18:04)
[2024-10-10] MEDS: atorvastatin 40 mg Tablet 20 MG PO (08:52)
[2024-10-10] MEDS: BuSPIRONE 10 mg Tablet 5 MG PO ×3 (08:52→18:03)
[2024-10-10 10:07] LABS: C.Diff PCR (Lab) NEGATIVE (Negative)
[2024-10-10 11:45] LABS: Glucose Point of Care 204 mg/dL (70-110)
--- NOTE | 2024-10-10 13:31 | PM.PN ---
Subjective Subjective: Patient was seen this morning, she feels significantly better, no fevers, chills, no cough, no nausea, no vomiting alert to person, to place, not to time she is up with physical therapy daughter is at bedside Vitals/I&O/Wt Last Vital Signs Temp 97.8 F 10/10/24 11:20 Pulse 86 10/10/24 11:20 Resp 27 H 10/10/24 11:20 BP 106/60 10/10/24 11:20 Pulse Ox 99 10/10/24 11:20 O2 Del Method Nasal Cannula 10/10/24 11:20 O2 Flow Rate 3 10/09/24 09:00 10/09/24 10/10/24 10/10/24 22:59 06:59 14:59 Intake Total 370 / 550 200 / 750 360 / 360 Output Total 300 / 1025 1000 / 1000 Balance 70 / -475 200 / -275 -640 / -640 Weight last 48 hrs Weight 636.39 kg Weight 61.547 kg Physical Exam Const: COMMON NORMALS: no acute distress ORIENTATION/CONSCIOUSNESS: Yes awake, Yes oriented to person and Yes oriented to place Resp: COMMON NORMALS: normal respiratory effort, No retractions, No use of accessory muscles and clear to auscultation bilaterally AUSCULTATION: clear to auscultation bilaterally Cardio: COMMON NORMALS: regular rate, S1 normal heart sound present and S2 normal heart sound present RATE: regular rate RHYTHM: abnormal rhythm HEART SOUNDS: S1 normal heart sound present and S2 normal heart sound present GI: COMMON NORMALS: Normal to inspection, nondistended, normoactive bowel sounds present and non-tender Extremity: COMMON NORMALS: no pedal edema Neuro: SENSORIUM/ORIENTATION: Yes oriented to person and Yes oriented to place Psych: COMMON NORMALS: mental status grossly normal Urinary Catheter Management: Ross: Cath Placed During This Visit: yes Reason for Continuing Indwelling Catheter: Accurate Measurement of Urinary Output in Critically Ill Patients Urinary Catheter Date of Insertion: 10/06/24 Urinary Catheter Time of Insertion: 13:42 Data 10/10/24 05:05 10/10/24 05:05 Micro: Microbiology 10/08/24 15:37 Gram Stain - Final Sputum - Expectorated Sputum A&P Assessment and plan (1) Hypoxia: (2) Abnormal urinalysis: (3) Acute metabolic encephalopathy: (4) Atrial fibrillation: Qualifiers: Atrial fibrillation type: paroxysmal Qualified Code(s): I48.0 - Paroxysmal atrial fibrillation (5) Type 2 diabetes mellitus: Qualifiers: Diabetes mellitus terminal operator insulin use: without long-term use Diabetes mellitus complication status: without complication Qualified Code(s): E11.9 - Type 2 diabetes mellitus without complications (6) Hypothyroidism: Qualifiers: Hypothyroidism type: other Qualified Code(s): E03.8 - Other specified hypothyroidism (7) Anxiety: Continue home meds (8) GERD (gastroesophageal reflux disease): Continue home PPI (9) Atrial fibrillation with RVR: (10) Acute hypoxic respiratory failure: (11) Sepsis: Plan DVT prophylaxis: Warfarin on hold as INR supratherapeutic at 2.15 Full code Acute hypoxic respiratory failure -Multifactorial -Secondary to pneumonia -Secondary to systolic CHF exacerbation Plan -Moved to [facility] -Continue meropenem, de-escalate vancomycin -Monitor respiratory status closely -DuoNeb -Budesonide -Will consider BiPAP based on clinical progress -Lasix 40 IV daily -Cardiac echo A-fib with rapid ventricular response, heart rates less than 100 remain in A-fib -Amiodarone 400 twice daily -Add metoprolol 50 twice daily -Resumed her home digoxin Acute encephalopathy, resolving -Multifactorial from respiratory failure, hypoxia, pneumonia, sepsis -Precedex for confusion and agitation Sepsis, resolving -Sepsis features met given acute encephalopathy, atrial fibrillation, respiratory failure, UTI NOÉ, monitor NSTEMI -Serial EKGs,*troponins, telemetry monitoring -Type I versus type II Urinary tract infection, continue meropenem Type 2 diabetes mellitus, low-dose sliding scale Speech therapy eval, start dysphagia level 4 diet Plan for today, continue IV antibiotics, continue IV diuresis, PT OT, monitor heart rate, moved to cardiac stepdown unit Attestations Medical Necessity Statement*: Patient requires hospitalization for acute hypoxic respiratory failure, pneumonia, A-fib Diagnoses Hypoxia R09.02 Abnormal urinalysis R82.90 Acute metabolic encephalopathy G93.41 Paroxysmal atrial fibrillation I48.0 Atrial fibrillation type: paroxysmal Type 2 diabetes mellitus without complication, without long-term current use of insulin E11.9 Diabetes mellitus terminal operator insulin use: without long-term use Diabetes mellitus complication status: without complication Other specified hypothyroidism E03.8 Hypothyroidism type: other Anxiety F41.9 GERD (gastroesophageal reflux disease) K21.9 Atrial fibrillation with RVR I48.91 Acute hypoxic respiratory failure J96.01 Sepsis A41.9
[2024-10-10] MEDS: warfarin 3 mg Tablet PO (14:10)
[2024-10-10 17:00] LABS: Glucose Point of Care 128 mg/dL (70-110)
[2024-10-10 19:55] LABS: Glucose Point of Care 248 mg/dL (70-110)
[2024-10-10] MEDS: acetaminophen 325 mg Tablet 650 MG PO (20:34)
[2024-10-11] VITALS (42 sets, daily range): BP systolic 133–174; BP diastolic 60–99; PULSE 75–109; RESP 18–36; TEMP 36.7–37.6; O2SAT 91–100
[2024-10-11] MEDS: meropenem 1,000 mg SDV 1000 MG IVP ×2 (01:22→15:15)
[2024-10-11] MEDS: ondansetron 4 MG Tablet PO (05:43)
[2024-10-11] MEDS: metoprolol tartrate 25 mg Tablet 50 MG PO ×2 (05:43→16:56)
[2024-10-11] MEDS: levothyroxine 88 mcg Tablet PO (05:43)
[2024-10-11] MEDS: FUROsemide 10 mg/mL SDV 4mL 40 MG IVP (05:46)
[2024-10-11 06:07] LABS: Basophils % 0.3 %; Eosinophils # 0.1 10^3/uL (0.0-0.8); Eosinophils % 0.8 %; Hematocrit 40.2 % (36-47); Lymphocytes # 0.6 10^3/uL (0.8-4.8); Mean Corpuscular HGB Conc 30.1 g/dL (30-55); Mean Corpuscular Hemoglobin 30.6 pg (27-33); Mean Corpuscular Volume 101.8 fl (85-98); Mean Platelet Volume 9.9 fL (7.4-10.4); Monocytes # 0.9 10^3/uL (0.2-0.9); Monocytes % 7.5 %; Neutrophils # 9.89 10^3/uL (1.8-7.7); Neutrophils % 85.5 %; Nucleated Red Blood Cells % 0 %; Platelet Count 303 10^3/cmm (157-399); Red Blood Count 3.95 10^6/uL (3.85-5.65); Red Cell Distribution Width 13.5 % (12.1-15.1); White Blood Count 11.58 10^3/uL (3.29-11.43)
[2024-10-11 06:24] LABS: INR 2.35 (0.8-1.2)
[2024-10-11 06:34] LABS: Alanine Aminotransferase 9 U/L (0-33); Albumin Level 3.5 g/dL (3.5-5.2); Alkaline Phosphatase 84 U/L (35-105); Anion Gap 16.1 (5-19); Aspartate Amino Transferase 18 U/L (0-32); Blood Urea Nitrogen 56 mg/dL (8-23); Calcium 9.9 mg/dL (8.5-10.5); Carbon Dioxide 34 mmol/L (22-29); Chloride 96 mmol/L (98-107); Globulin 2.7 g/dL (1.3-4.6); Glucose 166 mg/dL (65-115); Magnesium 2.3 mg/dL (1.7-2.3); Osmolality Calculated 313 mOsm/kg (285-295); Phosphorus 3.6 mg/dL (2.5-4.5); Potassium 4.1 mmol/L (3.5-5.1); Sodium 142 mmol/L (136-145); Total Bilirubin 0.6 mg/dL (0.15-1.2); Total Protein 6.2 g/dL (6.6-8.7)
[2024-10-11 06:35] LABS: Glucose Point of Care 161 mg/dL (70-110)
[2024-10-11 06:35] LABS: Creatinine Clr Calc Pharmacy 30.1855
[2024-10-11 06:39] LABS: NT Pro B Type Natriuretic Pept 5695 pg/mL (0-450)
[2024-10-11 07:27] LABS: C Reactive Protein 72.4 mg/L (0.0-4.9)
[2024-10-11] MEDS: insulin lispro 100 unit/1 mL SUBCUT ×3 (08:14→21:42)
[2024-10-11] MEDS: digoxin 125 mcg Tablet 62.5 MCG PO (08:15)
[2024-10-11] MEDS: amiodarone 200 mg Tablet 400 MG PO ×2 (08:15→16:56)
[2024-10-11] MEDS: atorvastatin 40 mg Tablet 20 MG PO (08:16)
[2024-10-11] MEDS: cetirizine 10 mg Tablet PO (08:16)
[2024-10-11] MEDS: pantoprazole DR 40 mg Tablet PO ×2 (08:17→17:38)
[2024-10-11] MEDS: BuSPIRONE 10 mg Tablet 5 MG PO ×3 (08:17→16:56)
[2024-10-11 11:55] LABS: Glucose Point of Care 117 mg/dL (70-110)
--- NOTE | 2024-10-11 14:44 | P.PN_ITS ---
Subjective 2 Subjective: Patient was seen this morning, daughter is at bedside, we discussed her CHF, her pneumonia, likely what is driving her persistent shortness of breath is her severe aortic stenosis daughter at bedside tells me that she was told that her mother will need multiple surgeries, and at 89 she does not want to put her mom through surgery for her aortic valve, discussed morbidity and mortality associate with severe aortic stenosis, risk of recurrent hospitalizations, shortness of breath, CHF, daughter understands, she wants to continue medical interventions Vitals/I&O/Wt Last Vital Signs Temp 98.1 F 10/11/24 12:30 Pulse 97 10/11/24 12:30 Resp 28 H 10/11/24 12:30 BP 141/69 10/11/24 12:30 Pulse Ox 99 10/11/24 12:30 O2 Del Method Room Air 10/11/24 04:00 O2 Flow Rate 3 10/09/24 09:00 10/10/24 10/11/24 10/11/24 22:59 06:59 14:59 Intake Total 240 / 600 200 / 800 120 / 120 Output Total 350 / 1350 400 / 1750 1700 / 1700 Balance -110 / -750 -200 / -950 -1580 / -1580 Weight last 48 hrs Weight 63.639 kg Weight 636.39 kg Physical Exam 2 Const: COMMON NORMALS: no acute distress ORIENTATION/CONSCIOUSNESS: Yes awake, Yes oriented to person and Yes oriented to place Resp: COMMON NORMALS: normal respiratory effort, No retractions, No use of accessory muscles and clear to auscultation bilaterally AUSCULTATION: clear to auscultation bilaterally Cardio: COMMON NORMALS: regular rate, regular rhythm, S1 normal heart sound present and S2 normal heart sound present RATE: regular rate RHYTHM: r egular rhythm HEART SOUNDS: S1 normal heart sound present and S2 normal heart sound present GI: COMMON NORMALS: Normal to inspection, nondistended, normoactive bowel sounds present and non-tender Extremity: COMMON NORMALS: no pedal edema Neuro: SENSORIUM/ORIENTATION: Yes oriented to person and Yes oriented to place Psych: COMMON NORMALS: mental status grossly normal Urinary Catheter Management: Ross: Cath Placed During This Visit: yes Reason for Continuing Indwelling Catheter: Accurate Measurement of Urinary Output in Critically Ill Patients Urinary Catheter Date of Insertion: 10/06/24 Urinary Catheter Time of Insertion: 13:42 Data 10/11/24 05:30 10/11/24 05:30 Micro: Microbiology 10/08/24 15:37 Gram Stain - Final Sputum - Expectorated Sputum Sputum Culture - Preliminary Yeast species 10/05/24 18:40 Blood Culture - Final Blood NO GROWTH AFTER 5 DAYS 10/05/24 18:29 Blood Culture - Final Blood NO GROWTH AFTER 5 DAYS A&P Assessment and plan (1) Hypoxia: (2) Abnormal urinalysis: (3) Acute metabolic encephalopathy: (4) Atrial fibrillation: Qualifiers: Atrial fibrillation type: paroxysmal Qualified Code(s): I48.0 - Paroxysmal atrial fibrillation (5) Type 2 diabetes mellitus: Qualifiers: Diabetes mellitus usp insulin use: without termite treater helper use Diabetes mellitus complication status: without complication Qualified Code(s): E11.9 - Type 2 diabetes mellitus without complications (6) Hypothyroidism: Qualifiers: Hypothyroidism type: other Qualified Code(s): E03.8 - Other specified hypothyroidism (7) Anxiety: Continue home meds (8) GERD (gastroesophageal reflux disease): Continue home PPI (9) Atrial fibrillation with RVR: (10) Acute hypoxic respiratory failure: (11) Sepsis: Plan DVT prophylaxis: Warfarin on hold as INR supratherapeutic at 2.15 Full code Severe aortic stenosis Severe aortic valve stenosis, mean gradient 26.5 mmHg, MARICHUY 0.57 cm squared. Trace to mild aortic valve regurgitation. -Patient's daughter declines interventions, understands morbidity and mortality Acute hypoxic respiratory failure -Multifactorial -Secondary to pneumonia -Secondary to systolic CHF exacerbation Plan -Moved to [facility] -Continue meropenem -Monitor respiratory status closely -DuoNeb -Budesonide -Will consider BiPAP based on clinical progress -Lasix 40 IV daily -Cardiac echo CONCLUSIONS Moderately increased left ventricular cavity size. Severely decreased left ventricular systolic function. Left ventricular ejection fraction is estimated at 35 %. Grade III/IV diastolic dysfunction (restrictive filling pattern), severely elevated filling pressures. Moderately thickened mitral valve. Moderate mitral annular calcification. No mitral valve stenosis. Moderately increased left atrial size. Severe aortic valve calcification. Severe aortic valve stenosis, mean gradient 26.5 mmHg, MARICHUY 0.57 cm squared. Trace to mild aortic valve regurgitation. [id number] tricuspid valve regurgitation. Mild pulmonary valve regurgitation. There are no intracardiac masses. Right atrial pressure is around 20 mm of mercury. A-fib with rapid ventricular response, heart rates less than 100 remain in A-fib -Amiodarone 400 twice daily -Add metoprolol 50 twice daily -Resumed her home digoxin Acute encephalopathy, resolving -Multifactorial from respiratory failure, hypoxia, pneumonia, sepsis -Precedex for confusion and agitation Sepsis, resolving -Sepsis features met given acute encephalopathy, atrial fibrillation, respiratory failure, UTI NOÉ, monitor NSTEMI -Serial EKGs,*troponins, telemetry monitoring -Type I versus type II Urinary tract infection, continue meropenem Type 2 diabetes mellitus, low-dose sliding scale Speech therapy eval, start dysphagia level 4 diet Plan for today, continue IV antibiotics, continue IV diuresis, PT OT, monitor heart rate, moved to cardiac stepdown unit Attestations 2 Medical Necessity Statement*: Patient requires hospitalization for CHF exacerbation, pneumonia, aortic stenosis Diagnoses Hypoxia R09.02 Abnormal urinalysis R82.90 Acute metabolic encephalopathy G93.41 Paroxysmal atrial fibrillation I48.0 Atrial fibrillation type: paroxysmal Type 2 diabetes mellitus without complication, without long-term current use of insulin E11.9 Diabetes mellitus termite treater helper insulin use: without termite treater helper use Diabetes mellitus complication status: without complication Other specified hypothyroidism E03.8 Hypothyroidism type: other Anxiety F41.9 GERD (gastroesophageal reflux disease) K21.9 Atrial fibrillation with RVR I48.91 Acute hypoxic respiratory failure J96.01 Sepsis A41.9
[2024-10-11] MEDS: warfarin 2 mg Tablet 4 MG PO (15:15)
[2024-10-11 17:03] LABS: Glucose Point of Care 232 mg/dL (70-110)
[2024-10-11] MEDS: haloperidol inj 5 mg/mL INJ 1 mL 1 MG IM (17:37)
[2024-10-11 21:05] LABS: Glucose Point of Care 189 mg/dL (70-110)
[2024-10-12] VITALS (12 sets, daily range): BP systolic 133–183; BP diastolic 71–113; PULSE 74–108; RESP 22–31; TEMP 36.4–37.4; O2SAT 95–99
[2024-10-12] MEDS: meropenem 1,000 mg SDV 1000 MG IVP ×2 (01:58→14:15)
[2024-10-12] MEDS: FUROsemide 10 mg/mL SDV 4mL 40 MG IVP (05:49)
[2024-10-12 06:15] LABS: Glucose Point of Care 201 mg/dL (70-110)
[2024-10-12 07:49] LABS: Basophils % 0.2 %; Hematocrit 37.8 % (36-47); Lymphocytes # 0.2 10^3/uL (0.8-4.8); Lymphocytes % 1.7 %; Mean Corpuscular HGB Conc 29.6 g/dL (30-55); Mean Corpuscular Hemoglobin 29.7 pg (27-33); Mean Corpuscular Volume 100.3 fl (85-98); Monocytes # 0.6 10^3/uL (0.2-0.9); Monocytes % 4.6 %; Neutrophils # 11.96 10^3/uL (1.8-7.7); Neutrophils % 92.6 %; Nucleated Red Blood Cells % 0 %; Platelet Count 248 10^3/cmm (157-399); Red Blood Count 3.77 10^6/uL (3.85-5.65); Red Cell Distribution Width 13.6 % (12.1-15.1); White Blood Count 12.91 10^3/uL (3.29-11.43)
[2024-10-12 07:54] LABS: INR 3.13 (0.8-1.2)
[2024-10-12 08:04] LABS: Alanine Aminotransferase 10 U/L (0-33); Albumin Level 3.1 g/dL (3.5-5.2); Alkaline Phosphatase 77 U/L (35-105); Aspartate Amino Transferase 27 U/L (0-32); Blood Urea Nitrogen 45 mg/dL (8-23); C Reactive Protein 92.5 mg/L (0.0-4.9); Calcium 9.5 mg/dL (8.5-10.5); Carbon Dioxide 40 mmol/L (22-29); Chloride 97 mmol/L (98-107); Creatinine Clr Calc Pharmacy 34.7899; Globulin 3.2 g/dL (1.3-4.6); Glucose 216 mg/dL (65-115); Magnesium 2.4 mg/dL (1.7-2.3); Osmolality Calculated 318 mOsm/kg (285-295); Phosphorus 3.3 mg/dL (2.5-4.5); Sodium 145 mmol/L (136-145); Total Bilirubin 0.4 mg/dL (0.15-1.2); Total Protein 6.3 g/dL (6.6-8.7)
[2024-10-12 08:13] LABS: NT Pro B Type Natriuretic Pept 9689 pg/mL (0-450)
[2024-10-12] MEDS: amiodarone 200 mg Tablet 400 MG PO ×2 (09:14→16:52)
[2024-10-12] MEDS: atorvastatin 40 mg Tablet 20 MG PO (09:14)
[2024-10-12] MEDS: digoxin 125 mcg Tablet 62.5 MCG PO (09:16)
[2024-10-12] MEDS: spironolactone 25 mg Tablet PO (09:17)
[2024-10-12] MEDS: insulin lispro 100 unit/1 mL SUBCUT ×4 (09:17→21:06)
[2024-10-12] MEDS: pantoprazole DR 40 mg Tablet PO ×2 (09:17→16:52)
[2024-10-12] MEDS: BuSPIRONE 10 mg Tablet 5 MG PO ×3 (09:24→16:51)
--- NOTE | 2024-10-12 11:50 | PC.SOCIAL ---
IMM Update pg 2 of IMM Updated and reviewed w/ patient's daugther. Copy dated, initialed and placed in chart.
[2024-10-12 12:08] LABS: Glucose Point of Care 195 mg/dL (70-110)
[2024-10-12] MEDS: warfarin 3 mg Tablet PO (14:15)
--- NOTE | 2024-10-12 16:13 | PM.PN ---
Subjective Subjective: Patient was seen this morning, daughters at bedside, patient's daughter tells me that she had a difficult night did not have breast she wanted to go home at night, had episodes of confusion yesterday afternoon requiring Haldol, currently she is resting comfortably, does awaken but easily falls back asleep, discussed again goals of care with daughter at bedside, discussed patient's aortic stenosis CHF risk of recurrent hospitalization, her underlying dementia, overall goals of care patient's daughter wants to visit with Dr. Stewart Vitals/I&O/Wt Last Vital Signs Temp 98.3 F 10/12/24 12:00 Pulse 107 H 10/12/24 12:00 Resp 28 H 10/12/24 12:00 BP 164/71 10/12/24 12:00 Pulse Ox 98 10/12/24 12:00 O2 Del Method Nasal Cannula 10/12/24 12:00 O2 Flow Rate 3 10/12/24 12:00 10/12/24 10/12/24 10/12/24 06:59 14:59 22:59 Intake Total 120 / 120 Output Total 275 / 2525 1150 / 1150 Balance -275 / -2405 120 / 120 -1150 / -1030 Weight last 48 hrs Weight 59.602 kg Weight 63.639 kg Physical Exam Const: COMMON NORMALS: no acute distress ORIENTATION/CONSCIOUSNESS: Yes awake and Yes confused; not oriented to person and not oriented to place Neck/C-Spine: COMMON NORMALS: no JVD Resp: COMMON NORMALS: normal respiratory effort, No retractions, No use of accessory muscles and clear to auscultation bilaterally AUSCULTATION: clear to auscultation bilaterally Cardio: COMMON NORMALS: no JVD, regular rate, regular rhythm, S1 normal heart sound present and S2 normal heart sound present RATE: regular rate RHYTHM: regular rhythm HEART SOUNDS: S1 normal heart sound present and S2 normal heart sound present GI: COMMON NORMALS: Normal to inspection, nondistended, normoactive bowel sounds present and non-tender Extremity: COMMON NORMALS: no pedal edema Neuro: SENSORIUM/ORIENTATION: No oriented to person and No oriented to place Urinary Catheter Management: Ross: Cath Placed During This Visit: yes Reason for Continuing Indwelling Catheter: Accurate Measurement of Urinary Output in Critically Ill Patients Urinary Catheter Date of Insertion: 10/06/24 Urinary Catheter Time of Insertion: 13:42 Data 10/12/24 06:50 10/12/24 06:50 Micro: Microbiology 10/08/24 15:37 Gram Stain - Final Sputum - Expectorated Sputum Sputum Culture - Final Becca albicans A&P Assessment and plan (1) Hypoxia: (2) Abnormal urinalysis: (3) Acute metabolic encephalopathy: (4) Atrial fibrillation: Qualifiers: Atrial fibrillation type: paroxysmal Qualified Code(s): I48.0 - Paroxysmal atrial fibrillation (5) Type 2 diabetes mellitus: Qualifiers: Diabetes mellitus long term care pharmacist insulin use: without correction use Diabetes mellitus complication status: without complication Qualified Code(s): E11.9 - Type 2 diabetes mellitus without complications (6) Hypothyroidism: Qualifiers: Hypothyroidism type: other Qualified Code(s): E03.8 - Other specified hypothyroidism (7) Anxiety: Continue home meds (8) GERD (gastroesophageal reflux disease): Continue home PPI (9) Atrial fibrillation with RVR: (10) Acute hypoxic respiratory failure: (11) Sepsis: Plan DVT prophylaxis: Warfarin on hold as INR supratherapeutic at 3.13 Full code Severe aortic stenosis Severe aortic valve stenosis, mean gradient 26.5 mmHg, MARICHUY 0.57 cm squared. Trace to mild aortic valve regurgitation. -Patient's daughter declines interventions, understands morbidity and mortality Acute hypoxic respiratory failure -Multifactorial -Secondary to pneumonia -Secondary to systolic CHF exacerbation Plan -Moved to [facility] -Continue meropenem -Monitor respiratory status closely -DuoNeb -Budesonide -Will consider BiPAP based on clinical progress -Lasix 40 IV daily -Cardiac echo CONCLUSIONS Moderately increased left ventricular cavity size. Severely decreased left ventricular systolic function. Left ventricular ejection fraction is estimated at 35 %. Grade III/IV diastolic dysfunction (restrictive filling pattern), severely elevated filling pressures. Moderately thickened mitral valve. Moderate mitral annular calcification. No mitral valve stenosis. Moderately increased left atrial size. Severe aortic valve calcification. Severe aortic valve stenosis, mean gradient 26.5 mmHg, MARICHUY 0.57 cm squared. Trace to mild aortic valve regurgitation. [id number] tricuspid valve regurgitation. Mild pulmonary valve regurgitation. There are no intracardiac masses. Right atrial pressure is around 20 mm of mercury. A-fib with rapid ventricular response, heart rates less than 100 remain in A-fib -Amiodarone 400 twice daily -Add metoprolol 50 twice daily -Resumed her home digoxin Acute encephalopathy, encephalopathy this morning -Multifactorial from respiratory failure, hypoxia, pneumonia, sepsis Sepsis, resolving -Sepsis features met given acute encephalopathy, atrial fibrillation, respiratory failure, UTI NOÉ, monitor NSTEMI -Serial EKGs,*troponins, telemetry monitoring -Type I versus type II Urinary tract infection, continue meropenem Type 2 diabetes mellitus, low-dose sliding scale Speech therapy eval, start dysphagia level 4 diet Plan for today, PT cardiology, IV diuresis, IV antibiotics, monitor mentation monitor heart rate Attestations Medical Necessity Statement*: Patient requires hospitalization for aortic stenosis, CHF, respiratory failure, atrial fibrillation, pneumonia, encephalopathy Diagnoses Hypoxia R09.02 Abnormal urinalysis R82.90 Acute metabolic encephalopathy G93.41 Paroxysmal atrial fibrillation I48.0 Atrial fibrillation type: paroxysmal Type 2 diabetes mellitus without complication, without long-term current use of insulin E11.9 Diabetes mellitus correction insulin use: without long term care pharmacist use Diabetes mellitus complication status: without complication Other specified hypothyroidism E03.8 Hypothyroidism type: other Anxiety F41.9 GERD (gastroesophageal reflux disease) K21.9 Atrial fibrillation with RVR I48.91 Acute hypoxic respiratory failure J96.01 Sepsis A41.9
[2024-10-12 16:30] LABS: Glucose Point of Care 282 mg/dL (70-110)
[2024-10-12] MEDS: metoprolol tartrate 25 mg Tablet 75 MG PO (16:51)
--- NOTE | 2024-10-12 19:48 | P.CONIM_ITS ---
Providers/Reason For Consult 2 Consulting Physician/Specialty*: Radha Sanderson MD Reason for Consult*: Severe aortic valve stenosis CHF Atrial fibrillation Requesting Physician: Dr. Alvarez Attending Physician: Teja Alvarez MD Primary Care Provider: JACINTO Joy History of Present Illness History of Present Illness Linda Todd is a 89 year old female past medical history significant for critical aortic stenosis severely depressed ejection fraction hypertension diabetes mellitus peripheral arterial disease has been admitted with recurrent heart failure pneumonia, she was also evaluated at an outside hospital for possible consideration of TAVR according to the family she was deemed not to be a suitable candidate for aortic valve replacement neither family and patient wishes to proceed with it, I have been asked to assist in his care. I have detailed discussion with the family by patient bedside, given her comorbidities peripheral arterial disease advanced age and fragility patient is not a suitable candidate for aortic valve replacement which is at the moment a yan factor in her decline. Currently she appeared to be stable denies any complaint. Patient and family would like to go for comfort care and we agree with it. Review of Systems 2 Narrative: A complete review of systems was obtained and is negative except as stated in HPI. Const: Reports: chills and body aches; Denies: fever(s) or change in appetite Eyes: Denies: blurry vision or eye discomfort ENMT: Denies: throat pain or dental pain Card: Denies: chest pain Resp: Reports: dyspnea and non-productive cough GI: Denies: abdominal pain, nausea, vomiting or diarrhea : Denies: dysuria Musc: Denies: neck pain, back pain or joint warmth Skin/Breast: Denies: rash Neuro: Denies: headache(s) Medications/Allergies Home Medications Medication Instructions Recorded Confirmed Last Taken Type blood-glucose meter #1 ea 04/11/20 10/06/24 Unknown Rx ascorbic acid (vitamin C) 500 mg 500 mg PO DAILY 01/08/22 10/06/24 05/11/24 13:00 History tablet (Vitamin C) cetirizine 10 mg tablet 10 mg PO QAM PRN Allergy Symptoms 01/08/22 10/06/24 05/12/24 04:30 History blood sugar diagnostic (True See Rx Instructions .Route 09/26/22 10/06/24 05/11/24 17:00 Rx Metrix Glucose Test Strip) .COMPLEX #100 ea polyethylene glycol 3350 17 17 g PO DAILY PRN constipation 01/01/24 10/06/24 Unknown Rx gram/dose oral powder (Miralax) #510 grams Diabetic shoes with inserts #1 ea 01/02/24 10/06/24 Unknown Rx digoxin 125 mcg (0.125 mg) tablet 62.5 mcg PO DAILY 01/22/24 10/06/24 05/11/24 17:30 History lactulose 20 gram oral packet 20 g PO DAILY PRN Constipation 01/22/24 10/06/24 Unknown History atorvastatin 20 mg tablet See Rx Instructions .Route 03/06/24 10/06/24 05/11/24 17:30 Rx .COMPLEX #30 tabs ondansetron HCl 4 mg tablet See Rx Instructions .Route 03/30/24 10/06/24 05/12/24 04:30 Rx .COMPLEX #30 tabs losartan 50 mg tablet See Rx Instructions .Route 05/06/24 10/06/24 05/12/24 04:30 Rx .COMPLEX #30 tabs diltiazem HCl 180 mg capsule,24 180 mg PO QAM #30 caps 05/26/24 10/06/24 Unknown Rx hr,extended release buspirone 5 mg tablet See Rx Instructions .Route 06/11/24 10/06/24 Unknown Rx .COMPLEX #90 tabs potassium chloride 10 mEq See Rx Instructions .Route 06/11/24 10/06/24 Unknown Rx tablet,extended release .COMPLEX #60 tabs furosemide 20 mg tablet See Rx Instructions .Route 09/02/24 10/06/24 Unknown Rx .COMPLEX #30 tabs glipizide 2.5 mg tablet, extended See Rx Instructions .Route 09/02/24 10/06/24 Unknown Rx release 24 hr .COMPLEX #30 tabs metoprolol tartrate 25 mg tablet 25 mg PO BID #60 tabs 09/02/24 10/06/24 Unknown Rx pantoprazole 40 mg tablet,delayed See Rx Instructions .Route 09/07/24 10/06/24 Unknown Rx release .COMPLEX #60 tabs warfarin 2 mg tablet See Rx Instructions .Route 09/07/24 10/06/24 Unknown Rx .COMPLEX #60 tabs nitroglycerin 0.4 mg sublingual 0.4 mg sublingual Q5M PRN Chest 09/21/24 10/06/24 Unknown Rx tablet Pain #20 tabs levothyroxine 88 mcg tablet 88 mcg PO QAM 10/06/24 10/06/24 Unknown History Allergies Allergy/AdvReac Type Severity Reaction Status Date / Time hydrocodone Allergy Unknown Unknown Verified 10/05/24 16:58 Penicillins Allergy Unknown Unknown Verified 10/05/24 16:58 Current Medications Generic Name Dose Route Start Last Admin Trade Name Freq PRN Reason Stop Dose Admin Acetaminophen 650 mg 10/06/24 03:40 10/10/24 20:34 Acetaminophen 325 Mg Tablet PO 650 mg Q6H PRN Administration Mild/Mod Pain Or Temp >/= 101 Amiodarone HCl 400 mg 10/07/24 11:50 10/12/24 16:52 Amiodarone 200 Mg Tablet PO 400 mg BID ELOINA Administration Atorvastatin Calcium 20 mg 10/06/24 09:00 10/12/24 09:14 Atorvastatin 40 Mg Tablet PO 20 mg DAILY ELOINA Administration Buspirone HCl 5 mg 10/07/24 12:00 10/12/24 16:51 Buspirone 10 Mg Tablet PO 5 mg TIDWM ELOINA Administration Cetirizine HCl 10 mg 10/06/24 05:25 10/11/24 08:16 Cetirizine 10 Mg Tablet PO 10 mg QAM PRN Administration Allergy Symptoms Digoxin 62.5 mcg 10/08/24 09:00 10/12/24 09:16 Digoxin 125 Mcg Tablet PO 62.5 mcg DAILY ELOINA Administration Furosemide 40 mg 10/09/24 06:00 10/12/24 05:49 Furosemide 10 Mg/Ml Sdv 4ml IVP 40 mg Q24H ELOINA Administration Haloperidol Lactate 1 mg 10/06/24 10:09 10/11/24 17:37 Haloperidol Inj 5 Mg/Ml Inj 1 Ml IM 1 mg Q4H PRN Administration AGITATION Insulin Human Lispro 0 unit 10/06/24 08:00 10/12/24 17:43 Insulin Lispro 100 Unit/1 Ml SUBCUT 8 unit WM&BEDTIME ELOINA Administration Protocol Levothyroxine Sodium 88 mcg 10/06/24 06:00 10/12/24 06:52 Levothyroxine 88 Mcg Tablet PO Not Given QAM ELOINA Metoprolol Tartrate 75 mg 10/12/24 18:00 10/12/24 16:51 Metoprolol Tartrate 25 Mg Tablet PO 75 mg Q12H ELOINA Administration Ondansetron HCl 4 mg 10/06/24 03:40 10/11/24 05:43 Ondansetron 4 Mg Tablet PO 4 mg Q8H PRN Administration NAUSEA Pantoprazole Sodium 40 mg 10/06/24 09:00 10/12/24 16:[address] 40 Mg Tablet PO 40 mg BID ELOINA Administration Senna 17.2 mg 10/06/24 21:00 10/11/24 21:45 Sennosides 8.6 Mg Tablet PO Not Given BEDTIME ELOINA Spironolactone 25 mg 10/12/24 09:00 10/12/24 09:17 Spironolactone 25 Mg Tablet PO 25 mg DAILY ELOINA Administration Warfarin Sodium 3 mg 10/08/24 14:00 10/12/24 14:15 Warfarin 3 Mg Tablet PO 3 mg Q48H ELOINA Administration Warfarin Sodium 4 mg 10/09/24 14:00 10/11/24 15:15 Warfarin 2 Mg Tablet PO 4 mg Q48H ELOINA Administration PFSH Acute 2 PFSH: Medical History Dysuria History of coronary artery disease Subcapital fracture of right hip Atrial fibrillation History of ME (myocardial infarction) Hearing loss in left ear Perforated tympanic membrane Seasonal allergies CKD (chronic kidney disease) Type 2 diabetes mellitus Hypothyroidism Anxiety GERD (gastroesophageal reflux disease) CHF (congestive heart failure) Surgical History S/P cataract extraction History of appendectomy History of bladder surgery Family History Mother Cancer skin CAD (coronary artery disease) Father CAD (coronary artery disease) Social History Smoking and tobacco/nicotine status: never used tobacco/nicotine Second hand smoke exposure: No Alcohol intake: never Substance/Drug Use: never Adopted: No Caregiver/support person: Yes Lives independently: No Household members: family Housing: House Marital status: / service: No Current occupational status: retired Do you think of yourself as: Straight/Heterosexual Current gender identity: Female Special an needs: No Dietary Habits: Current diet type/program: diabetic Caffeine: Yes Vitals/I&O/Wt Last Vital Signs Temp 97.5 F L 10/12/24 16:00 Pulse 108 H 10/12/24 16:00 Resp 30 H 10/12/24 16:00 BP 159/104 10/12/24 16:00 Pulse Ox 97 10/12/24 16:00 O2 Del Method Nasal Cannula 10/12/24 16:00 O2 Flow Rate 3 10/12/24 16:00 10/12/24 10/12/24 10/12/24 06:59 14:59 22:59 Intake Total 120 / 120 240 / 360 Output Total 275 / 2525 1150 / 1150 Balance -275 / -2405 120 / 120 -910 / -790 Weight last 48 hrs Weight 131 lb 6.4 oz Weight 140 lb 4.8 oz Physical Exam 2 Const: OTHER: GENERAL: Patient is alert, awake and oriented x3. HEART: Regular S1 and S2. 2/6 systolic murmur, rub or gallop. LUNGS: Clear to auscultate bilaterally. CENTRAL NERVOUS SYSTEM: Grossly nonfocal. EXTREMITIES: Lower extremities with out edema bilaterally. Urinary Catheter Management: Ross: Cath Placed During This Visit: yes Reason for Continuing Indwelling Catheter: Accurate Measurement of Urinary Output in Critically Ill Patients Urinary Catheter Date of Insertion: 10/06/24 Urinary Catheter Time of Insertion: 13:42 Data 10/12/24 06:50 10/12/24 06:50 Micro: Microbiology 10/08/24 15:37 Gram Stain - Final Sputum - Expectorated Sputum Sputum Culture - Final Becca albicans A&P Assessment and plan (1) Atrial fibrillation with RVR: (2) Acute metabolic encephalopathy: (3) CHF (congestive heart failure): Qualifiers: Heart failure type: diastolic Heart failure chronicity: chronic Qualified Code(s): I50.32 - Chronic diastolic (congestive) heart failure (4) PAD (peripheral artery disease): (5) Acute hypoxic respiratory failure: (6) Aortic stenosis, severe: Plan Continue metoprolol digoxin warfarin Continue Aldactone Use Lasix IV 20 mg as needed basis Patient and family decide hospice we agree with it as she is not a candidate for aortic valve replacement given comorbidities and advanced age. Consult Attestations 2 Medical Necessity Statement: As per medicine team Coding Level of Care Code Acute Code for Chg Fwd Diagnoses Atrial fibrillation with RVR I48.91 Acute metabolic encephalopathy G93.41 Chronic diastolic congestive heart failure I50.32 Heart failure type: diastolic Heart failure chronicity: chronic PAD (peripheral artery disease) I73.9 Acute hypoxic respiratory failure J96.01 Aortic stenosis, severe I35.0
[2024-10-12 20:53] LABS: Glucose Point of Care 166 mg/dL (70-110)
[2024-10-13] VITALS (8 sets, daily range): BP systolic 99–154; BP diastolic 54–82; PULSE 71–105; RESP 12–34; TEMP 36.6–36.9; O2SAT 92–98
[2024-10-13] MEDS: meropenem 1,000 mg SDV 1000 MG IVP ×2 (04:50→16:19)
[2024-10-13 04:52] LABS: Basophils % 0.2 %; Hematocrit 39.1 % (36-47); Lymphocytes # 0.5 10^3/uL (0.8-4.8); Lymphocytes % 4.4 %; Mean Corpuscular HGB Conc 29.2 g/dL (30-55); Mean Corpuscular Hemoglobin 29.8 pg (27-33); Mean Corpuscular Volume 102.4 fl (85-98); Mean Platelet Volume 9.7 fL (7.4-10.4); Monocytes # 0.6 10^3/uL (0.2-0.9); Neutrophils # 10.84 10^3/uL (1.8-7.7); Neutrophils % 89.5 %; Nucleated Red Blood Cells % 0 %; Platelet Count 230 10^3/cmm (157-399); Red Blood Count 3.82 10^6/uL (3.85-5.65); Red Cell Distribution Width 13.7 % (12.1-15.1); White Blood Count 12.12 10^3/uL (3.29-11.43)
[2024-10-13] MEDS: FUROsemide 10 mg/mL SDV 4mL 40 MG IVP (04:52)
[2024-10-13] MEDS: metoprolol tartrate 25 mg Tablet 75 MG PO ×2 (04:58→17:20)
[2024-10-13] MEDS: levothyroxine 88 mcg Tablet PO (04:59)
[2024-10-13 05:02] LABS: INR 4.63 (0.8-1.2)
[2024-10-13 05:18] LABS: Alanine Aminotransferase 21 U/L (0-33); Albumin Level 2.9 g/dL (3.5-5.2); Alkaline Phosphatase 81 U/L (35-105); Anion Gap 10.2 (5-19); Aspartate Amino Transferase 55 U/L (0-32); Blood Urea Nitrogen 48 mg/dL (8-23); C Reactive Protein 124.7 mg/L (0.0-4.9); Calcium 9.4 mg/dL (8.5-10.5); Chloride 99 mmol/L (98-107); Creatinine Clr Calc Pharmacy 38.2689; Globulin 2.7 g/dL (1.3-4.6); Glucose 170 mg/dL (65-115); Magnesium 2.5 mg/dL (1.7-2.3); Osmolality Calculated 325 mOsm/kg (285-295); Potassium 4.2 mmol/L (3.5-5.1); Sodium 149 mmol/L (136-145); Total Bilirubin 0.5 mg/dL (0.15-1.2); Total Protein 5.6 g/dL (6.6-8.7)
[2024-10-13 05:21] LABS: NT Pro B Type Natriuretic Pept 7689 pg/mL (0-450)
[2024-10-13 05:25] LABS: Carbon Dioxide 44 mmol/L (22-29)
[2024-10-13 06:29] LABS: Glucose Point of Care 183 mg/dL (70-110)
[2024-10-13] MEDS: insulin lispro 100 unit/1 mL SUBCUT ×3 (09:00→22:13)
[2024-10-13] MEDS: pantoprazole DR 40 mg Tablet PO ×2 (09:01→17:20)
[2024-10-13] MEDS: fluconazole 100 mg Tablet 200 MG PO (09:01)
[2024-10-13] MEDS: atorvastatin 40 mg Tablet 20 MG PO (09:01)
[2024-10-13] MEDS: amiodarone 200 mg Tablet 400 MG PO ×2 (09:01→17:20)
[2024-10-13] MEDS: spironolactone 25 mg Tablet PO (09:01)
[2024-10-13] MEDS: BuSPIRONE 10 mg Tablet 5 MG PO ×3 (09:01→17:20)
[2024-10-13] MEDS: digoxin 125 mcg Tablet 62.5 MCG PO (09:02)
--- NOTE | 2024-10-13 09:21 | PC.NURSE ---
Provider asked nursing to enter referral to hospice for patient.
[2024-10-13 11:53] LABS: Glucose Point of Care 247 mg/dL (70-110)
--- NOTE | 2024-10-13 13:11 | PC.OT ---
Pt and family has chosen placement on comfort care/hospice services. No further OT services indicated. Discontinue OT services at this time.
--- NOTE | 2024-10-13 14:56 | PM.PN ---
Subjective Subjective: Patient was seen this morning, currently alert to person, not to place, not to time she does recognize her son at bedside, her son at bedside tells me that she had a difficult night she was up all night, patient son tells me that the family him and his sisters have been talking about hospice after discussion with cardiology, they are likely going to proceed with hospice, however they do want to talk amongst himself and talk to the hospice team, speech therapy notices that patient continues to have episodes of aspiration likely explanation behind patient's persistent leukocytosis Vitals/I&O/Wt Last Vital Signs Temp 98.0 F 10/13/24 11:10 Pulse 95 10/13/24 11:10 Resp 12 10/13/24 11:10 BP 114/75 10/13/24 11:10 Pulse Ox 97 10/13/24 11:10 O2 Del Method Nasal Cannula 10/13/24 11:10 O2 Flow Rate 3 10/12/24 16:00 10/12/24 10/13/24 10/13/24 22:59 06:59 14:59 Intake Total 240 / 360 100 / 460 120 / 120 Output Total 1150 / 1150 300 / 1450 800 / 800 Balance -910 / -790 -200 / -990 -680 / -680 Weight last 48 hrs Weight 59.602 kg Weight 59.602 kg Physical Exam Const: COMMON NORMALS: no acute distress ORIENTATION/CONSCIOUSNESS: Yes awake and Yes oriented to person; not oriented to place and not oriented to time Resp: COMMON NORMALS: normal respiratory effort, No retractions, No use of accessory muscles and clear to auscultation bilaterally AUSCULTATION: clear to auscultation bilaterally Cardio: COMMON NORMALS: regular rate, regular rhythm, S1 normal heart sound present and S2 normal heart sound present RATE: regular rate RHYTHM: regular rhythm HEART SOUNDS: S1 normal heart sound present and S2 normal heart sound present GI: COMMON NORMALS: Normal to inspection, nondistended, normoactive bowel sounds present and non-tender Extremity: COMMON NORMALS: no calf tenderness and no pedal edema Neuro: SENSORIUM/ORIENTATION: Yes oriented to person, No oriented to place and No oriented to time Urinary Catheter Management: Ross: Cath Placed During This Visit: yes Reason for Continuing Indwelling Catheter: Acute Urinary Retention or Obstruction Urinary Catheter Date of Insertion: 10/06/24 Urinary Catheter Time of Insertion: 13:42 Data 10/13/24 04:10 10/13/24 04:10 Micro: Microbiology 10/08/24 15:37 Gram Stain - Final Sputum - Expectorated Sputum Sputum Culture - Final Becca albicans A&P Assessment and plan (1) Hypoxia: (2) Abnormal urinalysis: (3) Acute metabolic encephalopathy: (4) Atrial fibrillation: Qualifiers: Atrial fibrillation type: paroxysmal Qualified Code(s): I48.0 - Paroxysmal atrial fibrillation (5) Type 2 diabetes mellitus: Qualifiers: Diabetes mellitus terminal operations manager insulin use: without detention use Diabetes mellitus complication status: without complication Qualified Code(s): E11.9 - Type 2 diabetes mellitus without complications (6) Hypothyroidism: Qualifiers: Hypothyroidism type: other Qualified Code(s): E03.8 - Other specified hypothyroidism (7) Anxiety: Continue home meds (8) GERD (gastroesophageal reflux disease): Continue home PPI (9) Atrial fibrillation with RVR: (10) Acute hypoxic respiratory failure: (11) Sepsis: Plan DVT prophylaxis: Warfarin on hold as INR supratherapeutic at 4.63 Full code Severe aortic stenosis Severe aortic valve stenosis, mean gradient 26.5 mmHg, MARICHUY 0.57 cm squared. Trace to mild aortic valve regurgitation. -Patient's daughter declines interventions, understands morbidity and mortality Acute hypoxic respiratory failure -Multifactorial -Secondary to pneumonia, likely aspiration pneumonia -Secondary to systolic CHF exacerbation Plan -Moved to [facility] -Continue meropenem -Monitor respiratory status closely -DuoNeb -Budesonide -Will consider BiPAP based on clinical progress -Lasix 40 IV daily, now as needed -Cardiac echo CONCLUSIONS Moderately increased left ventricular cavity size. Severely decreased left ventricular systolic function. Left ventricular ejection fraction is estimated at 35 %. Grade III/IV diastolic dysfunction (restrictive filling pattern), severely elevated filling pressures. Moderately thickened mitral valve. Moderate mitral annular calcification. No mitral valve stenosis. Moderately increased left atrial size. Severe aortic valve calcification. Severe aortic valve stenosis, mean gradient 26.5 mmHg, MAR[place]UY 0.57 cm squared. Trace to mild aortic valve regurgitation. [id number] tricuspid valve regurgitation. Mild pulmonary valve regurgitation. There are no intracardiac masses. Right atrial pressure is around 20 mm of mercury. Aspiration pneumonia -Persistent episodes of aspiration despite being on dysphagia level 4 diet extremely thickened -On meropenem -Leukocytosis worsening -Monitor closely, family leaning towards hospice A-fib with rapid ventricular response, heart rates less than 100 remain in A-fib -Amiodarone 400 twice daily -Add metoprolol 50 twice daily -Resumed her home digoxin Acute encephalopathy, encephalopathy this morning -Multifactorial from respiratory failure, hypoxia, pneumonia, sepsis Sepsis, resolving -Sepsis features met given acute encephalopathy, atrial fibrillation, respiratory failure, UTI NOÉ, monitor NSTEMI -Serial EKGs,*troponins, telemetry monitoring -Type I versus type II Urinary tract infection, continue meropenem Type 2 diabetes mellitus, low-dose sliding scale Speech therapy eval, start dysphagia level 4 diet Plan for today, urology consultation, continue IV antibiotics, consult hospice team Attestations Medical Necessity Statement*: Patient requires hospitalization for recurrent aspiration pneumonia, fluid overload Diagnoses Hypoxia R09.02 Abnormal urinalysis R82.90 Acute metabolic encephalopathy G93.41 Paroxysmal atrial fibrillation I48.0 Atrial fibrillation type: paroxysmal Type 2 diabetes mellitus without complication, without long-term current use of insulin E11.9 Diabetes mellitus terminal operations manager insulin use: without terminal operations manager use Diabetes mellitus complication status: without complication Other specified hypothyroidism E03.8 Hypothyroidism type: other Anxiety F41.9 GERD (gastroesophageal reflux disease) K21.9 Atrial fibrillation with RVR I48.91 Acute hypoxic respiratory failure J96.01 Sepsis A41.9
[2024-10-13 16:49] LABS: Glucose Point of Care 103 mg/dL (70-110)
[2024-10-13] MEDS: OLANZapine 5 mg ODT 2.5 MG PO (20:38)
[2024-10-13] MEDS: sennosides 8.6 mg Tablet 17.2 MG PO (20:39)
[2024-10-13 20:55] LABS: Glucose Point of Care 295 mg/dL (70-110)
[2024-10-14] VITALS (9 sets, daily range): BP systolic 126–173; BP diastolic 71–96; PULSE 82–105; RESP 19–32; TEMP 36.4–37.1; O2SAT 92–100
[2024-10-14 05:02] LABS: Basophils % 0.1 %; Hematocrit 39.1 % (36-47); Lymphocytes # 0.7 10^3/uL (0.8-4.8); Lymphocytes % 5.4 %; Mean Corpuscular HGB Conc 29.7 g/dL (30-55); Mean Platelet Volume 10.1 fL (7.4-10.4); Monocytes # 0.6 10^3/uL (0.2-0.9); Monocytes % 4.7 %; Neutrophils # 12.01 10^3/uL (1.8-7.7); Neutrophils % 89.1 %; Nucleated Red Blood Cells % 0 %; Platelet Count 245 10^3/cmm (157-399); Red Blood Count 3.87 10^6/uL (3.85-5.65); Red Cell Distribution Width 13.8 % (12.1-15.1)
[2024-10-14] MEDS: levothyroxine 88 mcg Tablet PO (05:16)
[2024-10-14] MEDS: metoprolol tartrate 25 mg Tablet 75 MG PO (05:16)
[2024-10-14] MEDS: meropenem 1,000 mg SDV 1000 MG IVP (05:17)
[2024-10-14 05:21] LABS: INR 5.82 (0.8-1.2)
[2024-10-14 05:36] LABS: Alanine Aminotransferase 34 U/L (0-33); Alkaline Phosphatase 79 U/L (35-105); Anion Gap 7.9 (5-19); Aspartate Amino Transferase 75 U/L (0-32); Blood Urea Nitrogen 50 mg/dL (8-23); Calcium 9.5 mg/dL (8.5-10.5); Chloride 96 mmol/L (98-107); Creatinine Clr Calc Pharmacy 34.7899; Globulin 3.3 g/dL (1.3-4.6); Glucose 233 mg/dL (65-115); Osmolality Calculated 327 mOsm/kg (285-295); Potassium 3.9 mmol/L (3.5-5.1); Sodium 148 mmol/L (136-145); Total Bilirubin 0.6 mg/dL (0.15-1.2); Total Protein 6.3 g/dL (6.6-8.7)
[2024-10-14 05:44] LABS: Carbon Dioxide 48 mmol/L (22-29)
[2024-10-14 06:37] LABS: Glucose Point of Care 204 mg/dL (70-110)
[2024-10-14] MEDS: insulin lispro 100 unit/1 mL SUBCUT (08:42)
[2024-10-14] MEDS: digoxin 125 mcg Tablet 62.5 MCG PO (08:43)
[2024-10-14] MEDS: BuSPIRONE 10 mg Tablet 5 MG PO (08:44)
[2024-10-14] MEDS: pantoprazole DR 40 mg Tablet PO (08:44)
[2024-10-14] MEDS: cetirizine 10 mg Tablet PO (08:44)
[2024-10-14] MEDS: amiodarone 200 mg Tablet 400 MG PO (08:45)
[2024-10-14] MEDS: atorvastatin 40 mg Tablet 20 MG PO (08:46)
[2024-10-14] MEDS: spironolactone 25 mg Tablet PO (08:46)
[2024-10-14] MEDS: fluconazole 100 mg Tablet 200 MG PO (08:47)
[2024-10-14] MEDS: haloperidol inj 5 mg/mL INJ 1 mL IM (10:12)
--- NOTE | 2024-10-14 11:05 | PM.DCS ---
Discharge Providers Date of Admission: 10/05/24 21:31 Date of Discharge: October 14, 2024 Attending Provider at Admission: Yariel Malin MD Attending Provider at Discharge: Teja Alvarez MD Primary Care Provider: JACINTO Joy Diagnoses at Discharge Discharge Diagnosis (1) Hypoxia: Status: Acute (2) Abnormal urinalysis: Status: Acute (3) Acute metabolic encephalopathy: Status: Acute (4) Atrial fibrillation: Status: Acute Qualifiers: Atrial fibrillation type: paroxysmal Qualified Code(s): I48.0 - Paroxysmal atrial fibrillation (5) Type 2 diabetes mellitus: Status: Chronic Qualifiers: Diabetes mellitus complication status: without complication Diabetes mellitus correction insulin use: without intermediate designer use Qualified Code(s): E11.9 - Type 2 diabetes mellitus without complications (6) Hypothyroidism: Status: Acute Qualifiers: Hypothyroidism type: other Qualified Code(s): E03.8 - Other specified hypothyroidism (7) Anxiety: Status: Acute (8) GERD (gastroesophageal reflux disease): Status: Acute (9) Atrial fibrillation with RVR: Status: Acute (10) Acute hypoxic respiratory failure: Status: Acute (11) Sepsis: Status: Acute Reason for Visit Reason for Visit: cough, generalized weakness Hospital Course Hospital Course This is a 89-year-old female with a past medical history of atrial fibrillation, CHF, aortic stenosis, hyperlipidemia dementia, type 2 diabetes mellitus who presents [facility] due to shortness of breath, cough, fevers, confusion Patient had a prolonged hospitalization please look at my last progress note Patient was admitted to [facility] for shortness of breath, cough, fevers, confusion, multifactorial from aspiration pneumonia, sepsis, acute hypoxic respiratory failure secondary to systolic CHF, pneumonia, severe aortic stenosis, A-fib with RVR, acute encephalopathy. Patient had a prolonged hospitalization requiring ICU level of care, requiring amiodarone drip, Precedex, IV diuresis, IV antibiotics, and clinical monitoring. Initially patient's condition improved, A-fib improved on amiodarone transition to p.o. medications, kept on aspiration precautions, dysphagia level diet, with speech therapy eval. Patient's mentation and agitation improved on Precedex, transition to p.o. medications, however she was only alert to person, not to place, not to time, it was hard for her to follow commands at times, but on a good day she could follow some commands, but would have persistent episodes of confusion/agitation. She was diuresed well, moved to cardiac stepdown unit. However in cardiac stepdown unit, patient had recurrent episodes of encephalopathy, respiratory failure, likely secondary to recurrent aspiration, underlying dementia, and recurrent respiratory failure, recurrent respiratory failure secondary to underlying severe aortic stenosis. Discussed her severe aortic stenosis, recurrent respiratory failure episodes, patient and family have declined interventions in the past and currently declined interventions. Discussed with him the morbidity and mortality associated with severe aortic stenosis, risk of recurrent hospitalizations, risk of recurrent respiratory failure. Also discussed with stabbing her generalized deconditioned state, her underlying dementia, her underlying behaviors. After extensive discussion of goals of care, given her underlying dementia, her severe aortic stenosis, her recurrent respiratory failure, recurrent episodes of aspiration, her deconditioning patient's family including son and daughter wanted to proceed with home hospice, did not want Linda to suffer. Patient will be discharged on home hospice The morning of 10/14/2024, patient was alert to person, not to place, not to time, globally encephalopathic, would remove her oxygen, refused to take her medications, would not follow commands, episodes of confusion/agitation. Thus I am going to discontinue her home medications as I do not think she is going to swallow or take her home medications, risk and benefits of medications given her current state will likely not provide significant benefit or ease, kept Ross catheter in place. Discharge on home hospice to the care of her family. Physical Exam Const: EXAM LIMITATIONS: altered mental status GENERAL APPEARANCE: frail appearing ORIENTATION/CONSCIOUSNESS: Yes awake, Yes oriented to person and Yes confused; not oriented to place and not oriented to time Resp: COMMON NORMALS: normal respiratory effort and No retractions AUSCULTATION: crackles and wheezes Cardio: COMMON NORMALS: regular rhythm, S1 normal heart sound present and S2 normal heart sound present RATE: tachycardic RHYTHM: regular rhythm HEART SOUNDS: S1 normal heart sound present and S2 normal heart sound present GI: COMMON NORMALS: Normal to inspection, nondistended, normoactive bowel sounds present and non-tender Extremity: COMMON NORMALS: no pedal edema Neuro: SENSORIUM/ORIENTATION: Yes oriented to person, No oriented to place and No oriented to time Urinary Catheter Management: Ross: Cath Placed During This Visit: yes Reason for Continuing Indwelling Catheter: Accurate Measurement of Urinary Output in Critically Ill Patients Urinary Catheter Date of Insertion: 10/06/24 Urinary Catheter Time of Insertion: 13:42 Discharge Data Studies Completed and Pending Completed Studies During Hospitalization Category Date Time Status CT chest wo con [id number] Stat Cat Scan 10/05/24 22:42 Completed XR chest 1V portable [id number] Stat Exams 10/05/24 17:51 Completed CV. echo complete* [id number] Routine Ultrasound 10/09/24 13:14 Completed Pending at discharge Category Date Time Status Complete Blood Count w/Auto AM LABS Lab 10/15/24 04:00 Ordered Comprehensive Metabolic Panel AM LABS Lab 10/15/24 04:00 Ordered Radiology Impressions Chest X-Ray 10/05/24 17:51 IMPRESSION: No acute findings. Chest CT 10/05/24 22:42 IMPRESSION: 1. Patchy bilateral largely right upper lobe airspace infiltrates, short-term 2-3 weeks follow-up exam advised to assess for resolution. 2. Ascending thoracic aorta dilated to 3.5 cm. 3. Aortic and coronary artery atherosclerotic calcifications. 4. Cardiomegaly. 5. Cholelithiasis. 6. Proximal celiac, superior mesenteric and bilateral renal artery extensive atherosclerotic calcifications with suspected at least 80-90% luminal narrowing. Laboratory Results WBC 13.50 10^3/uL (3.29-11.43) H 10/14/24 04:06 RBC 3.87 10^6/uL (3.85-5.65) 10/14/24 04:06 Hgb 11.60 g/dL (11.27-16.99) 10/14/24 04:06 Hct 39.1 % (36-47) 10/14/24 04:06 MCV 101.0 fl (85-98) H 10/14/24 04:06 MCH 30.0 pg (27-33) 10/14/24 04:06 MCHC 29.7 g/dL (30-55) L 10/14/24 04:06 RDW 13.8 % (12.1-15.1) 10/14/24 04:06 Plt Count 245 10^3/cmm (157-399) 10/14/24 04:06 MPV 10.1 fL (7.4-10.4) 10/14/24 04:06 Neut % (Auto) 89.1 % 10/14/24 04:06 Lymph % (Auto) 5.4 % 10/14/24 04:06 [place] % (Auto) 4.7 % 10/14/24 04:06 Eos % (Auto) 0.0 % 10/14/24 04:06 Baso % (Auto) 0.1 % 10/14/24 04:06 Neut # (Auto) 12.01 10^3/uL (1.8-7.7) H 10/14/24 04:06 Lymph # (Auto) 0.7 10^3/uL (0.8-4.8) L 10/14/24 04:06 [place] # (Auto) 0.6 10^3/uL (0.2-0.9) 10/14/24 04:06 Eos # (Auto) 0.0 10^3/uL (0.0-0.8) 10/14/24 04:06 Baso # (Auto) 0.0 10^3/uL (0.0-0.1) 10/14/24 04:06 Nucleated RBC % (auto) 0 % 10/14/24 04:06 Nucleated RBCs # 0.0 /100WBC 10/14/24 04:06 PT 55.00 SECONDS (12.1-14.9) H 10/14/24 04:06 INR 5.82 (0.8-1.2) H* 10/14/24 04:06 Specimen Type Arterial 10/05/24 18:24 Sample Site Brachial, left 10/05/24 18:24 ABG pH 7.42 (7.35-7.45) 10/05/24 18:24 ABG pCO2 41.8 mmHg (35-45) 10/05/24 18:24 ABG pO2 52.3 mmHg (80.0-100.0) L 10/05/24 18:24 ABG PO2/FiO2 Ratio 249 10/05/24 18:24 ABG HCO3 27.2 mmol/L (22-26) H 10/05/24 18:24 ABG Base Excess 2.5 mmol/L (-2.0-2.0) H 10/05/24 18:24 Brandon Test N/a 10/05/24 18:24 Hematocrit 37.6 % (37-47) 10/05/24 18:24 Hgb O2 Saturation 86.2 % (95-100) L 10/05/24 18:24 Carboxyhemoglobin 1.5 %THgb (0.4-20.1) 10/05/24 18:24 Methemoglobin 0.8 % (0.4-1.5) 10/05/24 18:24 Total Hemoglobin 12.3 g/dL (12-16) 10/05/24 18:24 O2 Delivery Device Room air 10/05/24 18:24 FiO2 21.0 % 10/05/24 18:24 Lunchroom Worker ID Amh 10/05/24 18:24 Sodium 148 mmol/L (136-145) H 10/14/24 04:06 Potassium 3.9 mmol/L (3.5-5.1) 10/14/24 04:06 Chloride 96 mmol/L (98-107) L 10/14/24 04:06 Carbon Dioxide 48 mmol/L (22-29) H* 10/14/24 04:06 Anion Gap 7.9 (5-19) 10/14/24 04:06 BUN 50 mg/dL (8-23) H 10/14/24 04:06 Creatinine 1.1 mg/dL (0.5-0.9) H 10/14/24 04:06 GFR Calculation Not Reportable 10/14/24 04:06 Glucose 233 mg/dL (65-115) H 10/14/24 04:06 POC Glucose 204 mg/dL (70-110) H 10/14/24 06:15 Calculated Osmolality 327 mOsm/kg (285-295) H 10/14/24 04:06 Lactic Acid 1.7 mmol/L (0.5-2.2) 10/05/24 18:40 Calcium 9.5 mg/dL (8.5-10.5) 10/14/24 04:06 Phosphorus 3.0 mg/dL (2.5-4.5) 10/13/24 04:10 Magnesium 2.5 mg/dL (1.7-2.3) H 10/13/24 04:10 Total Bilirubin 0.6 mg/dL (0.15-1.2) 10/14/24 04:06 AST 75 U/L (0-32) H 10/14/24 04:06 ALT 34 U/L (0-33) H 10/14/24 04:06 Alkaline Phosphatase 79 U/L (35-105) 10/14/24 04:06 Troponin T Baseline 67 ng/L (0-10) H 10/06/24 09:05 Troponin T 120 Minute 69.57 ng/L (0-10) H 10/06/24 11:11 Delta Troponin T 2.57 ABS# (0-10) 10/06/24 11:11 Troponin T Hi Sens 6Hr 68.52 ng/L (0-10) H 10/06/24 15:20 Troponin T Hi Sens 6Hr Delta 1.52 ng/L (0-12) 10/06/24 15:20 C-Reactive Protein 124.7 mg/L (0.0-4.9) H 10/13/24 04:10 NT-Pro-B Natriuret Pep 7689 pg/mL (0-450) H 10/13/24 04:10 Total Protein 6.3 g/dL (6.6-8.7) L 10/14/24 04:06 Albumin 3.0 g/dL (3.5-5.2) L 10/14/24 04:06 Globulin 3.3 g/dL (1.3-4.6) 10/14/24 04:06 Procalcitonin 0.29 ng/mL (0-0.5) 10/09/24 03:44 Urine Color Yellow (Yellow) 10/05/24 20:40 Urine Appearance Cloudy (CLEAR) A 10/05/24 20:40 Urine pH 5.0 (5-7) 10/05/24 20:40 Ur Specific [place] 1.019 (1.005-1.030) 10/05/24 20:40 Urine Protein 2+ (Negative) A 10/05/24 20:40 Urine Glucose (UA) Negative (Normal) 10/05/24 20:40 Urine Ketones Trace (Negative) 10/05/24 20:40 Urine Blood Negative (Negative) 10/05/24 20:40 Urine Nitrate Negative (Negative) 10/05/24 20:40 Urine Bilirubin Negative (Negative) 10/05/24 20:40 Urine Urobilinogen 1.0 mg/dL (Negative) 10/05/24 20:40 Ur Leukocyte Esterase Trace (Negative) A 10/05/24 20:40 Urine RBC 0-2 /hpf (0-2) 10/05/24 20:40 Urine WBC 6-10 /hpf (0-5) 10/05/24 20:40 Ur Squamous Epith Cells 6-10 /hpf (0-5) 10/05/24 20:40 Amorphous Sediment Not Reportable 10/05/24 20:40 Urine Bacteria 4+ /hpf (NONE) H 10/05/24 20:40 Hyaline Casts 176.66 /lpf 10/05/24 20:40 Digoxin 0.7 ng/mL (0.6-1.2) 10/06/24 09:05 Adenovirus (PCR) Not detected (NOT DETECT) 10/05/24 18:35 C. pneumoniae DNA (PCR) Not detected (NOT DETECT) 10/05/24 18:35 C. difficile (PCR) Negative (Negative) 10/10/24 09:15 Coronavirus 229E (PCR) Not detected (NOT DETECT) 10/05/24 18:35 Human Metapneumovir PCR Not detected (NOT DETECT) 10/05/24 18:35 Influenza A (H1) PCR Not detected (NOT DETECT) 10/05/24 18:35 Influ A (H1/09) PCR Not detected (NOT DETECT) 10/05/24 18:35 Influenza A (H3) PCR Not detected (NOT DETECT) 10/05/24 18:35 Influenza Type A (PCR) Not detected (NOT DETECT) 10/05/24 18:35 Influenza Type B (PCR) Not detected (NOT DETECT) 10/05/24 18:35 M. pneumoniae (PCR) Not detected (NOT DETECT) 10/05/24 18:35 Parainfluenza 1 (PCR) Not detected (NOT DETECT) 10/05/24 18:35 Parainfluenza 2 (PCR) Not detected (NOT DETECT) 10/05/24 18:35 Parainfluenza 3 (PCR) Not detected (NOT DETECT) 10/05/24 18:35 Parainfluenza 4 (PCR) Not detected (NOT DETECT) 10/05/24 18:35 RSV Type A (PCR) Not detected (NOT DETECT) 10/05/24 18:35 RSV Type B (PCR) Not detected (NOT DETECT) 10/05/24 18:35 Entero/Rhino (PCR) Not detected (NOT DETECT) 10/05/24 18:35 SARS-CoV-2 (PCR) Not detected (NOT DETECT) 10/05/24 18:35 Vitals Last Vital Signs Temp 97.6 F 10/14/24 07:56 Pulse 93 10/14/24 08:43 Resp 32 H 10/14/24 07:56 BP 128/71 10/14/24 07:56 Pulse Ox 92 10/14/24 07:56 O2 Del Method Nasal Cannula 10/14/24 07:56 O2 Flow Rate 3 10/14/24 07:56 Discharge Plan Discharge Patient Disposition: Hospice - Home Condition: Stable Prescriptions: Continued True Metrix Glucose Test Strip Strip See Rx Instructions .ROUTE .COMPLEX Qty: 100 0RF Dose Instruction: USE ONCE daily AND NEEDED Rx Instructions: USE ONCE daily AND NEEDED ascorbic acid (vitamin C) [Vitamin C] 500 mg Tablet 500 mg PO DAILY Discontinued nitroglycerin 0.4 mg tablet, sublingual 0.4 mg sublingual Q5M PRN (Reason: Chest Pain) Qty: 20 3RF Rx Instructions: do not exceed 3 doses per episode polyethylene glycol 3350 [Miralax] 17 gram/dose powder 17 g PO DAILY PRN (Reason: constipation) Qty: 510 1RF atorvastatin 20 mg tablet See Rx Instructions .ROUTE .COMPLEX Qty: 30 2RF Dose Instruction: TAKE ONE TABLET BY MOUTH EVERY DAY Rx Instructions: TAKE ONE TABLET BY MOUTH EVERY DAY ondansetron HCl 4 mg tablet See Rx Instructions .ROUTE .COMPLEX Qty: 30 0RF Dose Instruction: TAKE ONE TABLET BY MOUTH EVERY 8 HOURS NEEDED FOR NAUSEA AND VOMITING Rx Instructions: TAKE ONE TABLET BY MOUTH EVERY 8 HOURS NEEDED FOR NAUSEA AND VOMITING losartan 50 mg tablet See Rx Instructions .ROUTE .COMPLEX Qty: 30 3RF Dose Instruction: TAKE ONE TABLET BY MOUTH EVERY MORNING Rx Instructions: TAKE ONE TABLET BY MOUTH EVERY MORNING diltiazem HCl 180 mg capsule,extended release 24 hr 180 mg PO QAM Qty: 30 4RF buspirone 5 mg tablet See Rx Instructions .ROUTE .COMPLEX Qty: 90 2RF Dose Instruction: TAKE ONE TABLET BY MOUTH THREE TIMES DAILY AT 8am, NOON, AND 6pm Rx Instructions: TAKE ONE TABLET BY MOUTH THREE TIMES DAILY AT 8am, NOON, AND 6pm potassium chloride 10 mEq tablet extended release See Rx Instructions .ROUTE .COMPLEX Qty: 60 2RF Dose Instruction: TAKE ONE TABLET BY MOUTH AT 8 am AND 1 TABLET AT 6 pm Rx Instructions: TAKE ONE TABLET BY MOUTH AT 8 am AND 1 TABLET AT 6 pm metoprolol tartrate 25 mg tablet 25 mg PO BID Qty: 60 0RF Rx Instructions: take one tablet by mouth every morning, take 1/2 tablet every evening furosemide 20 mg tablet See Rx Instructions .ROUTE .COMPLEX Qty: 30 0RF Dose Instruction: TAKE ONE TABLET BY MOUTH DAILY AT 8am Rx Instructions: TAKE ONE TABLET BY MOUTH DAILY AT 8am glipizide 2.5 mg tablet extended release 24hr See Rx Instructions .ROUTE .COMPLEX Qty: 30 0RF Dose Instruction: TAKE ONE TABLET BY MOUTH DAILY AT 8am, 15 MINUTES BEFORE breakfast Rx Instructions: TAKE ONE TABLET BY MOUTH DAILY AT 8am, 15 MINUTES BEFORE breakfast warfarin 2 mg tablet See Rx Instructions .ROUTE .COMPLEX Qty: 60 0RF Dose Instruction: TAKE TWO TABS (4MG) EVERY OTHER DAY; ONE AND HALF TAB (3MG) EVERY OTHER DAY Rx Instructions: TAKE TWO TABS (4MG) EVERY OTHER DAY; ONE AND HALF TAB (3MG) EVERY OTHER DAY pantoprazole 40 mg tablet,delayed release (DR/EC) See Rx Instructions .ROUTE .COMPLEX Qty: 60 0RF Dose Instruction: TAKE ONE TABLET BY MOUTH twice daily Rx Instructions: TAKE ONE TABLET BY MOUTH daily digoxin 125 mcg (0.125 mg) tablet 62.5 mcg PO DAILY lactulose 20 gram packet 20 g PO DAILY PRN (Reason: Constipation) levothyroxine 88 mcg Tablet 88 mcg PO QAM cetirizine 10 mg tablet 10 mg PO QAM PRN (Reason: Allergy Symptoms) No Action (DME) Diabetic shoes with inserts See Rx Instructions .Route .MEDSUPPLY Qty: 1 0RF Rx Instructions: As directed (DME) blood-glucose meter Kit See Rx Instructions .ROUTE .MEDSUPPLY Qty: 1 0RF Rx Instructions: at least once daily and prn Discharge Orders: Discharge Order (Routine); Ordered 10/14/24 Ordered By: Teja Alvarez Referrals: [facility] [Outside] Leighann Martin, JACINTO [Primary Care Provider] - (We have notified your physician's clinic of the need for a follow-up appointment to be scheduled. If you have not heard from them within the next 2 business days, please call them directly. ) Discharge Diet: As Directed Discharge Activity: Resume usual activity Patient Instructions: Hospice Care, Aortic Stenosis (DC), Sepsis (DC), Hypoxia (GEN), Opioid Safety Discharge Attestations Time Spent in Discharge Care*: greater than 30 min Status at Discharge: Cognitive status at discharge: cognitively intact, Behavioral status at discharge: cooperative, Quality Metrics Clinical Quality Measures [ No reported AMI, CVA or VTE this stay] Coding Level of Care Code 31569 Total time (in minutes) for Discharge: 45 Diagnoses Hypoxia R09.02 Abnormal urinalysis R82.90 Acute metabolic encephalopathy G93.41 Paroxysmal atrial fibrillation I48.0 Atrial fibrillation type: paroxysmal Type 2 diabetes mellitus without complication, without long-term current use of insulin E11.9 Diabetes mellitus complication status: without complication Diabetes mellitus correction insulin use: without intermediate designer use Other specified hypothyroidism E03.8 Hypothyroidism type: other Anxiety F41.9 GERD (gastroesophageal reflux disease) K21.9 Atrial fibrillation with RVR I48.91 Acute hypoxic respiratory failure J96.01 Sepsis A41.9
[2024-10-14 11:35] LABS: Glucose Point of Care 192 mg/dL (70-110)
--- NOTE | 2024-10-14 11:55 | PC.SOCIAL ---
IMM Update pg 2 of IMM Updated and reviewed w/ patients son. Copy provided and copy dated, initialed and placed in chart.
[2024-10-14 16:53] LABS: Glucose Point of Care 223 mg/dL (70-110)
[2024-10-14] MEDS: phytonadione (ADULT) 10 mg/mL Ampule 1 mL SUBCUT (17:57)
== END 2024-10-14 20:30 | disposition hospice, home (50) | DRG 871 ==
LOC: ER 22:44 → MEDSURG 10-06 02:46 → ICU 10-06 11:18 → CSU 10-09 11:29
PROVIDERS: Admitting Provider Internal Medicine; Emergency Provider Emergency Medicine; PCP Nurse Practitioner Family; Visit Provider Family Medicine
DX: A41.9 Sepsis, unspecified organism (principal); G93.41 Metabolic encephalopathy; J96.01 Acute respiratory failure with hypoxia; I50.23 Acute on chronic systolic (congestive) heart failure; J69.0 Pneumonitis due to inhalation of food and vomit; N39.0 Urinary tract infection, site not specified; N17.9 Acute kidney failure, unspecified; R65.20 Severe sepsis without septic shock; I48.0 Paroxysmal atrial fibrillation; E11.51 Type 2 diabetes mellitus with diabetic peripheral angiopathy without gangrene; E03.9 Hypothyroidism, unspecified; F41.9 Anxiety disorder, unspecified; K21.9 Gastro-esophageal reflux disease without esophagitis; E78.5 Hyperlipidemia, unspecified; F03.90 Unspecified dementia, unspecified severity, without behavioral disturbance, psychotic disturbance, mood disturbance, and anxiety; I35.0 Nonrheumatic aortic (valve) stenosis; E11.22 Type 2 diabetes mellitus with diabetic chronic kidney disease; N18.9 Chronic kidney disease, unspecified; I25.2 Old myocardial infarction; Z79.01 Long term (current) use of anticoagulants; Z79.84 Long term (current) use of oral hypoglycemic drugs
CPT/HCPCS: 36415; 36416; 36600; 51702; 71045; 71250; 80048; 80053; 80162; 81001; 82805; 82962; 83605; 83735; 83880; 84100; 84145; 84484; 85025; 85610; 86140; 87040; 87070; 87077; 87205; 87486; 87493; 87581; 87633; 92507; 92523; 92526; 92610; 93005; 93306; 94664; 96365; 96372; 96375; 96376; 97110; 97162; 97167; 97530; 97535; 99285; E0191; J0283; J0456; J0696; J1630; J1815; J1940; J2060; J2185; J3370; J3372; J3430; J3490; J7030; J7050; Q0162